=== PATIENT | male | born 1935 ===

== ENCOUNTER 2019-10-31 10:13 | Inpatient (IN) | payer MEDICARE ==
[~2019-10-31] VITALS: Ht 172.7 cm; Wt 88.2 kg
[2019-10-31] MEDS ORDERED: guaiFENesin/CODEINE (ROBITUSSIN AC) 10ML UDC PO PRN (11:15)
[2019-10-31] MEDS ORDERED: ONDANSETRON 4 MG (ZOFRAN) ORAL DISSOLVE TAB PO PRN (11:15)
[2019-10-31] MEDS ORDERED: FLEET ENEMA ADULT 1 EA BTL PR PRN (11:15)
[2019-10-31] MEDS ORDERED: diphenhydrAMINE 25 MG TAB (BENADRYL) PO PRN (11:15)
[2019-10-31] MEDS ORDERED: DOCUSATE SODIUM 100 MG (COLACE) CAP PO PRN (11:15)
[2019-10-31] MEDS ORDERED: ALPRAZolam 0.25 MG (XANAX) TAB PO PRN (11:15)
[2019-10-31] MEDS ORDERED: ENOXAPARIN 40 MG/0.4 ML (LOVENOX) SYR SC SCH (11:15)
[2019-10-31] MEDS ORDERED: LACTULOSE SYRUP 10GM/15ML (ENULOSE) 30ML UDC PO PRN (11:15)
[2019-10-31] MEDS ORDERED: BISACODYL 10 MG SUPP (DULCOLAX) PR PRN (11:15)
[2019-10-31] MEDS ORDERED: CALCIUM CARBONATE 500 MG (TUMS) TAB.CHEW PO PRN (11:15)
[2019-10-31] MEDS ORDERED: LOPERAMIDE 2 MG (IMODIUM) TABLET PO PRN (11:15)
[2019-10-31] MEDS ORDERED: ASCO100T6 PO (11:51)
[2019-10-31] MEDS ORDERED: MELA5TAB14 PO (11:51)
[2019-10-31] MEDS ORDERED: METF-478 PO (11:51)
[2019-10-31] MEDS ORDERED: CHLO4TAB36 PO (11:51)
[2019-10-31] MEDS ORDERED: AMIO200T4 PO (11:51)
[2019-10-31] MEDS ORDERED: ASPI-983 PO (11:51)
[2019-10-31] MEDS ORDERED: APIX5TAB PO (11:51)
[2019-10-31] MEDS ORDERED: LOVA20TA2 PO (11:51)
[2019-10-31] MEDS ORDERED: METO50TA7 PO (11:51)
[2019-10-31] MEDS ORDERED: INSU100V16 SQ (11:51)
[2019-10-31] MEDS ORDERED: MULT1TAB69 PO (11:51)
[2019-10-31] MEDS ORDERED: TMSL.4C PO (11:51)
[2019-10-31] MEDS ORDERED: INSU100V5 SQ (11:51)
--- NOTE | 2019-10-31 12:06 | NUR ---
ENTERED MED REC USING THE MUKESH DISCHARGE ORDERS I WILL INTERVIEW THE PT AFTER THE MEDS HAVE BEEN CONTINUED Addendum: 11/05/19 at 1352 by YANET SIEGEL CPhT SPOKE WITH THE PT AND HIS TO COMPLETE THE MED REC. MEDICATIONS THAT WERE NEW AFTER HIS [facility] VISIT THAT WERE REMOVED FROM THE MED REC: ELIQUIS 5M TAB BID CLONIDINE 0.1M TAB BID PRF BP (SBP>170) MEDICATIONS THAT HAVE BEEN CHANGED (THEY ALL HAVE BEEN CONVERTED BACK TO WHAT THE PT WAS TAKING BEFORE HIS [facility] HOSPITALIZATION): AMIODARONE: MUKESH CASTRO SAYS AMIODARONE 200M TAB DAILY, BEFORE THE HOSPITAL STAY: AMIODARONE 200MG: TAB DAILY METOPROLOL: MUKESH CASTRO SAYS METOPROLOL SUCC 50M TAB DAILY BEFORE THE HOSPITAL STAY: METOPROLOL TART 50M TAB DAILY ([facility] BUT THE PATIENT'S SAID AT A DRS APPT THEY WERE TOLD NOT TO TAKE A HALF TAB AND TO TAKE A WHOLE TABLET INSTEAD) LEVEMIR: MUKESH CASTRO SAYS LEVEMIR 18 UNITS HS BEFORE THE HOSPITAL STAY: LEVEMIR 15-20 UNITS HS NO MEDICATIONS WERE DISCONTINUED AT [facility] THE FOLLOWING ARE FILL DATES: 05-27-2019 TAMSULOSIN 0.4MG #90/90DS 07-30-2019 LOVASTATIN 20MG #90/90DS 08-01-2019 NOVOLOG #5 VIALS/90DS 08-16-2019 LEVEMIR #3 VIALS/90DS 10-08-2019 METOPROLOL TART 50MG #90/90DS 10-08-2019 METFORMIN ER 500MG #360/90DS OTC MEDS: MELATONIN MTV VIT C CHLORPHENIRAMINE
[2019-10-31 15:41] VITALS: BP 148/64
[2019-10-31 15:43] VITALS: BP 148/64
--- NOTE | 2019-10-31 15:48 | Physical Therapy Evaluation ---
PT Evaluation-General Medical Diagnosis Admission Date Oct 31, 2019 at 15:05 Medical Diagnosis: CVA Onset Date: Oct 31, 2019 Therapy Diagnosis Therapy Diagnosis: weakness; abn gait Precautions Precautions/Isolations: Standard Precautions Referral Physician: Kristine Reason for Referral: Evaluation/Treatment Medical History Pertinent Medical History: DM, HTN Additional Medical History diploplia right eye; planter nerve lesion, right RCR; right ankle fx Current History Pt transferred to this facility from acute hospital with dx of CVA. Right sided hemiparesis. Reviewed History: Yes Social History Home: Single Level Current Living Status: Spouse Entry Into Home: Stairs With Railing Prior Prior Level of Function SCALE: Activities may be completed with or without assistive devices. 0-Kflkyozqbk-hitdrdt completes the activity by him/herself with no assistance from a helper. 5-Set-up or Clean-up Assistance-helper sets up or cleans up; patient completes activity. [place] assists only prior to or following the activity. 4-Supervision or Touching Assistance-helper provides verbal cues and/or touching/steadying and/or contact guard assistance as patient completes activity. Assistance may be provided throughout the activity or intermittently. 3-Partial/Moderate Assistance-helper does LESS THAN HALF the effort. [place] lifts, holds or supports trunk or limbs, but provides less than half the effort. 2-Substantial/Maximal Assistance-helper does MORE THAN HALF the effort. [place] lifts or holds trunk or limbs and provides more than half the effort. 1-Hfbwrsgmy-bpwpct does ALL the effort. Patient does none of the effort to complete the activity. Or, the assistance of 2 or more helpers is required for the patient to complete the activity. If activity was not attempted, code reason: 7-Patient Refused. 9-Not Applicable-not attempted and the patient did not perform the activity before the current illness, exacerbation or injury. 10-Not Attempted due to Environmental Limitations-(lack of equipment, weather restraints, etc.). 88-Not Attempted due to Medical Conditions or Safety Concerns. Bed Mobility: 6 Transfers (B,C,W/C): 6 Gait: 6 Stairs: 6 Indoor Mobility (Ambulation): Independent Stairs: Independent Pt indep and active at PLOF; drives, community ambulation. PT Evaluation-Current Subjective Pt reports he had the onset of right sided weakness on Monday. Reports it has waxed and waned but since Monday, he has had little to no movement right side. Pain Numeric Pain Scale: 0-No Pain Location: No Pain Reported Pt/Family Goals His goal is to return home with his spouse when able to manage. Objective Patient Orientation: Person, Place, Time, Situation ROM/Strength ROM Lower Extremities left LE AROM WNL: right side PROM WNL Strength Lower Extremities left LE WNL Right DF-0/5; PF 1/5; quad 1/5, hamstring 1/5; hip flexion 1/5. Integumentary/Posture Integumentary refer to nursing notes for full assessment. Bowel Incontinence: No Bladder Incontinence: No Posture symmetrical Neuromuscular (Tone, Coordination, Reflexes) unable to elicit reflexes right LE; hemiparesis right side. Sensory Vision: Wears Glasses Hearing: Functional Hand Dominance: Right Sensation Right Lower Extremit: Intact Sensation Left Lower Extremity: Intact Transfers Roll Left to Right (QC): 2 Sit to Lying (QC): 2 Lying to Sitting/Side of Bed(Q: 2 Sit to Stand (QC): 1 (assist of 2 to come to a full stand. ) Chair/Lty-jm-Maonl Xfer(QC): 1 (assist of 2 to perform SPT. ) Toilet Transfer: 88 Car Transfer (QC): 2 (max assist to transfer in/out of car) Heavy cues for sequencing and safety. No active use of right side for transfers. Gait Does the Patient Walk?: No and Walking Goal IS indicated Mode of Locomotion: Walk Anticipated Mode of Locomotion: Walk Walk 10 feet (QC): 88 Walk 50 ft with 2 Turns(QC): 88 Walk 150 ft (QC): 88 Walking 10ft/uneven surface-QC: 88 Comments/Gait Description Pt unable to ambulate at this time. Wheelchair Training Does the Pt Use a Wheelchair?: Yes Will assess this at next visit. Stairs 1 Step (curb) (QC): 88 4 Steps (QC): 88 12 Steps (QC): 88 Balance Sitting Static: Fair Sitting Dynamic: Fair Standing Static: Poor Standing Dynamic: Poor Picking up an Object (QC): 88 Treatment Functional transfer training and bed mobility; addressed ARU set up and POC; worked on positioning in bed and use of left side to assist right side. Assessment/Needs Post CVA with limited use of right side at this time. Pt was indep at [facility] and active. He presents with gross right side weakness and limited active use which impairs functional transfers, bed mobility and his ability to stand or walk. He will benefit from skilled PT services to address these deficits and promote mod indep functional mobiltiy to allow him to return home as before Rehab Potential: Good PT Short Term Goals Short Term Goals Time Frame: Nov 14, 2019 Roll Left & Right: 3 Sit to lyin Lying to sitting on side of be: 3 Sit to stand: 3 Chair/hmw-lz-cuqhr transfer: 3 Walk 10 feet: 2 Wheel 50ft w/2 turns: 4 Wheel 150 feet: 4 PT Long-Term Goals Long-Term Goals PT Long-Term Goals Time Frame: Nov 28, 2019 Roll Left & Right (QC): 6 Sit to Lying (QC): 6 Lying-Sitting on Side/Bed(QC): 6 Sit to Stand (QC): 6 Chair/Lnj-jv-Fwmtu Xfer(QC): 6 Toilet Transfer (QC): 6 Car Transfer (QC): 5 Does the Patient Walk: No and Walking Goal IS indicated Walk 10 feet (QC): 6 Walk 50ft with 2 Turns (QC): 6 Walk 150 ft (QC): 6 Walking 10ft on Uneven Surface: 5 1 Step (curb) (QC): 5 4 Steps (QC): 5 12 Steps (QC): 4 Picking up an Object (QC): 4 Wheel 50 feet with 2 turns (QC: 6 Type: Manual Wheel 150 feet: 6 Type: Manual PT Plan Problem List Problem List: Activity Tolerance, Functional Strength, Safety, Balance, Gait, Transfer, Bed Mobility Treatment/Plan Treatment Plan: Continue Plan of Care Treatment Plan: Bed Mobility, Education, Functional Activity Joey, Functional Strength, Group Therapy, Gait, Safety, Therapeutic Exercise, Transfers Treatment Duration: Nov 28, 2019 Frequency: At least 5 of 7 days/Wk (IRF) Estimated Hrs Per Day: 1.5 hours per day Patient and/or Family Agrees t: Yes Safety Risks/Education Patient Education: Transfer Techniques, Safety Issues Teaching Recipient: Patient Teaching Methods: Demonstration, Discussion Response to Teaching: Reinforcement Needed Discharge Recommendations Therapy Discharge Recommendati: Post Acute PT Time/GCodes Time In: 1505 Time Out: 1545 Total Billed Treatment Time: 40 Total Billed Treatment visit EVM 15 FA 25 KAREN PACE PT Oct 31, 2019 15:48
[2019-10-31] MEDS ORDERED: CLON0.1T PO (15:59)
[2019-10-31] MEDS ORDERED: inSUlin ASPART (NovoLOG) 1 UNIT/0.01 ML (CHARGE PER UNIT) SC SCH (17:15)
[2019-10-31] MEDS ORDERED: CHLORPHENIRAMINE 4 MG TAB (NON-FORMULARY) PO PRN (18:00)
[2019-10-31] MEDS ORDERED: cloNIDine 0.1 MG (CATAPRES) TAB PO PRN (18:00)
[2019-10-31] MEDS: inSUlin ASPART (NovoLOG) 1 UNIT/0.01 ML (CHARGE PER UNIT) SC SCH ×2 (18:19→21:29)
[2019-10-31] MEDS: inSUlin ASPART (NovoLOG) 1 UNIT/0.01 ML (CHARGE PER UNIT) SQ SCH (18:35)
[2019-10-31] MEDS: SIMvastatin 10 MG (ZOCOR) TAB PO SCH (18:39)
[2019-10-31] MEDS: metFORMIN XR 500 MG (GLUCOPHAGE XR) TAB PO SCH (18:39)
--- NOTE | 2019-10-31 21:24 | PM&R Post Admission Assessment ---
PM&R HP Date of Visit: Oct 31, 2019 Time of Visit: 18:15 History of Present Illness CC: CVA with residual right sided flaccidity HPI: HPI: This is an 84yoWM clinic Pt of Dr. Beth Bryan, whom I spoke to earlier today, who presents after sustaining a left MCA stroke and in need of aggressive inpatient rehabilitation to regain function considering is right sided flaccidity. To note he was admitted on 10/27/19 for TIA and during the DC process on 10/28/19 he suffered the acute CVA but was not a TPA candidate due to OAC administration. He is , contemplated going to [facility] for convenience because they live in [place] but inpatient rehab outcomes after stroke is superior, documented in many studies and he agreed to come. I did update Dr. Bryan. He was previously independent of all functions and lived with his living independently. He is a prior smoker many years ago and is retired from [email or web address] for 35 years with impeccable driving record of 4.2 million miles without an accident. He has been to his current for 18 years. 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 Patient has not had a BM since Monday so will aggressively treat that. Dysphagia at night but eating and drinking well and has no issues with urination. DC note per [facility] Hospitalist: Primary Discharge Diagnosis: Acute CVA (cerebrovascular accident) Other Active medical issues also addressed during this admission: Active Hospital Problems Diagnosis Stroke Acute CVA (cerebrovascular accident) Right sided weakness History of TIA (transient ischemic attack) and stroke Stroke-like symptom History of penile implant Hyperlipidemia Paroxysmal atrial fibrillation Diabetic polyneuropathy associated with type 2 diabetes mellitus CAD (coronary artery disease) Impotence of organic origin: Corrected with IPP Essential hypertension Diabetes mellitus type 2 with neurological manifestations Resolved Hospital Problems No resolved problems to display. HOSPITAL COURSE: Please see H and P for full details on admission, symptoms and initial care. Chief Complaint-right sided weakness HPI-Marcial Henson a 84 y.o.malewith past medical history of CAD s/p CABG, right carotid endarterectomy, diabetes, erectile dysfunctions s/p penile implant, HTN, HLD,paroxysmal A. fib was admitted for right-sided weakness.Patient stroke work-up M done. CT head and CTA head and neck no acute abnormality,no acute stroke or hemorrhage.Echocardiogram with bubble study no evidence of wmnps-iy-vwma shunt with normal LV function.Cannot Obtain MRI brain because of the penile implant.Patient was supposed to be on Eliquis for A. fib however he was not taking for the past year.his Eliquis wasresumed. Patient symptoms are from worsening right-sided weakness and waxing and waning over the past few days.CT head did not show any acute stroke. Ultrasound myopericarditis did not show any stenosis but no unstable plaque. Patient was evaluated by neurology recommends continued Eliquis 5 mg twice daily and Lipitor 40 mg. Patient was seen at bedside this morning he is awake alert oriented continues to have right-sided upper and lower extremity weakness with strength 0/5. PT/OT - rec - rehab.Referral sent to [facility] [place] inpatient rehab.Patient was accepted for possible discharge tomorrow ROS:Has constipation continues to have weakness on the right side of the body.denies abdominal pain, nausea vomiting, headache, blurred vision, chest pain, palpitations, urinary disturbance 10/31/19:Patient was seen at bedside this morning.Being in the chair.His right-sided weakness is still complete.No appreciated movements noted.Strength is 0/5 on the right upper and lower extremity.Mild numbness on the right side of the face.Patient will continue with PT and OT. He is accepted at [facility] for further management of stroke. Met with the patient along with SW/CM discussed in detail about the rehabilitat ion and the PT and OT services that he will receive with the facility. Patient and agrees with the plan plan is to discharge him to rehab today to follow-up with neurology,cardiology, endocrinology and primary care doctor in 1 week. Previous DC note from 10/27/19-10/28/19 the afternoon of his acute CVA: Hospital Course:Marcial Henson a 84 y.o.,malewho presented with right sided weakness. Patient and family also reported facial droop that was not present on admission. Patient was placed on observation and monitored. Patient was seen and examined at the bedside this morning. Unfortunately, because of penile implant, we could not perform and MRI. During physical examination this morning, patient's weakness has almost completely resolved. Of note, patient has PAF for which he was previously on anticoagulation but stopped by PCP according to the patient and his . No complications reported before it was stopped. Patient's H/H remain stable currently. CM/SW consulted. Patient has been instructed to continue anticoagulation indefinitely to prevent another episode of stroke. ECHO did not show evidence of PFO or thrombus. Patient discharged home with instruction to follow up with his appointments as scheduled Other Medical History: CAD (coronary artery disease)2000 stents x 3, many years ago. Myocardial infarct in 1999, by history. Carotid artery [id number] Right carotid endarterectomy in 2001. Diabetes mellitus type 2 with neurological [id number] Diabetes mellitus type 2 since 1996, insulin dependent. 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 Other Past Procedures: HX ANKLE FRACTURE TX right HX AORTIC [id number] added 2 more stents, total of 6 stents, by history. HX ARTERIAL BYPASS [id number]/08/2017 Triple Bypass HX CAROTID [id number] Right carotid endarterectomy in 2001. HX COLECTOMY03/28/12 sigmoid colectomy, resection proximal rectum secondary to polyp sigmoid colon with dysplasia HX CORONARY STENT PLACEMENT x3 HX ROTATOR CUFF [id number] Right shoulder injury in a fall in [place], with right shoulder arthroscopic surgery in [place] in 2009. HX STRABISMUS SURGERYRight04/08/16 recess medial rectus 5.5mm HX SURGICAL OTHER01/17/01 Penile implantation of Ambicor two pc peile prothesis and excision of peyronies plaque HX SURGICAL OTHER03/06/01 Explantation of infected penile prothesisand irrigation of wound with placement of drains HX SURGICAL OTHER01/19/01 Deflation of penile prosthesis Assessment and Recommendations Assessment: Patient with recurrent left MCA territory stroke, cardioembolic (AFIB), right arm and leg plegia, completely resolved this AM, started on Eliquis, then symptoms recurred and are much worse than yesterday's event. El iquis precludes IV TPA, however he may be a thrombectomy candidate, and therefore should have stat CTA of the head-neck. Of note, spinal cord not implicated, based on history of slurring of speech that accompanied stroke onset yesterday. Recommendations: STAT CTA head and neck, and if large vessel obstruction identified then please consult neurointervention team STAT Patient should remain in-house for at least another 24-48 hours, and continue Eliquis since current stroke began while on Eliquis, therefore benefit of continuing Eliquis outweighs risk, whereas discontinuing Eliquis puts patient at high risk for recurrent stroke from atrial fibrillation Repeat CT head without contrast tomorrow and if no significant change from prior CTs then consider CT cervical spine without contrast and please reconsult teleneurology or in-house neurology Patient should be followed by in-house neurology or daily by tele-neurology service if in-house neurology not available Consider cervical spine CT without contrast if patient large vessel obstruction not present on CTA and repeat CT head tomorrow Disposition: Disposition recommendations pending results of additional workup or management Past Weeeoeq-Ohmfcw-Zonfel Hx Past Med/Social Hx: Reviewed Nursing Past Med/Soc Hx, Reviewed and Corrections made Patient Social History Marrital Status: Employed/Student: retired ([employer]) Alcohol Use: Denies Use Recreational Drug Use: No Physical Abuse Screen: No Sexual Abuse: No Recent Foreign Travel: No Contact w/other who traveled: No Recent Hopitalizations: Yes (Patient transferred from [facility]) Recent Infectious Disease Expo: No Immunizations Up To Date Pediatric: No Date of Pneumonia Vaccine: Aug 21, 2016 Date of Influenza Vaccine: Apr 21, 2019 Seasonal Allergies Seasonal Allergies: No Past Medical History Surgeries: CABG, Gallbladder, Open Heart Surgery, Penile Implant, Vascular Surgery partial colon resection Currently Using CPAP: No Currently Using BIPAP: No Cardiac: Atrial Fibrillation, Coronary Artery Disease, High Cholesterol, Hypertension, Peripheral Vascular Neurological: Neuropathy, Stroke (10/28/19 not tPa candidate) Sexually Transmitted Disease: No HIV/AIDS: No Gastrointestinal: Gastroesophageal Reflux, Polyps Musculoskeletal: Arthritis, Chronic Back Pain Endocrine: Diabetes, Insulin dep Are Your Blood Sugars Over 250: No HEENT: Cataract, Macular Degeneration, Double Vision Loss of Vision: Denies Hearing Impairment: Hard of Hearing, Bilateral Hearing Aide Cancer: Colon Did You Recieve Any Treatments: Yes What Type of Treatment Did You: Surgical Intervention History of Blood Disorders: No Adverse Reaction to Blood Ortega: No Family History Alcoholism G8 BROTHER Cataracts 19 FATHER Myocardial infarction 19 MOTHER Psychosocial problem G8 SISTER Prior Level of Function Bed Mobility: 6 Transfers: 6 Gait: 6 Stairs: 6 Indoor Mobility (Ambulation): Independent Stairs: Independent Current Level of Fuctioning Roll Left to Right: 2 Sit to Lyin Lying to Sitting/Side of Bed: 2 Sit to Stand: 1 (assist of 2 to come to a full stand. ) Chair/Rpm-bw-Floap Xfer: 1 (assist of 2 to perform SPT. ) Car Transfer: 2 (max assist to transfer in/out of car) Does the Patient Walk: No and Walking Goal IS indicated Mode of Locomotion: Walk Anticipated Mode of Locomotion: Walk Walk 10 feet: 88 Walk 50 ft with 2 Turns: 88 Walk 150 ft: 88 Walking 10ft on uneven surface: 88 Does the Pt Use a Wheelchair: Yes 1 Step (curb): 88 4 Steps: 88 12 Steps: 88 Picking up an Object: 88 PM&R Allergy/Meds/Data Review Allergies Coded Allergies: No Allergy Information Available (Unverified , 10/31/19) Home Medications Scheduled Amiodarone HCl (Amiodarone HCl), 200 MG PO DAILY, (Reported) Apixaban (Eliquis), 5 MG PO BID, (Reported) Ascorbic Acid (Vitamin C), 100 MG PO DAILY, (Reported) Aspirin (Aspirin EC), 81 MG PO HS, (Reported) Insulin Aspart (Novolog), 12 UNIT SQ WM, (Reported) Insulin Determir (Levemir), 18 UNITS SQ HS, (Reported) Lovastatin (Lovastatin), 20 MG PO 1800 W/MEALS, (Reported) Metformin HCl (Metformin HCl ER), 1,000 MG PO BID, (Reported) Metoprolol Succinate (Metoprolol Succinate), 50 MG PO HS, (Reported) Multivitamin (Multivitamins), 1 EACH PO DAILY, (Reported) Tamsulosin HCl (Flomax), 0.4 MG PO DAILY, (Reported) Scheduled PRN Chlorpheniramine Maleate (Chlorpheniramine Maleate), 4 MG PO TID PRN for ALLERGY SYMPTOMS, (Reported) Clonidine HCl (Clonidine HCl), 0.1 MG PO BID PRN for BLOOD PRESSURE, (Reported) Melatonin (Melatonin), 10 MG PO HS PRN for SLEEP, (Reported) Current Medications Current Medications Reviewed Laboratory Data Laboratory Tests 3/12/20 16:04: Glucometer 334H 10/31/19 20:13: Glucometer 193H Review of Systems Constitutional: see HPI, dizziness, weakness Gastrointestinal: constipation Musculoskeletal: back pain Psychiatric/Neurological: Numbness, Paresthesia, Weakness Physical Exam Physical Exam Vital Signs Vital Signs - First Documented 10/31/19 15:41 Temp 36.2 Pulse 54 Resp 20 B/P (MAP) 148/64 (92) Pulse Ox 94 O2 Delivery Room Air Capillary Refill : Height, Weight, BMI Height: '" Weight: lbs. oz. kg; 28.73 BMI Method: General Appearance: No Apparent Distress, WD/WN, Chronically ill Eyes: Bilateral Eye Normal Inspection, Bilateral Eye PERRL HEENT: PERRL/EOMI, Normal ENT Inspection, Pharynx Normal Neck: Full Range of Motion, Normal Inspection, Non Tender, Supple, Carotid Bruit Respiratory: Chest Non Tender, Lungs Clear, Normal Breath Sounds, No Accessory Muscle Use, No Respiratory Distress Cardiovascular: No Edema, No Gallop, No JVD, No Murmur, Normal Peripheral Pulses, Irregularly Irregular Gastrointestinal: Normal Bowel Sounds, No Organomegaly, No Pulsatile Mass, Non Tender, Soft Back: Normal Inspection, No CVA Tenderness, No Vertebral Tenderness Extremity: Normal Capillary Refill, Normal Inspection, Normal Range of Motion, Non Tender, No Calf Tenderness, No Pedal Edema Neurologic/Psychiatric: Alert, Oriented x3, Normal Mood/Affect, parent partner II-XII Norm as Tested, Abnormal Gait, Motor Weakness (right sided weakness) Skin: Normal Color, Warm/Dry Lymphatic: No Adenopathy PM&R Medical Assessment & Plan REHAB/MEDICAL ASSESSMENT AND PLAN: REHAB IMPAIRMENT GROUP: CVA with right sided flaccidity ETIOLOGIC DIAGNOSIS: CVA with right sided flaccidity The comorbidities that impact the patients function and/or functional outcome by: advanced age, AF, OAC, HTN, DM, PVD REHAB PLAN: The patient is being admitted to our comprehensive inpatient rehabilitation facility and can tolerate the intensity of service consisting of at least: 180 minutes of therapy a day, 5 out of 7 days a week Rehab treatment will consist of: PT OT ST will focus on regaining independence with new right sided flaccidity and enable him to return home with his The patient/family has a good understanding of our discharge process and will benefit from an interdisciplinary inpatient rehabilitation program. The patient has potential to make improvement and is in need of at least two of the following multidisciplinary therapies including but not limited to physical, occupational, speech, and prosthetics and orthotics. Additionally the patient will need services from respiratory, nutritional services, wound care, psychology, etc. (Customize this to each patient). Given the patients complex condition and risk of further medical complications, rehabilitation services cannot be safely or effectively provided at a lower level of care such as a jail facility. BARRIERS TO DISCHARGE: Lives at home with ESTIMATED LOS: 14 days DISPOSITION: Home RELEVANT CHANGES SINCE PREADMISSION SCREENING: I have compared the patients medical and functional status at the time of the preadmission screening and there are: no changes PROGNOSIS: Good REHABILITATION GOALS: 1. PT OT ST will focus on regaining independence with new right sided flaccidity and enable him to return home with his All the above goals were reviewed with the patient and he/she is in agreement. By signing this document, I acknowledge that I have personally performed a full physical examination on this patient within 24 hours of admission to this inpatient rehabilitation facility and have determined the patient to be able to tolerate the above course of treatment at an intensive level for a reasonable period of time. I will be completing a detailed individualized Plan of Care for this patient by day #4 of the patients stay based upon the Preadmission Screen, the Post-Admission Evaluation, and the therapy evaluations. Admission Dx/Comorbidities: (1) CVA (cerebral vascular accident) ICD Codes: I63.9 - Cerebral infarction, unspecified (2) Flaccid hemiplegia affecting dominant side ICD Codes: G81.00 - Flaccid hemiplegia affecting unspecified side (3) Diabetes ICD Codes: E11.9 - Type 2 diabetes mellitus without complications (4) Hypertension ICD Codes: I10 - Essential (primary) hypertension (5) Hyperlipemia ICD Codes: E78.5 - Hyperlipidemia, unspecified (6) On continuous oral anticoagulation ICD Codes: Z79.01 - MCFP (current) use of anticoagulants (7) Atrial fibrillation ICD Codes: I48.91 - Unspecified atrial fibrillation (8) History of penile implant ICD Codes: Z96.0 - Presence of urogenital implants (9) History of colon cancer ICD Codes: Z85.038 - Personal history of other malignant neoplasm of large intestine (10) Former smoker ICD Codes: Z87.891 - Personal history of nicotine dependence (11) Renal insufficiency ICD Codes: N28.9 - Disorder of kidney and ureter, unspecified (12) Constipation ICD Codes: K59.00 - Constipation, unspecified Assessment/Plan Assessment and Plan Assess & Plan/Chief Complaint Assessment: CVA 10/28/19 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 HTN HLP CRI AF ED Acute constipation Plan: IRF protocol BM regimen Fall risk Cardiology consultation SCOTT BARBOSA DO Oct 31, 2019 21:24
[2019-10-31] MEDS: meTOproloL SUCCINATE 50 MG (TOPROL XL) TAB PO SCH (21:27)
[2019-10-31] MEDS: ASPIRIN E.C. 81 MG (ECOTRIN) TAB PO SCH (21:27)
[2019-10-31] MEDS: MELATONIN 3 MG TABLET PO PRN (21:27)
[2019-10-31] MEDS: polyethylene glycoL POWDER 17 GM (MIRALAX) PACK PO SCH (21:27)
[2019-10-31] MEDS: DOCUSATE SODIUM 100 MG (COLACE) CAP PO SCH (21:27)
[2019-10-31] MEDS: SENNA W/DOCUSATE (SENOKOT S) TABLET PO SCH (21:27)
[2019-10-31] MEDS: APIXABAN 5 MG (ELIQUIS) TABLET PO SCH (21:31)
[2019-11-01] MEDS: inSUlin ASPART (NovoLOG) 1 UNIT/0.01 ML (CHARGE PER UNIT) SC SCH ×4 (05:59→21:16)
[2019-11-01 06:00] VITALS: BP 155/66
[2019-11-01 06:13] LABS: BASOPHILS % (AUTO) 1 % (0-10); EOSINOPHILS # (AUTO) 0.3 10^3/uL (0.0-0.3); EOSINOPHILS % (AUTO) 3 % (0-10); HEMATOCRIT 43 % (40-54); HEMOGLOBIN 14.4 G/DL (13.3-17.7); LYMPHOCYTES # (AUTO) 2.6 X 10^3 (1.0-4.0); LYMPHOCYTES % (AUTO) 30 % (12-44); MEAN CORPUSCULAR HEMOGLOBIN 32 PG (25-34); MEAN CORPUSCULAR HGB CONC 34 G/DL (32-36); MEAN CORPUSCULAR VOLUME 95 FL (80-99); MEAN PLATELET VOLUME 11.4 FL (7.4-10.4); MONOCYTES % (AUTO) 12 % (0-12); NEUTROPHILS # (AUTO) 4.6 X 10^3 (1.8-7.8); NEUTROPHILS % (AUTO) 54 % (42-75); PLATELET COUNT 262 10^3/uL (130-400); RED CELL DISTRIBUTION WIDTH 14.7 % (10.0-14.5); WHITE BLOOD COUNT 8.5 10^3/uL (4.3-11.0)
[2019-11-01 06:44] LABS: ALANINE AMINOTRANSFERASE 18 U/L (0-55); ALBUMIN 3.5 GM/DL (3.2-4.5); ALKALINE PHOSPHATASE 86 U/L (40-136); BILIRUBIN,TOTAL 0.5 MG/DL (0.1-1.0); BUN/CREATININE RATIO 20; CALCIUM 9.1 MG/DL (8.5-10.1); CARBON DIOXIDE 24 MMOL/L (21-32); CHLORIDE 103 MMOL/L (98-107); CREATININE SERUM 1.05 MG/DL (0.60-1.30); GFR ESTIMATED > 60; GLUCOSE 95 MG/DL (70-105); POTASSIUM 4.1 MMOL/L (3.6-5.0); SODIUM 138 MMOL/L (135-145); TOTAL PROTEIN 5.8 GM/DL (6.4-8.2)
[2019-11-01] MEDS: metFORMIN XR 500 MG (GLUCOPHAGE XR) TAB PO SCH ×2 (07:17→16:48)
[2019-11-01] MEDS: polyethylene glycoL POWDER 17 GM (MIRALAX) PACK PO SCH ×2 (08:15→21:45)
[2019-11-01] MEDS: SENNA W/DOCUSATE (SENOKOT S) TABLET PO SCH ×2 (08:16→21:46)
[2019-11-01] MEDS: TAMSULOSIN 0.4 MG (FLOMAX) CAP PO SCH (08:16)
[2019-11-01] MEDS: APIXABAN 5 MG (ELIQUIS) TABLET PO SCH ×2 (08:16→21:24)
[2019-11-01] MEDS: MULTIVIT W/MINERALS TAB (THERAGRAN M) PO SCH (08:16)
[2019-11-01] MEDS: DOCUSATE SODIUM 100 MG (COLACE) CAP PO SCH ×2 (08:17→21:45)
[2019-11-01] MEDS: AMIODARONE 200 MG (CORDARONE) TAB PO SCH (08:17)
[2019-11-01 08:18] VITALS: BP 135/66
[2019-11-01] MEDS ORDERED: ASCORBIC ACID 100 MG PO SCH (09:00)
--- NOTE | 2019-11-01 09:03 | PM&R Progress Note ---
Subjective HPI/CC On Admission Date Seen by Provider: Nov 01, 2019 Time Seen by Provider: 09:00 Subjective/Events-last exam Pt had a pretty good night, didn't sleep much Labile glucose noted MiraLax and fleets and suppository and soap suds will be needed since it has been almost a week since a bowel movement Overall feeling pretty good about everything. stays here with him / Checked meds and labs Reviewed therapy notes Conferred with manager pathology of Systems General: Fatigue Neurological: Weakness, Numbness, Incoordination Objective Exam Vital Signs Vital Signs Date Time Temp Pulse Resp B/P (MAP) Pulse Ox O2 Delivery O2 Flow Rate FiO2 11/01/19 16:00 36.6 54 20 143/76 (98) 98 Room Air Capillary Refill : Less Than 3 Seconds General Appearance: No Apparent Distress, WD/WN, Chronically ill HEENT: PERRL/EOMI, Normal ENT Inspection, Pharynx Normal Neck: Full Range of Motion, Normal Inspection, Non Tender, Supple, Carotid Bruit Respiratory: Chest Non Tender, Lungs Clear, Normal Breath Sounds, No Accessory Muscle Use, No Respiratory Distress Cardiovascular: No Edema, No Gallop, No JVD, No Murmur, Normal Peripheral Pulses, Irregularly Irregular Gastrointestinal: Normal Bowel Sounds, No Organomegaly, No Pulsatile Mass, Non Tender, Soft Back: Normal Inspection, No CVA Tenderness, No Vertebral Tenderness Extremity: Normal Capillary Refill, Normal Inspection, Normal Range of Motion, Non Tender, No Calf Tenderness, No Pedal Edema Neurologic/Psychiatric: Alert, Oriented x3, Normal Mood/Affect, senior marketing analyst II-XII Norm as Tested, Abnormal Gait, Motor Weakness (right sided weakness) Skin: Normal Color, Warm/Dry Lymphatic: No Adenopathy Results/Procedures Lab Laboratory Tests 11/01/19 05:50 Patient resulted labs reviewed. FIM Transfers Therapy Code Descriptions/Definitions Functional [place] Measure: 0=Not Assessed/NA 4=Minimal Assistance 1=Total Assistance 5=Supervision or Setup 2=Maximal Assistance 6=Modified [place] 3=Moderate Assistance 7=Complete IndependenceSCALE: Activities may be completed with or without assistive devices. 1-Zwtvafclhq-cirqzbl completes the activity by him/herself with no assistance from a helper. 5-Set-up or Clean-up Assistance-helper sets up or cleans up; patient completes activity. [place] assists only prior to or following the activity. 4-Supervision or Touching Assistance-helper provides verbal cues and/or touching/steadying and/or contact guard assistance as patient completes activity. Assistance may be provided throughout the activity or intermittently. 3-Partial/Moderate Assistance-helper does LESS THAN HALF the effort. [place] lifts, holds or supports trunk or limbs, but provides less than half the effort. 2-Substantial/Maximal Assistance-helper does MORE THAN HALF the effort. [place] lifts or holds trunk or limbs and provides more than half the effort. 7-Xijagunnm-ykuexm does ALL the effort. Patient does none of the effort to complete the activity. Or, the assistance of 2 or more helpers is required for the patient to complete the activity. If activity was not attempted, code reason: 7-Patient Refused. 9-Not Applicable-not attempted and the patient did not perform the activity before the current illness, exacerbation or injury. 10-Not Attempted due to Environmental Limitations-(lack of equipment, weather restraints, etc.). 88-Not Attempted due to Medical Conditions or Safety Concerns. Roll Left to Right (QC): 2 Sit to Lying (QC): 2 Sit to Stand (QC): 1 (assist of 2 to come to a full stand. ) Chair/Slp-df-Qaeqq Xfer(QC): 1 (assist of 2 to perform SPT. ) Car Transfer (QC): 2 (max assist to transfer in/out of car) Gait Training Does the Patient Walk?: No and Walking Goal IS indicated Walk 10 feet (QC): 88 Walk 50 ft with 2 Turns(QC): 88 Walk 150 ft (QC): 88 Walking 10ft/uneven surface-QC: 88 Wheelchair Training Does the Pt Use a Wheelchair?: Yes Stair Training 1 Step (curb) (QC): 88 4 Steps (QC): 88 12 Steps (QC): 88 Balance Picking up an Object (QC): 88 Assessment/Plan Assessment and Plan Assess & Plan/Chief Complaint Assessment: CVA 10/28/19 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 HTN HLP CRI AF ED Acute constipation initiated aggressive meds Plan: IRF protocol BM regimen Fall risk Cardiology consultation (1) CVA (cerebral vascular accident) (2) Flaccid hemiplegia affecting dominant side (3) Diabetes (4) Hypertension (5) Hyperlipemia (6) On continuous oral anticoagulation (7) Atrial fibrillation (8) History of penile implant (9) History of colon cancer (10) Former smoker (11) Renal insufficiency (12) Constipation SCOTT BARBOSA DO Nov 01, 2019 09:03
--- NOTE | 2019-11-01 09:29 | Occupational Therapy Eval ---
OT Evaluation-General/PLF Medical Diagnosis Admission Date Oct 31, 2019 at 15:05 Medical Diagnosis: CVA Onset Date: Oct 31, 2019 Therapy Diagnosis Therapy Diagnosis: Impaired self care skills Precautions Precautions/Isolations: Fall Prevention, Standard Precautions Safety Interventions: Reorient-PRN Referral Physician: Kristine Medical History Pertinent Medical History: Atrial Fib, CAD, DM, HTN Additional Medical History Right RCR Current History Pt admitted to ARU following acute hospitalization for CVA with right side deficits Reviewed History: Yes Social History Home: Single Level Current Living Status: Spouse Entry Into Home: Stairs With Railing Steps Inside Home: 1 ADL-Prior Level of Function SCALE: Activities may be completed with or without assistive devices. 1-Ardjyabfwc-dnwzcvz completes the activity by him/herself with no assistance from a helper. 5-Set-up or Clean-up Assistance-helper sets up or cleans up; patient completes activity. [place] assists only prior to or following the activity. 4-Supervision or Touching Assistance-helper provides verbal cues and/or touching/steadying and/or contact guard assistance as patient completes activity. Assistance may be provided throughout the activity or intermittently. 3-Partial/Moderate Assistance-helper does LESS THAN HALF the effort. [place] lifts, holds or supports trunk or limbs, but provides less than half the effort. 2-Substantial/Maximal Assistance-helper does MORE THAN HALF the effort. [place] lifts or holds trunk or limbs and provides more than half the effort. 6-Khmbuwbtw-rgowww does ALL the effort. Patient does none of the effort to complete the activity. Or, the assistance of 2 or more helpers is required for the patient to complete the activity. If activity was not attempted, code reason: 7-Patient Refused. 9-Not Applicable-not attempted and the patient did not perform the activity before the current illness, exacerbation or injury. 10-Not Attempted due to Environmental Limitations-(lack of equipment, weather restraints, etc.). 88-Not Attempted due to Medical Conditions or Safety Concerns. ADL PLOF Comments Pt reports being independent prior to admission. Did not use any AD Self Care: Independent Functional Cognition: Independent DME/Equipment: Bath Bench, Shower, Tub OT Current Status Subjective Pt in bed, agrees to therapy. Pt has no c/o pain during session. Mental Status/Objective Patient Orientation: Person, Place, Situation Current Glasses/Contacts: Yes Hearing Aids: No (Pt states he has hearing aids, but rarely wears them) Dentures/Partials: Yes Hand Dominance: Right Upper Extremity ROM Left UE WFL Righty UE PROM WFL Upper Extremity Coordination Left UE WFL Right UE impaired- Upper Extremity Sensation Intact to light touch Upper Extremity Strength Left UE Grossly WFL Pt demonstrates trace shoulder elevation, scapular retraction, and shoulder abduction. Trace elbow extension and wrist and finger flex/ext. ADL-Treatment Eating (QC): 4 (by report) Oral Hygiene (QC): 2 (Max assist for denture care) Shower/Bathe Self (QC): 1 (Assist x2 required for safety during LE bathing.) Upper Body Dressing (QC): 2 (Pt able to thread left UE into sleeve. Assist for right UE. Pt able to partially pull shirt over head, but requires assist to pull down in back.) Lower Body Dressing (QC): 1 (Pt requires assist to thread bilateral LE into underwear and pants. Assist x2 required to stand and complete pant hike. Pt has impaired standing balance and leans heavily to right in standing. ) On/Off Footwear (QC): 1 (Assist to doff/don socks and shoes.) Toileting Hygiene (QC): 7 (declined toileting at this time.) Pt supine to sit with max assist. Sat EOB with assist for balance. Stand pivot transfer to w/c with max assist. Pt requires cues for hand placement, sequ encing, and safety during transfer. Sponge bath completed while seated in w/c. Pt sitting in w/c with needs met after session, PT and spouse present. Education OT Patient Education: Rehab process Teaching Recipient: Patient Teaching Methods: Discussion Response to Teaching: Verbalize Understanding OT Short Term Goals Short Term Goals Time Frame: Nov 15, 2019 Oral hygiene: 3 Toileting hygiene: 2 Shower/bathe self: 3 Upper body dressin Lower body dressin Putting on/taking off footwear: 3 OT Penitentiary Goals Penitentiary Goals Time Frame: Nov 29, 2019 Eating (QC): 6 Oral Hygiene (QC): 6 Toileting Hygiene (QC): 5 Shower/Bathe Self (QC): 4 Upper Body Dressing (QC): 5 Lower Body Dressing (QC): 5 On/Off Footwear (QC): 5 Additional Goals: 1-Demonstrate ADL Tasks, 2-Verbalize Understanding, 3- ImproveStrength/Joey 1=Demonstrate adherence to instructed precautions during ADL tasks. 2=Patient will verbalize/demonstrate understanding of assistive devices/modifications for ADL. 3=Patient will improve strength/tolerance for activity to enable patient to perform ADL's. OT Education/Plan Problem List/Assessment Assessment: Decreased Activ Tolerance, Decreased UE Strength, Dependent Transfers, Impaired Coordination, Impaired Funct Balance, Impaired I ADL's, Impaired Self-Care Skills, Restricted Funct UE ROM Pt admitted to ARU following CVA with right side deficits. Pt demonstrates impaired AROM and strength of right UE/LE, impacting ability to perform ADL tasks and transfers. Pt to benefit from skilled OT intervention for ADL training, transfers, strengthening, coordination, and home safety education to increase level of independence and allow safe discharge. Discharge Recommendations Plan/Recommendations: Continue POC Treatment Plan/Plan of Care Treatment,Training & Education: Yes Patient would benefit from OT for education, treatment and training to promote independence in ADL's, mobility, safety and/or upper extremity function for ADL's. Plan of Care: ADL Retraining, Functional Mobility, Group Exercise/Act as Ind, UE Funct Exercise/Act, UE Neuromus Re-Ed/Coord Treatment Duration: Nov 29, 2019 Frequency: At least 5 of 7 days/Wk (IRF) Estimated Hrs Per Day: 1.5 hours per day Rehab Potential: Good Time/GCodes Start Time: 08:00 Stop Time: 09:00 Total Time Billed (hr/min): 60 Billed Treatment Time 1 visit, EVM(15minutes), ADLx3(45minutes) JALIL MERCEDES OT Nov 01, 2019 09:29
--- NOTE | 2019-11-01 09:59 | Physical Therapy Daily Note ---
PT Daily Note-Current Subjective Patient reports no pain, agrees to PT. Appearance Patient was returned too room with call light in reach and secure in w/c. present. Patient told not to get up from w/c without help from staff. Transfers SCALE: Activities may be completed with or without assistive devices. 6-Golfnrjxde-ekbyymf completes the activity by him/herself with no assistance from a helper. 5-Set-up or Clean-up Assistance-helper sets up or cleans up; patient completes activity. [place] assists only prior to or following the activity. 4-Supervision or Touching Assistance-helper provides verbal cues and/or touching/steadying and/or contact guard assistance as patient completes activity. Assistance may be provided throughout the activity or intermittently. 3-Partial/Moderate Assistance-helper does LESS THAN HALF the effort. [place] lifts, holds or supports trunk or limbs, but provides less than half the effort. 2-Substantial/Maximal Assistance-helper does MORE THAN HALF the effort. [place] lifts or holds trunk or limbs and provides more than half the effort. 9-Ounzodwoc-zaoxzt does ALL the effort. Patient does none of the effort to complete the activity. Or, the assistance of 2 or more helpers is required for the patient to complete the activity. If activity was not attempted, code reason: 7-Patient Refused. 9-Not Applicable-not attempted and the patient did not perform the activity before the current illness, exacerbation or injury. 10-Not Attempted due to Environmental Limitations-(lack of equipment, weather restraints, etc.). 88-Not Attempted due to Medical Conditions or Safety Concerns. Roll Left & Right (QC): 3 (less then 50% help.) Sit to Lying (QC): 2 (greater then 50% help with lifting RLE and lowering trunk) Lying to Sitting/Side of Bed(Q: 2 (more then 50% help with RUE,RLE and lifting trunk.) Sit to Stand (QC): 2 (more then 50% help block R knee) Chair/Kca-sh-Laeme Xfer(QC): 2 (more then 50% help with lifting. have to block R knee.) Gait Training Does the Patient Walk?: Yes Distance: 8x4 Gait Assistive Device: Parallel Bars Ambulated in parallel bars, with max A from 1 therapist block knee and support trunk on R side. Needs other therapist to bring w/c up behind patient. Needs assist to advance his right foot. Used a knee cage to control hyperextension on the right side. Wheelchair Training Does the Pt Use a Wheelchair?: Yes Wheel 50 ft with 2 turns (QC): 4 (SBA) Wheel 150 ft (QC): 4 (SBA) Type of Wheelchair: Manual 150 ft Exercises Supine Ex: Ankle pumps, Quad Set Supine Reps: 10 Treatments PROM and AROM for RLE with visual activation of quads and calf muscles. RUE weight bearing in sitting with using URE to push trunk up from right side bending with min A from PT 10x each Assessment Current Status: Fair Progress Patient require supervision to ensure safety but completes all acitivities with min verbal cues/tactile cues. PT Short Term Goals Short Term Goals Time Frame: Nov 14, 2019 Roll Left & Right: 3 Sit to lyin Lying to sitting on side of be: 3 Sit to stand: 3 Chair/irn-wy-byjph transfer: 3 Walk 10 feet: 2 Wheel 50ft w/2 turns: 4 Wheel 150 feet: 4 PT Snf Goals Perinatal Coordinator Goals PT Snf Goals Time Frame: Nov 28, 2019 Roll Left & Right (QC): 6 Sit to Lying (QC): 6 Lying-Sitting on Side/Bed(QC): 6 Sit to Stand (QC): 6 Chair/Tnz-ik-Jeahj Xfer(QC): 6 Toilet Transfer (QC): 6 Car Transfer (QC): 5 Does the Patient Walk: No and Walking Goal IS indicated Walk 10 feet (QC): 6 Walk 50ft with 2 Turns (QC): 6 Walk 150 ft (QC): 6 Walking 10ft on Uneven Surface: 5 1 Step (curb) (QC): 5 4 Steps (QC): 5 12 Steps (QC): 4 Picking up an Object (QC): 4 Wheel 50 feet with 2 turns (QC: 6 Type: Manual Wheel 150 feet: 6 Type: Manual PT Plan Problem List Problem List: Activity Tolerance, Functional Strength, Safety, Balance, Gait, Transfer, Bed Mobility, ROM Treatment/Plan Treatment Plan: Continue Plan of Care Treatment Plan: Bed Mobility, Education, Functional Activity Joey, Functional Strength, Group Therapy, Gait, Safety, Therapeutic Exercise, Transfers Treatment Duration: Nov 28, 2019 Frequency: At least 5 of 7 days/Wk (IRF) Estimated Hrs Per Day: 1.5 hours per day Patient and/or Family Agrees t: Yes Safety Risks/Education Patient Education: Gait Training, Transfer Techniques, Correct Positioning, W/C Management, Safety Issues Teaching Recipient: Patient, Primary Caregiver Teaching Methods: Demonstration, Discussion, Audiovisual Response to Teaching: Verbalize Understanding, Return Demonstration, Reinforcement Needed Time/GCodes Time In: 0900 Time Out: 1000 Total Billed Treatment visit 1 GT 20' Ex 15' FA 25' ELZA WEN PT Nov 01, 2019 09:59
--- NOTE | 2019-11-01 11:05 | NUR ---
Pastoral care visit w/pt and his , they shared in life review and of their strong boliv[place] and membership in [employer]. Offered support and had prayer with them.
--- NOTE | 2019-11-01 12:49 | Occupational Ther Daily Note ---
OT Current Status-Daily Note Subjective Pt sitting in w/c, agrees to therapy. No reports of pain. ADL-Treatment Therapy Code Descriptions/Definitions Functional [place] Measure: 0=Not Assessed/NA 4=Minimal Assistance 1=Total Assistance 5=Supervision or Setup 2=Maximal Assistance 6=Modified [place] 3=Moderate Assistance 7=Complete IndependenceSCALE: Activities may be completed with or without assistive devices. 2-Liksyjhobs-vztsejz completes the activity by him/herself with no assistance from a helper. 5-Set-up or Clean-up Assistance-helper sets up or cleans up; patient completes activity. [place] assists only prior to or following the activity. 4-Supervision or Touching Assistance-helper provides verbal cues and/or touching/steadying and/or contact guard assistance as patient completes activity. Assistance may be provided throughout the activity or intermittently. 3-Partial/Moderate Assistance-helper does LESS THAN HALF the effort. [place] lifts, holds or supports trunk or limbs, but provides less than half the effort. 2-Substantial/Maximal Assistance-helper does MORE THAN HALF the effort. [place] lifts or holds trunk or limbs and provides more than half the effort. 0-Ezrsttwzi-nwmmuk does ALL the effort. Patient does none of the effort to complete the activity. Or, the assistance of 2 or more helpers is required for the patient to complete the activity. If activity was not attempted, code reason: 7-Patient Refused. 9-Not Applicable-not attempted and the patient did not perform the activity before the current illness, exacerbation or injury. 10-Not Attempted due to Environmental Limitations-(lack of equipment, weather restraints, etc.). 88-Not Attempted due to Medical Conditions or Safety Concerns. Other Treatment Right UE ROM completed while seated. Pt able to perform minimal shoulder abduction and scapular retraction. Pt demonstrates trace active elbow, wrist, and finger movement. PROM completed at all joints without c/o pain. Pt sitting in w/c with needs met and spouse present after session. OT Short Term Goals Short Term Goals Time Frame: Nov 15, 2019 Oral hygiene: 3 Toileting hygiene: 2 Shower/bathe self: 3 Upper body dressin Lower body dressin Putting on/taking off footwear: 3 OT Licensing And Registration Director Goals Alf Goals Time Frame: Nov 29, 2019 Eating (QC): 6 Oral Hygiene (QC): 6 Toileting Hygiene (QC): 5 Shower/Bathe Self (QC): 4 Upper Body Dressing (QC): 5 Lower Body Dressing (QC): 5 On/Off Footwear (QC): 5 Additional Goals: 1-Demonstrate ADL Tasks, 2-Verbalize Understanding, 3- ImproveStrength/Joey 1=Demonstrate adherence to instructed precautions during ADL tasks. 2=Patient will verbalize/demonstrate understanding of assistive devices/modifications for ADL. 3=Patient will improve strength/tolerance for activity to enable patient to perform ADL's. OT Education/Plan Discharge Recommendations Plan/Recommendations: Continue POC Treatment Plan/Plan of Care Patient would benefit from OT for education, treatment and training to promote independence in ADL's, mobility, safety and/or upper extremity function for ADL's. Plan of Care: ADL Retraining, Functional Mobility, Group Exercise/Act as Ind, UE Funct Exercise/Act, UE Neuromus Re-Ed/Coord Treatment Duration: Nov 29, 2019 Frequency: At least 5 of 7 days/Wk (IRF) Estimated Hrs Per Day: 1.5 hours per day Rehab Potential: Good Time/GCodes Start Time: 11:45 Stop Time: 12:00 Total Time Billed (hr/min): 15 Billed Treatment Time 1 visit, NM(15minutes) JALIL MERCEDES OT Nov 01, 2019 12:49
--- NOTE | 2019-11-01 12:58 | ST Cognitive Linguistic Eval ---
Speech Evaluation-General Medical Diagnosis CVA Onset Date: Oct 31, 2019 Therapy Diagnosis Therapy Diagnosis: Cognitive Impairment Precautions Precautions: Cardiac Referral Referring Physician: Flori Carmona Reason for Referral: Evaluation/Treatment Medical History Pertinent Medical History: Atrial Fib, CAD, DM, HTN Reviewed History: Yes Social History Current Living Status: Spouse Speech PLF-Current Status Prior Level of Function Patient lived at home with his and was able to complete daily activities independently. Subjective Patient actively participated in conversation and assessment. Cognitive Patient Orientation Patient's cognitive abilities were moderately impaired as a result of receiving a 20/30 on the [facility] Status ([facility]) assessment. Objective Cognitive Domain Attention: WNL Memory: Moderate Problem Solving: Moderate Executive Functions: Mild Visuospatial Skills: Mild Composite Severity Rating: Moderate Clock Drawing Severity Rating: WNL Score: 20/30 Range: Moderate Level of Cognitive Impairment Objective Formal/Standardized Tests [facility] Status ([facility]) Results Patient scored 20/30, interpreted as a moderate cognitive impairment. Oral Motor/Speech Production Patient's speech appeared to be within normal limits of function. Impression Patient was a polite man, who actively engaged in activities as requested and was assessed to have a moderate cognitive impairment. Speech Patient Assess Expression of Ideas/Wants: Expression (4) Understanding Verbal Content: Sometimes Understands(2) Brief Interview-Mental Status: Yes Repetition of Three Words: Three (3) Temporal Orientation: Year: Correct (3) Temporal Orientation: Month: Accurate within 5 days(2) Temporal Orientation: Day: Incorrect or No Answer(0) Recall : Wear to say "Sock": Yes,after cueing (1) Recall : Color: Yes, after cueing (1) Recall : Bed: Yes,after cueing (1) Memory/Recall Ability: Current season, That he or she is in a hsp/hsp unit Speech Short Term Goals Short Term Goals Short Term Goals 1. Patient will complete memory tasks related to daily needs at 90% or greater with minimal cueing. 2. Patient will complete safety awareness tasks related to daily needs at 90% or greater with minimal cueing. 3. Patient will complete problem solving tasks related to daily needs at 90% or greater with minimal cueing. 4. Patient will complete word finding tasks related to daily needs at 90% or greater with minimal cueing. Speech Assisted Goals Assisted Goals Patient will improve cognitive communication necessary for safety and daily remigio ng tasks with minimal assist. Speech-Plan Patient/Family Goals Patient/Family Goals: Patient will return home with his and return to completing daily living activities independently. Treatment Plan Speech Therapy Treatment Plan: Continue Plan of Care Frequency: 5 times per week Estimated Hrs Per Day: .5 hour per day Rehab Potential: Good Pt/Family Agrees to Plan: Yes Safety Risks/Education Teaching Recipient: Patient, Significant Other Teaching Methods: Demonstration, Discussion Response to Teaching: Verbalize Understanding, Return Demonstration Education Topics Provided: Patient received education regarding memory tasks. Time Speech Therapy Time In: 11:00 Speech Therapy Time Out: 11:40 Total Billed Time: 40 Billed Treatment Time 1, SPSNDCOMP Patient reported that prior to his CVA, he was having difficulty swallowing. ST will follow up with a dysphagia evaluation as needed. RAY RODRÍGUEZ Nov 01, 2019 12:58
--- NOTE | 2019-11-01 13:11 | Occupational Ther Daily Note ---
OT Current Status-Daily Note Subjective Pt alert, sitting in chair. Pt agrees to therapy. No c/o pain at this time. Mental Status/Objective Patient Orientation: Person, Place, Time, Situation ADL-Treatment Pt required assistance to set up meal and assist to scoop food onto spoon. Pt would push food around on plate, unable to use R hand to assist in scooping. Plate guard given to assist pt with scooping food. After session, pt sitting in recliner with call light/phone in reach. All needs met in room. Therapy Code Descriptions/Definitions Functional [place] Measure: 0=Not Assessed/NA 4=Minimal Assistance 1=Total Assistance 5=Supervision or Setup 2=Maximal Assistance 6=Modified [place] 3=Moderate Assistance 7=Complete IndependenceSCALE: Activities may be completed with or without assistive devices. 1-Rkvlqngzjw-fdicqpv completes the activity by him/herself with no assistance from a helper. 5-Set-up or Clean-up Assistance-helper sets up or cleans up; patient completes activity. [place] assists only prior to or following the activity. 4-Supervision or Touching Assistance-helper provides verbal cues and/or touching/steadying and/or contact guard assistance as patient completes activity . Assistance may be provided throughout the activity or intermittently. 3-Partial/Moderate Assistance-helper does LESS THAN HALF the effort. [place] lifts, holds or supports trunk or limbs, but provides less than half the effort. 2-Substantial/Maximal Assistance-helper does MORE THAN HALF the effort. [place] lifts or holds trunk or limbs and provides more than half the effort. 3-Lxoehcpqq-jtxiuw does ALL the effort. Patient does none of the effort to complete the activity. Or, the assistance of 2 or more helpers is required for the patient to complete the activity. If activity was not attempted, code reason: 7-Patient Refused. 9-Not Applicable-not attempted and the patient did not perform the activity before the current illness, exacerbation or injury. 10-Not Attempted due to Environmental Limitations-(lack of equipment, weather restraints, etc.). 88-Not Attempted due to Medical Conditions or Safety Concerns. Eating (QC): 5 OT Short Term Goals Short Term Goals Time Frame: Nov 15, 2019 Oral hygiene: 3 Toileting hygiene: 2 Shower/bathe self: 3 Upper body dressin Lower body dressin Putting on/taking off footwear: 3 OT Prison Goals Scrubber Machine Tender Goals Time Frame: Nov 29, 2019 Eating (QC): 6 Oral Hygiene (QC): 6 Toileting Hygiene (QC): 5 Shower/Bathe Self (QC): 4 Upper Body Dressing (QC): 5 Lower Body Dressing (QC): 5 On/Off Footwear (QC): 5 Additional Goals: 1-Demonstrate ADL Tasks, 2-Verbalize Understanding, 3- ImproveStrength/Joey 1=Demonstrate adherence to instructed precautions during ADL tasks. 2=Patient will verbalize/demonstrate understanding of assistive devices/modifications for ADL. 3=Patient will improve strength/tolerance for activity to enable patient to perform ADL's. OT Education/Plan Problem List/Assessment Assessment: Impaired Self-Care Skills, Restricted Funct UE ROM Discharge Recommendations Plan/Recommendations: Continue POC Treatment Plan/Plan of Care Patient would benefit from OT for education, treatment and training to promote independence in ADL's, mobility, safety and/or upper extremity function for ADL's. Plan of Care: ADL Retraining, Functional Mobility, Group Exercise/Act as Ind, UE Funct Exercise/Act, UE Neuromus Re-Ed/Coord Treatment Duration: Nov 29, 2019 Frequency: At least 5 of 7 days/Wk (IRF) Estimated Hrs Per Day: 1.5 hours per day Rehab Potential: Good Time/GCodes Start Time: 12:30 Stop Time: 12:40 Total Time Billed (hr/min): 10 Billed Treatment Time 1 visit-FA 1 (10 min) KAREN MARQUES Nov 01, 2019 13:11
--- NOTE | 2019-11-01 13:41 | Consultation-Cardiology ---
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 Transferred for physical therapy. I was called for cardiac evaluation and management of his underlying cardiac condition. He denied any chest pain, no shortness of breath, no palpitation. No syncope or near syncopal episodes. Home Medications & Allergies Allergies: Coded Allergies: No Allergy Information Available (Unverified , 10/31/19) Home Medication List Reviewed: Yes PPW-Cotopi-Ufzrpv Hx Patient Social History Marital Status: Employed/Student: retired ([employer]) Alcohol Use: Denies Use Recreational Drug Use: No Recent Foreign Travel: No Recent Infectious Disease Expo: No Recent Hopitalizations: Yes (Patient transferred from [facility]) Physical Abuse Screen: No Sexual Abuse: No Immunizations Up To Date Date of Pneumonia Vaccine: Aug 21, 2016 Date of Influenza Vaccine: Apr 21, 2019 Past Medical History Discussed below Family Medical History Family History: Alcoholism G8 BROTHER Cataracts 19 FATHER Myocardial infarction 19 MOTHER Psychosocial problem G8 SISTER Review of Systems-General Review of Systems Constitutional: see HPI, dizziness, weakness EENTM: see HPI Respiratory: see HPI; No cough, No dyspnea on exertion, No hemoptysis, No orthopnea, No phlegm, No short of breath, No stridor, No wheezing, No other Cardiovascular: see HPI; No chest pain, No edema, No Hx of Intervention, No palpitations, No syncope, No vascular heart diseas, No other Gastrointestinal: constipation Genitourinary: no symptoms reported, see HPI Musculoskeletal: back pain Skin: no symptoms reported, see HPI Psychiatric/Neurological: Numbness, Paresthesia, Weakness Reviewed Test Results Reviewed Test Results Lab Laboratory Tests Test 10/31/19 16:04 10/31/19 20:13 11/01/19 05:12 11/01/19 05:50 Range/Units Glucometer 334 H 193 H 92 70-110 MG/DL White Blood Count 8.5 4.3-11.0 10^3/uL Red Blood Count 4.51 4.35-5.85 10^6/uL Hemoglobin 14.4 13.3-17.7 G/DL Hematocrit 43 40-54 % Mean Corpuscular Volume 95 80-99 FL Mean Corpuscular Hemoglobin 32 25-34 PG Mean Corpuscular Hemoglobin Concent 34 32-36 G/DL Red Cell Distribution Width 14.7 H 10.0-14.5 % Platelet Count 262 130-400 10^3/uL Mean Platelet Volume 11.4 H 7.4-10.4 FL Neutrophils (%) (Auto) 54 42-75 % Lymphocytes (%) (Auto) 30 12-44 % Monocytes (%) (Auto) 12 0-12 % Eosinophils (%) (Auto) 3 0-10 % Basophils (%) (Auto) 1 0-10 % Neutrophils # (Auto) 4.6 1.8-7.8 X 10^3 Lymphocytes # (Auto) 2.6 1.0-4.0 X 10^3 Monocytes # (Auto) 1.0 0.0-1.0 X 10^3 Eosinophils # (Auto) 0.3 0.0-0.3 10^3/uL Basophils # (Auto) 0.0 0.0-0.1 10^3/uL Sodium Level 138 135-145 MMOL/L Potassium Level 4.1 3.6-5.0 MMOL/L Chloride Level 103 98-107 MMOL/L Carbon Dioxide Level 24 21-32 MMOL/L Anion Gap 11 5-14 MMOL/L Blood Urea Nitrogen 21 H 7-18 MG/DL Creatinine 1.05 0.60-1.30 MG/DL Estimat Glomerular Filtration Rate > 60 BUN/Creatinine Ratio 20 Glucose Level 95 70-105 MG/DL Calcium Level 9.1 8.5-10.1 MG/DL Corrected Calcium 9.5 8.5-10.1 MG/DL Total Bilirubin 0.5 0.1-1.0 MG/DL Aspartate Amino Transf (AST/SGOT) 18 5-34 U/L Alanine Aminotransferase (ALT/SGPT) 18 0-55 U/L Alkaline Phosphatase 86 40-136 U/L Total Protein 5.8 L 6.4-8.2 GM/DL Albumin 3.5 3.2-4.5 GM/DL Test 11/01/19 11:52 Range/Units Glucometer 259 H 70-110 MG/DL Physical Exam Physical Exam Vital Signs Vital Signs - First Documented 10/31/19 15:41 Temp 36.2 Pulse 54 Resp 20 B/P (MAP) 148/64 (92) Pulse Ox 94 O2 Delivery Room Air Capillary Refill : Less Than 3 Seconds Height, Weight, BMI Height: '" Weight: lbs. oz. kg; 28.73 BMI Method: General Appearance: No Apparent Distress, WD/WN, Chronically ill Eyes: Bilateral Eye Normal Inspection, Bilateral Eye PERRL HEENT: PERRL/EOMI, Normal ENT Inspection, Pharynx Normal Neck: Full Range of Motion, Normal Inspection, Non Tender, Supple, Carotid Bruit Respiratory: Chest Non Tender, Lungs Clear, Normal Breath Sounds, No Accessory Muscle Use, No Respiratory Distress Cardiovascular: No Edema, No Gallop, No JVD, No Murmur, Normal Peripheral Pulses, Irregularly Irregular Gastrointestinal: Normal Bowel Sounds, No Organomegaly, No Pulsatile Mass, Non Tender, Soft Back: Normal Inspection, No CVA Tenderness, No Vertebral Tenderness Extremity: Normal Capillary Refill, Normal Inspection, Normal Range of Motion, Non Tender, No Calf Tenderness, No Pedal Edema Neurologic/Psychiatric: Alert, Oriented x3, Normal Mood/Affect, equipment technician II-XII Norm as Tested, Abnormal Gait, Motor Weakness (right sided weakness) Skin: Normal Color, Warm/Dry Lymphatic: No Adenopathy A/P-Cardiology Admission Diagnosis CVA Coronary artery disease Paroxysmal atrial fibrillation Hypertension Hyperlipidemia Assessment/Plan Status post CVA with residual right hemiplegia, 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 Receiving physical therapy. Coronary artery disease, history of multiple intervention the past, had a CABG 3 done in 2017, has been doing well. Continue to monitor Paroxysmal atrial fibrillation, reporting history of atrial fibrillation in the remote past. Was on oral anticoagulation for some time in the past and it was discontinued in the remote past. Admitted with TIA on October 26 and started on oral anticoagulation and then had another CVA on October 28, 2019 did not qualify for TPA. Currently receiving physical therapy. Hypertension, restart home medication monitor blood pressure next Hyperlipidemia, monitor lipids Diabetes mellitus, followed and managed by primary care physician Clinical Quality Measures DVT/VTE Risk/Contraindication: Risk Factor Score Per Nursin RFS Level Per Nursing on Admit: 4+=Very High JOSE PINO MD Nov 01, 2019 13:40
--- NOTE | 2019-11-01 14:07 | NUR ---
CM/SS ADMISSION Patient was admitted 10/31/19 from [facility] for CVA with residual right-sided flaccidity. Additional comorbidities, in part, are IDDM, HTN. Patient was fully independent prior to this acute onset. Patient resided at home with his spouse of 18 years, Sarah Vera, prior to hospitalization. They have been quite active socially, in particular with their pentecostalism. Sarah will be primary caregiver for patient and available on a daily basis. She is a petite person, patient is a more average male height/weight. This should be considered during patient/caregiver education for post hospital home management. Patient goal is to return home as before at his highest level of functioning. They are willing to continue post discharge therapies if appropriate. PCP: Dr. Beth Bryan MD, [address] [place] [id number]. [place] [phone]/FX [phone] Patient is also established with [facility]. [place] [phone] Ext [phone] and FX [phone] DME: As noted, patient has been independent. He has an older FWW and cane. He has built in shower seats and grab bars in bathroom. He will likely need FWW with right arm rest, follow progress and overall DME recommendations by therapy team. PHARMACY: -[facility] in [place], [place] through [address] ADVANCED DIRECTIVE: Yes, they completed document at [facility], they will bring a copy. Patient reportedly designated his spouse Sarah as his agent. CONTACTS: Sarah Vera, Spouse [address] [place] [address] Iza Zhang, Daughter [address] [place] [address] Patient has two daughters. Sarah has a daughter that resides within one mile of them. Discussed ELOS and the process of the weekly team conference. Patient and spouse verbalized understanding of the purpose and process of the weekly meeting and the Summary presented to them thereafter.
--- NOTE | 2019-11-01 15:33 | NUR ---
RD ASSESSMENT PMHx: DM; CAD; HLD; HTN; CA(colon - resection 2011); GERD PT INTERACTION: Pt was awake and pleasant during nutrition assessment. Pt states current appetite is good. Note avg PO intake of 75% x2meal, per chart review. Pt states following low-CHO, no dairy, no wheat diet at home and has some issues swallowing when his mouth is dry. Pt states no recent issues with n/v at this time. Pt states some recent issues with constipation/diarrhea, and that his last BM was "last Monday (10/25)." Note pt currently on bowel regimen of colace BID; senna BID; and miralax BID, per chart review. Pt states no recent wt changes. Note unable to determine recent wt hx, per chart review. ABNORMAL NUTRITION-RELATED LAB VALUES LOW: Pro 5.8 HIGH: BUN 21 Est. kcal needs: 6175-4407 kcal | 25-30 kcal/kg Est. Pro needs: 69-86 g Pro | 0.8-1.0 g Pro/kg PES STATEMENT: Given current PO intake, no nutrition diagnosis at this time (NO-1.1) INTERVENTION: Continue with current diet order of CHO 60g/m 0snack diet. Will continue to follow and reassess as pt needs, intake, and status change. MONITOR/EVALUATE: PO Intake; Plan of Care; Hydration Status; Weight Status; Lab Values Audrey Garay, MS, RD, LD
[2019-11-01 16:00] VITALS: BP 143/76
[2019-11-01] MEDS: SIMvastatin 10 MG (ZOCOR) TAB PO SCH (16:48)
[2019-11-01] MEDS: ASPIRIN E.C. 81 MG (ECOTRIN) TAB PO SCH (21:24)
[2019-11-01] MEDS: meTOproloL SUCCINATE 50 MG (TOPROL XL) TAB PO SCH (21:25)
[2019-11-02 06:00] VITALS: BP 146/55
[2019-11-02] MEDS: inSUlin ASPART (NovoLOG) 1 UNIT/0.01 ML (CHARGE PER UNIT) SC SCH ×4 (06:49→21:00)
[2019-11-02] MEDS: metFORMIN XR 500 MG (GLUCOPHAGE XR) TAB PO SCH ×2 (06:49→17:14)
--- NOTE | 2019-11-02 09:07 | Occupational Ther Daily Note ---
OT Current Status-Daily Note Subjective Pt alert, lying in bed. Pt agrees to therapy. No c/o pain. Mental Status/Objective Patient Orientation: Person, Place, Time, Situation ADL-Treatment Co-treat with PT, skills of 2 clinicians required for neuromuscular retraining with functional movement/tasks due to increase weakness, decreased mobility and impulsivity. PT working on functional transfers, w/c mobility, bed mobility and ambulation. OT working on functional transfers, R UE placement during tasks, lower body dressing and footwear. Pt demonstrating increased movement with R shldr and continued trace movements throughout rest of R UE. Mod A for supine to EOB, x2. Decreased sitting balance while on EOB, min A to mod A. See PT notes for ambulation and w/c mobility. Pt requires assist to position and move R UE during mobility. present in room after session. Pt request to sit in w/c. All needs met in room. Therapy Code Descriptions/Definitions Functional [place] Measure: 0=Not Assessed/NA 4=Minimal Assistance 1=Total Assistance 5=Supervision or Setup 2=Maximal Assistance 6=Modified [place] 3=Moderate Assistance 7=Complete IndependenceSCALE: Activities may be completed with or without assistive devices. 3-Bdbqddahph-pqaihbe completes the activity by him/herself with no assistance from a helper. 5-Set-up or Clean-up Assistance-helper sets up or cleans up; patient completes activity. Webster assists only prior to or following the activity. 4-Supervision or Touching Assistance-helper provides verbal cues and/or touching/steadying and/or contact guard assistance as patient completes activity. Assistance may be provided throughout the activity or intermittently. 3-Partial/Moderate Assistance-helper does LESS THAN HALF the effort. Webster lifts, holds or supports trunk or limbs, but provides less than half the effort. 2-Substantial/Maximal Assistance-helper does MORE THAN HALF the effort. Webster lifts or holds trunk or limbs and provides more than half the effort. 2-Koyxcroje-lwqind does ALL the effort. Patient does none of the effort to complete the activity. Or, the assistance of 2 or more helpers is required for the patient to complete the activity. If activity was not attempted, code reason: 7-Patient Refused. 9-Not Applicable-not attempted and the patient did not perform the activity before the current illness, exacerbation or injury. 10-Not Attempted due to Environmental Limitations-(lack of equipment, weather restraints, etc.). 88-Not Attempted due to Medical Conditions or Safety Concerns. Eating (QC): 5 (Placed plateguard on breakfast plate and pt able to scoop food for self.) Oral Hygiene (QC): 7 Upper Body Dressing (QC): 2 (Pt assisted R UE to thread into sleeve. Threaded L UE into sleeve. Assist to thread head through shirt.) Lower Body Dressing (QC): 1 On/Off Footwear: 2 Toileting Hygiene (QC): 5 (Set up and clean up with urinal.) Toilet Transfer (QC): 7 Other Treatment See PT note for ambulation with parallel bars. OT assisted with R UE for placement, grasp and movement. OT Short Term Goals Short Term Goals Time Frame: Nov 15, 2019 Oral hygiene: 3 Toileting hygiene: 2 Shower/bathe self: 3 Upper body dressin Lower body dressin Putting on/taking off footwear: 3 OT Jail Goals Jail Goals Time Frame: Nov 29, 2019 Eating (QC): 6 Oral Hygiene (QC): 6 Toileting Hygiene (QC): 5 Shower/Bathe Self (QC): 4 Upper Body Dressing (QC): 5 Lower Body Dressing (QC): 5 On/Off Footwear (QC): 5 Additional Goals: 1-Demonstrate ADL Tasks, 2-Verbalize Understanding, 3-ImproveStrength/Joey 1=Demonstrate adherence to instructed precautions during ADL tasks. 2=Patient will verbalize/demonstrate understanding of assistive devices/modifications for ADL. 3=Patient will improve strength/tolerance for activity to enable patient to perform ADL's. OT Education/Plan Problem List/Assessment Assessment: Decreased Activ Tolerance, Decreased Safety Aware, Decreased UE Strength, Dependent Transfers, Impaired Cognition, Impaired Coordination, Impaired Funct Balance, Impaired Self-Care Skills, Restricted Funct UE ROM Discharge Recommendations Plan/Recommendations: Continue POC Treatment Plan/Plan of Care Patient would benefit from OT for education, treatment and training to promote independence in ADL's, mobility, safety and/or upper extremity function for ADL's. Plan of Care: ADL Retraining, Functional Mobility, Group Exercise/Act as Ind, UE Funct Exercise/Act, UE Neuromus Re-Ed/Coord Treatment Duration: Nov 29, 2019 Frequency: At least 5 of 7 days/Wk (IRF) Estimated Hrs Per Day: 1.5 hours per day Rehab Potential: Good Time/GCodes Start Time: 07:30 Stop Time: 09:00 Total Time Billed (hr/min): 90 Billed Treatment Time 1 visit-ADL 1 (20 min) NM 4 (70 min) Co-treat with PT, skills of 2 clinicians required for neuromuscular retraining with functional movement/tasks due to increase weakness, decreased mobility and impulsivity. [id number] KAREN MARQUES Nov 02, 2019 09:07
[2019-11-02] MEDS: TAMSULOSIN 0.4 MG (FLOMAX) CAP PO SCH (09:19)
[2019-11-02] MEDS: APIXABAN 5 MG (ELIQUIS) TABLET PO SCH ×2 (09:19→21:05)
[2019-11-02] MEDS: MULTIVIT W/MINERALS TAB (THERAGRAN M) PO SCH (09:19)
[2019-11-02] MEDS: AMIODARONE 200 MG (CORDARONE) TAB PO SCH (09:20)
[2019-11-02] MEDS: polyethylene glycoL POWDER 17 GM (MIRALAX) PACK PO SCH ×2 (09:21→19:55)
[2019-11-02] MEDS: SENNA W/DOCUSATE (SENOKOT S) TABLET PO SCH ×2 (09:21→19:55)
[2019-11-02] MEDS: DOCUSATE SODIUM 100 MG (COLACE) CAP PO SCH ×2 (09:22→19:55)
--- NOTE | 2019-11-02 09:59 | NUR ---
STATES THAT SHE WILL BRING IN ASCORBIC ACID TOMORROW. STATES THAT PATIENT DOES NOT TAKE CHLORPHENIRAMINE ANYMORE.
--- NOTE | 2019-11-02 10:20 | Cardiology Progress Note ---
Subjective Date Seen by Provider: Nov 02, 2019 Time Seen by Provider: 10:19 Subjective/Events-last exam Patient is sitting in a wheelchair, no new complaint Review of Systems General: No Chills, No Night Sweats, No Fatigue, No Malaise, No Appetite, No Other HEENT: No Head Aches, No Visual Changes, No Eye Pain, No Ear Pain, No Dysphasia, No Sinus Congestion, No Post Nasal Drip, No Sore Throat, No Other Pulmonary: No Dyspnea, No Cough, No Pleuritic Chest Pain, No Other Cardiovascular: No: Chest Pain, Palpitations, Orthopnea, Paroxysmal Noc. Dyspnea, Edema, Lt Headedness, Other Objective-Cardiology Exam Last Set of Vital Signs Vital Signs 11/02/19 11/02/19 06:00 09:41 Temp 36.0 Pulse 58 Resp 18 B/P (MAP) 146/55 (85) Pulse Ox 94 O2 Delivery Room Air Capillary Refill : Less Than 3 Seconds I&O Intake and Output 11/02/19 00:00 Intake Total 1160 ml Output Total 850 ml Balance 310 ml Intake Oral 1160 ml Output Urine Total 850 ml # Voids 2 # Bowel Movements 2 General: Alert, Oriented X3, Cooperative HEENT: Atraumatic, PERRLA Neck: Supple, No JVD, No Thyromegaly Lungs: Clear to Auscultation, Normal Air Movement Heart: Regular Rate, Normal S1, Normal S2, No Murmurs Abdomen: Normal Bowel Sounds, Soft, No Tenderness, No Hepatosplenomegaly, No Masses Extremities: No Clubbing, No Cyanosis, No Edema, Normal Pulses, No Tenderness/Swelling Skin: No Rashes, No Breakdown, No Significant Lesion Neuro: Normal Gait, Normal Speech, Strength at 5/5 X4 Ext, Normal Tone, Sensation Intact Psych/Mental Status: Mental Status NL, Mood NL A/P-Cardiology Admission Diagnosis CVA Coronary artery disease Paroxysmal atrial fibrillation Hypertension Hyperlipidemia Assessment/Plan Status post CVA with residual right hemiplegia, 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 Receiving physical therapy. Coronary artery disease, history of multiple intervention the past, had a CABG 3 done in 2017, has been doing well. Continue to monitor Paroxysmal atrial fibrillation, reporting history of atrial fibrillation in the remote past. Was on oral anticoagulation for some time in the past and it was discontinued in the remote past. Admitted with TIA on October 26 and started on oral anticoagulation and then had another CVA on October 28, 2019 did not qualify for TPA. Currently receiving physical therapy. [id number] score of 6, yearly risk of stroke without oral anticoagulation is 9.8 percent, maintained on Eliquis Hypertension, continue to monitor blood pressure Hyperlipidemia, monitor lipids Diabetes mellitus, followed and managed by primary care physician Clinical Quality Measures DVT/VTE Risk/Contraindication: Risk Factor Score Per Nursin RFS Level Per Nursing on Admit: 4+=Very High JOSE PINO MD Nov 02, 2019 10:20 am
--- NOTE | 2019-11-02 11:09 | Individualized Plan of Care ---
Individualized Plan of Care Rehab Nursing IPOC Order Admission Date Oct 31, 2019 at 15:05 Current Orders Orders Admission Order(Inpt,Obs,Sdc) (10/31/19 11:07) Vital Signs: Per Unit Policy ( 08,16,00 (10/31/19 11:07) Edil Garcia 09,21 (10/31/19 11:07) Sequential Compression Device Q4H (10/31/19 11:07) Tarp Repairer-Inpt Rehab Con (10/31/19 11:07) Rehab Nursing Orders-Ipoc (10/31/19 11:07) Physical Therapy Rehab Orders (10/31/19 11:07) Occupational Therapy Rehab Ord (10/31/19 11:07) Speech Therapy Rehab Orders (10/31/19 11:07) Cbc With Automated Diff (11/01/19 06:00) Comprehensive Metabolic Panel (11/01/19 06:00) Intake & Output 06,14,22 (10/31/19 11:07) Precautions (Aru) (10/31/19 11:07) Weekly Weight WEEK (10/31/19 11:07) Rehab-Intensity Of Therapy (10/31/19 11:07) Initiate Admission Nursing Pro .admission (10/31/19 11:07) Alprazolam Tablet (Xanax Tablet) (10/31/19 11:15) Calcium Carbonate Chew Tablet (Antacid C (10/31/19 11:15) Diphenhydramine Tablet (Benadryl Tablet) (10/31/19 11:15) Docusate Sodium Capsule (Colace Capsule) (10/31/19 21:00) Docusate Sodium Capsule (Colace Capsule) (10/31/19 11:15) Bisacodyl Suppository (Dulcolax Supposit (10/31/19 11:15) Lactulose Oral Solution (Enulose Oral So (10/31/19 11:15) Na Phos/Na Biphos Enema (Fleet Enema Baltazar (10/31/19 11:15) Guaifenesin/Codeine Syrup (Robitussin Ac (10/31/19 11:15) Loperamide Tablet (Imodium Tablet) (10/31/19 11:15) Enoxaparin Injection (Lovenox Injection) (10/31/19 11:15) Melatonin Tablet (Melatonin Tablet) (10/31/19 11:15) Polyethylene Glycol Powder Pkt (Miralax (10/31/19 21:00) Ondansetron Oral Dissolve Tab (Zofran (10/31/19 11:15) Senna S Tablet (Senokot S Tablet) (10/31/19 21:00) Initiate Admission Nursing Pro .admission (10/31/19 11:07) Admission Arrival Bed Request (10/31/19 15:00) Patient Visit (10/31/19 ) Pt Laurie Moderate Complexity (10/31/19 ) Functional Activities, Ea 15 (10/31/19 ) Insulin Aspart (Novolog) (Novolog (Charg (10/31/19 17:15) Cho 60g/M 0snack (16-2000 Tej) (10/31/19 Dinner) Amiodarone Tablet (Cordarone Tablet) (11/01/19 09:00) Apixaban Tablet (Eliquis Tablet) (10/31/19 21:00) Aspirin Enteric Coated Tablet (Ecotrin T (10/31/19 21:00) Clonidine Tablet (Catapres Tablet) (10/31/19 18:00) Insulin Aspart (Novolog) (Novolog (Charg (10/31/19 18:00) Metformin Xr Tablet (Glucophage Xr Table (10/31/19 18:02) Metoprolol Succinate (Xl) Tab (Toprol Xl (10/31/19 21:00) Therapeutic Multivitamin Tab (Vitamins, (11/01/19 09:00) Tamsulosin Capsule (Flomax Capsule) (11/01/19 09:00) (Nf) Ascorbic Acid (Vitamin C) (11/01/19 09:00) Simvastatin Tablet (Zocor Tablet) (10/31/19 18:00) Melatonin Tablet (Melatonin Tablet) (10/31/19 21:00) Insulin Aspart (Novolog) (Novolog (Charg (10/31/19 18:00) Insulin Determir (Per Unit) (Levemir (Pe (10/31/19 21:00) Consult Cardiology (10/31/19 21:32) Patient Visit (11/01/19 ) Functional Activities, Ea 15 (11/01/19 ) Gait Training, Ea 15 Min (11/01/19 ) Exercise Therap, Ea 15 Min (11/01/19 ) Patient Visit (11/01/19 ) Speech Sound Lang Comp (11/01/19 ) Patient Visit (11/02/19 ) Functional Activities, Ea 15 (11/02/19 ) Gait Training, Ea 15 Min (11/02/19 ) Wheelchair Mgmt/Propulsn 15min (11/02/19 ) Exercise Therap, Ea 15 Min (11/02/19 ) Insulin Determir (Per Unit) (Levemir (Pe (11/02/19 21:00) Consult General Surgery (11/02/19 11:54) Pantoprazole Tablet (Protonix Tablet) (11/03/19 09:00) Barium Swallow-Esophagram (11/04/19 08:00) Rehab Nursing Orders: Ongoing Assess. of Cognitive Status, Ongoing Assess. of Function Status, Bladder Management, Bladder Scan, Bladder Training, Bowel Management, Bowel Training, Disease Management & Educaiton, DVT Prophylaxis, Fall Prevention, Fluid/Electrolyte/Nutrition Mgmt, Infection Prevention, Me dication Management & Education, Management of Risks & Complications, Management of Skin Intergrity, Nutrition Management, Pain Management, Patient/Family Support, Safety Management, Swallow Precautions Intensity of Therapy to be met Patient to be seen: Min.3h per day/5 of 7d PT IPOC Problem List: Activity Tolerance, Functional Strength, Safety, Balance, Gait, Transfer, Bed Mobility, ROM Treatment Plan: Continue Plan of Care Bed Mobility, Education, Functional Activity Joey, Functional Strength, Group Therapy, Gait, Safety, Therapeutic Exercise, Transfers Treatment Duration: Nov 28, 2019 Frequency: At least 5 of 7 days/Wk (IRF) Estimated Hrs Per Day: 1.5 hours per day OT IPOC Problems: Decreased Activ Tolerance, Decreased Safety Aware, Decreased UE Strength, Dependent Transfers, Impaired Cognition, Impaired Coordination, I mpaired Funct Balance, Impaired Self-Care Skills, Restricted Funct UE ROM OT Treatment, Training and Edu: Yes Plan of Care: ADL Retraining, Functional Mobility, Group Exercise/Act as Ind, UE Funct Exercise/Act, UE Neuromus Re-Ed/Coord Treatment Duration: Nov 29, 2019 Frequency: At least 5 of 7 days/Wk (IRF) Estimated Hrs Per Day: 1.[address] IPOC Speech Therapy Treatment Plan: Continue Plan of Care Treatment Duration: Nov 02, 2019 Frequency: Modified Program (IRF) Estimated Hrs Per Day: .5 hour per day Tarp Repairer/Case Mgmt Tarp Repairer/Case Managemen: Discharge Planning Dietitian/Supervisor [employer]ing [employer] St[employer] Dietitian/Supervisor [employer] to monitor nutritional status and make changes and/or recommendations as needed and work with speech pathology on dietary upgrades as the occur. Physician IPOC Medical Issues being managed closely and that require the 24 hour availability of a physician: Recent catastrophic CVA and labile BP and new OAC will need close monitoring for decompensation Medical Issues: Bowel/Bladder Function, DVT Prophylaxis, Falls Precautions, Fluid/Electrolyte/Nutrition Balance, Infection Protection, Pain Management Brief Synthesis of Preadmission Screen, Post-Admission Evaluation, and Therapy Evaluations: PT OT ST will all focus on regaining some function of right sided weakness and close monitoring in meantime and work on ambulatory skills Medical Prognosis: Good Anticipated Length of Stay: 14 days SCOTT BARBOSA DO Nov 02, 2019 11:09
--- NOTE | 2019-11-02 11:09 | PM&R Progress Note ---
Subjective HPI/CC On Admission Date Seen by Provider: Nov 02, 2019 Time Seen by Provider: 11:15 Subjective/Events-last exam Pt had a pretty good night, didn't sleep much and just on/off Labile glucose noted and holding the scheduled 12 units before meals and only using SSI due to hypoglycemia at [facility] moving very well now Overall feeling pretty good about everything but did become demanding when I asked about whether Dr Walton saw him and he stated he didn't do much and he was the patient and if he wasn't there the doctors would not have anything to do. Dysphagia was present before CVA and I did speak to ST and she recommended EGD so I called Dr Wang and recommended EGD with dilation and updated patient on the plan stays here with him during the day and goes home at night Checked meds and labs Reviewed therapy notes Conferred with soaping department supervisor of Systems HEENT: Dysphasia Neurological: Weakness, Numbness, Incoordination Objective Exam Vital Signs Vital Signs Date Time Temp Pulse Resp B/P (MAP) Pulse Ox O2 Delivery O2 Flow Rate FiO2 11/02/19 09:41 Room Air 11/02/19 06:00 36.0 58 18 146/55 (85) 94 Capillary Refill : Less Than 3 Seconds General Appearance: No Apparent Distress, WD/WN, Chronically ill HEENT: PERRL/EOMI, Normal ENT Inspection, Pharynx Normal Neck: Full Range of Motion, Normal Inspection, Non Tender, Supple, Carotid Bruit Respiratory: Chest Non Tender, Lungs Clear, Normal Breath Sounds, No Accessory Muscle Use, No Respiratory Distress Cardiovascular: No Edema, No Gallop, No JVD, No Murmur, Normal Peripheral Pulses, Irregularly Irregular Gastrointestinal: Normal Bowel Sounds, No Organomegaly, No Pulsatile Mass, Non Tender, Soft Back: Normal Inspection, No CVA Tenderness, No Vertebral Tenderness Extremity: Normal Capillary Refill, Normal Inspection, Normal Range of Motion, Non Tender, No Calf Tenderness, No Pedal Edema Neurologic/Psychiatric: Alert, Oriented x3, Normal Mood/Affect, flag car driver II-XII Norm as Tested, Abnormal Gait, Motor Weakness (right sided weakness) Skin: Normal Color, Warm/Dry Lymphatic: No Adenopathy Results/Procedures Lab Patient resulted labs reviewed. FIM Transfers Therapy Code Descriptions/Definitions Functional Cass Measure: 0=Not Assessed/NA 4=Minimal Assistance 1=Total Assistance 5=Supervision or Setup 2=Maximal Assistance 6=Modified Cass 3=Moderate Assistance 7=Complete IndependenceSCALE: Activities may be completed with or without assistive devices. 9-Ybmgdbbylb-bjqfolu completes the activity by him/herself with no assistance from a helper. 5-Set-up or Clean-up Assistance-helper sets up or cleans up; patient completes activity. [place] assists only prior to or following the activity. 4-Supervision or Touching Assistance-helper provides verbal cues and/or touching/steadying and/or contact guard assistance as patient completes activity. Assistance may be provided throughout the activity or intermittently. 3-Partial/Moderate Assistance-helper does LESS THAN HALF the effort. [place] lifts, holds or supports trunk or limbs, but provides less than half the effort. 2-Substantial/Maximal Assistance-helper does MORE THAN HALF the effort. [place] lifts or holds trunk or limbs and provides more than half the effort. 7-Mnqvtmpty-xkdhmg does ALL the effort. Patient does none of the effort to complete the activity. Or, the assistance of 2 or more helpers is required for the patient to complete the activity. If activity was not attempted, code reason: 7-Patient Refused. 9-Not Applicable-not attempted and the patient did not perform the activity before the current illness, exacerbation or injury. 10-Not Attempted due to Environmental Limitations-(lack of equipment, weather restraints, etc.). 88-Not Attempted due to Medical Conditions or Safety Concerns. Roll Left to Right (QC): 3 (less then 50% help.) Sit to Lying (QC): 2 (greater then 50% help with lifting RLE and lowering trunk) Sit to Stand (QC): 2 (more then 50% help block R knee) Chair/Ata-ia-Dsaib Xfer(QC): 2 (more then 50% help with lifting. have to block R knee.) Car Transfer (QC): 2 (max assist to transfer in/out of car) Gait Training Does the Patient Walk?: Yes Distance: 8x4 Walk 50 ft with 2 Turns(QC): 88 Walk 150 ft (QC): 88 Walking 10ft/uneven surface-QC: 88 Gait Assistive Device: Parallel Bars Wheelchair Training Does the Pt Use a Wheelchair?: Yes Wheel 50 ft with 2 turns (QC): 4 (SBA) Wheel 150 ft (QC): 4 (SBA) Type of Wheelchair: Manual Stair Training 1 Step (curb) (QC): 88 4 Steps (QC): 88 12 Steps (QC): 88 Balance Picking up an Object (QC): 88 ADL-Treatment Eating (QC): 5 (Placed plateguard on breakfast plate and pt able to scoop food for self.) Oral Hygiene (QC): 7 Shower/Bathe Self (QC): 1 (Assist x2 required for safety during LE bathing.) Upper Body Dressing (QC): 2 (Pt assisted R UE to thread into sleeve. Threaded L UE into sleeve. 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
--- NOTE | 2019-11-02 11:46 | Physical Therapy Daily Note ---
PT Daily Note-Current Subjective Pt agreeable to PT session. States he feels he is a little better today. present at end of session and states she sees a difference also. Pain Numeric Pain Scale: 0-No Pain Appearance Upon arrival, pt in bed awake and alert. At end of session pt sitting up in w/c with present in room, call light, phone and bedside table within reach. Mental Status Patient Orientation: Person, Place, Time, Eyes Open, Situation Transfers SCALE: Activities may be completed with or without assistive devices. 5-Afziffvvia-vrswpev completes the activity by him/herself with no assistance from a helper. 5-Set-up or Clean-up Assistance-helper sets up or cleans up; patient completes activity. [place] assists only prior to or following the activity. 4-Supervision or Touching Assistance-helper provides verbal cues and/or t ouching/steadying and/or contact guard assistance as patient completes activity. Assistance may be provided throughout the activity or intermittently. 3-Partial/Moderate Assistance-helper does LESS THAN HALF the effort. [place] lifts, holds or supports trunk or limbs, but provides less than half the effort. 2-Substantial/Maximal Assistance-helper does MORE THAN HALF the effort. [place] lifts or holds trunk or limbs and provides more than half the effort. 9-Mdvbtgbrz-kkgrfl does ALL the effort. Patient does none of the effort to complete the activity. Or, the assistance of 2 or more helpers is required for the patient to complete the activity. If activity was not attempted, code reason: 7-Patient Refused. 9-Not Applicable-not attempted and the patient did not perform the activity before the current illness, exacerbation or injury. 10-Not Attempted due to Environmental Limitations-(lack of equipment, weather restraints, etc.). 88-Not Attempted due to Medical Conditions or Safety Concerns. Roll Left & Right (QC): 3 Lying to Sitting/Side of Bed(Q: 3 Sit to Stand (QC): 3 Chair/Sxe-rw-Wzojj Xfer(QC): 3 Gait Training Does the Patient Walk?: Yes Distance: 10 x4 Walk 10 feet (QC): 3 Gait Persons Needed: 2 Gait Assistive Device: Parallel Bars Pt requiring physical assist to advance RLE and maintain RUE on bars, R knee hyperextends during stance then nenita into flexion requiring some assist to block R knee Wheelchair Training Does the Pt Use a Wheelchair?: Yes Wheel 50 ft with 2 turns (QC): 5 Wheel 150 ft (QC): 2 Type of Wheelchair: Manual Pt able to maneuver w/c with SBA using LUE and LLE from room to gym without running into any objects along the way with minimal fatigue, RLE on foot rest. Pt attempted but too fatigued by end of session to maneuver w/c back to room from gym. Exercises Seated Therapy Exercises: Ankle pumps, Sit to stand, Long arc quads, Hip flexion Seated Reps: 10 (AROM LLE, AAROM dep to max with RLE) Standing: Mini squats (10), Sit to Stand, Weight shifts Treatments Co-treat with OT, skills of 2 clinicians required for neuromuscular retraining with functional movement/tasks due to increase weakness, decreased mobility and impulsivity. PT working on functional transfers, w/c mobility, LE strength, bed mobility and ambulation. OT working on functional transfers, R UE placement during tasks, lower body dressing and footwear. Pt demonstrating increased movement with R shldr and continued trace movements throughout rest of R UE. Mod A for supine to EOB, x2. Decreased sitting balance while on EOB, min A to mod A. Pt requires assist to position and move RUE and advance RLE during mobility/gait in // bars. present in room after session. Pt request to sit in w/c. All needs met in room. Assessment Current Status: Good Progress PT Short Term Goals Short Term Goals Time Frame: Nov 14, 2019 Roll Left & Right: 3 Sit to lyin Lying to sitting on side of be: 3 Sit to stand: 3 Chair/nhi-yz-eyzbi transfer: 3 Walk 10 feet: 2 Wheel 50ft w/2 turns: 4 Wheel 150 feet: 4 PT Jetting Machine Operator Goals Jetting Machine Operator Goals PT Jetting Machine Operator Goals Time Frame: Nov 28, 2019 Roll Left & Right (QC): 6 Sit to Lying (QC): 6 Lying-Sitting on Side/Bed(QC): 6 Sit to Stand (QC): 6 Chair/Pik-gq-Otgdn Xfer(QC): 6 Toilet Transfer (QC): 6 Car Transfer (QC): 5 Does the Patient Walk: No and Walking Goal IS indicated Walk 10 feet (QC): 6 Walk 50ft with 2 Turns (QC): 6 Walk 150 ft (QC): 6 Walking 10ft on Uneven Surface: 5 1 Step (curb) (QC): 5 4 Steps (QC): 5 12 Steps (QC): 4 Picking up an Object (QC): 4 Wheel 50 feet with 2 turns (QC: 6 Type: Manual Wheel 150 feet: 6 Type: Manual PT Plan Treatment/Plan Treatment Plan: Continue Plan of Care Treatment Plan: Bed Mobility, Education, Functional Activity Joey, Functional Strength, Group Therapy, Gait, Safety, Therapeutic Exercise, Transfers Treatment Duration: Nov 28, 2019 Frequency: At least 5 of 7 days/Wk (IRF) Estimated Hrs Per Day: 1.5 hours per day Patient and/or Family Agrees t: Yes Safety Risks/Education Patient Education: Gait Training, Transfer Techniques, Correct Positioning, W/C Management, Disease Process, Safety Issues Teaching Recipient: Patient Teaching Methods: Demonstration, Discussion Response to Teaching: Verbalize Understanding, Return Demonstration Time/GCodes Time In: 730 Time Out: 900 Total Billed Treatment Time: 90 Total Billed Treatment 1 visit, WC x1 unit, GT x2 units, GA x2 units, EX x1 unit KAROLINA GÓMEZ PTA Nov 02, 2019 11:46
--- NOTE | 2019-11-02 13:02 | NUR ---
DR. GUERIN IN TO SEE PATIENT.
--- NOTE | 2019-11-02 13:48 | Consultation - Surgery ---
[facility] 11/02/19 1348: History of Present Illness History of Present Illness Patient Consulted On(radha/time) 11/02/19 13:42 Date Seen by Provider: Nov 02, 2019 Time Seen by Provider: 13:42 Reason for Visit: CVA History of Present Illness Marcial is an 84 y/o male that presented to [facility] for Rehab post CVA. General surgery was consulted by Dr. Flori Arreaga. The patient has had issues swallowing for more than 6 months. He states the food seems to get stuck about half way down. Nothing other than eating makes this worse and drinking fluids makes better. Denies pain but does have associated coughing when it starts to feel stuck. He states that he is mild to moderately bothered by it. He feels he takes longer to eat these days, denies changes in breath odor and denies history of reflux. The patient currently has upper and lower dentures, and he feels that he is chewing his food to appropriate and manageable sizes to swallow. Allergies and Home Medications Allergies Coded Allergies: No Known Drug Allergies (Unverified , 11/02/19) Home Medications Amiodarone HCl 200 Mg Tablet, 100 MG PO DAILY, (Reported) Ascorbic Acid 100 Mg Tablet, 100 MG PO DAILY, (Reported) Aspirin 81 Mg Tablet.dr, 81 MG PO HS, (Reported) Chlorpheniramine Maleate 4 Mg Tablet, 4 MG PO TID PRN for ALLERGY SYMPTOMS, (Reported) Insulin Aspart 100 Unit/1 Ml Susp, 12 UNIT SQ WM, (Reported) 12 UNITS AT MEALS PLUS CORRECTION- MAX DAILY DOSE IS 60 UNTIS Insulin Determir 1,000 Units/10 Ml Soln, 15-20 UNITS SQ HS, (Reported) Lovastatin 20 Mg Tablet, 20 MG PO 1800 W/ MEALS, (Reported) Melatonin 5 Mg Tablet, 10 MG PO HS PRN for SLEEP, (Reported) Metformin HCl 500 Mg Tab.er.24, 1,000 MG PO BID, (Reported) Metoprolol Tartrate 50 Mg Tablet, 50 MG PO HS, (Reported) Multivitamin 1 Each Tablet, 1 EACH PO DAILY, (Reported) Tamsulosin HCl 0.4 Mg Cap, 0.4 MG PO DAILY, (Reported) LAST FILLED 05-27-2019 #90 Past Dapxnjm-Qnlzxo-Wlpdyx Hx Patient Social History Alcohol Use: Denies Use Recreational Drug Use: No Smoking Status: Former Smoker (quit smoking in 1971) Recent Foreign Travel: No Contact w/Someone Who Travel: No Recent Infectious Disease Expo: No Recent Hopitalizations: Yes (Patient transferred from [facility]) Physical Abuse Screen: No Sexual Abuse: No Immunizations Up To Date PED Vaccines UTD: No Date of Pneumonia Vaccine: Aug 21, 2016 Date of Influenza Vaccine: Apr 21, 2019 Seasonal Allergies Seasonal Allergies: No Surgeries Surgeries: CABG, Gallbladder, Open Heart Surgery, Penile Implant, Vascular Surgery Cardiovascular History of Cardiac Disorders: Yes Cardiac Disorders: Atrial Fibrillation, Coronary Artery Disease, High Cholesterol, Hypertension, Peripheral Vascular Neurological History of Neurological Disord: Yes Neurological Disorders: Neuropathy, Stroke (10/28/19 not tPa candidate) Reproductive System Sexually Transmitted Disease: No HIV/AIDS: No Genitourinary History of Genitourinary Disor: No Gastrointestinal History of Gastrointestinal Di: Yes Gastrointestinal Disorders: Gastroesophageal Reflux, Polyps Musculoskeletal History of Musculoskeletal Dis: No Musculoskeletal Disorders: Arthritis, Chronic Back Pain Endocrine History of Endocrine Disorders: Yes Endocrine Disorders: Diabetes, Insulin dep HEENT HEENT Disorders: Cataract, Macular Degeneration, Double Vision Loss of Vision: Denies Hearing Impairment: Hard of Hearing, Bilateral Hearing Aide Cancer History of Cancer: Yes Cancer: Colon Psychosocial History of Psychiatric Problem: No Integumentary History of Skin or Integumenta: No Blood Transfusions History of Blood Disorders: No Adverse Reaction to a Blood Tr: No Family Medical History Family Medial History: Alcoholism G8 BROTHER Cataracts 19 FATHER Myocardial infarction 19 MOTHER Psychosocial problem G8 SISTER Review of Systems-General Constitutional: No chills, No diaphoresis EENTM: dental problems (upper and lower dentures); No mouth pain Respiratory: cough (occational mild cough assocaited with eating ); No phlegm, No short of breath Cardiovascular: No chest pain, No palpitations Gastrointestinal: No abdominal pain; constipation, dysphagia; No nausea, No vomiting Genitourinary: No dysuria, No frequency Musculoskeletal: other (Right side UE and LE weakness) Skin: change in color; No lesions Psychiatric/Neurological: Denies Anxiety, Denies Depressed Physical Exam-General Problems Physical Exam Vital Signs Vital Signs - First Documented 10/31/19 15:41 Temp 36.2 Pulse 54 Resp 20 B/P (MAP) 148/64 (92) Pulse Ox 94 O2 Delivery Room Air Capillary Refill : Less Than 3 Seconds General Appearance: WD/WN, no apparent distress Neck: non-tender, supple, normal inspection Respiratory: chest non-tender, normal breath sounds, no respiratory distress, no accessory muscle use Cardiovascular: normal peripheral pulses, no edema; No JVD Peripheral Pulses: 2+ Dorsalis Pedis (R), 2+ Left Dors-Pedis (L), 2+ Radial Pulses (R), 2+ Radial Pulses (L) Gastrointestinal: normal bowel sounds, non tender, soft, no organomegaly; No distended, No guarding, No rebound Extremities: no pedal edema, no calf tenderness, other (flaccid right UE and LE) Neurologic/Psychiatric: alert, normal mood/affect, oriented x 3 Skin: normal color, warm/dry Lymphatic: no adenopathy (no posterior or anterior chain lymphadeopathy ) Data Review Labs Laboratory Tests 11/01/19 16:19: Glucometer 237H 11/01/19 20:50: Glucometer 137H 11/02/19 01:07: Glucometer 61L 11/02/19 01:58: Glucometer 103 11/02/19 06:01: Glucometer 238H 11/02/19 11:01: Glucometer 254H Assessment/Plan Assessment/Plan Assessment/Plan dysphagia with globus sensation - Barium swallow - Omeprazole 20mg Clinical Quality Measures DVT/VTE Risk/Contraindication: Risk Factor Score Per Nursin RFS Level Per Nursing on Admit: 4+=Very High RENAN GUERIN DO 11/05/19 1630: History of Present Illness History of Present Illness History of Present Illness 84 year old male having difficulty swallowing about 6 months. Food seems to get stuck in about mid esophagus. Recent stroke. Still having sensation of food getting stuck. Liquids make better. Is on anticoagulation due to his recent stroke. Unable to move right side of body. Denies any other complaints. Denies n/v fever sweats chills shortness of breath or chest pain. Allergies and Home Medications Allergies Coded Allergies: No Known Drug Allergies (Unverified , 11/02/19) Home Medications Amiodarone HCl 200 Mg Tablet, 100 MG PO DAILY, (Reported) Ascorbic Acid 100 Mg Tablet, 100 MG PO DAILY, (Reported) Aspirin 81 Mg Tablet.dr, 81 MG PO HS, (Reported) Chlorpheniramine Maleate 4 Mg Tablet, 4 MG PO TID PRN for ALLERGY SYMPTOMS, (Reported) Insulin Aspart 100 Unit/1 Ml Susp, 12 UNIT SQ WM, (Reported) 12 UNITS AT MEALS PLUS CORRECTION- MAX DAILY DOSE IS 60 UNTIS Insulin Determir 1,000 Units/10 Ml Soln, 15-20 UNITS SQ HS, (Reported) Lovastatin 20 Mg Tablet, 20 MG PO 1800 W/ MEALS, (Reported) Melatonin 5 Mg Tablet, 10 MG PO HS PRN for SLEEP, (Reported) Metformin HCl 500 Mg Tab.er.24, 1,000 MG PO BID, (Reported) Metoprolol Tartrate 50 Mg Tablet, 50 MG PO HS, (Reported) Multivitamin 1 Each Tablet, 1 EACH PO DAILY, (Reported) Tamsulosin HCl 0.4 Mg Cap, 0.4 MG PO DAILY, (Reported) LAST FILLED 05-27-2019 #90 Patient Home Medication List Home Medication List Reviewed: Yes Past Mqvafjo-Ltkdxj-Qslrlx Hx Reviewed Nursing Assessment Reviewed/Agree w Nursing PMH: Yes Family Medical History Significant Family History: No Pertinent Family Hx Family Medial History: Alcoholism G8 BROTHER Cataracts 19 FATHER Myocardial infarction 19 MOTHER Psychosocial problem G8 SISTER Review of Systems-General Constitutional: No chills, No diaphoresis EENTM: dental problems (upper and lower dentures); No mouth pain Respiratory: cough (occational mild cough assocaited with eating ); No phlegm, No short of breath Cardiovascular: No chest pain, No palpitations Gastrointestinal: No abdominal pain; dysphagia; No nausea, No vomiting Genitourinary: No dysuria, No frequency Musculoskeletal: other (Right side UE and LE weakness) Skin: No lesions Psychiatric/Neurological: Denies Anxiety, Denies Depressed Physical Exam-General Problems Physical Exam General Appearance: WD/WN, no apparent distress HEENT: PERRL/EOMI, normal ENT inspection Neck: non-tender, supple, normal inspection Respiratory: chest non-tender, no respiratory distress, no accessory muscle use Cardiovascular: normal peripheral pulses Gastrointestinal: non tender, soft, no organomegaly Rectal: deferred Back: no CVA tenderness Extremities: no pedal edema, no calf tenderness, other (flaccid right UE and LE) Neurologic/Psychiatric: alert, normal mood/affect, oriented x 3 Skin: normal color, warm/dry Lymphatic: no adenopathy (no posterior or anterior chain lymphadeopathy ) Assessment/Plan Assessment/Plan Assessment/Plan dysphagia current use anticoagulatoin start protonix barium swallow to evaluate upper gi tract Supervisory-Addendum Brief Verification & Attestation Participated in pt care: history, MDM, physical Personally performed: exam, history, MDM, supervision of care Care discussed with: Medical Student Procedures: n/a Results interpretation: Verified all documentation Verification and Attestation of Medical Student E/M Service A medical student performed and documented this service in my presence. I reviewed and verified all information documented by the medical student and made modifications to such information, when appropriate. I personally performed the physical exam and medical decision making. Renan Guerin, Nov 02, 2019,16:30 [facility] Nov 02, 2019 13:48 RENAN GUERIN DO Nov 05, 2019 16:30
--- OUTSIDE RECORDS SUMMARY | 2019-11-02 15:47 | XMS REPORT | Continuity of Care Document ---
Author Organization Unknown Address Unknown Phone Unavailable Allergies Active Description Code Type Severity Reaction Onset Reported/Identified Relationship to Patient Clinical Status Yes No Allergy Information Available [id number] Drug Allergy Unknown N/A 020 Medications There is no data. Problems There is no data. Procedures There is no data. Results Test Result Range Capillary blood glucose measurement by g lucometer (mass/volume) - 10/31/19 16:04 Capillary blood glucose measurement by glucometer (mas s/volume) 334 mg/dL 70-110 Capillary blood glucose measurement by g lucometer (mass/volume) - 10/31/19 20:13 Capillary blood glucose measurement by glucometer (mas s/volume) 193 mg/dL 70-110 Capillary blood glucose measurement by g lucometer (mass/volume) - 11/01/19 05:12 Capillary blood glucose measurement by glucometer (mas s/volume) 92 mg/dL 70-110 Complete blood count (CBC) with automate d white blood cell (WBC) differential - 11/01/19 05:50 Blood leukocytes automated count (number/volume) 8.5 10*3/uL 4.3-11.0 Blood erythrocytes automated count (number/volume) 4.51 10*6/uL 4.35-5.85 Venous blood hemoglobin measurement (mass/volume) 14.4 g/dL 13.3-17.7 Blood hematocrit (volume fraction) 43 % 40-54 Automated erythrocyte mean corpuscular volume 95 [ foz_us] 80-99 Automated erythrocyte mean corpuscular h emoglobin (mass per erythrocyte) 32 pg 25-34 Automated erythrocyte mean corpuscular h emoglobin concentration measurement (mass/volume) 34 g/dL 32-36 Automated erythrocyte distribution width ratio 14. 7 % 10.0- 14.5 Automated blood platelet count (count/volume) 262 10*3/uL 130-400 Automated blood platelet mean volume measurement 11.4 [foz_us] 7.4-10.4 Automated blood neutrophils/100 leukocytes 54 % 42-75 Automated blood lymphocytes/100 leukocytes 30 % 12-44 Blood monocytes/100 leukocytes 12 % 0-12 Automated blood eosinophils/100 leukocytes 3 % 0-10 Automated blood basophils/100 leukocytes 1 % 0-10 Blood neutrophils automated count (number/volume) 4.6 10*3 1.8-7.8 Blood lymphocytes automated count (number/volume) 2.6 10*3 1.0-4.0 Blood monocytes automated count (number/volume) 1. 0 10*3 0.0-1.0 Automated eosinophil count 0.3 10*3/uL 0 .0-0.3 Automated blood basophil count (count/volume) 0.0 10*3/uL 0.0-0.1 Comprehensive metabolic panel - 11/01/19 05:50 Serum or plasma sodium measurement (moles/volume) 138 mmol/L 135-145 Serum or plasma potassium measurement (moles/volume) 4.1 mmol/L 3.6-5.0 Serum or plasma chloride measurement (moles/volume) 103 mmol/L 98-107 Carbon dioxide 24 mmol/L 21-32 Serum or plasma anion gap determination (moles/volume) 11 mmol/L 5-14 Serum or plasma urea nitrogen measurement (mass/volume ) 21 mg/dL 7-18 Serum or plasma creatinine measurement (mass/volume) 1.05 mg/dL 0.60-1.30 Serum or plasma urea nitrogen/creatinine mass ratio 20 NRG Serum or plasma creatinine measurement w ith calculation of estimated glomerular filtration rate > NRG Serum or plasma glucose measurement (mass/volume) 95 mg/dL 70-105 Serum or plasma calcium measurement (mass/volume) 9.1 mg/dL 8.5-10.1 Serum or plasma total bilirubin measurement (mass/volu me) 0.5 mg/dL 0.1-1.0 Serum or plasma alkaline phosphatase yojana surement (enzymatic activity/volume) 86 U/L 40-136 Serum or plasma aspartate aminotransfera se measurement (enzymatic activity/volume) 18 U/L 5-34 Serum or plasma alanine aminotransferase measurement (enzymatic activity/volume) 18 U/L 0-55 Serum or plasma protein measurement (mass/volume) 5.8 g/dL 6.4-8.2 Serum or plasma albumin measurement (mass/volume) 3.5 g/dL 3.2-4.5 CALCIUM CORRECTED 9.5 mg/dL 8.5-10.1 Capillary blood glucose measurement by g lucometer (mass/volume) - 11/01/19 11:52 Capillary blood glucose measurement by glucometer (mas s/volume) 259 mg/dL 70-110 Capillary blood glucose measurement by g lucometer (mass/volume) - 11/01/19 16:19 Capillary blood glucose measurement by glucometer (mas s/volume) 237 mg/dL 70-110 Capillary blood glucose measurement by g lucometer (mass/volume) - 11/01/19 20:50 Capillary blood glucose measurement by glucometer (mas s/volume) 137 mg/dL 70-110 Capillary blood glucose measurement by g lucometer (mass/volume) - 11/02/19 01:07 Capillary blood glucose measurement by glucometer (mas s/volume) 61 mg/dL 70-110 Capillary blood glucose measurement by g lucometer (mass/volume) - 11/02/19 01:58 Capillary blood glucose measurement by glucometer (mas s/volume) 103 mg/dL 70-110 Capillary blood glucose measurement by g lucometer (mass/volume) - 11/02/19 06:01 Capillary blood glucose measurement by glucometer (mas s/volume) 238 mg/dL 70-110 Capillary blood glucose measurement by g lucometer (mass/volume) - 11/02/19 11:01 Capillary blood glucose measurement by glucometer (mas s/volume) 254 mg/dL 70-110 Encounters ACCT No. Visit Date/Time Discharge Status Pt. Type Provider Facility Loc./Unit Complaint [id number] 10/31/2019 15:05:[address] Inpatient SCOTT BARBOSA DO [facility]
[2019-11-02 16:00] VITALS: BP 165/77
[2019-11-02] MEDS: SIMvastatin 10 MG (ZOCOR) TAB PO SCH (17:14)
[2019-11-02] MEDS: ASPIRIN E.C. 81 MG (ECOTRIN) TAB PO SCH (21:05)
[2019-11-02] MEDS: meTOproloL SUCCINATE 50 MG (TOPROL XL) TAB PO SCH (21:05)
[2019-11-03] MEDS: inSUlin ASPART (NovoLOG) 1 UNIT/0.01 ML (CHARGE PER UNIT) SC SCH ×4 (04:35→20:56)
[2019-11-03 06:02] VITALS: BP 170/80
[2019-11-03] MEDS: metFORMIN XR 500 MG (GLUCOPHAGE XR) TAB PO SCH ×2 (06:31→17:15)
--- NOTE | 2019-11-03 08:45 | Progress Note - Surgery ---
[facility]RIO IZAGUIR[facility] 11/03/19 0844: Subjective Date Seen by a Provider: Nov 03, 2019 Time Seen by a Provider: 08:40 Subjective/Events-last exam Patient is alert and oriented and in no acute distress. No family at bedside Resting comfortably and denies pain at this time. Patient was started on Protonix, has not noticed any changes. Tolerating current diet Having bowel movements Spoke to the pts nurse. Will have barium swallow Monday. Denies the following: Chest pain, palpitations, SOB, Cough, Abdominal pain, N/V, F/C. Review of Systems General: No Chills, No Night Sweats HEENT: No Head Aches, No Eye Pain Pulmonary: No Dyspnea, No Cough Cardiovascular: No: Chest Pain, Palpitations Gastrointestinal: No: Nausea, Vomiting, Abdominal Pain Objective Exam Vital Signs Date Time Temp Pulse Resp B/P (MAP) Pulse Ox O2 Delivery O2 Flow Rate FiO2 11/03/19 06:02 35.7 61 18 170/80 (110) 97 Room Air 11/02/19 20:30 Room Air 11/02/19 16:00 36.4 54 16 165/77 (106) 97 Room Air 11/02/19 09:41 Room Air I & O 11/03/19 07:00 Intake Total 1070 ml Output Total 850 ml Balance 220 ml Capillary Refill : Less Than 3 Seconds General Appearance: No Apparent Distress, WD/WN, Chronically ill Neck: Non Tender, Supple Respiratory: Chest Non Tender, Lungs Clear, Normal Breath Sounds, No Accessory Muscle Use, No Respiratory Distress Cardiovascular: Regular Rate, Rhythm, No Edema, Normal Peripheral Pulses, Irregularly Irregular Peripheral Pulses: 2+ Dorsalis Pedis (R), 2+ Left Dors-Pedis (L), 2+ Radial Pulses (R), 2+ Radial Pulses (L) Gastrointestinal: normal bowel sounds, non tender, soft, no organomegaly; No distended, No guarding, No rebound Extremity: Normal Capillary Refill, No Calf Tenderness, No Pedal Edema Neurologic/Psychiatric: Alert, Oriented x3, Normal Mood/Affect, Abnormal Gait, Motor Weakness (right sided weakness) Skin: Normal Color, Warm/Dry Lymphatic: No Adenopathy Results Lab Laboratory Tests 11/02/19 11:01: Glucometer 254H 11/02/19 15:59: Glucometer 260H 11/02/19 20:47: Glucometer 179H 11/03/19 04:26: Glucometer 112H 11/03/19 05:47: Glucometer 114H Assessment/Plan Assessment/Plan Assessment/Plan dysphagia with globus sensation - Barium swallow will be performed on monday11/04/2019 - Started on Protonix 20 mg will follow Clinical Quality Measures DVT/VTE Risk/Contraindication: Risk Factor Score Per Nursin RFS Level Per Nursing on Admit: 4+=Very High RANDA WANG DO 11/05/19 1636: Subjective Subjective/Events-last exam No changes with protonix. Tolerating diet. Denies n/v fever sweats chills shortness of breath or chest pain. barium swallow to be done on Monday. Objective Exam General Appearance: No Apparent Distress, WD/WN HEENT: PERRL/EOMI Neck: Non Tender, Supple Respiratory: Chest Non Tender, No Accessory Muscle Use, No Respiratory Distress Cardiovascular: Irregularly Irregular Gastrointestinal: non tender, soft, no organomegaly Extremity: Normal Capillary Refill, No Calf Tenderness, Other (flaccid right upper and lower extremity) Neurologic/Psychiatric: Alert, Oriented x3, Normal Mood/Affect, Motor Weakness (right sided weakness) Skin: Normal Color, Warm/Dry Lymphatic: No Adenopathy Assessment/Plan Assessment/Plan Assessment/Plan dysphgia recent cva current anticoagulation continue protonix barium swallow tomorrow will follow Supervisory-Addendum Brief Verification & Attestation Participated in pt care: history, MDM, physical Personally performed: exam, history, MDM, supervision of care Care discussed with: Medical Student Procedures: n/a Results interpretation: Verified all documentation Verification and Attestation of Medical Student E/M Service A medical student performed and documented this service in my presence. I reviewed and verified all information documented by the medical student and made modifications to such information, when appropriate. I personally performed the physical exam and medical decision making. Randa Wang, Nov 03, 2019,16:36 [facility] Nov 03, 2019 08:44 RANDA WANG DO Nov 05, 2019 16:36
[2019-11-03] MEDS: AMIODARONE 200 MG (CORDARONE) TAB PO SCH (09:28)
[2019-11-03] MEDS: PANTOPRAZOLE 20 MG TABLET (PROTONIX) PO SCH (09:28)
[2019-11-03] MEDS: APIXABAN 5 MG (ELIQUIS) TABLET PO SCH ×2 (09:28→20:55)
[2019-11-03] MEDS: TAMSULOSIN 0.4 MG (FLOMAX) CAP PO SCH (09:28)
[2019-11-03] MEDS: MULTIVIT W/MINERALS TAB (THERAGRAN M) PO SCH (09:28)
[2019-11-03] MEDS: polyethylene glycoL POWDER 17 GM (MIRALAX) PACK PO SCH ×2 (09:29→19:47)
[2019-11-03] MEDS: SENNA W/DOCUSATE (SENOKOT S) TABLET PO SCH ×2 (09:29→19:47)
[2019-11-03] MEDS: DOCUSATE SODIUM 100 MG (COLACE) CAP PO SCH ×2 (09:29→19:46)
[2019-11-03 09:37] VITALS: BP 125/69
[2019-11-03] MEDS ORDERED: ACETAMINOPHEN 325 MG TABLET ONE (10:20)
[2019-11-03] MEDS: ACETAMINOPHEN 325 MG TABLET PO PRN (10:27)
--- NOTE | 2019-11-03 10:54 | Cardiology Progress Note ---
Subjective Date Seen by Provider: Nov 03, 2019 Time Seen by Provider: 10:53 Subjective/Events-last exam Patient is sitting in a chair, feeling well. No new complaint Review of Systems General: No Chills, No Night Sweats, No Fatigue, No Malaise, No Appetite, No Other HEENT: No Head Aches, No Visual Changes, No Eye Pain, No Ear Pain, No Dysphasia, No Sinus Congestion, No Post Nasal Drip, No Sore Throat, No Other Pulmonary: No Dyspnea, No Cough, No Pleuritic Chest Pain, No Other Cardiovascular: No: Chest Pain, Palpitations, Orthopnea, Paroxysmal Noc. Dyspnea, Edema, Lt Headedness, Other Objective-Cardiology Exam Last Set of Vital Signs Vital Signs 11/03/19 11/03/19 11/03/19 06:02 09:37 09:57 Temp 35.7 Pulse 54 Resp 18 B/P (MAP) 125/69 (87) Pulse Ox 97 O2 Delivery Room Air Capillary Refill : Less Than 3 Seconds I&O Intake and Output 11/03/19 00:00 Intake Total 1120 ml Output Total 600 ml Balance 520 ml Intake Oral 1120 ml Output Urine Total 600 ml # Voids 6 # Bowel Movements 2 General: Alert, Oriented X3, Cooperative HEENT: Atraumatic, PERRLA Neck: Supple, No JVD, No Thyromegaly Lungs: Clear to Auscultation, Normal Air Movement Heart: Regular Rate, Normal S1, Normal S2, No Murmurs Abdomen: Normal Bowel Sounds, Soft, No Tenderness, No Hepatosplenomegaly, No Masses Extremities: No Clubbing, No Cyanosis, No Edema, Normal Pulses, No Tenderness/Swelling Skin: No Rashes, No Breakdown, No Significant Lesion Neuro: Normal Gait, Normal Speech, Strength at 5/5 X4 Ext, Normal Tone, S ensation Intact Psych/Mental Status: Mental Status NL, Mood NL Results Lab Laboratory Tests Test 11/02/19 11:01 11/02/19 15:59 11/02/19 20:47 11/03/19 04:26 Range/Units Glucometer 254 H 260 H 179 H 112 H 70-110 MG/DL Test 11/03/19 05:47 Range/Units Glucometer 114 H 70-110 MG/DL A/P-Cardiology Admission Diagnosis CVA Coronary artery disease Paroxysmal atrial fibrillation Hypertension Hyperlipidemia Assessment/Plan Status post CVA with residual right hemiplegia, 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 Receiving physical therapy. Coronary artery disease, history of multiple intervention the past, had a CABG 3 done in 2017, has been doing well. Continue to monitor Paroxysmal atrial fibrillation, reporting history of atrial fibrillation in the remote past. Was on oral anticoagulation for some time in the past and it was discontinued in the remote past. Admitted with TIA on October 26 and started on oral anticoagulation and then had another CVA on October 28, 2019 did not qualify for TPA. Currently receiving physical therapy. [id number] score of 6, yearly risk of stroke without oral anticoagulation is 9.8 percent, maintained on Eliquis Hypertension, add lisinopril 5 mg daily and monitor tolerance and response Hyperlipidemia, monitor lipids Diabetes mellitus, followed and managed by primary care physician Clinical Quality Measures DVT/VTE Risk/Contraindication: Risk Factor Score Per Nursin RFS Level Per Nursing on Admit: 4+=Very High JOES PINO MD Nov 03, 2019 10:54
[2019-11-03] MEDS ORDERED: lisINopril 5 MG (PRINIVIL) TABLET ONE (10:55)
[2019-11-03] MEDS: lisINopril 5 MG (PRINIVIL) TABLET PO SCH (11:02)
--- NOTE | 2019-11-03 11:17 | NUR ---
PER RADIOLOGY, PATIENT NEEDS TO BE NPO AT MIDNIGHT FOR BARIUM SWALLOW.
--- NOTE | 2019-11-03 12:19 | PM&R Progress Note ---
Subjective HPI/CC On Admission Date Seen by Provider: Nov 03, 2019 Time Seen by Provider: 12:15 Subjective/Events-last exam Pt had a pretty good night. Labile glucose noted and will minimize tonight since he is NPO for Barium swallow tomorrow per Dr Wang Bowels moving very well now No pain is reported PPI started by Dr Kathleen Weber added by Cardiology Checked meds and labs Reviewed therapy notes Conferred with equip maint eng of Systems General: Fatigue HEENT: Dysphasia Neurological: Weakness, Numbness, Incoordination Objective Exam Vital Signs Vital Signs Date Time Temp Pulse Resp B/P (MAP) Pulse Ox O2 Delivery O2 Flow Rate FiO2 11/03/19 17:55 36.6 59 18 107/66 (80) 97 Room Air Capillary Refill : Less Than 3 Seconds General Appearance: No Apparent Distress, WD/WN, Chronically ill Neck: Non Tender, Supple Respiratory: Chest Non Tender, Lungs Clear, Normal Breath Sounds, No Accessory Muscle Use, No Respiratory Distress Cardiovascular: Regular Rate, Rhythm, No Edema, Normal Peripheral Pulses, Irregularly Irregular Gastrointestinal: Normal Bowel Sounds, No Organomegaly, No Pulsatile Mass, Non Tender, Soft Back: Normal Inspection, No CVA Tenderness, No Vertebral Tenderness Extremity: Normal Capillary Refill, No Calf Tenderness, No Pedal Edema Neurologic/Psychiatric: Alert, Oriented x3, Normal Mood/Affect, Abnormal Gait, Motor Weakness (right sided weakness) Skin: Normal Color, Warm/Dry Lymphatic: No Adenopathy Results/Procedures Lab Patient resulted labs reviewed. FIM Transfers Therapy Code Descriptions/Definitions Functional [place] Measure: 0=Not Assessed/NA 4=Minimal Assistance 1=Total Assistance 5=Supervision or Setup 2=Maximal Assistance 6=Modified [place] 3=Moderate Assistance 7=Complete IndependenceSCALE: Activities may be completed with or without assistive devices. 2-Rwotwammyg-muebwgk completes the activity by him/herself with no assistance from a helper. 5-Set-up or Clean-up Assistance-helper sets up or cleans up; patient completes activity. [place] assists only prior to or following the activity. 4-Supervision or Touching Assistance-helper provides verbal cues and/or touching/steadying and/or contact guard assistance as patient completes activity. Assistance may be provided throughout the activity or intermittently. 3-Partial/Moderate Assistance-helper does LESS THAN HALF the effort. [place] lifts, holds or supports trunk or limbs, but provides less than half the effort. 2-Substantial/Maximal Assistance-helper does MORE THAN HALF the effort. [place] lifts or holds trunk or limbs and provides more than half the effort. 5-Gtzshffnm-muzhov does ALL the effort. Patient does none of the effort to complete the activity. Or, the assistance of 2 or more helpers is required for the patient to complete the activity. If activity was not attempted, code reason: 7-Patient Refused. 9-Not Applicable-not attempted and the patient did not perform the activity before the current illness, exacerbation or injury. 10-Not Attempted due to Environmental Limitations-(lack of equipment, weather restraints, etc.). 88-Not Attempted due to Medical Conditions or Safety Concerns. Roll Left to Right (QC): 3 Sit to Lying (QC): 2 (greater then 50% help with lifting RLE and lowering trunk) Sit to Stand (QC): 3 Chair/Oxg-yy-Ogtxl Xfer(QC): 3 Car Transfer (QC): 2 (max assist to transfer in/out of car) Gait Training Does the Patient Walk?: Yes Distance: 10 x4 Walk 10 feet (QC): 3 Walk 50 ft with 2 Turns(QC): 88 Walk 150 ft (QC): 88 Walking 10ft/uneven surface-QC: 88 Gait Persons Needed: 2 Gait Assistive Device: Parallel Bars Wheelchair Training Does the Pt Use a Wheelchair?: Yes Wheel 50 ft with 2 turns (QC): 5 Wheel 150 ft (QC): 2 Type of Wheelchair: Manual Stair Training 1 Step (curb) (QC): 88 4 Steps (QC): 88 12 Steps (QC): 88 Balance Picking up an Object (QC): 88 ADL-Treatment Eating (QC): 5 (Placed plateguard on breakfast plate and pt able to scoop food for self.) Oral Hygiene (QC): 7 Shower/Bathe Self (QC): 1 (Assist x2 required for safety during LE bathing.) Upper Body Dressing (QC): 2 (Pt assisted R UE to thread into sleeve. Threaded L UE into sleeve. 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 HTN HLP CRI AF ED Acute constipation initiated aggressive meds now resolved Dysphagia needs Barium swallow tomorrow and maintained on PPI Plan: IRF protocol BM regimen Fall risk Cardiology consultation appreciated Dr Wang consulted (1) CVA (cerebral vascular accident) (2) Flaccid hemiplegia affecting dominant side (3) Diabetes (4) Hypertension (5) Hyperlipemia (6) On continuous oral anticoagulation (7) Atrial fibrillation (8) History of penile implant (9) History of colon cancer (10) Former smoker (11) Renal insufficiency (12) Constipation SCOTT BARBOSA DO Nov 03, 2019 12:19
--- NOTE | 2019-11-03 13:39 | NUR ---
PER DR. BARBOSA, SINCE PATIENT WILL BE NPO AT MIDNIGHT TONIGHT, GIVE 3 UNITS OF LEVEMIR TONIGHT AND THEN GO BACK TO 8 UNITS OF LEVEMIR TOMORROW NIGHT.
[2019-11-03] MEDS: SIMvastatin 10 MG (ZOCOR) TAB PO SCH (17:15)
[2019-11-03 17:55] VITALS: BP 107/66
[2019-11-03] MEDS: meTOproloL SUCCINATE 50 MG (TOPROL XL) TAB PO SCH (20:55)
[2019-11-03] MEDS: ASPIRIN E.C. 81 MG (ECOTRIN) TAB PO SCH (20:55)
[2019-11-04 05:53] VITALS: BP 134/59
[2019-11-04 07:26] LABS: BASOPHILS # (AUTO) 0.1 10^3/uL (0.0-0.1); BASOPHILS % (AUTO) 1 % (0-10); EOSINOPHILS # (AUTO) 0.2 10^3/uL (0.0-0.3); EOSINOPHILS % (AUTO) 2 % (0-10); HEMATOCRIT 44 % (40-54); HEMOGLOBIN 14.4 G/DL (13.3-17.7); LYMPHOCYTES # (AUTO) 2.4 X 10^3 (1.0-4.0); LYMPHOCYTES % (AUTO) 25 % (12-44); MEAN CORPUSCULAR HEMOGLOBIN 31 PG (25-34); MEAN CORPUSCULAR HGB CONC 33 G/DL (32-36); MEAN CORPUSCULAR VOLUME 96 FL (80-99); MEAN PLATELET VOLUME 11.6 FL (7.4-10.4); MONOCYTES % (AUTO) 10 % (0-12); NEUTROPHILS # (AUTO) 6.1 X 10^3 (1.8-7.8); NEUTROPHILS % (AUTO) 62 % (42-75); PLATELET COUNT 266 10^3/uL (130-400); RED CELL DISTRIBUTION WIDTH 14.7 % (10.0-14.5); WHITE BLOOD COUNT 9.8 10^3/uL (4.3-11.0)
[2019-11-04] MEDS: inSUlin ASPART (NovoLOG) 1 UNIT/0.01 ML (CHARGE PER UNIT) SC SCH ×4 (07:34→21:22)
[2019-11-04] MEDS: metFORMIN XR 500 MG (GLUCOPHAGE XR) TAB PO SCH ×2 (07:35→18:06)
[2019-11-04 07:53] LABS: ALBUMIN 3.7 GM/DL (3.2-4.5); BILIRUBIN,TOTAL 0.4 MG/DL (0.1-1.0); CALCIUM 9.2 MG/DL (8.5-10.1); CREATININE SERUM 1.34 MG/DL (0.60-1.30); POTASSIUM 4.7 MMOL/L (3.6-5.0); TOTAL PROTEIN 6.1 GM/DL (6.4-8.2)
[2019-11-04] MEDS: polyethylene glycoL POWDER 17 GM (MIRALAX) PACK PO SCH ×2 (07:57→20:07)
[2019-11-04] MEDS: SENNA W/DOCUSATE (SENOKOT S) TABLET PO SCH ×2 (07:57→20:13)
[2019-11-04] MEDS: DOCUSATE SODIUM 100 MG (COLACE) CAP PO SCH ×2 (07:57→20:12)
--- NOTE | 2019-11-04 08:03 | Speech Therapy Daily Note ---
Speech Daily Progress Note Subjective Date Seen by Provider: Nov 04, 2019 Time Seen by Provider: 00:15 Patient was resting in his bed, alert and participated well with therapy. Objective Patient completed memory tasks related to recall of events over the weekend. Assessment Assessment Current Status: Good Progress Treatment Plan Continue Plan of Care Speech Short Term Goals Short Term Goals Short Term Goals 1. Patient will complete memory tasks related to daily needs at 90% or greater with minimal cueing. 2. Patient will complete safety awareness tasks related to daily needs at 90% or greater with minimal cueing. 3. Patient will complete problem solving tasks related to daily needs at 90% or greater with minimal cueing. 4. Patient will complete word finding tasks related to daily needs at 90% or greater with minimal cueing. Speech Button Bradder Goals Button Bradder Goals Patient will improve cognitive communication necessary for safety and daily living tasks with minimal assist. Speech-Plan Patient/Family Goals Patient/Family Goals: Patient plans on returning to his home where he lives with his . Treatment Plan Speech Therapy Treatment Plan: Continue Plan of Care Patient orders have been received for MBS, scheduled for later this week. Treatment Duration: Nov 08, 2019 Frequency: 5 times per week Estimated Hrs Per Day: .5 hour per day Rehab Potential: Good Barriers to Learning: Patient has recently had two CVA's. Pt/Family Agrees to Plan: Yes Safety Risks/Education Teaching Recipient: Patient Teaching Methods: Discussion Response to Teaching: Verbalize Understanding Education Topics Provided: MBS procedure and diet levels Time Speech Therapy Time In: 06:55 Speech Therapy Time Out: 07:10 Total Billed Time: 15 Billed Treatment Time 1[address] Nov 04, 2019 08:03
--- NOTE | 2019-11-04 08:29 | Progress Note - Surgery ---
ALESSANDRA [facility] 11/04/19 0829: Subjective Date Seen by a Provider: Nov 04, 2019 Time Seen by a Provider: 07:30 Subjective/Events-last exam Patient states that he has mild CHINCHILLA occasionally and R hip pain that is well under control with Tylenol. Patient does state difficulty with swallowing water, has experienced it over the last month. Patients complaint with NPO, Barium swallow was cancelled. Review of Systems General: No Chills, No Night Sweats, No Appetite HEENT: No Head Aches, No Visual Changes; Dysphasia; No Sore Throat Pulmonary: No Dyspnea, No Cough Cardiovascular: No: Chest Pain, Palpitations Gastrointestinal: No: Nausea, Vomiting, Abdominal Pain, Diarrhea, Constipation Genitourinary: No Dysuria, No Frequency, No Incontinence Musculoskeletal: other (R Hip pain ); No: back pain Focused Exam Respiratory: Lungs Clear, Normal Breath Sounds, No Accessory Muscle Use, No Respiratory Distress Cardiovascular: Regular Rate, Rhythm, No Edema, No Gallop, No Murmur, Normal Peripheral Pulses Peripheral Pulses: 2+ Carotid (R), 2+ Carotid (L), 2+ Dorsalis Pedis (R), 2+ Left Dors-Pedis (L), 2+ Radial Pulses (R), 2+ Radial Pulses (L) Skin: normal color, warm/dry Objective Exam Vital Signs Date Time Temp Pulse Resp B/P (MAP) Pulse Ox O2 Delivery O2 Flow Rate FiO2 11/04/19 05:53 35.8 54 16 134/59 (84) 92 Room Air 11/03/19 20:30 Room Air 11/03/19 17:55 36.6 59 18 107/66 (80) 97 Room Air 11/03/19 09:57 Room Air 11/03/19 09:37 54 125/69 (87) I & O 11/04/19 07:00 Intake Total 900 ml Output Total 950 ml Balance -50 ml Capillary Refill : Less Than 3 Seconds General Appearance: No Apparent Distress, WD/WN Neck: Normal Inspection, Non Tender, Supple Respiratory: Lungs Clear, Normal Breath Sounds, No Accessory Muscle Use, No Respiratory Distress Cardiovascular: Regular Rate, Rhythm, No Edema, No Gallop, No Murmur, Normal Peripheral Pulses, Irregularly Irregular Peripheral Pulses: 2+ Carotid (R), 2+ Carotid (L), 2+ Dorsalis Pedis (R), 2+ Left Dors-Pedis (L), 2+ Radial Pulses (R), 2+ Radial Pulses (L) Gastrointestinal: normal bowel sounds, non tender, soft, no organomegaly; No distended, No guarding, No rebound Extremity: Normal Capillary Refill, Non Tender, No Calf Tenderness, No Pedal Edema Neurologic/Psychiatric: Alert, Oriented x3, Normal Mood/Affect, tier in II-XII Norm as Tested, Abnormal Gait, Motor Weakness (right sided weakness) Skin: Normal Color, Warm/Dry Results Lab Laboratory Tests 11/03/19 10:59: Glucometer 218H 11/03/19 16:02: Glucometer 350H 11/03/19 20:49: Glucometer 257H 11/04/19 00:07: Glucometer 59*L 11/04/19 01:10: Glucometer 112H 11/04/19 07:10: Glucometer 206H, White Blood Count 9.8, Red Blood Count 4.60, Hemoglobin 14.4, Hematocrit 44, Mean Corpuscular Volume 96, Mean Corpuscular Hemoglobin 31, Mean Corpuscular Hemoglobin Concent 33, Red Cell Distribution Width 14.7H, Platelet Count 266, Mean Platelet Volume 11.6H, Neutrophils (%) (Auto) 62, Lymphocytes (%) (Auto) 25, Monocytes (%) (Auto) 10, Eosinophils (%) (Auto) 2, Basophils (%) (Auto) 1, Neutrophils # (Auto) 6.1, Lymphocytes # (Auto) 2.4, Monocytes # (Auto) 1.0, Eosinophils # (Auto) 0.2, Basophils # (Auto) 0.1, Sodium Level 137, Potassium Level 4.7, Chloride Level 103, Carbon Dioxide Level 24, Anion Gap 10, Blood Urea Nitrogen 31H, Creatinine 1.34H, Estimat Glomerular Filtration Rate 51, BUN/Creatinine Ratio 23, Glucose Level 227H, Calcium Level 9.2, Corrected Calcium 9.4, Total Bilirubin 0.4, Aspartate Amino Transf (AST/SGOT) 17, Alanine Aminotransferase (ALT/SGPT) 14, Alkaline Phosphatase 94, Total Protein 6.1L, Albumin 3.7 Assessment/Plan Assessment/Plan Assessment/Plan dysphagia with globus sensation - Barium swallow cancelled, possible modified swallow test and EGD - Started on Protonix 20 mg will follow Clinical Quality Measures DVT/VTE Risk/Contraindication: Risk Factor Score Per Nursin RFS Level Per Nursing on Admit: 4+=Very High RANDA WANG DO 11/05/19 1641: Subjective Subjective/Events-last exam Patient had modifed swallow this morning. Abnormal swallow did demonstrate deep laryngeal penetration during swallowing of thin liquids. No aspiration was observed. Not liking thickened liquids. Patient with headache on occasion. No other complaints at this time. Denies n/v fever sweats chills shortness of breath or chest pain. Objective Exam General Appearance: No Apparent Distress, WD/WN HEENT: PERRL/EOMI Neck: Normal Inspection, Non Tender Respiratory: Chest Non Tender, No Accessory Muscle Use, No Respiratory Distress Cardiovascular: Regular Rate, Rhythm Gastrointestinal: non tender, soft, no organomegaly Extremity: Normal Capillary Refill, Non Tender, No Calf Tenderness Neurologic/Psychiatric: Alert, Oriented x3, Normal Mood/Affect, Motor Weakness (right sided weakness) Skin: Normal Color, Warm/Dry Lymphatic: No Adenopathy Assessment/Plan Assessment/Plan Assessment/Plan dysphagia recent cva current use anticoagulation does not tolerate thinned liquids so cant do barium swallow. continue protonix continue to work with speech therapy Supervisory-Addendum Brief Verification & Attestation Participated in pt care: history, MDM, physical Personally performed: exam, history, MDM, supervision of care Care discussed with: Medical Student Procedures: n/a Results interpretation: Verified all documentation Verification and Attestation of Medical Student E/M Service A medical student performed and documented this service in my presence. I reviewed and verified all information documented by the medical student and made modifications to such information, when appropriate. I personally performed the physical exam and medical decision making. Randa Wang, Nov 04, 2019,16:41 [facility] Nov 04, 2019 08:29 RANDA WANG DO Nov 05, 2019 16:41
[2019-11-04] MEDS: MULTIVIT W/MINERALS TAB (THERAGRAN M) PO SCH (08:43)
[2019-11-04] MEDS: AMIODARONE 200 MG (CORDARONE) TAB PO SCH (08:43)
[2019-11-04] MEDS: lisINopril 5 MG (PRINIVIL) TABLET PO SCH (08:43)
[2019-11-04] MEDS: TAMSULOSIN 0.4 MG (FLOMAX) CAP PO SCH (08:43)
[2019-11-04] MEDS: APIXABAN 5 MG (ELIQUIS) TABLET PO SCH ×2 (08:43→20:13)
--- NOTE | 2019-11-04 08:43 | Cardiology Progress Note ---
Subjective Date Seen by Provider: Nov 04, 2019 Time Seen by Provider: 08:42 Subjective/Events-last exam Patient sitting up at bedside, denies any chest pain or dyspnea. Review of Systems General: No Chills, No Night Sweats, No Fatigue, No Malaise, No Appetite, No Other HEENT: No Head Aches, No Visual Changes, No Eye Pain, No Ear Pain, No Dysphasia, No Sinus Congestion, No Post Nasal Drip, No Sore Throat, No Other Pulmonary: No Dyspnea, No Cough, No Pleuritic Chest Pain, No Other Cardiovascular: No: Chest Pain, Palpitations, Orthopnea, Paroxysmal Noc. Dyspnea, Edema, Lt Headedness, Other Objective-Cardiology Exam Last Set of Vital Signs Vital Signs 11/04/19 11/04/19 05:53 09:00 Temp 35.8 Pulse 54 Resp 16 B/P (MAP) 134/59 (84) Pulse Ox 92 O2 Delivery Room Air Capillary Refill : Less Than 3 Seconds I&O Intake and Output 11/04/19 00:00 Intake Total 900 ml Output Total 1350 ml Balance -450 ml Intake Oral 900 ml Output Urine Total 1350 ml General: Alert, Oriented X3, Cooperative HEENT: Atraumatic, PERRLA Neck: Supple, No JVD, No Thyromegaly Lungs: Clear to Auscultation, Normal Air Movement Heart: Regular Rate, Normal S1, Normal S2, No Murmurs Abdomen: Normal Bowel Sounds, Soft, No Tenderness, No Hepatosplenomegaly, No Masses Extremities: No Clubbing, No Cyanosis, No Edema, Normal Pulses, No Tenderness/Swelling Skin: No Rashes, No Breakdown, No Significant Lesion Neuro: Normal Gait, Normal Speech, Strength at 5/5 X4 Ext, Normal Tone, Sens ation Intact Psych/Mental Status: Mental Status NL, Mood NL Results Lab Laboratory Tests 11/04/19 07:10 A/P-Cardiology Admission Diagnosis CVA Coronary artery disease Paroxysmal atrial fibrillation Hypertension Hyperlipidemia Assessment/Plan Status post CVA with residual right hemiplegia, 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 Receiving physical therapy. Coronary artery disease, history of multiple intervention the past, had a CABG 3 done in 2017, has been doing well. Continue to monitor Paroxysmal atrial fibrillation, reporting history of atrial fibrillation in the remote past. Was on oral anticoagulation for some time in the past and it was discontinued in the remote past. Admitted with TIA on October 26 and started on oral anticoagulation and then had another CVA on October 28, 2019 did not qualify for TPA. Currently receiving physical therapy. [id number] score of 6, yearly risk of stroke without oral anticoagulation is 9.8 percent, maintained on Eliquis Hypertension, controlled, continue to monitor. Hyperlipidemia, monitor lipids Diabetes mellitus, followed and managed by primary care physician Patient was seen and evaluated with Alisia, examination performed, management plan was discussed, agree with the current scribed note, I made few changes to the note using Italic font Patient was seen and evaluated, receiving physical therapy. No change. Continue on current medication monitor Clinical Quality Measures DVT/VTE Risk/Contraindication: Risk Factor Score Per Nursin RFS Level Per Nursing on Admit: 4+=Very High ALISIA GARCIA Nov 04, 2019 8:43 am JOSE PINO MD Nov 04, 2019 10:54 am
[2019-11-04] MEDS ORDERED: PATIENT MAY USE OWN MEDS, ALL MC SCH (08:45)
[2019-11-04] MEDS: PANTOPRAZOLE 20 MG TABLET (PROTONIX) PO SCH (08:45)
--- NOTE | 2019-11-04 10:14 | PM&R Progress Note ---
Subjective HPI/CC On Admission Date Seen by Provider: Nov 04, 2019 Time Seen by Provider: 10:00 Subjective/Events-last exam Pt had a pretty good night. Sleeping better Modified swallow study today instead of tomorrow since Barium swallow is not the best test for his suspected dysphagia Bowels moving very well now No pain is reported PPI started by Dr Kathleen Weston 1.34 ACEi added by Cardiology Checked meds and labs Reviewed therapy notes Conferred with RN Objective Exam Vital Signs Vital Signs Date Time Temp Pulse Resp B/P (MAP) Pulse Ox O2 Delivery O2 Flow Rate FiO2 11/04/19 16:00 36.1 60 16 92/54 (67) 94 Room Air Capillary Refill : Less Than 3 Seconds General Appearance: No Apparent Distress, WD/WN Neck: Normal Inspection, Non Tender, Supple Respiratory: Lungs Clear, Normal Breath Sounds, No Accessory Muscle Use, No Respiratory Distress Cardiovascular: Regular Rate, Rhythm, No Edema, No Gallop, No Murmur, Normal Peripheral Pulses, Irregularly Irregular Gastrointestinal: Normal Bowel Sounds, No Organomegaly, No Pulsatile Mass, Non Tender, Soft Back: Normal Inspection, No CVA Tenderness, No Vertebral Tenderness Extremity: Normal Capillary Refill, Non Tender, No Calf Tenderness, No Pedal Edema Neurologic/Psychiatric: Alert, Oriented x3, Normal Mood/Affect, returns supervisor II-XII Norm as Tested, Abnormal Gait, Motor Weakness Skin: Normal Color, Warm/Dry Results/Procedures Lab Laboratory Tests 11/04/19 07:10 Patient resulted labs reviewed. FIM Transfers Therapy Code Descriptions/Definitions Functional Mead Measure: 0=Not Assessed/NA 4=Minimal Assistance 1=Total Assistance 5=Supervision or Setup 2=Maximal Assistance 6=Modified Mead 3=Moderate Assistance 7=Complete IndependenceSCALE: Activities may be completed with or without assistive devices. 8-Raecpvinjw-qymahra completes the activity by him/herself with no assistance from a helper. 5-Set-up or Clean-up Assistance-helper sets up or cleans up; patient completes activity. Jenkins assists only prior to or following the activity. 4-Supervision or Touching Assistance-helper provides verbal cues and/or touching/steadying and/or contact guard assistance as patient completes activity. Assistance may be provided throughout the activity or intermittently. 3-Partial/Moderate Assistance-helper does LESS THAN HALF the effort. Jenkins lifts, holds or supports trunk or limbs, but provides less than half the effort. 2-Substantial/Maximal Assistance-helper does MORE THAN HALF the effort. Jenkins lifts or holds trunk or limbs and provides more than half the effort. 2-Ggznudstm-ueayzi does ALL the effort. Patient does none of the effort to complete the activity. Or, the assistance of 2 or more helpers is required for the patient to complete the activity. If activity was not attempted, code reason: 7-Patient Refused. 9-Not Applicable-not attempted and the patient did not perform the activity before the current illness, exacerbation or injury. 10-Not Attempted due to Environmental Limitations-(lack of equipment, weather restraints, etc.). 88-Not Attempted due to Medical Conditions or Safety Concerns. Roll Left to Right (QC): 3 Sit to Lying (QC): 2 (greater then 50% help with lifting RLE and lowering trunk) Sit to Stand (QC): 3 Chair/Dxm-ln-Pnhhn Xfer(QC): 3 Car Transfer (QC): 2 (max assist to transfer in/out of car) Gait Training Does the Patient Walk?: Yes Distance: 10 x4 Walk 10 feet (QC): 3 Walk 50 ft with 2 Turns(QC): 88 Walk 150 ft (QC): 88 Walking 10ft/uneven surface-QC: 88 Gait Persons Needed: 2 Gait Assistive Device: Parallel Bars Wheelchair Training Does the Pt Use a Wheelchair?: Yes Wheel 50 ft with 2 turns (QC): 5 Wheel 150 ft (QC): 2 Type of Wheelchair: Manual Stair Training 1 Step (curb) (QC): 88 4 Steps (QC): 88 12 Steps (QC): 88 Balance Picking up an Object (QC): 88 ADL-Treatment Eating (QC): 5 (Placed plateguard on breakfast plate and pt able to scoop food for self.) Oral Hygiene (QC): 7 Shower/Bathe Self (QC): 1 (Assist x2 required for safety during LE bathing.) Upper Body Dressing (QC): 2 (Pt assisted R UE to thread into sleeve. Threaded L UE into sleeve. 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 HTN HLP CRI AF ED Acute constipation initiated aggressive meds now resolved Dysphagia needs Barium swallow tomorrow and maintained on PPI Plan: IRF protocol BM regimen Fall risk Cardiology consultation appreciated Dr Wang consulted (1) CVA (cerebral vascular accident) (2) Flaccid hemiplegia affecting dominant side (3) Diabetes (4) Hypertension (5) Hyperlipemia (6) On continuous oral anticoagulation (7) Atrial fibrillation (8) History of penile implant (9) History of colon cancer (10) Former smoker (11) Renal insufficiency (12) Constipation SCOTT BARBOSA DO Nov 04, 2019 10:14
--- NOTE | 2019-11-04 11:09 | ST Mod Barium Swallow ---
Speech Evaluation-General Medical Diagnosis CVA Onset Date: Oct 31, 2019 Therapy Diagnosis Therapy Diagnosis: Oropharyngeal Dysphagia Referral Referring Physician: Dr. Wang Medical History Pertinent Medical History: Atrial Fib, CAD, DM, HTN Reviewed History: Yes Social History Current Living Status: Spouse Speech Mod Barium Swallow Prior Level of Function Patient states he has had difficulty with swallowing for some time. He states he sometimes feels like after his swallowing he can't get the food to go down and i t just feels like it builds up. Oral Motor Skills Dentition Natural Dentures: Full Lingual Protrusion: Normal Lingual ROM: Normal Lingual Strength: Normal Velum: Normal Volitional Dry Swallow: Yes Voluntary Cough: Yes Can Clear Throat Volitionally: Yes Textures-Lateral View Lateral View Food Presentation: Thin Liquid via Spoon, Thin Liquid via Straw, [place] Liquid via Spoon, Pureed Solids, Ground Solids, Mechanial Soft Solids, Regular Solids Oral Phase Labial Closure: No Impairment (WFL) Bolus Formation Pooling L/R: No Impairment (WFL) Bolus Formation Placement: No Impairment (WFL) Mastication Rotary Chew: No Impairment (WFL) A/P Lingual Propulsion: No Impairment (WFL) Oral Phase Residue: No Impairment (WFL) Pharyngeal Phase Swallow Response: No Impairment (WFL) Base of Tongue: No Impairment (WFL) Epiglottic Movement: No Impairment (WFL) Laryngeal Elevation: No Impairment (WFL) Vallecular Residue: Mild Pharyngeal Wall Residue: No Impairment (WFL) Piriform Sinus Residue: No Impairment (WFL) Laryngeal Penetration: Moderate Deep laryngeal penetration with thin via straw Aspiration Observations: None Other Pharyngeal Observations: Patient demo deep laryngeal penetration with thin via straw. No penetration or aspiration were noted with the other consistencies. Esophageal Phase Peristalsis: WFL Patient feels food building post swallows, patient is rec for eso. dilation Summary/Impressions Oral Phase Impression: No Impairment (WFL) Patient is a pleasant 84 year old male admitted to the ARU s/p CVA. Patient completed an MBS due to c/o feeling as though food builds up after subsequent swallows. The patient was noted to demo deep penetration with thin liquids via straw. The patient cleared with nectar consistency liquids and all food consistencies. Due to patient's feeling of food building up it is recommended he have be examined for an esophageal dilation. Patient's nurse was notified of thickening of all liquids to a nectar consistency. Speech Short Term Goals Short Term Goals Short Term Goals 1. Patient will complete memory tasks related to daily needs at 90% or greater with minimal cueing. 2. Patient will complete safety awareness tasks related to daily needs at 90% or greater with minimal cueing. 3. Patient will complete problem solving tasks related to daily needs at 90% or greater with minimal cueing. 4. Patient will complete word finding tasks related to daily needs at 90% or greater with minimal cueing. 5. Patient will tolerate least restrictive diet level without s/s of aspiration with 90% or greater. 6. Patient/caregiver will utilize compensatory strategies as trained with 90% or greater given minimal cues. Speech Direct Care Supervisor Goals Jail Goals Patient will improve cognitive communication necessary for safety and daily living tasks with minimal assist. Patient will maintain adequate nutrition/hydration via safe effective swallow function. Speech-Plan Patient/Family Goals Patient/Family Goals: Patient plans on returning home where he lives with his upon rehab discharge. Treatment Plan Speech Therapy Treatment Plan: Continue Plan of Care Treatment Duration: Nov 08, 2019 Frequency: 5 times per week Estimated Hrs Per Day: .5 hour per day Rehab Potential: Good Barriers to Learning: Patient's recent CVA Pt/Family Agrees to Plan: Yes Safety Risks/Education Teaching Recipient: Patient Teaching Methods: Demonstration, Discussion Response to Teaching: Verbalize Understanding, Unable to Comprehend Education Topics Provided: Safety of oral intake, thickened liquids Time Speech Therapy Time In: 11:00 Speech Therapy Time Out: 11:30 Total Billed Time: 31 Billed Treatment Time 1, MOD RAY Arias Nov 04, 2019 11:09
--- NOTE | 2019-11-04 11:18 | Diagnostic Imaging Report ---
INDICATION: Dysphagia. Procedure was performed in conjunction with speech pathology. Video fluoroscopy was performed during swallowing of barium of multiple consistencies. Patient ingested thin barium as well as thickened barium, applesauce, banana, ground meat and cracker consistency. Total of 1 minute 46 seconds of fluoroscopic time was utilized. Oral phase unremarkable. There was deep laryngeal penetration during swallowing of thin barium with a straw. No penetration or aspiration was observed with other consistencies. There is normal epiglottic tilt and laryngeal elevation. IMPRESSION: Abnormal swallow did demonstrate deep laryngeal penetration during swallowing of thin liquids. No aspiration was observed. Dictated by: Dictated on workstation # [id number]
--- NOTE | 2019-11-04 11:44 | Progress Note ---
YUL[place]UCILLE [facility] 11/04/19 1144: Progress Note Rehab Course Marcial has an extensive hx of CAD and several interventions. He is doing rehab for R sided weakness after having a L MCA stroke. Since the stroke he is experiencing dysphagia which is being assessed with a modified swallow study. He has had two days of therapy and he reports he did better than expected. He will benefit from therapy to increase strength on his R side so that he can return home with full capacity for ADLs. Patient is in good spirits, participating well and making progress. He has a positive outlook for rehab. is at bedside and supportive. FLORI BARBOSA DO 11/04/19 1938: Supervisory-Addendum Brief Verification & Attestation Participated in pt care: history, MDM, physical Personally performed: exam, history, MDM, supervision of care Care discussed with: Medical Student Procedures: n/a Results interpretation: Verified all documentation Verification and Attestation of Medical Student E/M Service A medical student performed and documented this service in my presence. I reviewed and verified all information documented by the medical student and made modifications to such information, when appropriate. I personally performed the physical exam and medical decision making. Flori Barbosa Nov 04, 2019,19:38 LUCILLE DUENAS [facility] Nov 04, 2019 11:44 FLORI BARBOSA DO Nov 04, 2019 19:38
--- NOTE | 2019-11-04 11:54 | Occupational Ther Daily Note ---
OT Current Status-Daily Note Subjective Pt alert, lying in bed. present in room. changed pt's clothing in bed and assist him with urinal. Pt and were educated on OT roles and expectations for pt to progress with independence. No c/o pain. Mental Status/Objective Patient Orientation: Person ADL-Treatment Co-treat with PT, skills of 2 clinicians required for neuromuscular retraining with functional movement/tasks due to increase weakness, decreased mobility and impulsivity. PT working on functional transfers, w/c mobility, bed mobility and ambulation. OT working on functional transfers, R UE placement during tasks, and footwear. Pt demonstrating increased movement with R shldr and continued trace movements throughout rest of R UE with increase in reps during AAROM. Mod A for supine to EOB, x2. Decreased sitting balance while on EOB, min A. See PT notes for ambulation and w/c mobility. Pt requires assist to position and move R UE during mobility. present in room after session. Pt request to sit in w/c. All needs met in room. Therapy Code Descriptions/Definitions Functional [place] Measure: 0=Not Assessed/NA 4=Minimal Assistance 1=Total Assistance 5=Supervision or Setup 2=Maximal Assistance 6=Modified [place] 3=Moderate Assistance 7=Complete IndependenceSCALE: Activities may be completed with or without assistive devices. 7-Piwwicwwnz-xjahqey completes the activity by him/herself with no assistance from a helper. 5-Set-up or Clean-up Assistance-helper sets up or cleans up; patient completes activity. [place] assists only prior to or following the activity. 4-Supervision or Touching Assistance-helper provides verbal cues and/or touching/steadying and/or contact guard assistance as patient completes activity. Assistance may be provided throughout the activity or intermittently. 3-Partial/Moderate Assistance-helper does LESS THAN HALF the effort. [place] lifts, holds or supports trunk or limbs, but provides less than half the effort. 2-Substantial/Maximal Assistance-helper does MORE THAN HALF the effort. [place] lifts or holds trunk or limbs and provides more than half the effort. 5-Vbfityjmz-vofbtz does ALL the effort. Patient does none of the effort to com plete the activity. Or, the assistance of 2 or more helpers is required for the patient to complete the activity. If activity was not attempted, code reason: 7-Patient Refused. 9-Not Applicable-not attempted and the patient did not perform the activity before the current illness, exacerbation or injury. 10-Not Attempted due to Environmental Limitations-(lack of equipment, weather restraints, etc.). 88-Not Attempted due to Medical Conditions or Safety Concerns. Other Treatment Assist to block R elbow for stabilization for wt bearing while ambulating in parallel bars. OT Short Term Goals Short Term Goals Time Frame: Nov 15, 2019 Oral hygiene: 3 Toileting hygiene: 2 Shower/bathe self: 3 Upper body dressin Lower body dressin Putting on/taking off footwear: 3 OT Precision Honer Goals Prison Goals Time Frame: Nov 29, 2019 Eating (QC): 6 Oral Hygiene (QC): 6 Toileting Hygiene (QC): 5 Shower/Bathe Self (QC): 4 Upper Body Dressing (QC): 5 Lower Body Dressing (QC): 5 On/Off Footwear (QC): 5 Additional Goals: 1-Demonstrate ADL Tasks, 2-Verbalize Understanding, 3- ImproveStrength/Joey 1=Demonstrate adherence to instructed precautions during ADL tasks. 2=Patient will verbalize/demonstrate understanding of assistive devices/m odifications for ADL. 3=Patient will improve strength/tolerance for activity to enable patient to perform ADL's. OT Education/Plan Problem List/Assessment Assessment: Decreased Activ Tolerance, Decreased Safety Aware, Decreased UE Strength, Dependent Transfers, Impaired Bed Mobility, Impaired Cognition, Impaired Coordination, Impaired Funct Balance, Impaired Self-Care Skills, Restricted Funct UE ROM, Visual-Perceptual Deficit Discharge Recommendations Plan/Recommendations: Continue POC Treatment Plan/Plan of Care Patient would benefit from OT for education, treatment and training to promote independence in ADL's, mobility, safety and/or upper extremity function for ADL's. Plan of Care: ADL Retraining, Functional Mobility, Group Exercise/Act as Ind, UE Funct Exercise/Act, UE Neuromus Re-Ed/Coord Treatment Duration: Nov 29, 2019 Frequency: At least 5 of 7 days/Wk (IRF) Estimated Hrs Per Day: 1.5 hours per day Rehab Potential: Good Time/GCodes Start Time: 09:00 Stop Time: 10:00 Total Time Billed (hr/min): 60 Billed Treatment Time 1 visit-SANCHO Castillo (60 minKAREN PETERSEN Nov 04, 2019 11:54
--- NOTE | 2019-11-04 12:20 | Physical Therapy Daily Note ---
PT Daily Note-Current Subjective Pt agreeable to co tx PT OT treatment session with encouragement Pain Numeric Pain Scale: 0-No Pain Appearance Pt alert, lying in bed upon arrival. present in room. changed pt's clothing in bed and assist him with urinal. Pt and were educated on OT and PT roles and expectations for pt to progress with independence. Pt sitting up in recliner at end of session with present, call light, phone and bedside table within reach Mental Status Patient Orientation: Person, Place, Time, Eyes Open, Situation Transfers SCALE: Activities may be completed with or without assistive devices. 7-Wczjljjzaj-uyfsrmo completes the activity by him/herself with no assistance from a helper. 5-Set-up or Clean-up Assistance-helper sets up or cleans up; patient completes activity. [place] assists only prior to or following the activity. 4-Supervision or Touching Assistance-helper provides verbal cues and/or touching/steadying and/or contact guard assistance as patient completes activity. Assistance may be provided throughout the activity or intermittently. 3-Partial/Moderate Assistance-helper does LESS THAN HALF the effort. [place] lifts, holds or supports trunk or limbs, but provides less than half the effort. 2-Substantial/Maximal Assistance-helper does MORE THAN HALF the effort. [place] lifts or holds trunk or limbs and provides more than half the effort. 3-Tbhliwubv-zygktw does ALL the effort. Patient does none of the effort to complete the activity. Or, the assistance of 2 or more helpers is required for the patient to complete the activity. If activity was not attempted, code reason: 7-Patient Refused. 9-Not Applicable-not attempted and the patient did not perform the activity before the current illness, exacerbation or injury. 10-Not Attempted due to Environmental Limitations-(lack of equipment, weather restraints, etc.). 88-Not Attempted due to Medical Conditions or Safety Concerns. Roll Left & Right (QC): 3 Lying to Sitting/Side of Bed(Q: 3 Sit to Stand (QC): 3 Chair/Tmz-bj-Agrvr Xfer(QC): 1 (assist of 2 required) improving with balance during all transitions but continues to require physical assist for balance, steadying, advancement of RLE and RUE and safety as well as skilled verb inst for techniques and safety, safety awareness, improving with R side neglect Gait Training Does the Patient Walk?: Yes Distance: 10 x4 Walk 10 feet (QC): 1 (A of 2-3 required, mod/max A to dependent with advancement of RLE and RUE) Gait Persons Needed: 2 (to 3 persons for safety, balance, advancement of RLE and RUE, and someone to following with W/C) Gait Assistive Device: Parallel Bars requires assist blocking R knee during WB and advancing RLE ~75% of time. Wheelchair Training Does the Pt Use a Wheelchair?: Yes Wheel 50 ft with 2 turns (QC): 3 Wheel 150 ft (QC): 3 Type of Wheelchair: Manual Use of L UE and L LE only, min to mod A at times due to frustration and fatigue Exercises Seated Therapy Exercises: Sit to stand, Long arc quads, Chair press-ups, Hip flexion, Kicking activity, Reaching activity, Hip abd/add Treatments Co-treat with OT, skills of 2 clinicians required for neuromuscular retraining with functional movement/tasks due to increase weakness, decreased mobility and impulsivity. PT working on functional transfers, w/c mobility, bed mobility and ambulation. OT working on functional transfers, R UE placement during tasks, and footwear. Pt demonstrating increased movement with R shldr and continued trace movements throughout rest of R UE with increase in reps during AAROM. Mod A for supine to EOB, x2. Decreased sitting balance while on EOB, min A. PT working on ambulation and w/c mobility. Pt requires assist to position and move R UE during mobility. present in room after session. Pt request to sit in w/c. All needs met in room. education, safety, bed mobility, sitting EOB balance activities, transfers, gait, standing balance, strength, trunk/core strengthening and balance activities, functional mobility, activity tolerance Assessment Current Status: Good Progress PT Short Term Goals Short Term Goals Time Frame: Nov 14, 2019 Roll Left & Right: 3 Sit to lyin Lying to sitting on side of be: 3 Sit to stand: 3 Chair/wpf-re-cdlte transfer: 3 Walk 10 feet: 2 Wheel 50ft w/2 turns: 4 Wheel 150 feet: 4 PT Mcfp Goals Mcfp Goals PT Mcfp Goals Time Frame: Nov 28, 2019 Roll Left & Right (QC): 6 Sit to Lying (QC): 6 Lying-Sitting on Side/Bed(QC): 6 Sit to Stand (QC): 6 Chair/Gtj-dq-Ryoob Xfer(QC): 6 Toilet Transfer (QC): 6 Car Transfer (QC): 5 Does the Patient Walk: No and Walking Goal IS indicated Walk 10 feet (QC): 6 Walk 50ft with 2 Turns (QC): 6 Walk 150 ft (QC): 6 Walking 10ft on Uneven Surface: 5 1 Step (curb) (QC): 5 4 Steps (QC): 5 12 Steps (QC): 4 Picking up an Object (QC): 4 Wheel 50 feet with 2 turns (QC: 6 Type: Manual Wheel 150 feet: 6 Type: Manual PT Plan Treatment/Plan Treatment Plan: Continue Plan of Care Treatment Plan: Bed Mobility, Education, Functional Activity Joey, Functional Strength, Group Therapy, Gait, Safety, Therapeutic Exercise, Transfers Treatment Duration: Nov 28, 2019 Frequency: At least 5 of 7 days/Wk (IRF) Estimated Hrs Per Day: 1.5 hours per day Patient and/or Family Agrees t: Yes Safety Risks/Education Patient Education: Gait Training, Transfer Techniques, Correct Positioning, W/C Management, Instructions to Caregiver, Safety Issues Teaching Recipient: Patient, Family Teaching Methods: Demonstration, Discussion Response to Teaching: Verbalize Understanding, Return Demonstration, Reinforcement Needed Time/GCodes Time In: 900 Time Out: 1000 Total Billed Treatment Time: 60 Total Billed Treatment 1 visit, FA x15 min, WC x15 min, GT x30 min KAROLINA GÓMEZ PTA Nov 04, 2019 12:20
--- NOTE | 2019-11-04 13:32 | Occupational Ther Daily Note ---
OT Current Status-Daily Note Subjective Pt alert, sitting in recliner. Pt agrees to therapy. No c/o pain. Mental Status/Objective Patient Orientation: Person, Place, Time, Situation ADL-Treatment Therapy Code Descriptions/Definitions Functional [place] Measure: 0=Not Assessed/NA 4=Minimal Assistance 1=Total Assistance 5=Supervision or Setup 2=Maximal Assistance 6=Modified [place] 3=Moderate Assistance 7=Complete IndependenceSCALE: Activities may be completed with or without assistive devices. 1-Zyjhiyiyqz-ioxhoxf completes the activity by him/herself with no assistance f rom a helper. 5-Set-up or Clean-up Assistance-helper sets up or cleans up; patient completes activity. [place] assists only prior to or following the activity. 4-Supervision or Touching Assistance-helper provides verbal cues and/or touching/steadying and/or contact guard assistance as patient completes activity. Assistance may be provided throughout the activity or intermittently. 3-Partial/Moderate Assistance-helper does LESS THAN HALF the effort. [place] lifts, holds or supports trunk or limbs, but provides less than half the effort. 2-Substantial/Maximal Assistance-helper does MORE THAN HALF the effort. [place] lifts or holds trunk or limbs and provides more than half the effort. 1-Heqrghjno-erbsxf does ALL the effort. Patient does none of the effort to complete the activity. Or, the assistance of 2 or more helpers is required for the patient to complete the activity. If activity was not attempted, code reason: 7-Patient Refused. 9-Not Applicable-not attempted and the patient did not perform the activity before the current illness, exacerbation or injury. 10-Not Attempted due to Environmental Limitations-(lack of equipment, weather restraints, etc.). 88-Not Attempted due to Medical Conditions or Safety Concerns. Other Treatment When R UE/LE is positioned correctly, pt is able to scoot self back in chair. Pt completed 10 reps elbow flexion with assistance to keep R UE in correct position then was able to slowly lower into elbow extension. Pt has good finger flexion and trace finger extension. Discussed with pt about strengthening flexors and extensors in forearm. After session, pt sitting in recliner with call light/phone in reach. All needs met in room. OT Short Term Goals Short Term Goals Time Frame: Nov 15, 2019 Oral hygiene: 3 Toileting hygiene: 2 Shower/bathe self: 3 Upper body dressin Lower body dressin Putting on/taking off footwear: 3 OT Assisted Goals Assisted Goals Time Frame: Nov 29, 2019 Eating (QC): 6 Oral Hygiene (QC): 6 Toileting Hygiene (QC): 5 Shower/Bathe Self (QC): 4 Upper Body Dressing (QC): 5 Lower Body Dressing (QC): 5 On/Off Footwear (QC): 5 Additional Goals: 1-Demonstrate ADL Tasks, 2-Verbalize Understanding, 3- ImproveStrength/Joey 1=Demonstrate adherence to instructed precautions during ADL tasks. 2=Patient will verbalize/demonstrate understanding of assistive devices/modifications for ADL. 3=Patient will improve strength/tolerance for activity to enable patient to perform ADL's. OT Education/Plan Problem List/Assessment Assessment: Decreased Activ Tolerance, Decreased Safety Aware, Decreased UE Strength, Impaired Cognition, Impaired Coordination, Impaired Self-Care Skills, Restricted Funct UE ROM, Visual-Perceptual Deficit Discharge Recommendations Plan/Recommendations: Continue POC Treatment Plan/Plan of Care Patient would benefit from OT for education, treatment and training to promote independence in ADL's, mobility, safety and/or upper extremity function for ADL's. Plan of Care: ADL Retraining, Functional Mobility, Group Exercise/Act as Ind, UE Funct Exercise/Act, UE Neuromus Re-Ed/Coord Treatment Duration: Nov 29, 2019 Frequency: At least 5 of 7 days/Wk (IRF) Estimated Hrs Per Day: 1.5 hours per day Rehab Potential: Good Time/GCodes Start Time: 13:00 Stop Time: 13:25 Total Time Billed (hr/min): 25 Billed Treatment Time 1 visit-NM 2 (25 min) KAREN MARQUES Nov 04, 2019 13:32
[2019-11-04 16:00] VITALS: BP 92/54
--- NOTE | 2019-11-04 16:45 | NUR ---
Pt found to have laceration on back of head by JERO Munguia. This RN asked pt what happened and pt stated that she had fallen on the bathroom floor "but was fine". Pt was in CPM machine, climbed out and walked to the bathroom without calling for assistance. Pt has history of dementia and forgetfulness. Dr. Carmona notified, pt notified and Dr. Wang notified per Dr. Carmona's request. Addendum: 11/04/19 at 1725 by ROSEY MONK RN WRONG PT
[2019-11-04] MEDS: SIMvastatin 10 MG (ZOCOR) TAB PO SCH (18:06)
[2019-11-04] MEDS: meTOproloL SUCCINATE 50 MG (TOPROL XL) TAB PO SCH (20:13)
[2019-11-04] MEDS: ASPIRIN E.C. 81 MG (ECOTRIN) TAB PO SCH (20:13)
[2019-11-04] MEDS: ACETAMINOPHEN 325 MG TABLET PO PRN (21:21)
[2019-11-05] MEDS: inSUlin ASPART (NovoLOG) 1 UNIT/0.01 ML (CHARGE PER UNIT) SC SCH ×4 (05:38→21:22)
[2019-11-05] MEDS: ACETAMINOPHEN 325 MG TABLET PO PRN (05:45)
[2019-11-05] MEDS: metFORMIN XR 500 MG (GLUCOPHAGE XR) TAB PO SCH ×2 (05:45→17:54)
[2019-11-05 06:00] VITALS: BP 148/54
--- NOTE | 2019-11-05 09:42 | PM&R Progress Note ---
Subjective HPI/CC On Admission Date Seen by Provider: Nov 05, 2019 Time Seen by Provider: 09:45 Subjective/Events-last exam Pt had a pretty good night. 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 of Systems General: Fatigue HEENT: Dysphasia Neurological: Weakness, Numbness, Incoordination Objective Exam Vital Signs Vital Signs Date Time Temp Pulse Resp B/P (MAP) Pulse Ox O2 Delivery O2 Flow Rate FiO2 11/05/19 16:23 36.6 60 16 120/60 (80) 95 Room Air Capillary Refill : Less Than 3 Seconds General Appearance: No Apparent Distress, WD/WN Neck: Normal Inspection, Non Tender, Supple Respiratory: Lungs Clear, Normal Breath Sounds, No Accessory Muscle Use, No Respiratory Distress Cardiovascular: Regular Rate, Rhythm, No Edema, No Gallop, No Murmur, Normal Peripheral Pulses, Irregularly Irregular Gastrointestinal: Normal Bowel Sounds, No Organomegaly, No Pulsatile Mass, Non Tender, Soft Back: Normal Inspection, No CVA Tenderness, No Vertebral Tenderness Extremity: Normal Capillary Refill, Non Tender, No Calf Tenderness, No Pedal Edema Neurologic/Psychiatric: Alert, Oriented x3, Normal Mood/Affect, 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 FIM Transfers Therapy Code Descriptions/Definitions Functional [place] Measure: 0=Not Assessed/NA 4=Minimal Assistance 1=Total Assistance 5=Supervision or Setup 2=Maximal Assistance 6=Modified [place] 3=Moderate Assistance 7=Complete IndependenceSCALE: Activities may be completed with or without assistive devices. 2-Ycldodotxb-twxywri completes the activity by him/herself with no assistance from a helper. 5-Set-up or Clean-up Assistance-helper sets up or cleans up; patient completes activity. [place] assists only prior to or following the activity. 4-Supervision or Touching Assistance-helper provides verbal cues and/or t ouching/steadying and/or contact guard assistance as patient completes activity. Assistance may be provided throughout the activity or intermittently. 3-Partial/Moderate Assistance-helper does LESS THAN HALF the effort. [place] lifts, holds or supports trunk or limbs, but provides less than half the effort. 2-Substantial/Maximal Assistance-helper does MORE THAN HALF the effort. [place] lifts or holds trunk or limbs and provides more than half the effort. 4-Zyrtunklu-tcbsow does ALL the effort. Patient does none of the effort to complete the activity. Or, the assistance of 2 or more helpers is required for the patient to complete the activity. If activity was not attempted, code reason: 7-Patient Refused. 9-Not Applicable-not attempted and the patient did not perform the activity before the current illness, exacerbation or injury. 10-Not Attempted due to Environmental Limitations-(lack of equipment, weather restraints, etc.). 88-Not Attempted due to Medical Conditions or Safety Concerns. Roll Left to Right (QC): 3 Sit to Lying (QC): 2 (greater then 50% help with lifting RLE and lowering trunk) Sit to Stand (QC): 3 Chair/Fka-gh-Nodub Xfer(QC): 1 (assist of 2 required) Car Transfer (QC): 2 (max assist to transfer in/out of car) Gait Training Does the Patient Walk?: Yes Distance: 10 x4 Walk 10 feet (QC): 1 (A of 2-3 required, mod/max A to dependent with advancement of RLE and RUE) Walk 50 ft with 2 Turns(QC): 88 Walk 150 ft (QC): 88 Walking 10ft/uneven surface-QC: 88 Gait Persons Needed: 2 (to 3 persons for safety, balance, advancement of RLE and RUE, and someone to following with W/C) Gait Assistive Device: Parallel Bars Wheelchair Training Does the Pt Use a Wheelchair?: Yes Wheel 50 ft with 2 turns (QC): 3 Wheel 150 ft (QC): 3 Type of Wheelchair: Manual Stair Training 1 Step (curb) (QC): 88 4 Steps (QC): 88 12 Steps (QC): 88 Balance Picking up an Object (QC): 88 ADL-Treatment Eating (QC): 5 (Placed plateguard on breakfast plate and pt able to scoop food for self.) Oral Hygiene (QC): 7 Shower/Bathe Self (QC): 1 (Assist x2 required for safety during LE bathing.) Upper Body Dressing (QC): 2 (Pt assisted R UE to thread into sleeve. Threaded L UE into sleeve. 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 HTN HLP CRI AF ED Acute constipation initiated aggressive meds now resolved Dysphagia needs EGD and dilation but cannot go off OAC due to too high of risk for recurrent CVA Plan: IRF protocol BM regimen Fall risk Cardiology consultation appreciated Dr Wang consulted (1) CVA (cerebral vascular accident) (2) Flaccid hemiplegia affecting dominant side (3) Diabetes (4) Hypertension (5) Hyperlipemia (6) On continuous oral anticoagulation (7) Atrial fibrillation (8) History of penile implant (9) History of colon cancer (10) Former smoker (11) Renal insufficiency (12) Constipation SCOTT BARBOSA DO Nov 05, 2019 09:42
[2019-11-05] MEDS: MULTIVIT W/MINERALS TAB (THERAGRAN M) PO SCH (09:55)
[2019-11-05] MEDS: DOCUSATE SODIUM 100 MG (COLACE) CAP PO SCH ×3 (09:55→21:34)
[2019-11-05] MEDS: AMIODARONE 200 MG (CORDARONE) TAB PO SCH (09:55)
[2019-11-05] MEDS: APIXABAN 5 MG (ELIQUIS) TABLET PO SCH ×2 (09:55→21:22)
[2019-11-05] MEDS: lisINopril 5 MG (PRINIVIL) TABLET PO SCH (09:55)
[2019-11-05] MEDS: SENNA W/DOCUSATE (SENOKOT S) TABLET PO SCH ×3 (09:55→21:35)
[2019-11-05] MEDS: PANTOPRAZOLE 20 MG TABLET (PROTONIX) PO SCH (09:55)
[2019-11-05] MEDS: polyethylene glycoL POWDER 17 GM (MIRALAX) PACK PO SCH ×2 (09:56→21:34)
--- NOTE | 2019-11-05 10:08 | Cardiology Progress Note ---
Subjective Date Seen by Provider: Nov 05, 2019 Time Seen by Provider: 10:08 Subjective/Events-last exam Patient was seen this morning, doing well. No new complaint Review of Systems General: No Chills, No Night Sweats, No Fatigue, No Malaise, No Appetite, No Other HEENT: No Head Aches, No Visual Changes, No Eye Pain, No Ear Pain, No Dysphasia, No Sinus Congestion, No Post Nasal Drip, No Sore Throat, No Other Pulmonary: No Dyspnea, No Cough, No Pleuritic Chest Pain, No Other Cardiovascular: No: Chest Pain, Palpitations, Orthopnea, Paroxysmal Noc. Dyspnea, Edema, Lt Headedness, Other Objective-Cardiology Exam Last Set of Vital Signs Vital Signs 11/05/19 06:00 Temp 36.4 Pulse 53 Resp 16 B/P (MAP) 148/54 (85) Pulse Ox 97 O2 Delivery Room Air Capillary Refill : Less Than 3 Seconds I&O Intake and Output 11/05/19 00:00 Intake Total 375 ml Output Total 1150 ml Balance -775 ml Intake Oral 375 ml Output Urine Total 1150 ml General: Alert, Oriented X3, Cooperative HEENT: Atraumatic, PERRLA Neck: Supple, No JVD, No Thyromegaly Lungs: Clear to Auscultation, Normal Air Movement Heart: Regular Rate, Normal S1, Normal S2, No Murmurs Abdomen: Normal Bowel Sounds, Soft, No Tenderness, No Hepatosplenomegaly, No Masses Extremities: No Clubbing, No Cyanosis, No Edema, Normal Pulses, No Tendernes s/Swelling Skin: No Rashes, No Breakdown, No Significant Lesion Neuro: Normal Gait, Normal Speech, Strength at 5/5 X4 Ext, Normal Tone, Sensation Intact Psych/Mental Status: Mental Status NL, Mood NL Results Lab Laboratory Tests Test 11/04/19 11:07 11/04/19 16:14 11/04/19 21:04 11/05/19 05:36 Range/Units Glucometer 474 *H 301 H 149 H 180 H 70-110 MG/DL A/P-Cardiology Admission Diagnosis CVA Coronary artery disease Paroxysmal atrial fibrillation Hypertension Hyperlipidemia Assessment/Plan Status post CVA with residual right hemiplegia, 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 Receiving physical therapy. Coronary artery disease, history of multiple intervention the past, had a CABG 3 done in 2017, has been doing well. Continue to monitor Paroxysmal atrial fibrillation, reporting history of atrial fibrillation in the remote past. Was on oral anticoagulation for some time in the past and it was discontinued in the remote past. Admitted with TIA on October 26 and started on oral anticoagulation and then had another CVA on October 28, 2019 did not qualify for TPA. Currently receiving physical therapy. [id number] score of 6, yearly risk of stroke without oral anticoagulation is 9.8 percent, maintained on Eliquis Hypertension, controlled, continue to monitor. Hyperlipidemia, monitor lipids Diabetes mellitus, followed and managed by primary care physician Clinical Quality Measures DVT/VTE Risk/Contraindication: Risk Factor Score Per Nursin RFS Level Per Nursing on Admit: 4+=Very High JOSE PINO MD Nov 05, 2019 10:08
[2019-11-05] MEDS: TAMSULOSIN 0.4 MG (FLOMAX) CAP PO SCH (10:51)
--- NOTE | 2019-11-05 11:26 | Physical Therapy Daily Note ---
PT Daily Note-Current Subjective Pt agreeable to morning therapy session with PT/OT co treat and afternoon session with PT. States he is getting pretty tired and requesting to lay down after afternoon session. Pain Numeric Pain Scale: 0-No Pain Appearance 1st session: upon arrival, pt in shower with OT, at end of session, pt sitting up in recliner with present. 2nd session: pt sitting up in recliner with present, at end of session, pt requesting and assisted to bed, call light, phone, bedside table within reach, present Mental Status Patient Orientation: Person, Place, Time, Eyes Open, Situation Transfers SCALE: Activities may be completed with or without assistive devices. 0-Izqabqasbi-kxyuxwf completes the activity by him/herself with no assistance from a helper. 5-Set-up or Clean-up Assistance-helper sets up or cleans up; patient completes activity. [place] assists only prior to or following the activity. 4-Supervision or Touching Assistance-helper provides verbal cues and/or touching/steadying and/or contact guard assistance as patient completes activity. Assistance may be provided throughout the activity or intermittently. 3-Partial/Moderate Assistance-helper does LESS THAN HALF the effort. [place] lifts, holds or supports trunk or limbs, but provides less than half the effort. 2-Substantial/Maximal Assistance-helper does MORE THAN HALF the effort. [place] lifts or holds trunk or limbs and provides more than half the effort. 9-Fjlqecrcj-apcpab does ALL the effort. Patient does none of the effort to complete the activity. Or, the assistance of 2 or more helpers is required for the patient to complete the activity. If activity was not attempted, code reason: 7-Patient Refused. 9-Not Applicable-not attempted and the patient did not perform the activity before the current illness, exacerbation or injury. 10-Not Attempted due to Environmental Limitations-(lack of equipment, weather restraints, etc.). 88-Not Attempted due to Medical Conditions or Safety Concerns. Roll Left & Right (QC): 3 Sit to Lying (QC): 3 Sit to Stand (QC): 1 (min to mod A of 2 persons) Chair/Uoq-bx-Phbzt Xfer(QC): 1 (min to mod A of 2 persons) Pt demonstrating improving ability to maneuver RLE during transitions Gait Training Does the Patient Walk?: Yes Distance: 10 x5 Walk 10 feet (QC): 1 (mod A of 2 required) Gait Persons Needed: 2 Gait Assistive Device: Parallel Bars R knee buckling with WB, able to self correct 75% of time, R knee locking into hyper extension during stance. physical assist required to advance RUE and RLE during gait in // bars and ~5 ft with platform walker. physical assist for pt to maintain balance Wheelchair Training Does the Pt Use a Wheelchair?: Yes Wheel 50 ft with 2 turns (QC): 4 Wheel 150 ft (QC): 3 (pt fatigues) Type of Wheelchair: Manual pt fatigues quickly, RLE on pedal, RUE in lap, use of LUE and LLE to maneuver w/c, very slow pace, path deviation Exercises Supine Ex: Bridging (x20 assist to stabilize RLE), Ankle pumps (20 light resist into PF RLE), Glut sets (20), Heel Slides (AAROM x10 RLE), Resisted flex/ext (x10 R hip and knee), Straight leg raise (RLE x10 AAROM), Hip abd/add (RLE x10 AAROM ) Seated Therapy Exercises: Sit to stand, Shoulder Flex, Long arc quads, Hip flexion, Hamstring Curls, Reaching activity Seated Reps: 10 (AAROM with RLE, noting improving AROM but continues to fatigue quickly) Standing: Marching (20), Mini squats (20), Sit to Stand (10), Unilateral stance, Weight shifts Treatments Co-treat with OT, skills of 2 clinicians required for neuromuscular retraining with functional movement/tasks due to increase weakness, decreased mobility and impulsivity. PT working on functional transfers, w/c mobility, bed mobility and ambulation. OT working on functional transfers, R UE placement during tasks, and ADLs. Nrsg in room assisting x2 with toileting. Pt agrees to shower. Pt transferred to shower chair with cutout then was transferred with chair into shower. Pt bathed/dried all areas except buttocks, lower legs and feet. Assist to thread R UE through shirt sleeve and place over head. Assist x2 to stand and hike pants over hips, assist x1 to thread lower body clothing over feet. Pt demonstrating increased movement with R shldr and LE and continues to increase movements throughout R UE and RLE with increase in reps during AAROM. Mod A for supine to EOB, x2. Decreased sitting balance while on EOB, min A. Pt requires assist to position and move R UE and R LE during mobility. present in room after session. Sitting in recliner with call light/phone in reach. All needs met in room. Vitals in sitting due to c/o dizziness:119/64, SPO2 96%, 59 BPM. Pt sat and rested with vitals 102/60, SPO2 93%, 60 BPM. Pt standing with vitals 147/88, SPO2 98%, 67 BPM. Dizziness resolved, nursing notified. Assessment Current Status: Good Progress PT Short Term Goals Short Term Goals Time Frame: Nov 14, 2019 Roll Left & Right: 3 Sit to lyin Lying to sitting on side of be: 3 Sit to stand: 3 Chair/oay-ue-zebnp transfer: 3 Walk 10 feet: 2 Wheel 50ft w/2 turns: 4 Wheel 150 feet: 4 PT Peel Oven Tender Goals Peel Oven Tender Goals PT [facility] Goals Time Frame: Nov 28, 2019 Roll Left & Right (QC): 6 Sit to Lying (QC): 6 Lying-Sitting on Side/Bed(QC): 6 Sit to Stand (QC): 6 Chair/Qii-eq-Ygrjy Xfer(QC): 6 Toilet Transfer (QC): 6 Car Transfer (QC): 5 Does the Patient Walk: No and Walking Goal IS indicated Walk 10 feet (QC): 6 Walk 50ft with 2 Turns (QC): 6 Walk 150 ft (QC): 6 Walking 10ft on Uneven Surface: 5 1 Step (curb) (QC): 5 4 Steps (QC): 5 12 Steps (QC): 4 Picking up an Object (QC): 4 Wheel 50 feet with 2 turns (QC: 6 Type: Manual Wheel 150 feet: 6 Type: Manual PT Plan Treatment/Plan Treatment Plan: Continue Plan of Care Treatment Plan: Bed Mobility, Education, Functional Activity Joey, Functional Strength, Group Therapy, Gait, Safety, Therapeutic Exercise, Transfers Treatment Duration: Nov 28, 2019 Frequency: At least 5 of 7 days/Wk (IRF) Estimated Hrs Per Day: 1.5 hours per day Patient and/or Family Agrees t: Yes Safety Risks/Education Patient Education: Gait Training, Transfer Techniques, Correct Positioning, W/C Management, Disease Process, Safety Issues Teaching Recipient: Patient Teaching Methods: Demonstration, Discussion Response to Teaching: Verbalize Understanding, Return Demonstration, Reinforcement Needed Time/GCodes Time In: 900 (2nd session: 1300) Time Out: 1000 (2nd session: 1315) Total Billed Treatment Time: 60 (2nd session: 15 min) Total Billed Treatment 1st session: 1 visit, GT x15 min, NM x15 min, FA x30 min. 2nd session: 1 visit, EX x15 min KAROLINA GÓMEZ PTA Nov 05, 2019 11:26
--- NOTE | 2019-11-05 11:46 | Speech Therapy Daily Note ---
Speech Daily Progress Note Subjective Date Seen by Provider: Nov 05, 2019 Time Seen by Provider: 00:30 Patient was resting in his chair with his present. Objective Competency strategies utilized as trained at 80% with min to mod cuing. Assessment Assessment Current Status: Good Progress Treatment Plan Continue Plan of Care Speech Short Term Goals Short Term Goals Short Term Goals 1. Patient will complete memory tasks related to daily needs at 90% or greater with minimal cueing. 2. Patient will complete safety awareness tasks related to daily needs at 90% or greater with minimal cueing. 3. Patient will complete problem solving tasks related to daily needs at 90% or greater with minimal cueing. 4. Patient will complete word finding tasks related to daily needs at 90% or greater with minimal cueing. 5. Patient will tolerate least restrictive diet level without s/s of aspiration with 90% or greater. 6. Patient/caregiver will utilize compensatory strategies as trained with 90% or greater given minimal cues. Speech Source Water Protection Specialist Goals Care Home Goals Patient will improve cognitive communication necessary for safety and daily living tasks with minimal assist. Patient will maintain adequate nutrition/hydration via safe effective swallow function. Speech-Plan Patient/Family Goals Patient/Family Goals: Patient plans on returning home with his upon rehab discharge. Treatment Plan Speech Therapy Treatment Plan: Continue Plan of Care Patient does not like the thickened liquids. Patient is supposed to have an EGD scheduled Treatment Duration: Nov 08, 2019 Frequency: 5 times per week Estimated Hrs Per Day: .5 hour per day Rehab Potential: Good Barriers to Learning: Patient's recent CVA Pt/Family Agrees to Plan: Yes Safety Risks/Education Teaching Recipient: Patient, Significant Other Teaching Methods: Demonstration, Discussion Response to Teaching: Verbalize Understanding, Return Demonstration Education Topics Provided: Safety of oral intake, dsyphagia ed Time Speech Therapy Time In: 10:30 Speech Therapy Time Out: 11:00 Total Billed Time: 30 Billed Treatment Time 1, DYST RAY Arias Nov 05, 2019 11:46
--- NOTE | 2019-11-05 11:51 | Occupational Ther Daily Note ---
OT Current Status-Daily Note Subjective Pt alert sitting on toilet. Nrsg in room. Agrees to therapy. No c/o pain. Mental Status/Objective Patient Orientation: Person, Place, Time, Situation ADL-Treatment Co-treat with PT, skills of 2 clinicians required for neuromuscular retraining with functional movement/tasks due to increase weakness, decreased mobility and impulsivity. PT working on functional transfers, w/c mobility, bed mobility and ambulation. OT working on functional transfers, R UE placement during tasks, and ADLs. Nrsg in room assisting x2 with toileting. Pt agrees to shower. Pt transferred to shower chair with cutout then was transferred with chair into shower. Pt bathed/dried all areas except buttocks, lower legs and feet. Assist to thread R UE through shirt sleeve and place over head. Assist x2 to stand and hike pants over hips, assist x1 to thread lower body clothing over feet. Pt demonstrating increased movement with R shldr and continues to increase movements throughout R UE with increase in reps during AAROM. Mod A for supine to EOB, x2. Decreased sitting balance while on EOB, min A. See PT notes for ambulation and w/c mobility. Pt requires assist to position and move R UE during mobility. present in room after session. Sitting in recliner with call light/phon in reach. All needs met in room. Therapy Code Descriptions/Definitions Functional [place] Measure: 0=Not Assessed/NA 4=Minimal Assistance 1=Total Assistance 5=Supervision or Setup 2=Maximal Assistance 6=Modified [place] 3=Moderate Assistance 7=Complete IndependenceSCALE: Activities may be completed with or without assistive devices. 4-Rcemchrllh-fapflhq completes the activity by him/herself with no assistance from a helper. 5-Set-up or Clean-up Assistance-helper sets up or cleans up; patient completes activity. [place] assists only prior to or following the activity. 4-Supervision or Touching Assistance-helper provides verbal cues and/or touchin g/steadying and/or contact guard assistance as patient completes activity. Assistance may be provided throughout the activity or intermittently. 3-Partial/Moderate Assistance-helper does LESS THAN HALF the effort. [place] lifts, holds or supports trunk or limbs, but provides less than half the effort. 2-Substantial/Maximal Assistance-helper does MORE THAN HALF the effort. [place] lifts or holds trunk or limbs and provides more than half the effort. 6-Vmoiykyco-ldkqio does ALL the effort. Patient does none of the effort to complete the activity. Or, the assistance of 2 or more helpers is required for the patient to complete the activity. If activity was not attempted, code reason: 7-Patient Refused. 9-Not Applicable-not attempted and the patient did not perform the activity before the current illness, exacerbation or injury. 10-Not Attempted due to Environmental Limitations-(lack of equipment, weather restraints, etc.). 88-Not Attempted due to Medical Conditions or Safety Concerns. Upper Body Dressing (QC): 3 Lower Body Dressing (QC): 1 On/Off Footwear: 2 Toileting Hygiene (QC): 1 Toilet Transfer (QC): 1 Pt stated that he was dizzy during treatment, reported to nrsg. See PT notes for vital signs. OT Short Term Goals Short Term Goals Time Frame: Nov 15, 2019 Oral hygiene: 3 Toileting hygiene: 2 Shower/bathe self: 3 Upper body dressin Lower body dressin Putting on/taking off footwear: 3 OT Cushion Assembler Goals Cushion Assembler Goals Time Frame: Nov 29, 2019 Eating (QC): 6 Oral Hygiene (QC): 6 Toileting Hygiene (QC): 5 Shower/Bathe Self (QC): 4 Upper Body Dressing (QC): 5 Lower Body Dressing (QC): 5 On/Off Footwear (QC): 5 Additional Goals: 1-Demonstrate ADL Tasks, 2-Verbalize Understanding, 3- ImproveStrength/Joey 1=Demonstrate adherence to instructed precautions during ADL tasks. 2=Patient will verbalize/demonstrate understanding of assistive devices/modifications for ADL. 3=Patient will improve strength/tolerance for activity to enable patient to perform ADL's. OT Education/Plan Problem List/Assessment Assessment: Decreased Activ Tolerance, Decreased Safety Aware, Decreased UE Strength, Dependent Transfers, Impaired Bed Mobility, Impaired Cognition, Impaired Coordination, Impaired Funct Balance, Impaired I ADL's, Impaired Self- Care Skills, Restricted Funct UE ROM, Visual-Perceptual Deficit Discharge Recommendations Plan/Recommendations: Continue POC Treatment Plan/Plan of Care Patient would benefit from OT for education, treatment and training to promote independence in ADL's, mobility, safety and/or upper extremity function for ADL's. Plan of Care: ADL Retraining, Functional Mobility, Group Exercise/Act as Ind, UE Funct Exercise/Act, UE Neuromus Re-Ed/Coord Treatment Duration: Nov 29, 2019 Frequency: At least 5 of 7 days/Wk (IRF) Estimated Hrs Per Day: 1.5 hours per day Rehab Potential: Good Time/GCodes Start Time: 08:45 Stop Time: 10:00 Total Time Billed (hr/min): 75 Billed Treatment Time 1 visit-ADL 2 (35 min) NM 3 (40 min) co-treat with PT [id number], individual [phone] KAREN MARQUES Nov 05, 2019 11:51
[2019-11-05] MEDS ORDERED: METO50TA15 PO (13:37)
--- NOTE | 2019-11-05 16:17 | NUR ---
Nilda White, PCT reported that pt had told her that he had had some chest pressure earlier today. Pt did not report this to other staff. This RN asked pt about it, & pt states that, "oh, it was just a little pressure here, (points to Lt chest), states that it was gone just as fast as it came." Pt denies radiation, dyspnea, or diaphoresis w the pressure. Asked pt if this happened when he was working w therapies, or at rest ? Pt states, "oh, I don't know, I didn't pay any attention to it." Notified Dr. Walton of this, no new orders. Continue to monitor.
[2019-11-05 16:23] VITALS: BP 120/60
--- NOTE | 2019-11-05 16:46 | Progress Note - Surgery ---
Subjective Date Seen by a Provider: Nov 05, 2019 Time Seen by a Provider: 16:41 Subjective/Events-last exam Patient not liking the thickened liquids. Doing okay other than that. No new complaints. at bedside. Denies n/v fever sweat s chills shortness of breath or chest pain. Objective Exam Vital Signs Date Time Temp Pulse Resp B/P (MAP) Pulse Ox O2 Delivery O2 Flow Rate FiO2 11/05/19 08:36 Room Air 11/05/19 06:00 36.4 53 16 148/54 (85) 97 Room Air 11/04/19 21:00 Room Air I & O 11/05/19 07:00 Intake Total 525 ml Output Total 1150 ml Balance -625 ml Capillary Refill : Less Than 3 Seconds General Appearance: No Apparent Distress, WD/WN HEENT: PERRL/EOMI Neck: Normal Inspection, Non Tender Respiratory: Chest Non Tender, No Accessory Muscle Use, No Respiratory Distress Cardiovascular: Regular Rate, Rhythm Peripheral Pulses: 2+ Carotid (R), 2+ Carotid (L), 2+ Dorsalis Pedis (R), 2+ Left Dors-Pedis (L), 2+ Radial Pulses (R), 2+ Radial Pulses (L) Gastrointestinal: non tender, soft, no organomegaly Extremity: Normal Capillary Refill, Non Tender, No Calf Tenderness Neurologic/Psychiatric: Alert, Oriented x3, Normal Mood/Affect, Motor Weakness (right sided weakness) Skin: Normal Color, Warm/Dry Lymphatic: No Adenopathy Results Lab Laboratory Tests 11/04/19 21:04: Glucometer 149H 11/05/19 05:36: Glucometer 180H 11/05/19 11:06: Glucometer 311H 11/05/19 15:39: Glucometer 365H Assessment/Plan Assessment/Plan Assessment/Plan dysphagia recent cva current use anticoagulation does not tolerate thinned liquids so cant do barium swallow discussed with Dr. Carmona who would like EGD, Discussed with Dr. Walton who would not like for anticoagulation to be held, discussed with patient and who do not want to do EGD at this time since higher risk with anticoagulation and could not dilate due to risk of bleeding. continue protonix continue to work with speech therapy if get to where can tolerate the thin liquids could do barium swallow to further evaluate or wait till can come off anticoagulation and do egd will sign off call if needed. Clinical Quality Measures DVT/VTE Risk/Contraindication: Risk Factor Score Per Nursin RFS Level Per Nursing on Admit: 4+=Very High RANDA GUERIN DO Nov 05, 2019 16:46
[2019-11-05] MEDS: SIMvastatin 10 MG (ZOCOR) TAB PO SCH (17:53)
[2019-11-05] MEDS: meTOproloL SUCCINATE 50 MG (TOPROL XL) TAB PO SCH (21:22)
[2019-11-05] MEDS: ASPIRIN E.C. 81 MG (ECOTRIN) TAB PO SCH (21:22)
[2019-11-06] MEDS: inSUlin ASPART (NovoLOG) 1 UNIT/0.01 ML (CHARGE PER UNIT) SC SCH ×4 (05:34→21:25)
[2019-11-06] MEDS: metFORMIN XR 500 MG (GLUCOPHAGE XR) TAB PO SCH ×2 (05:36→17:33)
[2019-11-06 06:56] VITALS: BP 150/61
[2019-11-06] MEDS: DOCUSATE SODIUM 100 MG (COLACE) CAP PO SCH ×2 (08:09→21:33)
[2019-11-06] MEDS: polyethylene glycoL POWDER 17 GM (MIRALAX) PACK PO SCH ×2 (08:09→21:33)
[2019-11-06] MEDS: SENNA W/DOCUSATE (SENOKOT S) TABLET PO SCH ×2 (08:09→21:34)
--- NOTE | 2019-11-06 08:37 | Cardiology Progress Note ---
Subjective Date Seen by Provider: Nov 06, 2019 Time Seen by Provider: 08:37 Subjective/Events-last exam Patient sitting up in bed, denies any chest pain or dyspnea Review of Systems General: No Chills, No Night Sweats, No Fatigue, No Malaise, No Appetite, No Other HEENT: No Head Aches, No Visual Changes, No Eye Pain, No Ear Pain, No Dysphasia, No Sinus Congestion, No Post Nasal Drip, No Sore Throat, No Other Pulmonary: No Dyspnea, No Cough, No Pleuritic Chest Pain, No Other Cardiovascular: No: Chest Pain, Palpitations, Orthopnea, Paroxysmal Noc. Dyspnea, Edema, Lt Headedness, Other Objective-Cardiology Exam Last Set of Vital Signs Vital Signs 11/06/19 11/06/19 06:56 08:20 Temp 36.8 Pulse 60 Resp 20 B/P (MAP) 150/61 (90) Pulse Ox 96 O2 Delivery Room Air Capillary Refill : Less Than 3 Seconds I&O Intake and Output 11/06/19 00:00 Intake Total 1050 ml Output Total 1250 ml Balance -200 ml Intake Oral 1050 ml Output Urine Total 1250 ml # Bowel Movements 2 General: Alert, Oriented X3, Cooperative HEENT: Atraumatic, PERRLA Neck: Supple, No JVD, No Thyromegaly Lungs: Clear to Auscultation, Normal Air Movement Heart: Regular Rate, Normal S1, Normal S2, No Murmurs Abdomen: Normal Bowel Sounds, Soft, No Tenderness, No Hepatosplenomegaly, No Masses Extremities: No Clubbing, No Cyanosis, No Edema, Normal Pulses, No Tenderness/Swelling Skin: No Rashes, No Breakdown, No Significant Lesion Neuro: Normal Gait, Normal Speech, Strength at 5/5 X4 Ext, Normal Tone, Sensation Intact Psych/Mental Status: Mental Status NL, Mood NL Results Lab A/P-Cardiology Admission Diagnosis CVA Coronary artery disease Paroxysmal atrial fibrillation Hypertension Hyperlipidemia Assessment/Plan Status post CVA with residual right hemiplegia, 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 Receiving physical therapy. Chest pain nonspecific etiology, reporting occasional chest discomfort, continue on aspirin and Eliquis , evaluate EKG and monitor Coronary artery disease, history of multiple intervention the past, had a CABG 3 done in 2017, has been doing well. Continue to monitor Paroxysmal atrial fibrillation, reporting history of atrial fibrillation in the remote past. Was on oral anticoagulation for some time in the past and it was discontinued in the remote past. Admitted with TIA on October 26 and started on oral anticoagulation and then had another CVA on October 28, 2019 did not qualify for TPA. Currently receiving physical therapy. [id number] score of 6, yearly risk of stroke without oral anticoagulation is 9.8 percent, maintained on Eliquis Hypertension, controlled, continue to monitor. Hyperlipidemia, monitor lipids Diabetes mellitus, followed and managed by primary care physician Patient was seen and evaluated with Alisia, examination performed, management plan was discussed, agree with the current scribed note, I made few changes to the note using Italic font Patient was having some chest pain yesterday and today, I will evaluate EKG, evaluate troponin level Currently chest pain-free On examination lungs were clear to auscultation, heart is regular Clinical Quality Measures DVT/VTE Risk/Contraindication: Risk Factor Score Per Nursin RFS Level Per Nursing on Admit: 4+=Very High ALISIA GARCIA Nov 06, 2019 08:37 JOSE PINO MD Nov 06, 2019 11:14
[2019-11-06] MEDS: AMIODARONE 200 MG (CORDARONE) TAB PO SCH (08:51)
[2019-11-06] MEDS: MULTIVIT W/MINERALS TAB (THERAGRAN M) PO SCH (08:51)
[2019-11-06] MEDS: TAMSULOSIN 0.4 MG (FLOMAX) CAP PO SCH (08:51)
[2019-11-06] MEDS: lisINopril 5 MG (PRINIVIL) TABLET PO SCH (08:51)
[2019-11-06] MEDS: PANTOPRAZOLE 20 MG TABLET (PROTONIX) PO SCH (08:51)
[2019-11-06] MEDS: APIXABAN 5 MG (ELIQUIS) TABLET PO SCH ×2 (08:51→21:17)
--- NOTE | 2019-11-06 11:14 | PM&R Progress Note ---
Subjective HPI/CC On Admission Date Seen by Provider: Nov 06, 2019 Time Seen by Provider: 11:00 Subjective/Events-last exam Pt had a pretty good night. Updated patient on the inability to perform EGD since OAC cannot be stopped Bowels moving very well now No pain is reported PPI started by Dr Kathleen Weston 1.34 ACEi added by Cardiology Checked meds and labs Reviewed therapy notes Conferred with construction sales representative of Systems Neurological: Weakness, Numbness, Incoordination Objective Exam Vital Signs Vital Signs Date Time Temp Pulse Resp B/P (MAP) Pulse Ox O2 Delivery O2 Flow Rate FiO2 11/06/19 08:20 Room Air 11/06/19 06:56 36.8 60 20 150/61 (90) 96 Capillary Refill : Less Than 3 Seconds General Appearance: No Apparent Distress, WD/WN HEENT: PERRL/EOMI Neck: Normal Inspection, Non Tender, Supple Respiratory: Lungs Clear, Normal Breath Sounds, No Accessory Muscle Use, No Respiratory Distress Cardiovascular: Regular Rate, Rhythm, No Edema, No Gallop, No Murmur, Normal Pe ripheral Pulses, Irregularly Irregular Gastrointestinal: Normal Bowel Sounds, No Organomegaly, No Pulsatile Mass, Non Tender, Soft Back: Normal Inspection, No CVA Tenderness, No Vertebral Tenderness Extremity: Normal Capillary Refill, Non Tender, No Calf Tenderness, No Pedal Edema Neurologic/Psychiatric: Alert, Oriented x3, Normal Mood/Affect, price analyst II-XII Norm as Tested, Abnormal Gait, Motor Weakness Skin: Normal Color, Warm/Dry Lymphatic: No Adenopathy Results/Procedures Lab Patient resulted labs reviewed. FIM Transfers Therapy Code Descriptions/Definitions Functional [place] Measure: 0=Not Assessed/NA 4=Minimal Assistance 1=Total Assistance 5=Supervision or Setup 2=Maximal Assistance 6=Modified [place] 3=Moderate Assistance 7=Complete IndependenceSCALE: Activities may be completed with or without assistive devices. 8-Kxibnulqrq-pfnendk completes the activity by him/herself with no assistance from a helper. 5-Set-up or Clean-up Assistance-helper sets up or cleans up; patient completes activity. [employer] assists only prior to or following the activity. 4-Supervision or Touching Assistance-helper provides verbal cues and/or touching/steadying and/or contact guard assistance as patient completes activity. Assistance may be provided throughout the activity or intermittently. 3-Partial/Moderate Assistance-helper does LESS THAN HALF the effort. [employer] lifts, holds or supports trunk or limbs, but provides less than half the effort. 2-Substantial/Maximal Assistance-helper does MORE THAN HALF the effort. [employer] lifts or holds trunk or limbs and provides more than half the effort. 6-Bnppxgpqj-mzujqj does ALL the effort. Patient does none of the effort to complete the activity. Or, the assistance of 2 or more helpers is required for the patient to complete the activity. If activity was not attempted, code reason: 7-Patient Refused. 9-Not Applicable-not attempted and the patient did not perform the activity before the current illness, exacerbation or injury. 10-Not Attempted due to Environmental Limitations-(lack of equipment, weather restraints, etc.). 88-Not Attempted due to Medical Conditions or Safety Concerns. Roll Left to Right (QC): 3 Sit to Lying (QC): 3 Sit to Stand (QC): 1 (min to mod A of 2 persons) Chair/Sbx-wr-[place] Xfer(QC): 1 (min to mod A of 2 persons) Car Transfer (QC): 2 (max assist to transfer in/out of car) Gait Training Does the Patient Walk?: Yes Distance: 10 x5 Walk 10 feet (QC): 1 (mod A of 2 required) Walk 50 ft with 2 Turns(QC): 88 Walk 150 ft (QC): 88 Walking 10ft/uneven surface-QC: 88 Gait Persons Needed: 2 Gait Assistive Device: Parallel Bars Wheelchair Training Does the Pt Use a Wheelchair?: Yes Wheel 50 ft with 2 turns (QC): 4 Wheel 150 ft (QC): 3 (pt fatigues) Type of Wheelchair: Manual Stair Training 1 Step (curb) (QC): 88 4 Steps (QC): 88 12 Steps (QC): 88 Balance Picking up an Object (QC): 88 ADL-Treatment Eating (QC): 5 (Placed plateguard on breakfast plate and pt able to scoop food for self.) Oral Hygiene (QC): 7 Shower/Bathe Self (QC): 1 (Assist x2 required for safety during LE bathing.) Upper Body Dressing (QC): 3 Lower Body Dressing (QC): 1 On/Off Footwear (QC): 2 Toileting Hygiene (QC): 1 Toilet Transfer (QC): 1 Assessment/Plan Assessment and Plan Assess & Plan/Chief Complaint Assessment: 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/28/19 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 HTN HLP [facility] ED Acute constipation initiated aggressive meds now resolved Dysphagia needs EGD and dilation but cannot go off OAC due to too high of risk for recurrent CVA Plan: IRF protocol BM regimen Fall risk Cardiology consultation appreciated Dr Wang consulted (1) CVA (cerebral vascular accident) (2) Flaccid hemiplegia affecting dominant side (3) Diabetes (4) Hypertension (5) Hyperlipemia (6) On continuous oral anticoagulation (7) Atrial fibrillation (8) History of penile implant (9) History of colon cancer (10) Former smoker (11) Renal insufficiency (12) Constipation SCOTT BARBOSA DO Nov 06, 2019 11:13
--- NOTE | 2019-11-06 11:19 | Speech Therapy Daily Note ---
Speech Daily Progress Note Subjective Date Seen by Provider: Nov 06, 2019 Time Seen by Provider: 00:30 Patient was sitting in his chair after therapy with present. Objective Patient utilized safety strategies for oral intake with 80% given min to mod cues. Assessment Assessment Current Status: Good Progress Treatment Plan Continue Plan of Care Speech Short Term Goals Short Term Goals Short Term Goals 1. Patient will complete memory tasks related to daily needs at 90% or greater with minimal cueing. 2. Patient will complete safety awareness tasks related to daily needs at 90% or greater with minimal cueing. 3. Patient will complete problem solving tasks related to daily needs at 90% or greater with minimal cueing. 4. Patient will complete word finding tasks related to daily needs at 90% or greater with minimal cueing. 5. Patient will tolerate least restrictive diet level without s/s of aspiration with 90% or greater. 6. Patient/caregiver will utilize compensatory strategies as trained with 90% or greater given minimal cues. Speech Detention Goals Detention Goals Patient will improve cognitive communication necessary for safety and daily living tasks with minimal assist. Patient will maintain adequate nutrition/hydration via safe effective swallow function. Speech-Plan Patient/Family Goals Patient/Family Goals: Patient plans on returning home with his post rehab. Treatment Plan Speech Therapy Treatment Plan: Continue Plan of Care Patient tried a strawberry Ensure which he liked. He does not like the thickened liquids. Nursing advised on what nectar thickened consistency looks like. Patient to receive Ensures with his meals. Treatment Duration: Nov 08, 2019 Frequency: 5 times per week Estimated Hrs Per Day: .5 hour per day Rehab Potential: Good Barriers to Learning: Patient's recent CVA Safety Risks/Education Teaching Recipient: Patient, Significant Other Teaching Methods: Demonstration, Discussion Response to Teaching: Verbalize Understanding, Return Demonstration Education Topics Provided: Safety of oral intake, actual thickness of nectar Time Speech Therapy Time In: 10:30 Speech Therapy Time Out: 11:00 Total Billed Time: 30 Billed Treatment Time 1[address] Nov 06, 2019 11:19
--- NOTE | 2019-11-06 11:19 | Occupational Ther Daily Note ---
OT Current Status-Daily Note Subjective Pt alert, lying in bed. Pt demonstrated increase AROM with R UE/LE in supine. Pt agrees to therapy. Pt's dressed and cleansed pt in supine. Mental Status/Objective Patient Orientation: Person, Place, Time, Situation ADL-Treatment Therapy Code Descriptions/Definitions Functional [place] Measure: 0=Not Assessed/NA 4=Minimal Assistance 1=Total Assistance 5=Supervision or Setup 2=Maximal Assistance 6=Modified [place] 3=Moderate Assistance 7=Complete IndependenceSCALE: Activities may be completed with or without assistive devices. 1-Ahghzyagdp-dnbbtwl completes the activity by him/herself with no assistance from a helper. 5-Set-up or Clean-up Assistance-helper sets up or cleans up; patient completes activity. [place] assists only prior to or following the activity. 4-Supervision or Touching Assistance-helper provides verbal cues and/or touching/steadying and/or contact guard assistance as patient completes activity. Assistance may be provided throughout the activity or intermittently. 3-Partial/Moderate Assistance-helper does LESS THAN HALF the effort. [place] lifts, holds or supports trunk or limbs, but provides less than half the effort. 2-Substantial/Maximal Assistance-helper does MORE THAN HALF the effort. [place] lifts or holds trunk or limbs and provides more than half the effort. 5-Cxrpdcumq-ameuxs does ALL the effort. Patient does none of the effort to complete the activity. Or, the assistance of 2 or more helpers is required for the patient to complete the activity. If activity was not attempted, code reason: 7-Patient Refused. 9-Not Applicable-not attempted and the patient did not perform the activity before the current illness, exacerbation or injury. 10-Not Attempted due to Environmental Limitations-(lack of equipment, weather restraints, etc.). 88-Not Attempted due to Medical Conditions or Safety Concerns. Other Treatment Co-treat with PT, skills of 2 clinicians required for neuromuscular retraining with functional movement/tasks due to increase weakness, decreased mobility and impulsivity. PT working on functional transfers, w/c mobility, bed mobility and ambulation. OT working on functional transfers, R UE placement during tasks, and footwear. Pt demonstrating increased movement with R shldr and continues to demonstrate increased movements throughout rest of R UE. Min A for supine to EOB. Decreased sitting balance while on EOB, min A. Pt propelled w/c to therapy gym then back to room after session. Pt working on dynamic sitting balance on therapy mat. CGA for safety given when leaning forward and grasping items with L hand with R UE positioned for wt bearing. Pt able to lean side to side to touch each elbow on corresponding side, 20x's. Then leaning forward and back to work on core strengthening, 10x's. Pt is increasing with ambulation and grasping parallel bars with R hand though continues to need assist to stabilize elbow and progress hand forward during ambulation. See PT notes for ambulation and w/c mobility. Pt requires assist to position and move R UE during mobility. present in room after session. Pt sitting in recliner with call light/phone in reach. All needs met in room. OT Short Term Goals Short Term Goals Time Frame: Nov 15, 2019 Oral hygiene: 3 Toileting hygiene: 2 Shower/bathe self: 3 Upper body dressin Lower body dressin Putting on/taking off footwear: 3 OT Renal Social Worker Goals Nursing Home Goals Time Frame: Nov 29, 2019 Eating (QC): 6 Oral Hygiene (QC): 6 Toileting Hygiene (QC): 5 Shower/Bathe Self (QC): 4 Upper Body Dressing (QC): 5 Lower Body Dressing (QC): 5 On/Off Footwear (QC): 5 Additional Goals: 1-Demonstrate ADL Tasks, 2-Verbalize Understanding, 3-ImproveStrength/Joey 1=Demonstrate adherence to instructed precautions during ADL tasks. 2=Patient will verbalize/demonstrate understanding of assistive devices/modifications for ADL. 3=Patient will improve strength/tolerance for activity to enable patient to per form ADL's. OT Education/Plan Problem List/Assessment Assessment: Decreased Activ Tolerance, Decreased UE Strength, Impaired Coordination, Impaired Funct Balance, Impaired Self-Care Skills, Restricted Funct UE ROM, Visual-Perceptual Deficit Discharge Recommendations Plan/Recommendations: Continue POC Treatment Plan/Plan of Care Patient would benefit from OT for education, treatment and training to promote i ndependence in ADL's, mobility, safety and/or upper extremity function for ADL's. Plan of Care: ADL Retraining, Functional Mobility, Group Exercise/Act as Ind, UE Funct Exercise/Act, UE Neuromus Re-Ed/Coord Treatment Duration: Nov 29, 2019 Frequency: At least 5 of 7 days/Wk (IRF) Estimated Hrs Per Day: 1.5 hours per day Rehab Potential: Good Time/GCodes Start Time: 09:00 Stop Time: 10:00 Total Time Billed (hr/min): 60 Billed Treatment Time 1 visit-NM 4 (60 min) Co-treat 60 min KAREN MARQUES Nov 06, 2019 11:19
--- NOTE | 2019-11-06 12:48 | Physical Therapy Daily Note ---
PT Daily Note-Current Subjective Pt agreeable to PT/OT co treat session. Pain Numeric Pain Scale: 0-No Pain Appearance Pt sitting up in chair with OT present upon arrival. At end of session, pt sitting up in recliner with call light, phone and bedside table within reach. Pt's present during entire treatment session. Mental Status Patient Orientation: Person, Place, Time, Eyes Open, Situation Transfers SCALE: Activities may be completed with or without assistive devices. 9-Dmdthviyvu-crzcmle completes the activity by him/herself with no assistance from a helper. 5-Set-up or Clean-up Assistance-helper sets up or cleans up; patient completes activity. [place] assists only prior to or following the activity. 4-Supervision or Touching Assistance-helper provides verbal cues and/or touching/steadying and/or contact guard assistance as patient completes activity. Assistance may be provided throughout the activity or intermittently. 3-Partial/Moderate Assistance-helper does LESS THAN HALF the effort. [place] lifts, holds or supports trunk or limbs, but provides less than half the effort. 2-Substantial/Maximal Assistance-helper does MORE THAN HALF the effort. [place] lifts or holds trunk or limbs and provides more than half the effort. 0-Ayhdaxnme-knyrxv does ALL the effort. Patient does none of the effort to complete the activity. Or, the assistance of 2 or more helpers is required for the patient to complete the activity. If activity was not attempted, code reason: 7-Patient Refused. 9-Not Applicable-not attempted and the patient did not perform the activity before the current illness, exacerbation or injury. 10-Not Attempted due to Environmental Limitations-(lack of equipment, weather restraints, etc.). 88-Not Attempted due to Medical Conditions or Safety Concerns. Sit to Stand (QC): 1 (min to mod A of 2 person for safety, balance and maneuvering R extremeties at times) Chair/Cmk-pc-Ynwuc Xfer(QC): 1 (min to mod A of 2 person for safety, balance and maneuvering R extremeties at times) 2 person A with transfers required for safety, balance, maneuvering R extremities, wt shifting. requires mod A stand to sit with blocking R knee and controlling descent. CGA to min A with sit to pocket machine operator // bars. Min to mod A sit to stand from w/c without AD. Min to mod A stand pivot transfers without AD. Gait Training Does the Patient Walk?: Yes Distance: 10 x5 Walk 10 feet (QC): 1 (2 person A) Gait Persons Needed: 2 Gait Assistive Device: Parallel Bars Noted pt able to advance RLE compensating with use of accessory mm's and increased wt shifting to LLE but without physical A from WAXING MACHINE OPERATOR except with gt belt and steadying for balance (see OT note for RUE use during gait training) Wheelchair Training Does the Pt Use a Wheelchair?: Yes Wheel 50 ft with 2 turns (QC): 3 Wheel 150 ft (QC): 3 Type of Wheelchair: Manual fatigues quickly with some frustration but improving daily. occasional assist maneuvering w/c around objects. Increased difficulty and increased A required when RLE is not on leg rest Neuromuscular sitting EOB balance activities, sitting edge of mat balance activities. Reaching, wt shifting Treatments Co-treat with OT, skills of 2 clinicians required for neuromuscular retraining with functional movement/tasks due to increase weakness, decreased mobility and impulsivity. PT working on functional transfers, w/c mobility, bed mobility and ambulation. OT working on functional transfers, R UE placement during tasks, and footwear. Pt demonstrating increased movement with RLE and R shldr and continues to demonstrate increased movements throughout rest of R UE. Min A for supine to EOB. Decreased sitting balance while on EOB, min A. Pt propelled w/c to therapy gym then back to room after session. Pt working on dynamic sitting balance on therapy mat. CGA for safety given when leaning forward and grasping items with L hand with R UE positioned for wt bearing, encouraging WB through RLE and core strengthening and trunk control. Pt able to lean side to side to touch each elbow on corresponding side, 20x's. Then leaning forward and back to work on core strengthening, 10x's. Pt is increasing with ambulation and grasping parallel bars with R hand though continues to need assist to stabilize elbow and progress hand forward during ambulation. Pt requires assist to position and move R UE during mobility and is improving with actively advancing RLE although also incorporating accessory mm's and increasing wt shifting to L side during ambulation. Continues to require physical A to move RLE in sitting. Assessment Current Status: Good Progress Noting improvement daily with balance, advancing RLE during gait, maneuvering w/c, strength/control in RLE PT Short Term Goals Short Term Goals Time Frame: Nov 14, 2019 Roll Left & Right: 3 Sit to lyin Lying to sitting on side of be: 3 Sit to stand: 3 Chair/ahk-uo-dvkcp transfer: 3 Walk 10 feet: 2 Wheel 50ft w/2 turns: 4 Wheel 150 feet: 4 PT Coring Machine Operator Goals Coring Machine Operator Goals PT Retirement Goals Time Frame: Nov 28, 2019 Roll Left & Right (QC): 6 Sit to Lying (QC): 6 Lying-Sitting on Side/Bed(QC): 6 Sit to Stand (QC): 6 Chair/Jwn-vx-Bxkvl Xfer(QC): 6 Toilet Transfer (QC): 6 Car Transfer (QC): 5 Does the Patient Walk: No and Walking Goal IS indicated Walk 10 feet (QC): 6 Walk 50ft with 2 Turns (QC): 6 Walk 150 ft (QC): 6 Walking 10ft on Uneven Surface: 5 1 Step (curb) (QC): 5 4 Steps (QC): 5 12 Steps (QC): 4 Picking up an Object (QC): 4 Wheel 50 feet with 2 turns (QC: 6 Type: Manual Wheel 150 feet: 6 Type: Manual PT Plan Treatment/Plan Treatment Plan: Continue Plan of Care Treatment Plan: Bed Mobility, Education, Functional Activity Joey, Functional Strength, Group Therapy, Gait, Safety, Therapeutic Exercise, Transfers Treatment Duration: Nov 28, 2019 Frequency: At least 5 of 7 days/Wk (IRF) Estimated Hrs Per Day: 1.5 hours per day Patient and/or Family Agrees t: Yes Safety Risks/Education Patient Education: Gait Training, Transfer Techniques, Correct Positioning, W/C Management, Safety Issues Teaching Recipient: Patient, Family Teaching Methods: Demonstration, Discussion Response to Teaching: Verbalize Understanding, Return Demonstration Time/GCodes Time In: 900 Time Out: 1000 Total Billed Treatment Time: 60 Total Billed Treatment 1 visit, NM x25 min, GT x18 min, WC x17 min KAROLINA GÓMEZ WAXING MACHINE OPERATOR Nov 06, 2019 12:48
--- NOTE | 2019-11-06 14:35 | Therapy Group Daily Note ---
Therapy Daily Group Note Patient Education Topic Other List Below (social distancing) Exercises LE Seated Exercise, UE Exercise Session Ratio (pt:therapist): 4:1 Goal of Session: UE/LE Strengthing, Other (list) (social distancing) Goal Met for this Session: Yes Pt Benefit of Group: Contributions to Others, Increased Functional Strength, Improved Cognition, Recognition of Peers, Socialization Other/Notes Pt transported via w/c to [facility] for OT/PT group. Group consisted of introductions (name, place living, historical memory), socialization, UE/LE seated exercises and educational topic over social distancing. Pt introduced self appropriately and actively listened to peers. Pt able to lead one exercise and complete other exercises with self ROM, 1 set 10 reps. Pt acknowledged understanding of educational topic by verbalizing own strategies and opinion. After therapy, pt lying in bed with call light/phone in reach. All needs met. Start Time: 13:00 Stop Time: 14:10 Total Billed Treatment Time: 70 Total Billed Treatment 1-GRP KAREN MARQUES Nov 06, 2019 14:35
[2019-11-06] MEDS: SIMvastatin 10 MG (ZOCOR) TAB PO SCH (17:33)
[2019-11-06 18:00] VITALS: BP 124/76
[2019-11-06] MEDS: meTOproloL SUCCINATE 50 MG (TOPROL XL) TAB PO SCH (21:17)
[2019-11-06] MEDS: ASPIRIN E.C. 81 MG (ECOTRIN) TAB PO SCH (21:17)
[2019-11-06] MEDS: ACETAMINOPHEN 325 MG TABLET PO PRN (23:55)
[2019-11-07] MEDS: inSUlin ASPART (NovoLOG) 1 UNIT/0.01 ML (CHARGE PER UNIT) SC SCH ×4 (05:44→21:33)
[2019-11-07 06:00] VITALS: BP 138/74
[2019-11-07] MEDS: metFORMIN XR 500 MG (GLUCOPHAGE XR) TAB PO SCH ×2 (06:33→17:22)
[2019-11-07 06:35] LABS: ALANINE AMINOTRANSFERASE 13 U/L (0-55); ALBUMIN 3.6 GM/DL (3.2-4.5); ALKALINE PHOSPHATASE 84 U/L (40-136); BILIRUBIN,TOTAL 0.5 MG/DL (0.1-1.0); BUN/CREATININE RATIO 27; CALCIUM 9.3 MG/DL (8.5-10.1); CARBON DIOXIDE 24 MMOL/L (21-32); CHLORIDE 102 MMOL/L (98-107); CREATININE SERUM 1.19 MG/DL (0.60-1.30); GFR ESTIMATED 58; GLUCOSE 174 MG/DL (70-105); POTASSIUM 4.5 MMOL/L (3.6-5.0); SODIUM 137 MMOL/L (135-145); TOTAL PROTEIN 6.1 GM/DL (6.4-8.2)
[2019-11-07 08:39] VITALS: BP 158/61
[2019-11-07] MEDS: SENNA W/DOCUSATE (SENOKOT S) TABLET PO SCH ×2 (08:41→21:39)
[2019-11-07] MEDS: MULTIVIT W/MINERALS TAB (THERAGRAN M) PO SCH (08:41)
[2019-11-07] MEDS: lisINopril 5 MG (PRINIVIL) TABLET PO SCH (08:41)
[2019-11-07] MEDS: AMIODARONE 200 MG (CORDARONE) TAB PO SCH (08:41)
[2019-11-07] MEDS: polyethylene glycoL POWDER 17 GM (MIRALAX) PACK PO SCH ×2 (08:41→21:39)
[2019-11-07] MEDS: DOCUSATE SODIUM 100 MG (COLACE) CAP PO SCH ×2 (08:41→21:38)
[2019-11-07] MEDS: PANTOPRAZOLE 20 MG TABLET (PROTONIX) PO SCH (08:41)
[2019-11-07] MEDS: APIXABAN 5 MG (ELIQUIS) TABLET PO SCH ×2 (08:41→21:32)
[2019-11-07] MEDS: TAMSULOSIN 0.4 MG (FLOMAX) CAP PO SCH (08:41)
--- NOTE | 2019-11-07 08:43 | Cardiology Progress Note ---
Subjective Date Seen by Provider: Nov 07, 2019 Time Seen by Provider: 08:42 Subjective/Events-last exam Patient is sitting up in bed, reports chest pressure after eating. Denies any active chest pain or pressure at this time. Review of Systems General: No Chills, No Night Sweats, No Fatigue, No Malaise, No Appetite, No Other HEENT: No Head Aches, No Visual Changes, No Eye Pain, No Ear Pain, No Dysphasia, No Sinus Congestion, No Post Nasal Drip, No Sore Throat, No Other Pulmonary: No Dyspnea, No Cough, No Pleuritic Chest Pain, No Other Cardiovascular: Chest Pain; No: Palpitations, Orthopnea, Paroxysmal Noc. Dyspnea, Edema, Lt Headedness, Other Objective-Cardiology Exam Last Set of Vital Signs Vital Signs 11/07/19 11/07/19 06:00 08:39 Temp 36.0 Pulse 55 Resp 16 B/P (MAP) 158/61 (93) Pulse Ox 94 O2 Delivery Room Air Capillary Refill : Less Than 3 Seconds I&O Intake and Output0 11/07/19 00:00 Intake Total 1275 ml Output Total 1425 ml Balance -150 ml Intake Oral 1275 ml Output Urine Total 1425 ml # Bowel Movements 2 General: Alert, Oriented X3, Cooperative HEENT: Atraumatic, PERRLA Neck: Supple, No JVD, No Thyromegaly Lungs: Clear to Auscultation, Normal Air Movement Heart: Regular Rate, Normal S1, Normal S2, No Murmurs Abdomen: Normal Bowel Sounds, Soft, No Tenderness, No Hepatosplenomegaly, No Masses Extremities: No Clubbing, No Cyanosis, No Edema, Normal Pulses, No Tenderness/S welling Skin: No Rashes, No Breakdown, No Significant Lesion Neuro: Normal Gait, Normal Speech, Strength at 5/5 X4 Ext, Normal Tone, Sensation Intact Psych/Mental Status: Mental Status NL, Mood NL Results Lab Laboratory Tests 11/07/19 05:41 A/P-Cardiology Admission Diagnosis CVA Coronary artery disease Paroxysmal atrial fibrillation Hypertension Hyperlipidemia Assessment/Plan Status post CVA with residual right hemiplegia, 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 Receiving physical therapy. Chest pain nonspecific etiology, reporting occasional chest discomfort, continue on aspirin and Eliquis, starting on isosorbide and evaluate tolerance Bradycardia, stop metoprolol, monitor heart rate and blood pressure response Coronary artery disease, history of multiple intervention the past, had a CABG 3 done in 2017, has been doing well. Continue to monitor Paroxysmal atrial fibrillation, reporting history of atrial fibrillation in the remote past. Was on oral anticoagulation for some time in the past and it was discontinued in the remote past. Admitted with TIA on October 26 and started on oral anticoagulation and then had another CVA on October 28, 2019 did not qualify for TPA. Currently receiving physical therapy. [id number] score of 6, yearly risk of stroke without oral anticoagulation is 9.8 percent, maintained on Eliquis Hypertension, controlled, continue to monitor. Hyperlipidemia, monitor lipids Diabetes mellitus, followed and managed by primary care physician Patient was seen and evaluated with Alisia, examination performed, management plan was discussed, agree with the current scribed note, I made few changes to the note using Italic font Patient is sitting in bed, comfortable, reported some chest pain earlier today, has similar episode yesterday and the day before. On examination lungs were clear, he is bradycardic I will stop metoprolol, continue amiodarone Start isosorbide and evaluate tolerance and response Clinical Quality Measures DVT/VTE Risk/Contraindication: Risk Factor Score Per Nursin RFS Level Per Nursing on Admit: 4+=Very High ALISIA GARCIA Nov 07, 2019 08:43 JOSE PINO MD Nov 07, 2019 10:35
--- NOTE | 2019-11-07 10:01 | Occupational Ther Daily Note ---
OT Current Status-Daily Note Subjective Pt alert, sitting on BSC. Pt agrees to therapy. No c/o pain at this time. Mental Status/Objective Patient Orientation: Person, Place, Time, Situation ADL-Treatment Co-treat with PT, skills of 2 clinicians required for neuromuscular retraining with functional movement/tasks due to increase weakness, decreased mobility and impulsivity. PT working on functional transfers, w/c mobility, bed mobility and ambulation. OT working on functional transfers, R UE placement during tasks, and ADLs. Pt agrees to shower. Pt sitting on BSC when OT/PT entered room. Assist x2 with cleansing and clothing manipulation. Pt then ambulated from be d/BSC to bathroom door, assist x2. Pt sat in shower chair with cutout then was transferred with chair into shower. Pt bathed/dried all areas. Assist to thread R UE through shirt sleeve and place over head. Assist x2 to stand and hike pants over hips, assist x1 to thread lower body clothing over R foot. Assist to don/doff socks. 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 See PT notes for ambulation and w/c mobility. Pt requires assist to position and move R UE during mobility. present in room after session. Sitting in recliner with call light/phon in reach. All needs met in room. Therapy Code Descriptions/Definitions Functional [place] Measure: 0=Not Assessed/NA 4=Minimal Assistance 1=Total Assistance 5=Supervision or Setup 2=Maximal Assistance 6=Modified [place] 3=Moderate Assistance 7=Complete IndependenceSCALE: Activities may be completed with or without assistive devices. 3-Pfripnvfbv-dgxidjd completes the activity by him/herself with no assistance from a helper. 5-Set-up or Clean-up Assistance-helper sets up or cleans up; patient completes activity. [place] assists only prior to or following the activity. 4-Supervision or Touching Assistance-helper provides verbal cues and/or touching/steadying and/or contact guard assistance as patient completes activity. Assistance may be provided throughout the activity or intermittently. 3-Partial/Moderate Assistance-helper does LESS THAN HALF the effort. [place] lifts, holds or supports trunk or limbs, but provides less than half the effort. 2-Substantial/Maximal Assistance-helper does MORE THAN HALF the effort. [place] lifts or holds trunk or limbs and provides more than half the effort. 5-Nnikclsck-nlkvvt does ALL the effort. Patient does none of the effort to com plete the activity. Or, the assistance of 2 or more helpers is required for the patient to complete the activity. If activity was not attempted, code reason: 7-Patient Refused. 9-Not Applicable-not attempted and the patient did not perform the activity before the current illness, exacerbation or injury. 10-Not Attempted due to Environmental Limitations-(lack of equipment, weather restraints, etc.). 88-Not Attempted due to Medical Conditions or Safety Concerns. Bathing Location: L Arm, R Arm, L Upper Leg, R Upper Leg, L Lower Leg (including foot), R Lower Leg (including foot), Chest, Abdomen, Buttocks, Per ineal Area Shower/Bathe Self (QC): 4 Upper Body Dressing (QC): 3 Lower Body Dressing (QC): 1 On/Off Footwear: 2 Toileting Hygiene (QC): 1 Toilet Transfer (QC): 1 Other Treatment Pt ambulated using FWW with platform 20 feet then recovery break. 25 feet then recovery break finally 20 feet to recliner. See PT note for mobility. After session, pt sitting in recliner with call light/phone in reach. All needs met in room. OT Short Term Goals Short Term Goals Time Frame: Nov 15, 2019 Oral hygiene: 3 Toileting hygiene: 2 Shower/bathe self: 3 Upper body dressin Lower body dressin Putting on/taking off footwear: 3 OT Group Home Goals Group Home Goals Time Frame: Nov 29, 2019 Eating (QC): 6 Oral Hygiene (QC): 6 Toileting Hygiene (QC): 5 Shower/Bathe Self (QC): 4 Upper Body Dressing (QC): 5 Lower Body Dressing (QC): 5 On/Off Footwear (QC): 5 Additional Goals: 1-Demonstrate ADL Tasks, 2-Verbalize Understanding, 3- ImproveStrength/Joey 1=Demonstrate adherence to instructed precautions during ADL tasks. 2=Patient will verbalize/demonstrate understanding of assistive devices/modifications for ADL. 3=Patient will improve strength/tolerance for activity to enable patient to perform ADL's. OT Education/Plan Problem List/Assessment Assessment: Decreased Activ Tolerance, Decreased UE Strength, Impaired Cogniti on, Impaired Coordination, Impaired Funct Balance, Impaired Self-Care Skills, Restricted Funct UE ROM, Visual-Perceptual Deficit Discharge Recommendations Plan/Recommendations: Continue POC Treatment Plan/Plan of Care Patient would benefit from OT for education, treatment and training to promote independence in ADL's, mobility, safety and/or upper extremity function for ADL's. Plan of Care: ADL Retraining, Functional Mobility, Group Exercise/Act as Ind, UE Funct Exercise/Act, UE Neuromus Re-Ed/Coord Treatment Duration: Nov 29, 2019 Frequency: At least 5 of 7 days/Wk (IRF) Estimated Hrs Per Day: 1.5 hours per day Rehab Potential: Good Time/GCodes Start Time: 09:00 Stop Time: 10:00 Total Time Billed (hr/min): 60 Billed Treatment Time 1 visit-ADL 3 (38 min) NM 1 (22 min) KAREN MARQUES Nov 07, 2019 10:01
[2019-11-07] MEDS ORDERED: ISOSORBIDE MONONITRATE 30 MG (IMDUR) TAB PO SCH (10:30)
--- NOTE | 2019-11-07 12:47 | Physical Therapy Daily Note ---
PT Daily Note-Current Subjective Pt agreeable to PT/OT co treatment session. Pt c/o double vision at beginning of session stating it is only when he is looking L and R. States has had surgery for the weak mm's in the past and may be coming back now due to weakness in eye mm's from stroke Pain Numeric Pain Scale: 0-No Pain Mental Status Patient Orientation: Person, Place, Time, Eyes Open, Situation Transfers SCALE: Activities may be completed with or without assistive devices. 4-Eqicdbqson-dbzqmnd completes the activity by him/herself with no assistance from a helper. 5-Set-up or Clean-up Assistance-helper sets up or cleans up; patient completes activity. [place] assists only prior to or following the activity. 4-Supervision or Touching Assistance-helper provides verbal cues and/or touching/steadying and/or contact guard assistance as patient completes activi ty. Assistance may be provided throughout the activity or intermittently. 3-Partial/Moderate Assistance-helper does LESS THAN HALF the effort. [place] lifts, holds or supports trunk or limbs, but provides less than half the effort. 2-Substantial/Maximal Assistance-helper does MORE THAN HALF the effort. [place] lifts or holds trunk or limbs and provides more than half the effort. 9-Gjycihcok-wbyjnx does ALL the effort. Patient does none of the effort to complete the activity. Or, the assistance of 2 or more helpers is required for the patient to complete the activity. If activity was not attempted, code reason: 7-Patient Refused. 9-Not Applicable-not attempted and the patient did not perform the activity before the current illness, exacerbation or injury. 10-Not Attempted due to Environmental Limitations-(lack of equipment, weather restraints, etc.). 88-Not Attempted due to Medical Conditions or Safety Concerns. Gait Training Does the Patient Walk?: Yes Distance: 50 x2 Walk 10 feet (QC): 1 (assist to advance walker, stabilize RUE, and advance RLE, follow with w/c ) Walk 50 ft with 2 Turns(QC): 1 (assist to advance walker, stabilize RUE, and advance RLE, follow with w/c, increased fatigue) Gait Assistive Device: Walker Platform difficulty advancing RLE due to decreased ability to perform hip and knee flexion and ankle DF Wheelchair Training Does the Pt Use a Wheelchair?: Yes Wheel 50 ft with 2 turns (QC): 4 Type of Wheelchair: Manual Neuromuscular standing dynamic activities to increase balance and strength, Treatments Co-treat with OT, skills of 2 clinicians required for neuromuscular retraining with functional movement/tasks due to increase weakness, decreased mobility and impulsivity. PT working on functional transfers, w/c mobility, bed mobility and ambulation. OT working on functional transfers, R UE placement during tasks, and ADLs. Pt agrees to shower. Pt sitting on BSC when OT/PT entered room. Assist x2 with cleansing and clothing manipulation. Pt then ambulated from bed/BSC to bathroom door, assist x2. Pt sat in shower chair with cutout then was transferred with chair into shower. Pt bathed/dried all areas. Assist to thread R UE through shirt sleeve and place over head. Assist x2 to stand and hike pants over hips, assist x1 to thread lower body clothing over R foot. Assist to don/doff socks. 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 Pt requires assist to position and move R UE during mobility. present in room after session. Sitting in recliner with call light/phon in reach. All needs met in room. Assessment Current Status: Good Progress noting increasing mm contractions and movements in RLE, noting occasional episodes of impulsiveness PT Short Term Goals Short Term Goals Time Frame: Nov 14, 2019 Roll Left & Right: 3 Sit to lyin Lying to sitting on side of be: 3 Sit to stand: 3 Chair/wpv-ud-oaokg transfer: 3 Walk 10 feet: 2 Wheel 50ft w/2 turns: 4 Wheel 150 feet: 4 PT Intermediate Goals Herb Counselor Goals PT Herb Counselor Goals Time Frame: Nov 28, 2019 Roll Left & Right (QC): 6 Sit to Lying (QC): 6 Lying-Sitting on Side/Bed(QC): 6 Sit to Stand (QC): 6 Chair/Ygn-uy-Zdjmh Xfer(QC): 6 Toilet Transfer (QC): 6 Car Transfer (QC): 5 Does the Patient Walk: No and Walking Goal IS indicated Walk 10 feet (QC): 6 Walk 50ft with 2 Turns (QC): 6 Walk 150 ft (QC): 6 Walking 10ft on Uneven Surface: 5 1 Step (curb) (QC): 5 4 Steps (QC): 5 12 Steps (QC): 4 Picking up an Object (QC): 4 Wheel 50 feet with 2 turns (QC: 6 Type: Manual Wheel 150 feet: 6 Type: Manual PT Plan Treatment/Plan Treatment Plan: Continue Plan of Care Treatment Plan: Bed Mobility, Education, Functional Activity Joey, Functional Strength, Group Therapy, Gait, Safety, Therapeutic Exercise, Transfers Treatment Duration: Nov 28, 2019 Frequency: At least 5 of 7 days/Wk (IRF) Estimated Hrs Per Day: 1.5 hours per day Patient and/or Family Agrees t: Yes Safety Risks/Education Patient Education: Gait Training, Transfer Techniques, Reviewed Precautions, Correct Positioning, W/C Management, Safety Issues Time/GCodes Time In: 900 Time Out: 1000 Total Billed Treatment Time: 60 Total Billed Treatment 1 visit, GT x15 min, WC x15 min, FA x15 min, NM x15 min KAROLINA GÓMEZ PTA Nov 07, 2019 12:46
--- NOTE | 2019-11-07 12:56 | PM&R Progress Note ---
Subjective HPI/CC On Admission Date Seen by Provider: Nov 07, 2019 Time Seen by Provider: 09:00 Subjective/Events-last exam Pt had a pretty good night. Increasing PPI to 40mg daily Bowels moving very well now No pain is reported Walking with assistance with cane ACEi added by Cardiology Checked meds and labs Reviewed therapy notes Conferred with coremaker floor of Systems General: Fatigue HEENT: Dysphasia Neurological: Weakness, Numbness, Incoordination Objective Exam Vital Signs Vital Signs Date Time Temp Pulse Resp B/P (MAP) Pulse Ox O2 Delivery O2 Flow Rate FiO2 11/08/19 05:11 35.7 74 20 165/73 (103) 96 Room Air Capillary Refill : Less Than 3 Seconds General Appearance: No Apparent Distress, WD/WN HEENT: PERRL/EOMI Neck: Normal Inspection, Non Tender, Supple Respiratory: Lungs Clear, Normal Breath Sounds, No Accessory Muscle Use, No Respiratory Distress Cardiovascular: Regular Rate, Rhythm, No Edema, No Gallop, No Murmur, Normal Peripheral Pulses, Irregularly Irregular Gastrointestinal: Normal Bowel Sounds, No Organomegaly, No Pulsatile Mass, Non Tender, Soft Back: Normal Inspection, No CVA Tenderness, No Vertebral Tenderness Extremity: Normal Capillary Refill, Non Tender, No Calf Tenderness, No Pedal Edema Neurologic/Psychiatric: Alert, Oriented x3, Normal Mood/Affect, tangible personal property appraiser II-XII Norm as Tested, Abnormal Gait, Motor Weakness Skin: Normal Color, Warm/Dry Lymphatic: No Adenopathy Results/Procedures Lab Patient resulted labs reviewed. FIM Transfers Therapy Code Descriptions/Definitions Functional [place] Measure: 0=Not Assessed/NA 4=Minimal Assistance 1=Total Assistance 5=Supervision or Setup 2=Maximal Assistance 6=Modified [place] 3=Moderate Assistance 7=Complete IndependenceSCALE: Activities may be completed with or without assistive devices. 0-Orukpxdzio-prakpbu completes the activity by him/herself with no assistance from a helper. 5-Set-up or Clean-up Assistance-helper sets up or cleans up; patient completes activity. [place] assists only prior to or following the activity. 4-Supervision or Touching Assistance-helper provides verbal cues and/or touching/steadying and/or contact guard assistance as patient completes activity. Assistance may be provided throughout the activity or intermittently. 3-Partial/Moderate Assistance-helper does LESS THAN HALF the effort. [place] lifts, holds or supports trunk or limbs, but provides less than half the effort. 2-Substantial/Maximal Assistance-helper does MORE THAN HALF the effort. [place] lifts or holds trunk or limbs and provides more than half the effort. 0-Pabdtuqny-nuvpzd does ALL the effort. Patient does none of the effort to complete the activity. Or, the assistance of 2 or more helpers is required for the patient to complete the activity. If activity was not attempted, code reason: 7-Patient Refused. 9-Not Applicable-not attempted and the patient did not perform the activity before the current illness, exacerbation or injury. 10-Not Attempted due to Environmental Limitations-(lack of equipment, weather restraints, etc.). 88-Not Attempted due to Medical Conditions or Safety Concerns. Roll Left to Right (QC): 3 Sit to Lying (QC): 3 Sit to Stand (QC): 1 (min to mod A of 2 person for safety, balance and maneuvering R extremeties at times) Chair/Cef-tu-Oswxs Xfer(QC): 1 (min to mod A of 2 person for safety, balance and maneuvering R extremeties at times) Car Transfer (QC): 2 (max assist to transfer in/out of car) Gait Training Does the Patient Walk?: Yes Distance: 10 x5 Walk 10 feet (QC): 1 (2 person A) Walk 50 ft with 2 Turns(QC): 88 Walk 150 ft (QC): 88 Walking 10ft/uneven surface-QC: 88 Gait Persons Needed: 2 Gait Assistive Device: Parallel Bars Wheelchair Training Does the Pt Use a Wheelchair?: Yes Wheel 50 ft with 2 turns (QC): 3 Wheel 150 ft (QC): 3 Type of Wheelchair: Manual Stair Training 1 Step (curb) (QC): 88 4 Steps (QC): 88 12 Steps (QC): 88 Balance Picking up an Object (QC): 88 ADL-Treatment Eating (QC): 5 (Placed plateguard on breakfast plate and pt able to scoop food for self.) Oral Hygiene (QC): 7 Shower/Bathe Self (QC): 1 (Assist x2 required for safety during LE bathing.) Upper Body Dressing (QC): 3 Lower Body Dressing (QC): 1 On/Off Footwear (QC): 2 Toileting Hygiene (QC): 1 Toilet Transfer (QC): 1 Assessment/Plan Assessment and Plan Assess & Plan/Chief Complaint Assessment: CVA 10/28/19 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 HTN HLP CRI AF ED Acute constipation initiated aggressive meds now resolved Dysphagia needs EGD and dilation but cannot go off OAC due to too high of risk for recurrent CVA Plan: IRF protocol BM regimen Fall risk Cardiology consultation appreciated Dr Wang consulted Increase PPI dose (1) CVA (cerebral vascular accident) (2) Flaccid hemiplegia affecting dominant side (3) Diabetes (4) Hypertension (5) Hyperlipemia (6) On continuous oral anticoagulation (7) Atrial fibrillation (8) History of penile implant (9) History of colon cancer (10) Former smoker (11) Renal insufficiency (12) Constipation SCOTT BARBOSA DO Nov 07, 2019 12:55
--- NOTE | 2019-11-07 13:05 | Occupational Ther Daily Note ---
OT Current Status-Daily Note Subjective Pt alert, sitting in recliner. Pt agrees to therapy. No c/o pain at this time. Mental Status/Objective Patient Orientation: Person, Place, Time, Situation ADL-Treatment Therapy Code Descriptions/Definitions Functional [place] Measure: 0=Not Assessed/NA 4=Minimal Assistance 1=Total Assistance 5=Supervision or Setup 2=Maximal Assistance 6=Modified [place] 3=Moderate Assistance 7=Complete IndependenceSCALE: Activities may be completed with or without assistive devices. 0-Sraypfwvqp-zbygmve completes the activity by him/herself with no assistance from a helper. 5-Set-up or Clean-up Assistance-helper sets up or cleans up; patient completes activity. [place] assists only prior to or following the activity. 4-Supervision or Touching Assistance-helper provides verbal cues and/or touchi ng/steadying and/or contact guard assistance as patient completes activity. Assistance may be provided throughout the activity or intermittently. 3-Partial/Moderate Assistance-helper does LESS THAN HALF the effort. [place] lifts, holds or supports trunk or limbs, but provides less than half the effort. 2-Substantial/Maximal Assistance-helper does MORE THAN HALF the effort. [place] lifts or holds trunk or limbs and provides more than half the effort. 4-Ufcjbfnbj-nmxmsm does ALL the effort. Patient does none of the effort to complete the activity. Or, the assistance of 2 or more helpers is required for the patient to complete the activity. If activity was not attempted, code reason: 7-Patient Refused. 9-Not Applicable-not attempted and the patient did not perform the activity before the current illness, exacerbation or injury. 10-Not Attempted due to Environmental Limitations-(lack of equipment, weather restraints, etc.). 88-Not Attempted due to Medical Conditions or Safety Concerns. Other Treatment Working on AROM of R UE. Pt demonstrated ability to complete shldr flexion with AAROM. Completed wrist flex/ext, finger flex 10x's gravity eliminated. Sup/pron 10x's AROM. AAROM with horizontal int/ext rotation. Pt requires mateus nual encouragement when completing any movement with R affected side, pt states that he will be happy when his arm moves. Meaning that he doesn't think his arm is moving until it moves on his own. After session, pt sitting in recliner with call light/phone in reach. All needs met in room. OT Short Term Goals Short Term Goals Time Frame: Nov 15, 2019 Oral hygiene: 3 Toileting hygiene: 2 Shower/bathe self: 3 Upper body dressin Lower body dressin Putting on/taking off footwear: 3 OT Entry Level Lab Technician Goals Entry Level Lab Technician Goals Time Frame: Nov 29, 2019 Eating (QC): 6 Oral Hygiene (QC): 6 Toileting Hygiene (QC): 5 Shower/Bathe Self (QC): 4 Upper Body Dressing (QC): 5 Lower Body Dressing (QC): 5 On/Off Footwear (QC): 5 Additional Goals: 1-Demonstrate ADL Tasks, 2-Verbalize Understanding, 3- ImproveStrength/Joey 1=Demonstrate adherence to instructed precautions during ADL tasks. 2=Patient will verbalize/demonstrate understanding of assistive devices/modifications for ADL. 3=Patient will improve strength/tolerance for activity to enable patient to perform ADL's. OT Education/Plan Problem List/Assessment Assessment: Decreased Activ Tolerance, Decreased Safety Aware, Decreased UE Strength, Impaired Cognition, Impaired Coordination, Impaired Funct Balance, Impaired Self-Care Skills, Restricted Funct UE ROM Discharge Recommendations Plan/Recommendations: Continue POC Treatment Plan/Plan of Care Patient would benefit from OT for education, treatment and training to promote independence in ADL's, mobility, safety and/or upper extremity function for ADL's. Plan of Care: ADL Retraining, Functional Mobility, Group Exercise/Act as Ind, UE Funct Exercise/Act, UE Neuromus Re-Ed/Coord Treatment Duration: Nov 29, 2019 Frequency: At least 5 of 7 days/Wk (IRF) Estimated Hrs Per Day: 1.5 hours per day Rehab Potential: Good Time/GCodes Start Time: 12:45 Stop Time: 13:00 Total Time Billed (hr/min): 15 Billed Treatment Time 1 visit-NM 1 (15 min) KAREN MARQUES Nov 07, 2019 13:05
--- NOTE | 2019-11-07 13:29 | NUR ---
C/O STOMACH PAIN. HOT AND CLAMMY. BLOOD SUGAR 318. BP 81/44. ASSISTED TO BED. BP 93/54 AND THEN 88/48. EKG DONE AND SHOWING SINUS RHYTHM WITH A RATE OF 64 AND LEFT ANTERIOR FASCICULAR BLOCK. DR. PINO CALLED AND NOTIFIED OF ABOVE. ORDERS TO LET PATIENT REST IN BED AND GIVE 500ML NS BOLUS. IV STARTED IN LEFT FA. SPOUSE AT BEDSIDE.
[2019-11-07] MEDS ORDERED: NS IV 500 ML 500 ML ONE (13:34)
--- NOTE | 2019-11-07 13:50 | Speech Therapy Daily Note ---
Speech Daily Progress Note Subjective Date Seen by Provider: Nov 07, 2019 Time Seen by Provider: 00:30 Patient was resting in his chair, visiting with his when I entered his room. Objective Patient completed memory tasks with recall at 80% with minimal cues. Assessment Assessment Current Status: Good Progress Treatment Plan Continue Plan of Care Speech Short Term Goals Short Term Goals Short Term Goals 1. Patient will complete memory tasks related to daily needs at 90% or greater with minimal cueing. 2. Patient will complete safety awareness tasks related to daily needs at 90% or greater with minimal cueing. 3. Patient will complete problem solving tasks related to daily needs at 90% or greater with minimal cueing. 4. Patient will complete word finding tasks related to daily needs at 90% or greater with minimal cueing. 5. Patient will tolerate least restrictive diet level without s/s of aspiration with 90% or greater. 6. Patient/caregiver will utilize compensatory strategies as trained with 90% or greater given minimal cues. Speech Acid Pump Operator Goals Nursing Home Goals Patient will improve cognitive communication necessary for safety and daily living tasks with minimal assist. Patient will maintain adequate nutrition/hydration via safe effective swallow function. Speech-Plan Patient/Family Goals Patient/Family Goals: Patient plans on returning home where he lives with his upon rehab discharge. Treatment Plan Speech Therapy Treatment Plan: Continue Plan of Care Treatment Duration: Nov 08, 2019 Frequency: 5 times per week Estimated Hrs Per Day: .5 hour per day Rehab Potential: Good Barriers to Learning: Patient's recent CVA Pt/Family Agrees to Plan: Yes Safety Risks/Education Teaching Recipient: Patient, Significant Other Teaching Methods: Demonstration, Discussion Response to Teaching: Verbalize Understanding, Return Demonstration Education Topics Provided: Continued safety and understanding of medical changes Time Speech Therapy Time In: 10:00 Speech Therapy Time Out: 10:30 Total Billed Time: 30 Billed Treatment Time 1, RAY Vasques Nov 07, 2019 13:50
--- NOTE | 2019-11-07 14:02 | Physical Therapy Daily Note ---
PT Daily Note-Current Subjective Pt requesting to go outdoors. Nurse present and reports he is wanting fresh air and thought he might enjoy it. During course of prep to go outdoors, pt reports stomach pain/upset. Nurse wants to check vitals. Transfers SCALE: Activities may be completed with or without assistive devices. 0-Gpydmqwmvp-xkcyakr completes the activity by him/herself with no assistance from a helper. 5-Set-up or Clean-up Assistance-helper sets up or cleans up; patient completes activity. [place] assists only prior to or following the activity. 4-Supervision or Touching Assistance-helper provides verbal cues and/or touching/steadying and/or contact guard assistance as patient completes activity. Assistance may be provided throughout the activity or intermittently. 3-Partial/Moderate Assistance-helper does LESS THAN HALF the effort. [place] lifts, holds or supports trunk or limbs, but provides less than half the effort. 2-Substantial/Maximal Assistance-helper does MORE THAN HALF the effort. [place] lifts or holds trunk or limbs and provides more than half the effort. 9-Wtvefsvdy-pvtxqh does ALL the effort. Patient does none of the effort to complete the activity. Or, the assistance of 2 or more helpers is required for the patient to complete the activity. If activity was not attempted, code reason: 7-Patient Refused. 9-Not Applicable-not attempted and the patient did not perform the activity before the current illness, exacerbation or injury. 10-Not Attempted due to Environmental Limitations-(lack of equipment, weather restraints, etc.). 88-Not Attempted due to Medical Conditions or Safety Concerns. Treatments SPT chair to wheelchair with assist of 2. Pt in wheelchair for nurse to monitor vitals and check medical status. Refer to nursing notes for findings. Ultimately, nurse does not feel an outdoor trip is appropriate. Assist of 2 to transfer pt to bed and max assist sit to supine. Seated balance fair (-). Pt in bed post visit with nurse present to continue assessment. Assessment Not feeling well this afternoon. Requires assist of 2 for transfer. Nursing to follow with medical interventions. PT Short Term Goals Short Term Goals Time Frame: Nov 14, 2019 Roll Left & Right: 3 Sit to lyin Lying to sitting on side of be: 3 Sit to stand: 3 Chair/mgk-xa-gutfm transfer: 3 Walk 10 feet: 2 Wheel 50ft w/2 turns: 4 Wheel 150 feet: 4 PT Group Home Goals Group Home Goals PT Stove Bottom Worker Goals Time Frame: Nov 28, 2019 Roll Left & Right (QC): 6 Sit to Lying (QC): 6 Lying-Sitting on Side/Bed(QC): 6 Sit to Stand (QC): 6 Chair/Zmq-vw-Wmjxb Xfer(QC): 6 Toilet Transfer (QC): 6 Car Transfer (QC): 5 Does the Patient Walk: No and Walking Goal IS indicated Walk 10 feet (QC): 6 Walk 50ft with 2 Turns (QC): 6 Walk 150 ft (QC): 6 Walking 10ft on Uneven Surface: 5 1 Step (curb) (QC): 5 4 Steps (QC): 5 12 Steps (QC): 4 Picking up an Object (QC): 4 Wheel 50 feet with 2 turns (QC: 6 Type: Manual Wheel 150 feet: 6 Type: Manual PT Plan Problem List Problem List: Activity Tolerance, Functional Strength, Safety, Balance, Gait, Transfer, Bed Mobility Treatment/Plan Treatment Plan: Continue Plan of Care Treatment Plan: Bed Mobility, Education, Functional Activity Joey, Functional Strength, Group Therapy, Gait, Safety, Therapeutic Exercise, Transfers Treatment Duration: Nov 28, 2019 Frequency: At least 5 of 7 days/Wk (IRF) Estimated Hrs Per Day: 1.5 hours per day Patient and/or Family Agrees t: Yes Safety Risks/Education Patient Education: Safety Issues Teaching Recipient: Patient Teaching Methods: Demonstration, Discussion Response to Teaching: Reinforcement Needed Time/GCodes Time In: 1313 Time Out: 1330 Total Billed Treatment Time: 17 Total Billed Treatment visit FA 17 KAREN PACE PT Nov 07, 2019 14:02
[2019-11-07] MEDS ORDERED: NS IV 500 ML 500 ML IV ONE (14:15)
--- NOTE | 2019-11-07 15:42 | NUR ---
500 CC FLUID BOLUS COMPLETE. BP 127/59 (LYING) 87/58 (SITTING), HR UNCHANGED AT 70. DR. PINO TO THE FLOOR AND NOTIFIED.
--- NOTE | 2019-11-07 15:45 | NUR ---
JHOANA/JIM PATIENT CARE CONFERENCE SUMMARY Met with patient and then spoke with daughter Farida Ma by phone to review Summary. While team plan was for patient to continue to stay on ARU and participate toward therapy goals and safety, patient had been adamant she would only stay 5 days, and family accepted responsibility to take her home and provide supervision and assistance. Daughter Farida resides in [place], [place], she intends to take patient to her home day time and return patient to her own home for nights. Patient does reside with son Eugene Grace, because patient may require toileting/bathing supervision/assistance family discussed this altered plan to address care needs. This created difficulty regarding in-home agency services like [facility], depending on where patient would physically be located, and would require a specific schedule. Additionally, patient's home is in [facility] and with Farida in [place], this creates an additional layer of challenge to find agency licensed to provide in both states if necessary. Will partner with patient and family for a more final discharge plan palatable to all. Addendum: 11/08/19 at 1226 by DUARTE FERNANDEZ Disregard, wrong patient.
--- NOTE | 2019-11-07 16:13 | NUR ---
CM/SS PATIENT CARE CONFERENCE SUMMARY Discussed Summary with patient and later with spouse Sarah Vera. Both are in agreement for a continued stay on ARU for progressive therapy and treatment. Barriers to discharge will be that spouse is primary caregiver and would not be able to lift patient, he will need to be able to sustain his own weight for transferring, toileting, bathing. Anticipate new DME FWW with right arm rest and possibly wheelchair, bathroom assistive devices. Medicare will not cover both FWW and wheelchair, the chair would be out of pocket purchase or rental. Patient is very upbeat and teases with staff, spouse Sarah is a positive support to him in all endeavors. Continue intermittent reviews and discharge planning.
--- NOTE | 2019-11-07 16:29 | NUR ---
DESTIN, SPEECH THERAPIST, RECOMMENDS STRAWBERRY ENSURE WITH MEALS SINCE PATIENT DOES NOT LIKE THICKENED LIQUIDS. DR. BARBOSA NOTIFIED AND OK WITH STRAWBERRY GLUCERNA WITH MEALS. Addendum: 11/07/19 at 1933 by YAJAIRA VICTOR RN DESTIN STATES THAT GLUCERNA CONSISTENCY IS FINE. DOES NOT NEED TO BE THICKENED.
[2019-11-07] MEDS: SIMvastatin 10 MG (ZOCOR) TAB PO SCH (17:22)
[2019-11-07 18:59] VITALS: BP 116/56
[2019-11-07] MEDS: ACETAMINOPHEN 325 MG TABLET PO PRN (21:32)
[2019-11-07] MEDS: ASPIRIN E.C. 81 MG (ECOTRIN) TAB PO SCH (21:32)
[2019-11-08] MEDS: ACETAMINOPHEN 325 MG TABLET PO PRN ×2 (02:48→21:39)
[2019-11-08 05:11] VITALS: BP 165/73
[2019-11-08] MEDS: inSUlin ASPART (NovoLOG) 1 UNIT/0.01 ML (CHARGE PER UNIT) SC SCH ×4 (06:01→21:45)
[2019-11-08] MEDS: metFORMIN XR 500 MG (GLUCOPHAGE XR) TAB PO SCH ×2 (06:37→17:33)
[2019-11-08] MEDS: polyethylene glycoL POWDER 17 GM (MIRALAX) PACK PO SCH ×2 (10:13→21:46)
[2019-11-08] MEDS: SENNA W/DOCUSATE (SENOKOT S) TABLET PO SCH ×2 (10:14→21:46)
[2019-11-08] MEDS: PANTOPRAZOLE 40 MG (PROTONIX) TAB PO SCH (11:11)
[2019-11-08] MEDS: MULTIVIT W/MINERALS TAB (THERAGRAN M) PO SCH (11:11)
[2019-11-08] MEDS: lisINopril 5 MG (PRINIVIL) TABLET PO SCH (11:11)
[2019-11-08] MEDS: TAMSULOSIN 0.4 MG (FLOMAX) CAP PO SCH (11:11)
[2019-11-08] MEDS: DOCUSATE SODIUM 100 MG (COLACE) CAP PO SCH ×2 (11:11→21:45)
[2019-11-08] MEDS: APIXABAN 5 MG (ELIQUIS) TABLET PO SCH ×2 (11:11→21:40)
[2019-11-08] MEDS: AMIODARONE 200 MG (CORDARONE) TAB PO SCH (11:11)
--- NOTE | 2019-11-08 11:13 | NUR ---
JHOANA/JIM DISCHARGE Partnered with patient and her daughter Farida (as family sales representative church furniture) for discharge today. [facility]: Medicare Compare information provided to patient and Farida. Finalized services with their preferred agency, [facility] for RN, PT, OT. Agency understands Farida is to be primary contact regarding visit scheduling. Farida indicates she accepts responsibility for patient to be at her own home for scheduled visits. DME: There were no new needs identified regarding assistive devices. Farida did get a hospital bed for her home so that when patient is there she can utilize it. IMM2 presented to patient, reviewed, signed, charted. Patient dressed and ready to leave, adamant about discharge as noted. Unit RN aware of all arrangements. Addendum: 11/08/19 at 1226 by DUARTE MEYER Disregard, wrong patient.
--- NOTE | 2019-11-08 11:30 | PM&R Progress Note ---
Subjective HPI/CC On Admission Date Seen by Provider: Nov 08, 2019 Time Seen by Provider: 10:30 Subjective/Events-last exam Pt had a pretty good night. Increasing PPI to 40mg daily has seemed to helped Bowels moving very well now No pain is reported Walking with assistance with cane and his and patient himself feel really good about that ACEi added by Cardiology and appreciate his help Checked meds and labs Reviewed therapy notes Conferred with maintenance technician of Systems General: Fatigue Neurological: Weakness, Numbness, Incoordination Objective Exam Vital Signs Vital Signs Date Time Temp Pulse Resp B/P (MAP) Pulse Ox O2 Delivery O2 Flow Rate FiO2 11/08/19 16:00 36.2 68 16 139/66 (90) 98 Room Air Capillary Refill : Less Than 3 Seconds General Appearance: No Apparent Distress, WD/WN HEENT: PERRL/EOMI Neck: Normal Inspection, Non Tender, Supple Respiratory: Lungs Clear, Normal Breath Sounds, No Accessory Muscle Use, No Respiratory Distress Cardiovascular: Regular Rate, Rhythm, No Edema, No Gallop, No Murmur, Normal Peripheral Pulses, Irregularly Irregular Gastrointestinal: Normal Bowel Sounds, No Organomegaly, No Pulsatile Mass, Non Tender, Soft Back: Normal Inspection, No CVA Tenderness, No Vertebral Tenderness Extremity: Normal Capillary Refill, Non Tender, No Calf Tenderness, No Pedal Edema Neurologic/Psychiatric: Alert, Oriented x3, Normal Mood/Affect, air conditioning supervisor II-XII Norm as Tested, Abnormal Gait, Motor Weakness Skin: Normal Color, Warm/Dry Lymphatic: No Adenopathy Results/Procedures Lab Patient resulted labs reviewed. FIM Transfers Therapy Code Descriptions/Definitions Functional [place] Measure: 0=Not Assessed/NA 4=Minimal Assistance 1=Total Assistance 5=Supervision or Setup 2=Maximal Assistance 6=Modified [place] 3=Moderate Assistance 7=Complete IndependenceSCALE: Activities may be completed with or without assistive devices. 8-Fbnciqayar-zwbasiz completes the activity by him/herself with no assistance f rom a helper. 5-Set-up or Clean-up Assistance-helper sets up or cleans up; patient completes activity. [place] assists only prior to or following the activity. 4-Supervision or Touching Assistance-helper provides verbal cues and/or touching/steadying and/or contact guard assistance as patient completes activity. Assistance may be provided throughout the activity or intermittently. 3-Partial/Moderate Assistance-helper does LESS THAN HALF the effort. [place] lifts, holds or supports trunk or limbs, but provides less than half the effort. 2-Substantial/Maximal Assistance-helper does MORE THAN HALF the effort. [place] lifts or holds trunk or limbs and provides more than half the effort. 2-Kyxqntjml-msucur does ALL the effort. Patient does none of the effort to complete the activity. Or, the assistance of 2 or more helpers is required for the patient to complete the activity. If activity was not attempted, code reason: 7-Patient Refused. 9-Not Applicable-not attempted and the patient did not perform the activity before the current illness, exacerbation or injury. 10-Not Attempted due to Environmental Limitations-(lack of equipment, weather restraints, etc.). 88-Not Attempted due to Medical Conditions or Safety Concerns. Roll Left to Right (QC): 3 Sit to Lying (QC): 3 Sit to Stand (QC): 1 (min to mod A of 2 person for safety, balance and maneuvering R extremeties at times) Chair/Mkk-xm-Axenp Xfer(QC): 1 (min to mod A of 2 person for safety, balance and maneuvering R extremeties at times) Car Transfer (QC): 2 (max assist to transfer in/out of car) Gait Training Does the Patient Walk?: Yes Distance: 10 x5 Walk 10 feet (QC): 1 (2 person A) Walk 50 ft with 2 Turns(QC): 88 Walk 150 ft (QC): 88 Walking 10ft/uneven surface-QC: 88 Gait Persons Needed: 2 Gait Assistive Device: Parallel Bars Wheelchair Training Does the Pt Use a Wheelchair?: Yes Wheel 50 ft with 2 turns (QC): 3 Wheel 150 ft (QC): 3 Type of Wheelchair: Manual Stair Training 1 Step (curb) (QC): 88 4 Steps (QC): 88 12 Steps (QC): 88 Balance Picking up an Object (QC): 88 ADL-Treatment Eating (QC): 5 (Placed plateguard on breakfast plate and pt able to scoop food for self.) Oral Hygiene (QC): 7 Bathing Location: L Arm, R Arm, L Upper Leg, R Upper Leg, L Lower Leg (including foot), R Lower Leg (including foot), Chest, Abdomen, Buttocks, Perineal Area Shower/Bathe Self (QC): 4 Upper Body Dressing (QC): 3 Lower Body Dressing (QC): 1 On/Off Footwear (QC): 2 Toileting Hygiene (QC): 1 Toilet Transfer (QC): 1 Assessment/Plan Assessment and Plan Assess & Plan/Chief Complaint Assessment: CVA 10/28/19 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 HTN HLP CRI AF ED Acute constipation initiated aggressive meds now resolved Dysphagia needs EGD and dilation but cannot go off OAC due to too high of risk for recurrent CVA Plan: IRF protocol BM regimen Fall risk Cardiology consultation appreciated Dr Wang consulted Increase PPI dose (1) CVA (cerebral vascular accident) (2) Flaccid hemiplegia affecting dominant side (3) Diabetes (4) Hypertension (5) Hyperlipemia (6) On continuous oral anticoagulation (7) Atrial fibrillation (8) History of penile implant (9) History of colon cancer (10) Former smoker (11) Renal insufficiency (12) Constipation SCOTT BARBOSA DO Nov 08, 2019 11:30
--- NOTE | 2019-11-08 12:03 | Cardiology Progress Note ---
Subjective Date Seen by Provider: Nov 08, 2019 Time Seen by Provider: 12:01 Subjective/Events-last exam Patient is feeling better today. No chest pain, no abdominal pain Review of Systems General: No Chills, No Night Sweats, No Fatigue, No Malaise, No Appetite, No Other HEENT: No Head Aches, No Visual Changes, No Eye Pain, No Ear Pain, No Dysphasia, No Sinus Congestion, No Post Nasal Drip, No Sore Throat, No Other Pulmonary: No Dyspnea, No Cough, No Pleuritic Chest Pain, No Other Cardiovascular: No: Chest Pain, Palpitations, Orthopnea, Paroxysmal Noc. Dyspnea, Edema, Lt Headedness, Other Objective-Cardiology Exam Last Set of Vital Signs Vital Signs 11/08/19 05:11 Temp 35.7 Pulse 74 Resp 20 B/P (MAP) 165/73 (103) Pulse Ox 96 O2 Delivery Room Air Capillary Refill : Less Than 3 Seconds I&O Intake and Output 11/08/19 00:00 Intake Total 1130 ml Output Total 400 ml Balance 730 ml Intake Oral 630 ml IV Total 500 ml Output Urine Total 400 ml # Voids 6 # Bowel Movements 1 General: Alert, Oriented X3, Cooperative HEENT: Atraumatic, PERRLA Neck: Supple, No JVD, No Thyromegaly Lungs: Clear to Auscultation, Normal Air Movement Heart: Regular Rate, Normal S1, Normal S2, No Murmurs Abdomen: Normal Bowel Sounds, Soft, No Tenderness, No Hepatosplenomegaly, No Masses Extremities: No Clubbing, No Cyanosis, No Edema, Normal Pulses, No Tenderness/Swelling Skin: No Rashes, No Breakdown, No Significant Lesion Neuro: Normal Gait, Normal Speech, Strength at 5/5 X4 Ext, Normal Tone, Sensation Intact Psych/Mental Status: Mental Status NL, Mood NL Results Lab Laboratory Tests Test 11/07/19 13:19 11/07/19 16:12 11/07/19 21:23 11/08/19 05:58 Range/Units Glucometer 318 H 303 H 227 H 156 H 70-110 MG/DL Test 11/08/19 10:56 Range/Units Glucometer 313 H 70-110 MG/DL A/P-Cardiology Admission Diagnosis CVA Coronary artery disease Paroxysmal atrial fibrillation Hypertension Hyperlipidemia Assessment/Plan Status post CVA with residual right hemiplegia, 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 Receiving physical therapy. Chest pain nonspecific etiology, reporting occasional chest discomfort, continue on aspirin and Eliquis, I tried isosorbide yesterday which resulted in hypotensive response and patient felt uncomfortable and had abdominal pain, I stopped isosorbide and he is feeling better today. Status post bradycardia, improved after stopping metoprolol. Continue to monitor blood pressure Coronary artery disease, history of multiple intervention the past, had a CABG 3 done in 2017, has been doing well. Continue to monitor Paroxysmal atrial fibrillation, reporting history of atrial fibrillation in the remote past. Was on oral anticoagulation for some time in the past and it was discontinued in the remote past. Admitted with TIA on October 26 and started on oral anticoagulation and then had another CVA on October 28, 2019 did not qualify for TPA. Currently receiving physical therapy. [id number] score of 6, yearly risk of stroke without oral anticoagulation is 9.8 percent, maintained on Eliquis Hypertension, controlled, continue to monitor. Hyperlipidemia, monitor lipids Diabetes mellitus, followed and managed by primary care physician Clinical Quality Measures DVT/VTE Risk/Contraindication: Risk Factor Score Per Nursin RFS Level Per Nursing on Admit: 4+=Very High JOSE PINO MD Nov 08, 2019 12:03
--- NOTE | 2019-11-08 13:00 | Occupational Ther Daily Note ---
OT Current Status-Daily Note Subjective Pt alert, lying in bed. Pt agrees to therapy. No c/o pain. Mental Status/Objective Patient Orientation: Person, Place, Time, Situation Attachments: IV ADL-Treatment Therapy Code Descriptions/Definitions Functional [place] Measure: 0=Not Assessed/NA 4=Minimal Assistance 1=Total Assistance 5=Supervision or Setup 2=Maximal Assistance 6=Modified [place] 3=Moderate Assistance 7=Complete IndependenceSCALE: Activities may be completed with or without assistive devices. 5-Jgzqsqsuyb-fhdtxpo completes the activity by him/herself with no assistance from a helper. 5-Set-up or Clean-up Assistance-helper sets up or cleans up; patient completes activity. [place] assists only prior to or following the activity. 4-Supervision or Touching Assistance-helper provides verbal cues and/or touching/steadying and/or contact guard assistance as patient completes activity. Assistance may be provided throughout the activity or intermittently. 3-Partial/Moderate Assistance-helper does LESS THAN HALF the effort. [place] lifts, holds or supports trunk or limbs, but provides less than half the effort. 2-Substantial/Maximal Assistance-helper does MORE THAN HALF the effort. [place] lifts or holds trunk or limbs and provides more than half the effort. 2-Rmueskaqx-sgucze does ALL the effort. Patient does none of the effort to complete the activity. Or, the assistance of 2 or more helpers is required for the patient to complete the activity. If activity was not attempted, code reason: 7-Patient Refused. 9-Not Applicable-not attempted and the patient did not perform the activity before the current illness, exacerbation or injury. 10-Not Attempted due to Environmental Limitations-(lack of equipment, weather restraints, etc.). 88-Not Attempted due to Medical Conditions or Safety Concerns. Other Treatment Co-treat with PT, skills of 2 clinicians required for neuromuscular retraining with functional movement/tasks due to increase weakness, decreased mobility and impulsivity. PT working on functional transfers, w/c mobility, bed mobility and ambulation. OT working on functional transfers, R UE placement during tasks. Supine to EOB, min A with HOB raised. Decreased sitting balance on bed though on flat mat in therapy gym pt has good sitting balance. Pt propelled w/c to therapy gym by self. Assist x2 for transfer from w/c to therapy mat. Assist x2 from EOB to supine then pt able to roll to R side by self. Assist x2 for supine to sitting on mat table. Pt then scooted on edge of mat table without difficulty. Pt then completed ambulation with parallel bars, assist with progressing R UE while ambulating and stabilizing R elbow. See PT notes for ambulation. After session, pt sitting in w/c with call light/phone in reach. All needs met in room. OT Short Term Goals Short Term Goals Time Frame: Nov 15, 2019 Oral hygiene: 3 Toileting hygiene: 2 Shower/bathe self: 3 Upper body dressin Lower body dressin Putting on/taking off footwear: 3 OT Analyzer Sales Goals Analyzer Sales Goals Time Frame: Nov 29, 2019 Eating (QC): 6 Oral Hygiene (QC): 6 Toileting Hygiene (QC): 5 Shower/Bathe Self (QC): 4 Upper Body Dressing (QC): 5 Lower Body Dressing (QC): 5 On/Off Footwear (QC): 5 Additional Goals: 1-Demonstrate ADL Tasks, 2-Verbalize Understanding, 3-ImproveStrength/Joey 1=Demonstrate adherence to instructed precautions during ADL tasks. 2=Patient will verbalize/demonstrate understanding of assistive devices/modifications for ADL. 3=Patient will improve strength/tolerance for activity to enable patient to perform ADL's. OT Education/Plan Problem List/Assessment Assessment: Decreased Activ Tolerance, Decreased Safety Aware, Decreased UE Strength, Impaired Coordination, Impaired Funct Balance, Impaired Self-Care Skills, Restricted Funct UE ROM, Visual-Perceptual Deficit Discharge Recommendations Plan/Recommendations: Continue POC Treatment Plan/Plan of Care Patient would benefit from OT for education, treatment and training to promote independence in ADL's, mobility, safety and/or upper extremity function for ADL's. Plan of Care: ADL Retraining, Functional Mobility, Group Exercise/Act as Ind, UE Funct Exercise/Act, UE Neuromus Re-Ed/Coord Treatment Duration: Nov 29, 2019 Frequency: At least 5 of 7 days/Wk (IRF) Estimated Hrs Per Day: 1.5 hours per day Rehab Potential: Good Time/GCodes Start Time: 09:00 Stop Time: 10:00 Total Time Billed (hr/min): 60 Billed Treatment Time 1 visit-NM 4 (60 min) co treat 60 min KAREN MARQUES Nov 08, 2019 13:00
--- NOTE | 2019-11-08 13:04 | Occupational Ther Daily Note ---
OT Current Status-Daily Note Subjective Pt alert, sitting in w/c. Pt agrees to therapy. No c/o pain at this time. Mental Status/Objective Patient Orientation: Person, Place, Time, Mumbles Attachments: IV ADL-Treatment Therapy Code Descriptions/Definitions Functional [place] Measure: 0=Not Assessed/NA 4=Minimal Assistance 1=Total Assistance 5=Supervision or Setup 2=Maximal Assistance 6=Modified [place] 3=Moderate Assistance 7=Complete IndependenceSCALE: Activities may be completed with or without assistive devices. 0-Ifhvuctbrx-brdcvtn completes the activity by him/herself with no assistance from a helper. 5-Set-up or Clean-up Assistance-helper sets up or cleans up; patient completes activity. [place] assists only prior to or following the activity. 4-Supervision or Touching Assistance-helper provides verbal cues and/or touching/steadying and/or contact guard assistance as patient completes activity. Assistance may be provided throughout the activity or intermittently. 3-Partial/Moderate Assistance-helper does LESS THAN HALF the effort. [place] lifts, holds or supports trunk or limbs, but provides less than half the effort. 2-Substantial/Maximal Assistance-helper does MORE THAN HALF the effort. [place] lifts or holds trunk or limbs and provides more than half the effort. 7-Peesjlhvw-bqschq does ALL the effort. Patient does none of the effort to complete the activity. Or, the assistance of 2 or more helpers is required for the patient to complete the activity. If activity was not attempted, code reason: 7-Patient Refused. 9-Not Applicable-not attempted and the patient did not perform the activity before the current illness, exacerbation or injury. 10-Not Attempted due to Environmental Limitations-(lack of equipment, weather restraints, etc.). 88-Not Attempted due to Medical Conditions or Safety Concerns. Other Treatment Pt propelled w/c to and from therapy gym by self. Pt completed arm bike to increase AROM and strength of R UE/ L UE. Pt completed 3 min in forward rotation with B UE, no resistance. 1 min forward rotation with R UE, assist only for safety, pt able to initiate and maintain rotation. 3 min backward rotation with B UE's. 90 secs with R UE in backward rotation, assist only for safety, pt able to initiate and maintain rotation. 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 Pt required recovery breaks after each change of direction and UE. Pt propelled self back to room with . All needs met in room. OT Short Term Goals Short Term Goals Time Frame: Nov 15, 2019 Oral hygiene: 3 Toileting hygiene: 2 Shower/bathe self: 3 Upper body dressin Lower body dressin Putting on/taking off footwear: 3 OT Cellar Worker Goals Detention Goals Time Frame: Nov 29, 2019 Eating (QC): 6 Oral Hygiene (QC): 6 Toileting Hygiene (QC): 5 Shower/Bathe Self (QC): 4 Upper Body Dressing (QC): 5 Lower Body Dressing (QC): 5 On/Off Footwear (QC): 5 Additional Goals: 1-Demonstrate ADL Tasks, 2-Verbalize Understanding, 3- ImproveStrength/Joey 1=Demonstrate adherence to instructed precautions during ADL tasks. 2=Patient will verbalize/demonstrate understanding of assistive devices/modifications for ADL. 3=Patient will improve strength/tolerance for activity to enable patient to perform ADL's. OT Education/Plan Problem List/Assessment Assessment: Decreased Activ Tolerance, Decreased UE Strength, Impaired Coordination, Impaired Funct Balance, Impaired Self-Care Skills, Restricted Funct UE ROM, Visual-Perceptual Deficit Discharge Recommendations Plan/Recommendations: Continue POC Treatment Plan/Plan of Care Patient would benefit from OT for education, treatment and training to promote independence in ADL's, mobility, safety and/or upper extremity function for ADL' s. Plan of Care: ADL Retraining, Functional Mobility, Group Exercise/Act as Ind, UE Funct Exercise/Act, UE Neuromus Re-Ed/Coord Treatment Duration: Nov 29, 2019 Frequency: At least 5 of 7 days/Wk (IRF) Estimated Hrs Per Day: 1.5 hours per day Rehab Potential: Good Time/GCodes Start Time: 11:30 Stop Time: 12:00 Total Time Billed (hr/min): 30 Billed Treatment Time 1 visit-NM 2 (30 min) KAREN MARQUES Nov 08, 2019 13:04
--- NOTE | 2019-11-08 13:31 | NUR ---
"RD ASSESSMENT PMHx: DM; CAD; HLD; HTN; CA(colon - resection 2011); GERD PT INTERACTION: Pt was awake and pleasant during nutrition follow-up. Pt states he has been eating well since last assessment. Note avg PO intake 50-75% of meals, per chart review. Pt states no issues with n/v/c/d since last assessment. Note last BM was 11/07 and pt currently on bowel regimen of colace BID; senna BID; and miralax BID, per chart review. ABNORMAL NUTRITION-RELATED LAB VALUES LOW: Pro 6.1 HIGH: BUN 32; glu 174 Est. kcal needs: 2311-8869 kcal | 25-30 kcal/kg Est. Pro needs: 66-83 g Pro | 0.8-1.0 g Pro/kg PES STATEMENT: Inadequate oral intake (NI-2.1) related to loss of appetite as evidenced by pt interview | avg PO intake 50-75% of meals INTERVENTION: Continue with current diet order of CHO 60g/m 0snack diet. Continue with current supplementation order of Glucerna with meals TID, for increased kcal intake. Provides 220 kcal and 10 g Pro per serving. Will continue to follow and reassess as pt needs, intake, and status change. MONITOR/EVALUATE: PO Intake; Plan of Care; Hydration Status; Weight Status; Lab Values Audrey Garay, MS, RD, LD"
--- NOTE | 2019-11-08 14:52 | Physical Therapy Daily Note ---
PT Daily Note-Current Subjective Pt agreeable to PT/OT co treatment session. Pt c/o double vision at beginning of session stating it is only when he is looking L and R. States has had surgery for the weak mm's in the past and may be coming back now due to weakness in eye mm's from stroke Transfers SCALE: Activities may be completed with or without assistive devices. 2-Qzbpmigzdb-aujoaun completes the activity by him/herself with no assistance from a helper. 5-Set-up or Clean-up Assistance-helper sets up or cleans up; patient completes activity. [place] assists only prior to or following the activity. 4-Supervision or Touching Assistance-helper provides verbal cues and/or touching/steadying and/or contact guard assistance as patient completes activity. Assistance may be provided throughout the activity or intermittently. 3-Partial/Moderate Assistance-helper does LESS THAN HALF the effort. [place] lifts, holds or supports trunk or limbs, but provides less than half the effort. 2-Substantial/Maximal Assistance-helper does MORE THAN HALF the effort. [place] lifts or holds trunk or limbs and provides more than half the effort. 1-Fsmjyphiv-apmucr does ALL the effort. Patient does none of the effort to complete the activity. Or, the assistance of 2 or more helpers is required for the patient to complete the activity. If activity was not attempted, code reason: 7-Patient Refused. 9-Not Applicable-not attempted and the patient did not perform the activity before the current illness, exacerbation or injury. 10-Not Attempted due to Environmental Limitations-(lack of equipment, weather restraints, etc.). 88-Not Attempted due to Medical Conditions or Safety Concerns. Roll Left & Right (QC): 3 Sit to Lying (QC): 3 Lying to Sitting/Side of Bed(Q: 2 Sit to Stand (QC): 1 (min to mod A of 2) Gait Training Distance: 10 x5 Walk 10 feet (QC): 1 (2 person min to mod A) Gait Assistive Device: Parallel Bars noted pt advancing RLE much better but does cont with decreased hip and knee flexion/ext and ankle DF. moleskin placed on toe of pt's shoe, improved advancement of RLE Wheelchair Training Does the Pt Use a Wheelchair?: Yes Wheel 50 ft with 2 turns (QC): 4 Wheel 150 ft (QC): 4 Type of Wheelchair: Manual SBA, improving maneuvering around objects Exercises Supine Ex: Ankle pumps, Quad Set, Rolling, Heel Slides, Scooting, Straight leg raise, Hip abd/add Supine Reps: 10 (2 sets) Treatments Co-treat with OT, skills of 2 clinicians required for neuromuscular retraining with functional movement/tasks due to increase weakness, decreased mobility and impulsivity. BP taken due to pt c/o of double vision when looking L and R (131/ 57). PT working on functional transfers, w/c mobility, bed mobility and ambulation. OT working on functional transfers, R UE placement during tasks. Supine to EOB, min A with HOB raised. Decreased sitting balance on bed though on flat mat in therapy gym pt has good sitting balance. Pt propelled w/c to therapy gym with SBA. Assist x2 for transfer from w/c to therapy mat. Assist x2 from EOB to supine then pt able to roll to R side by self. Assist x2 for supine to sitting on mat table. Pt then scooted on edge of mat table without difficulty. Pt then completed ambulation with parallel bars, assist with progressing R UE while ambulating and stabilizing R elbow. See PT notes for ambulation. After session, pt sitting in w/c with call light/phone in reach. All needs met in room. Assessment Current Status: Good Progress PT Short Term Goals Short Term Goals Time Frame: Nov 14, 2019 Roll Left & Right: 3 Sit to lyin Lying to sitting on side of be: 3 Sit to stand: 3 Chair/xcw-nm-jeqnc transfer: 3 Walk 10 feet: 2 Wheel 50ft w/2 turns: 4 Wheel 150 feet: 4 PT Usp Goals Potato Pancake Frier Goals PT Usp Goals Time Frame: Nov 28, 2019 Roll Left & Right (QC): 6 Sit to Lying (QC): 6 Lying-Sitting on Side/Bed(QC): 6 Sit to Stand (QC): 6 Chair/Bum-ya-Bukhx Xfer(QC): 6 Toilet Transfer (QC): 6 Car Transfer (QC): 5 Does the Patient Walk: No and Walking Goal IS indicated Walk 10 feet (QC): 6 Walk 50ft with 2 Turns (QC): 6 Walk 150 ft (QC): 6 Walking 10ft on Uneven Surface: 5 1 Step (curb) (QC): 5 4 Steps (QC): 5 12 Steps (QC): 4 Picking up an Object (QC): 4 Wheel 50 feet with 2 turns (QC: 6 Type: Manual Wheel 150 feet: 6 Type: Manual PT Plan Treatment/Plan Treatment Plan: Continue Plan of Care Treatment Plan: Bed Mobility, Education, Functional Activity Joey, Functional Strength, Group Therapy, Gait, Safety, Therapeutic Exercise, Transfers Treatment Duration: Nov 28, 2019 Frequency: At least 5 of 7 days/Wk (IRF) Estimated Hrs Per Day: 1.5 hours per day Patient and/or Family Agrees t: Yes Safety Risks/Education Patient Education: Gait Training, Transfer Techniques, Reviewed Precautions, Correct Positioning, W/C Management, Safety Issues Teaching Recipient: Patient, Family Teaching Methods: Demonstration, Discussion Response to Teaching: Verbalize Understanding, Return Demonstration, Reinforcement Needed Time/GCodes Time In: 1000 Time Out: 1100 Total Billed Treatment Time: 60 Total Billed Treatment 1 visit, NM 15, WC 15, GT 15, EX 15 KAROLINA GÓMEZ FORM GRADER OPERATOR Nov 08, 2019 14:52
--- NOTE | 2019-11-08 15:38 | Speech Therapy Daily Note ---
Speech Daily Progress Note Subjective Date Seen by Provider: Nov 08, 2019 Time Seen by Provider: 00:30 Patient was waking up from his afternoon nap when I entered his room. Objective Patient completed a series of problem solving tasks related to his daily needs at 85% with minimal cuing. Assessment Assessment Current Status: Good Progress Treatment Plan Continue Plan of Care Speech Short Term Goals Short Term Goals Short Term Goals 1. Patient will complete memory tasks related to daily needs at 90% or greater with minimal cueing. 2. Patient will complete safety awareness tasks related to daily needs at 90% or greater with minimal cueing. 3. Patient will complete problem solving tasks related to daily needs at 90% or greater with minimal cueing. 4. Patient will complete word finding tasks related to daily needs at 90% or gr eater with minimal cueing. 5. Patient will tolerate least restrictive diet level without s/s of aspiration with 90% or greater. 6. Patient/caregiver will utilize compensatory strategies as trained with 90% or greater given minimal cues. Speech Keyboard Specialist Goals Keyboard Specialist Goals Patient will improve cognitive communication necessary for safety and daily living tasks with minimal assist. Patient will maintain adequate nutrition/hydration via safe effective swallow function. Speech-Plan Patient/Family Goals Patient/Family Goals: Patient plans on returning home with his upon rehab discharge. Treatment Plan Speech Therapy Treatment Plan: Continue Plan of Care Treatment Duration: Nov 08, 2019 Frequency: 5 times per week Estimated Hrs Per Day: .5 hour per day Rehab Potential: Good Barriers to Learning: The patient's recent CVA Pt/Family Agrees to Plan: Yes Safety Risks/Education Teaching Recipient: Patient, Significant Other Teaching Methods: Demonstration, Discussion Response to Teaching: Verbalize Understanding, Return Demonstration Education Topics Provided: Continued safety within his room and commuication of wants/needs. Time Speech Therapy Time In: 14:30 Speech Therapy Time Out: 15:00 Total Billed Time: 30 Billed Treatment Time 1HERMINIA BETHANIA ST Nov 08, 2019 15:38
[2019-11-08 16:00] VITALS: BP 139/66
[2019-11-08] MEDS: SIMvastatin 10 MG (ZOCOR) TAB PO SCH (17:30)
--- NOTE | 2019-11-08 19:21 | NUR ---
bedside report received from [facility], assume care of pt
[2019-11-08] MEDS: ASPIRIN E.C. 81 MG (ECOTRIN) TAB PO SCH (21:40)
--- NOTE | 2019-11-08 21:45 | NUR ---
refused Colace, miralax & Senokot, c/o generalized discomfort level 3/10 on numeric scale, Tylenol 650mg given
--- NOTE | 2019-11-08 21:46 | NUR ---
fsbs 217 NovoLog 6 units given
--- NOTE | 2019-11-08 22:20 | NUR ---
resting quietly in bed, pain level 0/10 on CNPI scale
[2019-11-09 05:53] VITALS: BP 136/67
[2019-11-09] MEDS: inSUlin ASPART (NovoLOG) 1 UNIT/0.01 ML (CHARGE PER UNIT) SC SCH ×4 (06:00→21:17)
[2019-11-09] MEDS: metFORMIN XR 500 MG (GLUCOPHAGE XR) TAB PO SCH ×2 (06:49→17:29)
[2019-11-09] MEDS: polyethylene glycoL POWDER 17 GM (MIRALAX) PACK PO SCH ×2 (10:17→21:19)
[2019-11-09] MEDS: DOCUSATE SODIUM 100 MG (COLACE) CAP PO SCH ×2 (10:18→21:20)
[2019-11-09] MEDS: TAMSULOSIN 0.4 MG (FLOMAX) CAP PO SCH (10:18)
[2019-11-09] MEDS: lisINopril 5 MG (PRINIVIL) TABLET PO SCH (10:18)
[2019-11-09] MEDS: AMIODARONE 200 MG (CORDARONE) TAB PO SCH (10:18)
[2019-11-09] MEDS: PANTOPRAZOLE 40 MG (PROTONIX) TAB PO SCH (10:18)
[2019-11-09] MEDS: APIXABAN 5 MG (ELIQUIS) TABLET PO SCH ×2 (10:18→21:16)
[2019-11-09] MEDS: SENNA W/DOCUSATE (SENOKOT S) TABLET PO SCH ×2 (10:19→21:20)
[2019-11-09] MEDS: MULTIVIT W/MINERALS TAB (THERAGRAN M) PO SCH (10:19)
--- NOTE | 2019-11-09 10:39 | Physical Therapy Daily Note ---
PT Daily Note-Current Subjective Pt is agreeable to treatment. Mental Status Patient Orientation: Person, Place, Time, Situation Transfers SCALE: Activities may be completed with or without assistive devices. 8-Zaxzoqiyyp-rbvfcuf completes the activity by him/herself with no assistance from a helper. 5-Set-up or Clean-up Assistance-helper sets up or cleans up; patient completes activity. [place] assists only prior to or following the activity. 4-Supervision or Touching Assistance-helper provides verbal cues and/or touching/steadying and/or contact guard assistance as patient completes activity. Assistance may be provided throughout the activity or intermittently. 3-Partial/Moderate Assistance-helper does LESS THAN HALF the effort. [place] lifts, holds or supports trunk or limbs, but provides less than half the effort. 2-Substantial/Maximal Assistance-helper does MORE THAN HALF the effort. [place] lifts or holds trunk or limbs and provides more than half the effort. 2-Gpyfvbkir-nrenzw does ALL the effort. Patient does none of the effort to complete the activity. Or, the assistance of 2 or more helpers is required for the patient to complete the activity. If activity was not attempted, code reason: 7-Patient Refused. 9-Not Applicable-not attempted and the patient did not perform the activity before the current illness, exacerbation or injury. 10-Not Attempted due to Environmental Limitations-(lack of equipment, weather restraints, etc.). 88-Not Attempted due to Medical Conditions or Safety Concerns. Exercises Supine Ex: LE Protocol Supine Reps: 20 Treatments Pt participated with (B) LE exercises, requiring assist with the (L) LE and performed (R) independently. Assessment Current Status: Good Progress Pt is performing (L) LE ex with moderate assist. He continues to report numbness in the (L) lower leg to the foot. PT Short Term Goals Short Term Goals Time Frame: Nov 14, 2019 Roll Left & Right: 3 Sit to lyin Lying to sitting on side of be: 3 Sit to stand: 3 Chair/poo-je-bjlwq transfer: 3 Walk 10 feet: 2 Wheel 50ft w/2 turns: 4 Wheel 150 feet: 4 PT Fpc Goals Quality Technician Goals PT Fpc Goals Time Frame: Nov 28, 2019 Roll Left & Right (QC): 6 Sit to Lying (QC): 6 Lying-Sitting on Side/Bed(QC): 6 Sit to Stand (QC): 6 Chair/Qry-dl-Ofjhb Xfer(QC): 6 Toilet Transfer (QC): 6 Car Transfer (QC): 5 Does the Patient Walk: No and Walking Goal IS indicated Walk 10 feet (QC): 6 Walk 50ft with 2 Turns (QC): 6 Walk 150 ft (QC): 6 Walking 10ft on Uneven Surface: 5 1 Step (curb) (QC): 5 4 Steps (QC): 5 12 Steps (QC): 4 Picking up an Object (QC): 4 Wheel 50 feet with 2 turns (QC: 6 Type: Manual Wheel 150 feet: 6 Type: Manual PT Plan Treatment/Plan Treatment Plan: Continue Plan of Care Treatment Plan: Bed Mobility, Education, Functional Activity Joey, Functional Strength, Group Therapy, Gait, Safety, Therapeutic Exercise, Transfers Treatment Duration: Nov 28, 2019 Frequency: At least 5 of 7 days/Wk (IRF) Estimated Hrs Per Day: 1.5 hours per day Patient and/or Family Agrees t: Yes Time/GCodes Time In: 929 Time Out: 944 Total Billed Treatment Time: 15 Total Billed Treatment 1, ex 15 AMBROSIO BRAMBILA PT Nov 09, 2019 10:39
--- NOTE | 2019-11-09 10:47 | Physical Therapy Daily Note ---
PT Daily Note-Current Subjective Pt is seated bedside and is eager to participate. Mental Status Patient Orientation: Person, Place, Time, Situation Transfers SCALE: Activities may be completed with or without assistive devices. 9-Vqguvmtfwz-qnykiab completes the activity by him/herself with no assistance from a helper. 5-Set-up or Clean-up Assistance-helper sets up or cleans up; patient completes activity. [place] assists only prior to or following the activity. 4-Supervision or Touching Assistance-helper provides verbal cues and/or touching/steadying and/or contact guard assistance as patient completes activity. Assistance may be provided throughout the activity or intermittently. 3-Partial/Moderate Assistance-helper does LESS THAN HALF the effort. [place] lifts, holds or supports trunk or limbs, but provides less than half the effort. 2-Substantial/Maximal Assistance-helper does MORE THAN HALF the effort. [place] lifts or holds trunk or limbs and provides more than half the effort. 8-Frfolmerx-uyzrgx does ALL the effort. Patient does none of the effort to complete the activity. Or, the assistance of 2 or more helpers is required for the patient to complete the activity. If activity was not attempted, code reason: 7-Patient Refused. 9-Not Applicable-not attempted and the patient did not perform the activity before the current illness, exacerbation or injury. 10-Not Attempted due to Environmental Limitations-(lack of equipment, weather restraints, etc.). 88-Not Attempted due to Medical Conditions or Safety Concerns. Sit to Stand (QC): 3 Gait Training Does the Patient Walk?: Yes Gait Assistive Device: Parallel Bars Performed gait training in the parallel bars, 8ft 8x. Wheelchair Training Does the Pt Use a Wheelchair?: Yes Wheel 50 ft with 2 turns (QC): 5 Type of Wheelchair: Manual Exercises Seated Therapy Exercises: LE Protocol Seated Reps: [address] Ex=Flex, Abd, Ext, Marching Standing Reps: 15 Maximal assistance required for (R) LE seated ex. Standing 3 way hip with (R). Marching performed on both sides with max assist for (R) knee protection during (L) march. Assessment Current Status: Good Progress Pt is able to advance the (R) LE without assistance, but needs assist with the (R) UE. He maintains good (R) knee extension during (R) stance phase through (R) toe off. Did not attempt turning. PT Short Term Goals Short Term Goals Time Frame: Nov 14, 2019 Roll Left & Right: 3 Sit to lyin Lying to sitting on side of be: 3 Sit to stand: 3 Chair/fid-en-srpki transfer: 3 Walk 10 feet: 2 Wheel 50ft w/2 turns: 4 Wheel 150 feet: 4 PT Group Home Goals Group Home Goals PT Group Home Goals Time Frame: Nov 28, 2019 Roll Left & Right (QC): 6 Sit to Lying (QC): 6 Lying-Sitting on Side/Bed(QC): 6 Sit to Stand (QC): 6 Chair/Wqu-kv-Kabzo Xfer(QC): 6 Toilet Transfer (QC): 6 Car Transfer (QC): 5 Does the Patient Walk: No and Walking Goal IS indicated Walk 10 feet (QC): 6 Walk 50ft with 2 Turns (QC): 6 Walk 150 ft (QC): 6 Walking 10ft on Uneven Surface: 5 1 Step (curb) (QC): 5 4 Steps (QC): 5 12 Steps (QC): 4 Picking up an Object (QC): 4 Wheel 50 feet with 2 turns (QC: 6 Type: Manual Wheel 150 feet: 6 Type: Manual PT Plan Treatment/Plan Treatment Plan: Continue Plan of Care Treatment Plan: Bed Mobility, Education, Functional Activity Joey, Functional Strength, Group Therapy, Gait, Safety, Therapeutic Exercise, Transfers Treatment Duration: Nov 28, 2019 Frequency: At least 5 of 7 days/Wk (IRF) Estimated Hrs Per Day: 1.5 hours per day Patient and/or Family Agrees t: Yes Time/GCodes Time In: 1000 Time Out: 1030 Total Billed Treatment Time: 30 Total Billed Treatment 1, ex10, fa 20 AMBROSIO BRAMBILA PT Nov 09, 2019 10:47
[2019-11-09] MEDS: inSUlin ASPART (NovoLOG) 1 UNIT/0.01 ML (CHARGE PER UNIT) SQ SCH (11:36)
--- NOTE | 2019-11-09 11:51 | PM&R Progress Note ---
Subjective HPI/CC On Admission Date Seen by Provider: Nov 09, 2019 Time Seen by Provider: 11:45 Subjective/Events-last exam Patient walking more and more each day BM yesterday and regular at bedside every day BP ok No pain is reported Eating and drinking well Gets cranky and demanding at times with me and nurses and therapists Checked meds and labs Reviewed therapy notes Conferred with tractor operator of Systems General: Fatigue Neurological: Weakness, Numbness, Incoordination Objective Exam Vital Signs Vital Signs Date Time Temp Pulse Resp B/P (MAP) Pulse Ox O2 Delivery O2 Flow Rate FiO2 11/09/19 17:32 36.0 89 20 115/74 (88) 96 Room Air Capillary Refill : Less Than 3 Seconds General Appearance: No Apparent Distress, WD/WN HEENT: PERRL/EOMI Neck: Normal Inspection, Non Tender, Supple Respiratory: Lungs Clear, Normal Breath Sounds, No Accessory Muscle Use, No Respiratory Distress Cardiovascular: Regular Rate, Rhythm, No Edema, No Gallop, No Murmur, Normal Peripheral Pulses, Irregularly Irregular Gastrointestinal: Normal Bowel Sounds, No Organomegaly, No Pulsatile Mass, Non Tender, Soft Back: Normal Inspection, No CVA Tenderness, No Vertebral Tenderness Extremity: Normal Capillary Refill, Non Tender, No Calf Tenderness, No Pedal Edema Neurologic/Psychiatric: Alert, Oriented x3, Normal Mood/Affect, psychological aide II-XII Norm as Tested, Abnormal Gait, Motor Weakness Skin: Normal Color, Warm/Dry Lymphatic: No Adenopathy Results/Procedures Lab Patient resulted labs reviewed. FIM Transfers Therapy Code Descriptions/Definitions Functional [place] Measure: 0=Not Assessed/NA 4=Minimal Assistance 1=Total Assistance 5=Supervision or Setup 2=Maximal Assistance 6=Modified [place] 3=Moderate Assistance 7=Complete IndependenceSCALE: Activities may be completed with or without assistive devices. 6-Uouvarbwag-betfnhc completes the activity by him/herself with no assistance from a helper. 5-Set-up or Clean-up Assistance-helper sets up or cleans up; patient completes activity. [place] assists only prior to or following the activity. 4-Supervision or Touching Assistance-helper provides verbal cues and/or touching/steadying and/or contact guard assistance as patient completes activity . Assistance may be provided throughout the activity or intermittently. 3-Partial/Moderate Assistance-helper does LESS THAN HALF the effort. [place] lifts, holds or supports trunk or limbs, but provides less than half the effort. 2-Substantial/Maximal Assistance-helper does MORE THAN HALF the effort. [place] lifts or holds trunk or limbs and provides more than half the effort. 1-Dnrlubuum-oknsrk does ALL the effort. Patient does none of the effort to complete the activity. Or, the assistance of 2 or more helpers is required for the patient to complete the activity. If activity was not attempted, code reason: 7-Patient Refused. 9-Not Applicable-not attempted and the patient did not perform the activity before the current illness, exacerbation or injury. 10-Not Attempted due to Environmental Limitations-(lack of equipment, weather restraints, etc.). 88-Not Attempted due to Medical Conditions or Safety Concerns. Roll Left to Right (QC): 3 Sit to Lying (QC): 3 Sit to Stand (QC): 3 Chair/Hyi-ez-Gbicj Xfer(QC): 1 (min to mod A of 2 person for safety, balance and maneuvering R extremeties at times) Car Transfer (QC): 2 (max assist to transfer in/out of car) Gait Training Does the Patient Walk?: Yes Distance: 10 x5 Walk 10 feet (QC): 1 (2 person min to mod A) Walk 50 ft with 2 Turns(QC): 1 (assist to advance walker, stabilize RUE, and advance RLE, follow with w/c, increased fatigue) Walk 150 ft (QC): 88 Walking 10ft/uneven surface-QC: 88 Gait Persons Needed: 2 Gait Assistive Device: Parallel Bars Wheelchair Training Does the Pt Use a Wheelchair?: Yes Wheel 50 ft with 2 turns (QC): 5 Wheel 150 ft (QC): 4 Type of Wheelchair: Manual Stair Training 1 Step (curb) (QC): 88 4 Steps (QC): 88 12 Steps (QC): 88 Balance Picking up an Object (QC): 88 ADL-Treatment Eating (QC): 5 (Placed plateguard on breakfast plate and pt able to scoop food for self.) Oral Hygiene (QC): 7 Bathing Location: L Arm, R Arm, L Upper Leg, R Upper Leg, L Lower Leg (incl uding foot), R Lower Leg (including foot), Chest, Abdomen, Buttocks, Perineal Area Shower/Bathe Self (QC): 4 Upper Body Dressing (QC): 3 Lower Body Dressing (QC): 1 On/Off Footwear (QC): 2 Toileting Hygiene (QC): 1 Toilet Transfer (QC): 1 Assessment/Plan Assessment and Plan Assess & Plan/Chief Complaint Assessment: CVA 10/28/19 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 HTN HLP [facility] Acute constipation initiated aggressive meds now resolved Dysphagia needs EGD and dilation but cannot go off OAC due to too high of risk for recurrent CVA Plan: IRF protocol BM regimen Fall risk Cardiology consultation appreciated Dr Wang consulted Increase PPI dose (1) CVA (cerebral vascular accident) (2) Flaccid hemiplegia affecting dominant side (3) Diabetes (4) Hypertension (5) Hyperlipemia (6) On continuous oral anticoagulation (7) Atrial fibrillation (8) History of penile implant (9) History of colon cancer (10) Former smoker (11) Renal insufficiency (12) Constipation SCOTT BARBOSA DO Nov 09, 2019 11:51
[2019-11-09] MEDS: SIMvastatin 10 MG (ZOCOR) TAB PO SCH (17:29)
--- NOTE | 2019-11-09 17:29 | Progress Note - Cardiology ---
Cardiology SOAP Progress Note Objective: I&O/Vital Signs 11/09/19 11/09/19 05:53 09:00 Temp 36.2 Pulse 66 Resp 20 B/P (MAP) 136/67 (90) Pulse Ox 97 O2 Delivery Room Air Room Air 11/09/19 00:00 Intake Total 640 ml Balance 640 ml Skin: normal color, warm/dry Results/Procedures: Labs Laboratory Tests 11/08/19 21:14: Glucometer 217H 11/09/19 05:22: Glucometer 158H 11/09/19 10:45: Glucometer 323H 11/09/19 15:43: Glucometer 216H A/P: Assessment: Status post CVA with R hemiparesis. 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 OAC with apixaban Hypertension, by history Hyperlipidemia, by history Diabetes mellitus, followed and managed by primary care physician Plan: * I interviewed and examined him and reviewed his records * Continue current CV regimen * Monitor labs * I answered CV-related questions CHEY FORMAN MD FACP FAC CCDS Nov 09, 2019 17:29
[2019-11-09 17:32] VITALS: BP 115/74
--- NOTE | 2019-11-09 19:11 | NUR ---
bedside report received from MARII WOLF, assume care of pt
[2019-11-09] MEDS: ASPIRIN E.C. 81 MG (ECOTRIN) TAB PO SCH (21:16)
--- NOTE | 2019-11-09 21:17 | NUR ---
pt refused Colace, miralax & Senokot fsbs 243 NovoLog 6 units given
[2019-11-10] MEDS: ACETAMINOPHEN 325 MG TABLET PO PRN ×2 (03:46→21:20)
--- NOTE | 2019-11-10 03:46 | NUR ---
c/o headache level 4/10 on numeric scale, Tylenol 650mg given
[2019-11-10 05:54] VITALS: BP 147/77
[2019-11-10] MEDS: inSUlin ASPART (NovoLOG) 1 UNIT/0.01 ML (CHARGE PER UNIT) SC SCH ×4 (06:00→20:58)
[2019-11-10] MEDS: metFORMIN XR 500 MG (GLUCOPHAGE XR) TAB PO SCH ×2 (06:38→17:15)
[2019-11-10] MEDS: polyethylene glycoL POWDER 17 GM (MIRALAX) PACK PO SCH ×2 (08:24→21:20)
[2019-11-10] MEDS: AMIODARONE 200 MG (CORDARONE) TAB PO SCH (09:14)
[2019-11-10] MEDS: TAMSULOSIN 0.4 MG (FLOMAX) CAP PO SCH (09:14)
[2019-11-10] MEDS: DOCUSATE SODIUM 100 MG (COLACE) CAP PO SCH ×2 (09:14→21:19)
[2019-11-10] MEDS: PANTOPRAZOLE 40 MG (PROTONIX) TAB PO SCH (09:14)
[2019-11-10] MEDS: SENNA W/DOCUSATE (SENOKOT S) TABLET PO SCH ×2 (09:14→21:20)
[2019-11-10] MEDS: lisINopril 5 MG (PRINIVIL) TABLET PO SCH (09:14)
[2019-11-10] MEDS: APIXABAN 5 MG (ELIQUIS) TABLET PO SCH ×2 (09:14→21:19)
[2019-11-10] MEDS: MULTIVIT W/MINERALS TAB (THERAGRAN M) PO SCH (09:14)
--- NOTE | 2019-11-10 10:59 | Progress Note - Cardiology ---
Cardiology SOAP Progress Note Subjective: No cp or palp or syncope No shortness of breath at rest Gen weakness R-sided weakness No n/v/d Objective: I&O/Vital Signs 11/10/19 05:54 Temp 36.2 Pulse 73 Resp 16 B/P (MAP) 147/77 (100) Pulse Ox 94 O2 Delivery Room Air 11/10/19 00:00 Intake Total 840 ml Balance 840 ml Constitutional: AAO x 3, well-developed, well-nourished Respiratory: No accessory muscle use; other (good bilat air entry) Cardiovascular: regular rate-rhythm, S1 and S2, systolic murmur (soft QUINTON at card base) Gastrointestional: No tender; soft; No guarding, No rebound; audible bowel sounds Extremities: No clubbing, No cyanosis, No significant edema Neurologic/Psychiatric: other (R-sided weakness) Skin: normal color, warm/dry Results/Procedures: Labs Laboratory Tests 11/09/19 15:43: Glucometer 216H 11/09/19 20:50: Glucometer 243H 11/10/19 05:45: Glucometer 157H A/P: Assessment: Status post CVA with R hemiparesis. 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 OAC with apixaban Hypertension, by history Hyperlipidemia, by history Diabetes mellitus, followed and managed by primary care physician Plan: * Continue current CV regimen * Monitor labs * I answered his and his family's CV-related questions CHEY FORMAN MD FACP FAC CCDS Nov 10, 2019 10:58
--- NOTE | 2019-11-10 12:34 | PM&R Progress Note ---
Subjective HPI/CC On Admission Date Seen by Provider: Nov 10, 2019 Time Seen by Provider: 12:30 Subjective/Events-last exam Patient walking more and more each day BM regular at bedside every day and they are having difficulty when visitors are no longer allowed tomorrow BP ok and BP meds have been minimized No pain is reported Eating and drinking well Gets cranky and demanding at times with me and nurses and therapists Checked meds and labs Reviewed therapy notes Conferred with special events coordinator of Systems Neurological: Weakness, Numbness, Incoordination Objective Exam Vital Signs Vital Signs Date Time Temp Pulse Resp B/P (MAP) Pulse Ox O2 Delivery O2 Flow Rate FiO2 11/10/19 05:54 36.2 73 16 147/77 (100) 94 Room Air Capillary Refill : Less Than 3 Seconds General Appearance: No Apparent Distress, WD/WN HEENT: PERRL/EOMI Neck: Normal Inspection, Non Tender, Supple Respiratory: Lungs Clear, Normal Breath Sounds, No Accessory Muscle Use, No Respiratory Distress Cardiovascular: Regular Rate, Rhythm, No Edema, No Gallop, No Murmur, Normal Peripheral Pulses, Irregularly Irregular Gastrointestinal: Normal Bowel Sounds, No Organomegaly, No Pulsatile Mass, Non Tender, Soft Back: Normal Inspection, No CVA Tenderness, No Vertebral Tenderness Extremity: Normal Capillary Refill, Non Tender, No Calf Tenderness, No Pedal Edema Neurologic/Psychiatric: Alert, Oriented x3, Normal Mood/Affect, lubrication technician II-XII Norm as Tested, Abnormal Gait, Motor Weakness Skin: Normal Color, Warm/Dry Lymphatic: No Adenopathy Results/Procedures Lab Patient resulted labs reviewed. FIM Transfers Therapy Code Descriptions/Definitions Functional [place] Measure: 0=Not Assessed/NA 4=Minimal Assistance 1=Total Assistance 5=Supervision or Setup 2=Maximal Assistance 6=Modified [place] 3=Moderate Assistance 7=Complete IndependenceSCALE: Activities may be completed with or without assistive devices. 2-Elkvnbbcqz-xbabpwu completes the activity by him/herself with no assistance from a helper. 5-Set-up or Clean-up Assistance-helper sets up or cleans up; patient completes activity. [place] assists only prior to or following the activity. 4-Supervision or Touching Assistance-helper provides verbal cues and/or touching/steadying and/or contact guard assistance as patient completes activity. Assistance may be provided throughout the activity or intermittently. 3-Partial/Moderate Assistance-helper does LESS THAN HALF the effort. [place] lifts, holds or supports trunk or limbs, but provides less than half the effort. 2-Substantial/Maximal Assistance-helper does MORE THAN HALF the effort. [place] lifts or holds trunk or limbs and provides more than half the effort. 2-Epeeszapk-wvefwl does ALL the effort. Patient does none of the effort to complete the activity. Or, the assistance of 2 or more helpers is required for the patient to complete the activity. If activity was not attempted, code reason: 7-Patient Refused. 9-Not Applicable-not attempted and the patient did not perform the activity before the current illness, exacerbation or injury. 10-Not Attempted due to Environmental Limitations-(lack of equipment, weather restraints, etc.). 88-Not Attempted due to Medical Conditions or Safety Concerns. Roll Left to Right (QC): 3 Sit to Lying (QC): 3 Sit to Stand (QC): 3 Chair/Gvk-qv-Jzxvl Xfer(QC): 1 (min to mod A of 2 person for safety, balance and maneuvering R extremeties at times) Car Transfer (QC): 2 (max assist to transfer in/out of car) Gait Training Does the Patient Walk?: Yes Distance: 10 x5 Walk 10 feet (QC): 1 (2 person min to mod A) Walk 50 ft with 2 Turns(QC): 1 (assist to advance walker, stabilize RUE, and advance RLE, follow with w/c, increased fatigue) Walk 150 ft (QC): 88 Walking 10ft/uneven surface-QC: 88 Gait Persons Needed: 2 Gait Assistive Device: Parallel Bars Wheelchair Training Does the Pt Use a Wheelchair?: Yes Wheel 50 ft with 2 turns (QC): 5 Wheel 150 ft (QC): 4 Type of Wheelchair: Manual Stair Training 1 Step (curb) (QC): 88 4 Steps (QC): 88 12 Steps (QC): 88 Balance Picking up an Object (QC): 88 ADL-Treatment Eating (QC): 5 (Placed plateguard on breakfast plate and pt able to scoop food for self.) Oral Hygiene (QC): 7 Bathing Location: L Arm, R Arm, L Upper Leg, R Upper Leg, L Lower Leg (including foot), R Lower Leg (including foot), Chest, Abdomen, Buttocks, Per ineal Area Shower/Bathe Self (QC): 4 Upper Body Dressing (QC): 3 Lower Body Dressing (QC): 1 On/Off Footwear (QC): 2 Toileting Hygiene (QC): 1 Toilet Transfer (QC): 1 Assessment/Plan Assessment and Plan Assess & Plan/Chief Complaint Assessment: CVA 10/28/19 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 HTN HLP [facility] Acute constipation initiated aggressive meds now resolved Dysphagia needs EGD and dilation but cannot go off OAC due to too high of risk for recurrent CVA Plan: IRF protocol BM regimen Fall risk Cardiology consultation appreciated Dr Wang consulted Increase PPI dose is working well (1) CVA (cerebral vascular accident) (2) Flaccid hemiplegia affecting dominant side (3) Diabetes (4) Hypertension (5) Hyperlipemia (6) On continuous oral anticoagulation (7) Atrial fibrillation (8) History of penile implant (9) History of colon cancer (10) Former smoker (11) Renal insufficiency (12) Constipation SCOTT BARBOSA DO Nov 10, 2019 12:34
[2019-11-10 17:12] VITALS: BP 150/77
[2019-11-10] MEDS: SIMvastatin 10 MG (ZOCOR) TAB PO SCH (17:15)
[2019-11-10] MEDS: MELATONIN 3 MG TABLET PO PRN (21:19)
[2019-11-10] MEDS: ASPIRIN E.C. 81 MG (ECOTRIN) TAB PO SCH (21:19)
[2019-11-11 05:07] VITALS: BP 142/74
[2019-11-11] MEDS: inSUlin ASPART (NovoLOG) 1 UNIT/0.01 ML (CHARGE PER UNIT) SC SCH ×4 (05:51→20:31)
[2019-11-11] MEDS: metFORMIN XR 500 MG (GLUCOPHAGE XR) TAB PO SCH ×2 (05:51→16:55)
[2019-11-11 06:39] LABS: BASOPHILS # (AUTO) 0.1 10^3/uL (0.0-0.1); BASOPHILS % (AUTO) 1 % (0-10); EOSINOPHILS # (AUTO) 0.2 10^3/uL (0.0-0.3); EOSINOPHILS % (AUTO) 2 % (0-10); HEMATOCRIT 43 % (40-54); HEMOGLOBIN 14.3 G/DL (13.3-17.7); LYMPHOCYTES % (AUTO) 25 % (12-44); MEAN CORPUSCULAR HEMOGLOBIN 32 PG (25-34); MEAN CORPUSCULAR HGB CONC 33 G/DL (32-36); MEAN CORPUSCULAR VOLUME 96 FL (80-99); MEAN PLATELET VOLUME 11.5 FL (7.4-10.4); MONOCYTES # (AUTO) 0.9 X 10^3 (0.0-1.0); MONOCYTES % (AUTO) 11 % (0-12); NEUTROPHILS % (AUTO) 61 % (42-75); PLATELET COUNT 264 10^3/uL (130-400); RED CELL DISTRIBUTION WIDTH 14.1 % (10.0-14.5); WHITE BLOOD COUNT 8.2 10^3/uL (4.3-11.0)
[2019-11-11 06:58] LABS: ALBUMIN 3.6 GM/DL (3.2-4.5); BILIRUBIN,TOTAL 0.5 MG/DL (0.1-1.0); CALCIUM 9.1 MG/DL (8.5-10.1); CREATININE SERUM 1.21 MG/DL (0.60-1.30); POTASSIUM 4.5 MMOL/L (3.6-5.0)
[2019-11-11 08:27] VITALS: BP 124/67
[2019-11-11] MEDS: PANTOPRAZOLE 40 MG (PROTONIX) TAB PO SCH (08:28)
[2019-11-11] MEDS: lisINopril 5 MG (PRINIVIL) TABLET PO SCH (08:28)
[2019-11-11] MEDS: MULTIVIT W/MINERALS TAB (THERAGRAN M) PO SCH (08:28)
[2019-11-11] MEDS: TAMSULOSIN 0.4 MG (FLOMAX) CAP PO SCH (08:28)
[2019-11-11] MEDS: AMIODARONE 200 MG (CORDARONE) TAB PO SCH (08:28)
[2019-11-11] MEDS: APIXABAN 5 MG (ELIQUIS) TABLET PO SCH ×2 (08:28→20:30)
[2019-11-11] MEDS: polyethylene glycoL POWDER 17 GM (MIRALAX) PACK PO SCH ×2 (08:29→20:32)
[2019-11-11] MEDS: SENNA W/DOCUSATE (SENOKOT S) TABLET PO SCH ×2 (08:29→20:32)
[2019-11-11] MEDS: DOCUSATE SODIUM 100 MG (COLACE) CAP PO SCH ×2 (08:30→20:31)
--- NOTE | 2019-11-11 09:16 | PM&R Progress Note ---
Subjective HPI/CC On Admission Date Seen by Provider: Nov 11, 2019 Time Seen by Provider: 09:15 Subjective/Events-last exam Patient feels better today Concerned her can't visit due to COVID-19 situation No pain is reported Walking well with platform walker and doing well with it No falls Checked meds and labs Reviewed therapy notes Conferred with experimental machinist of Systems General: Fatigue Neurological: Weakness, Numbness, Incoordination Objective Exam Vital Signs Vital Signs Date Time Temp Pulse Resp B/P (MAP) Pulse Ox O2 Delivery O2 Flow Rate FiO2 11/11/19 17:44 37.0 85 18 157/74 (101) 93 Room Air Capillary Refill : Less Than 3 Seconds General Appearance: No Apparent Distress, WD/WN HEENT: PERRL/EOMI, Normal ENT Inspection, Pharynx Normal Neck: Normal Inspection, Non Tender, Supple Respiratory: Lungs Clear, Normal Breath Sounds, No Accessory Muscle Use, No Respiratory Distress Cardiovascular: Regular Rate, Rhythm, No Edema, No Gallop, No Murmur, Normal Peripheral Pulses, Irregularly Irregular Gastrointestinal: Normal Bowel Sounds, No Organomegaly, No Pulsatile Mass, Non Tender, Soft Back: Normal Inspection, No CVA Tenderness, No Vertebral Tenderness Extremity: Normal Capillary Refill, Non Tender, No Calf Tenderness, No Pedal Edema Neurologic/Psychiatric: Alert, Oriented x3, Normal Mood/Affect, environmental air specialist II-XII Norm as Tested, Abnormal Gait, Motor Weakness Skin: Normal Color, Warm/Dry Lymphatic: No Adenopathy Results/Procedures Lab Laboratory Tests 11/11/19 06:14 Patient resulted labs reviewed. FIM Transfers Therapy Code Descriptions/Definitions Functional [place] Measure: 0=Not Assessed/NA 4=Minimal Assistance 1=Total Assistance 5=Supervision or Setup 2=Maximal Assistance 6=Modified [place] 3=Moderate Assistance 7=Complete IndependenceSCALE: Activities may be completed with or without assistive devices. 9-Tdwmaeocwc-ivovkxc completes the activity by him/herself with no assistance from a helper. 5-Set-up or Clean-up Assistance-helper sets up or cleans up; patient completes activity. [place] assists only prior to or following the activity. 4-Supervision or Touching Assistance-helper provides verbal cues and/or touching/steadying and/or contact guard assistance as patient completes activity. Assistance may be provided throughout the activity or intermittently. 3-Partial/Moderate Assistance-helper does LESS THAN HALF the effort. [place] lifts, holds or supports trunk or limbs, but provides less than half the effort. 2-Substantial/Maximal Assistance-helper does MORE THAN HALF the effort. [place] lifts or holds trunk or limbs and provides more than half the effort. 0-Xxojeahop-fgzigl does ALL the effort. Patient does none of the effort to complete the activity. Or, the assistance of 2 or more helpers is required for the patient to complete the activity. If activity was not attempted, code reason: 7-Patient Refused. 9-Not Applicable-not attempted and the patient did not perform the activity before the current illness, exacerbation or injury. 10-Not Attempted due to Environmental Limitations-(lack of equipment, weather restraints, etc.). 88-Not Attempted due to Medical Conditions or Safety Concerns. Roll Left to Right (QC): 3 Sit to Lying (QC): 3 Sit to Stand (QC): 3 Chair/Vpu-oz-Xdvmu Xfer(QC): 1 (min to mod A of 2 person for safety, balance and maneuvering R extremeties at times) Car Transfer (QC): 2 (max assist to transfer in/out of car) Gait Training Does the Patient Walk?: Yes Distance: 10 x5 Walk 10 feet (QC): 1 (2 person min to mod A) Walk 50 ft with 2 Turns(QC): 1 (assist to advance walker, stabilize RUE, and advance RLE, follow with w/c, increased fatigue) Walk 150 ft (QC): 88 Walking 10ft/uneven surface-QC: 88 Gait Persons Needed: 2 Gait Assistive Device: Parallel Bars Wheelchair Training Does the Pt Use a Wheelchair?: Yes Wheel 50 ft with 2 turns (QC): 5 Wheel 150 ft (QC): 4 Type of Wheelchair: Manual Stair Training 1 Step (curb) (QC): 88 4 Steps (QC): 88 12 Steps (QC): 88 Balance Picking up an Object (QC): 88 ADL-Treatment Eating (QC): 5 (Placed plateguard on breakfast plate and pt able to scoop food for self.) Oral Hygiene (QC): 7 Bathing Location: L Arm, R Arm, L Upper Leg, R Upper Leg, L Lower Leg (including foot), R Lower Leg (including foot), Chest, Abdomen, Buttocks, Perineal Area Shower/Bathe Self (QC): 4 Upper Body Dressing (QC): 3 Lower Body Dressing (QC): 1 On/Off Footwear (QC): 2 Toileting Hygiene (QC): 1 Toilet Transfer (QC): 1 Assessment/Plan Assessment and Plan Assess & Plan/Chief Complaint Assessment: CVA 10/28/19 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 HTN HLP [facility] Acute constipation initiated aggressive meds now resolved Dysphagia needs EGD and dilation but cannot go off OAC due to too high of risk for recurrent CVA Plan: IRF protocol BM regimen Fall risk Cardiology consultation appreciated Dr Wang consulted Increase PPI dose is working well Walking with platform working well for him (1) CVA (cerebral vascular accident) (2) Flaccid hemiplegia affecting dominant side (3) Diabetes (4) Hypertension (5) Hyperlipemia (6) On continuous oral anticoagulation (7) Atrial fibrillation (8) History of penile implant (9) History of colon cancer (10) Former smoker (11) Renal insufficiency (12) Constipation SCOTT BARBOSA DO Nov 11, 2019 09:16
--- NOTE | 2019-11-11 11:49 | Speech Therapy Daily Note ---
Speech Daily Progress Note Subjective Date Seen by Provider: Nov 11, 2019 Time Seen by Provider: 00:30 Patient states he had a quiet weekend. Patient's was present for the session. Objective Patient completed short term memory tasks with 80% accuracy at 5 minutes and 75% at 15 minutes with minimal cues. Assessment Assessment Current Status: Good Progress Treatment Plan Continue Plan of Care Speech Short Term Goals Short Term Goals Short Term Goals 1. Patient will complete memory tasks related to daily needs at 90% or greater with minimal cueing. 2. Patient will complete safety awareness tasks related to daily needs at 90% or greater with minimal cueing. 3. Patient will complete problem solving tasks related to daily needs at 90% or greater with minimal cueing. 4. Patient will complete word finding tasks related to daily needs at 90% or greater with minimal cueing. 5. Patient will tolerate least restrictive diet level without s/s of aspiration with 90% or greater. 6. Patient/caregiver will utilize compensatory strategies as trained with 90% or greater given minimal cues. Speech Care Home Goals Lactation Coordinator Goals Patient will improve cognitive communication necessary for safety and daily living tasks with minimal assist. Patient will maintain adequate nutrition/hydration via safe effective swallow function. Speech-Plan Patient/Family Goals Patient/Family Goals: Patient plans on returning home upon discharge from skilled rehab. Treatment Plan Speech Therapy Treatment Plan: Continue Plan of Care Treatment Duration: Nov 08, 2019 Frequency: 5 times per week Estimated Hrs Per Day: .5 hour per day Rehab Potential: Good Barriers to Learning: Patient's recent CVA Pt/Family Agrees to Plan: Yes Safety Risks/Education Teaching Recipient: Patient, Significant Other Teaching Methods: Demonstration, Discussion Response to Teaching: Verbalize Understanding, Return Demonstration Education Topics Provided: Continued safety and communication of want/needs Time Speech Therapy Time In: 10:30 Speech Therapy Time Out: 11:00 Total Billed Time: 30 Billed Treatment Time 1, RAY Vasques Nov 11, 2019 11:49
--- NOTE | 2019-11-11 11:54 | Occupational Ther Daily Note ---
OT Current Status-Daily Note Subjective Pt alert, lying in bed. Pt agrees to therapy. No c/o pain at this time. Mental Status/Objective Patient Orientation: Person, Place, Time, Situation Attachments: IV ADL-Treatment Pt declined shower. Able to cleanse upper body, buttocks and stacy area after set up in supine. Therapy Code Descriptions/Definitions Functional [place] Measure: 0=Not Assessed/NA 4=Minimal Assistance 1=Total Assistance 5=Supervision or Setup 2=Maximal Assistance 6=Modified [place] 3=Moderate Assistance 7=Complete IndependenceSCALE: Activities may be completed with or without assistive devices. 9-Nlcretdufi-dwjwcww completes the activity by him/herself with no assistance from a helper. 5-Set-up or Clean-up Assistance-helper sets up or cleans up; patient completes activity. [place] assists only prior to or following the activity. 4-Supervision or Touching Assistance-helper provides verbal cues and/or touching/steadying and/or contact guard assistance as patient completes activity. Assistance may be provided throughout the activity or intermittently. 3-Partial/Moderate Assistance-helper does LESS THAN HALF the effort. [place] lifts, holds or supports trunk or limbs, but provides less than half the effort. 2-Substantial/Maximal Assistance-helper does MORE THAN HALF the effort. [place] lifts or holds trunk or limbs and provides more than half the effort. 3-Bbkvzafgf-hydrti does ALL the effort. Patient does none of the effort to complete the activity. Or, the assistance of 2 or more helpers is required for the patient to complete the activity. If activity was not attempted, code reason: 7-Patient Refused. 9-Not Applicable-not attempted and the patient did not perform the activity before the current illness, exacerbation or injury. 10-Not Attempted due to Environmental Limitations-(lack of equipment, weather restraints, etc.). 88-Not Attempted due to Medical Conditions or Safety Concerns. Upper Body Dressing (QC): 3 Lower Body Dressing (QC): 2 On/Off Footwear: 2 Other Treatment Co-treat with PT, skills of 2 clinicians required for neuromuscular retraining with functional movement/tasks due to increase weakness, decreased mobility. PT working on functional transfers, w/c mobility, bed mobility and ambulation. OT working on functional transfers, R UE placement during tasks and ADLs. Supine to EOB, min A with HOB raised. Max A to thread lower body clothing over feet in supine then pt able to assist to hike pants over hips with R LE braced and pt bridged. Assist to don sock/shoes. Min A for upper body dressing. Decreased sitting balance on bed though on flat mat in therapy gym pt has good sitting balance. Pt propelled w/c to therapy gym by self. See PT notes for ambulation in parallel bars and platform FWW. Pt ambulating using parallel bars, assist with progressing/placing R UE while ambulating and stabilizing R elbow. Pt is demonstrating increased movement throughout R UE. After session, pt sitting in w/c with call light/phone in reach. All needs met in room. OT Short Term Goals Short Term Goals Time Frame: Nov 15, 2019 Oral hygiene: 3 Toileting hygiene: 2 Shower/bathe self: 3 Upper body dressin Lower body dressin Putting on/taking off footwear: 3 OT Display Designer Outside Goals Fpc Goals Time Frame: Nov 29, 2019 Eating (QC): 6 Oral Hygiene (QC): 6 Toileting Hygiene (QC): 5 Shower/Bathe Self (QC): 4 Upper Body Dressing (QC): 5 Lower Body Dressing (QC): 5 On/Off Footwear (QC): 5 Additional Goals: 1-Demonstrate ADL Tasks, 2-Verbalize Understanding, 3- ImproveStrength/Joey 1=Demonstrate adherence to instructed precautions during ADL tasks. 2=Patient will verbalize/demonstrate understanding of assistive devices/modifications for ADL. 3=Patient will improve strength/tolerance for activity to enable patient to perform ADL's. OT Education/Plan Problem List/Assessment Assessment: Decreased Activ Tolerance, Decreased Safety Aware, Decreased UE Strength, Impaired Cognition, Impaired Coordination, Impaired Self-Care Skills, Restricted Funct UE ROM, Visual-Perceptual Deficit Discharge Recommendations Plan/Recommendations: Continue POC Treatment Plan/Plan of Care Patient would benefit from OT for education, treatment and training to promote independence in ADL's, mobility, safety and/or upper extremity function for ADL's. Plan of Care: ADL Retraining, Functional Mobility, Group Exercise/Act as Ind, UE Funct Exercise/Act, UE Neuromus Re-Ed/Coord Treatment Duration: Nov 29, 2019 Frequency: At least 5 of 7 days/Wk (IRF) Estimated Hrs Per Day: 1.5 hours per day Rehab Potential: Good Time/GCodes Start Time: 08:45 Stop Time: 10:00 Total Time Billed (hr/min): 75 Billed Treatment Time 1 visit-ADL 1 (15 min) NM 4 (60 min) co-treat with PT 60 min ([id number]) KAREN MARQUES Nov 11, 2019 11:54
--- NOTE | 2019-11-11 12:46 | Physical Therapy Daily Note ---
PT Daily Note-Current Subjective Patient in WC pre tx, agrees to PT, has no complaints of pain. Will be co- treating with OT due to poor patient mobility, strength, endurance, hemiparesis, the need to coordinate UE and LE during activity. Appearance Patient in WC at bedside post tx with nurse call, phone, tray, all needs met, w swapnil in room. Mental Status Patient Orientation: Person, Place, Situation Transfers SCALE: Activities may be completed with or without assistive devices. 9-Wofhzxkaie-pkpvmat completes the activity by him/herself with no assistance from a helper. 5-Set-up or Clean-up Assistance-helper sets up or cleans up; patient completes activity. [place] assists only prior to or following the activity. 4-Supervision or Touching Assistance-helper provides verbal cues and/or touching/steadying and/or contact guard assistance as patient completes activity. Assistance may be provided throughout the activity or intermittently. 3-Partial/Moderate Assistance-helper does LESS THAN HALF the effort. [place] lifts, holds or supports trunk or limbs, but provides less than half the effort. 2-Substantial/Maximal Assistance-helper does MORE THAN HALF the effort. [place] lifts or holds trunk or limbs and provides more than half the effort. 2-Derwwpdua-dphesi does ALL the effort. Patient does none of the effort to complete the activity. Or, the assistance of 2 or more helpers is required for the patient to complete the activity. If activity was not attempted, code reason: 7-Patient Refused. 9-Not Applicable-not attempted and the patient did not perform the activity before the current illness, exacerbation or injury. 10-Not Attempted due to Environmental Limitations-(lack of equipment, weather restraints, etc.). 88-Not Attempted due to Medical Conditions or Safety Concerns. Sit to Stand (QC): 3 Chair/Qui-qc-Kziry Xfer(QC): 3 Gait Training Distance: 20'x3 Walk 10 feet (QC): 3 Gait Assistive Device: Walker Platform cues for advancing his right leg and for weight shifting, assist guiding walker, WC follow, also ambulated 8' in the parallel bars with min assist. Wheelchair Training Does the Pt Use a Wheelchair?: Yes Type of Wheelchair: Manual 150'x2 SBA Exercises standing activity x3 in parallel bars with UE activity Treatments transfers, WC mobility, standing activity, ambulation Assessment Current Status: Fair Progress improving ambulation PT Short Term Goals Short Term Goals Time Frame: Nov 14, 2019 Roll Left & Right: 3 Sit to lyin Lying to sitting on side of be: 3 Sit to stand: 3 Chair/dtn-qj-qkvgj transfer: 3 Walk 10 feet: 2 Wheel 50ft w/2 turns: 4 Wheel 150 feet: 4 PT Mineral Mixer Goals Long-Term Goals PT Mineral Mixer Goals Time Frame: Nov 28, 2019 Roll Left & Right (QC): 6 Sit to Lying (QC): 6 Lying-Sitting on Side/Bed(QC): 6 Sit to Stand (QC): 6 Chair/Fth-kq-Mntuq Xfer(QC): 6 Toilet Transfer (QC): 6 Car Transfer (QC): 5 Does the Patient Walk: No and Walking Goal IS indicated Walk 10 feet (QC): 6 Walk 50ft with 2 Turns (QC): 6 Walk 150 ft (QC): 6 Walking 10ft on Uneven Surface: 5 1 Step (curb) (QC): 5 4 Steps (QC): 5 12 Steps (QC): 4 Picking up an Object (QC): 4 Wheel 50 feet with 2 turns (QC: 6 Type: Manual Wheel 150 feet: 6 Type: Manual PT Plan Problem List Problem List: Activity Tolerance, Functional Strength, Safety, Balance, Gait, Transfer, Bed Mobility, ROM Treatment/Plan Treatment Plan: Continue Plan of Care Treatment Plan: Bed Mobility, Education, Functional Activity Joey, Functional Strength, Group Therapy, Gait, Safety, Therapeutic Exercise, Transfers Treatment Duration: Nov 28, 2019 Frequency: At least 5 of 7 days/Wk (IRF) Estimated Hrs Per Day: 1.5 hours per day Patient and/or Family Agrees t: Yes Safety Risks/Education Patient Education: Gait Training, Transfer Techniques, Correct Positioning, Safety Issues Teaching Recipient: Patient Teaching Methods: Demonstration, Discussion Response to Teaching: Reinforcement Needed Time/GCodes Time In: 0900 Time Out: 1000 Total Billed Treatment Time: 60 Total Billed Treatment 1 visit GT 20' FA 40' ELZA WEN PT Nov 11, 2019 12:46
--- NOTE | 2019-11-11 13:31 | Physical Therapy Daily Note ---
PT Daily Note-Current Subjective Patient in WC pre tx, agrees to PT, has no complaints of pain. Appearance Patient in bed post tx with nurse call, phone, tray, in room. Mental Status Patient Orientation: Person, Place, Situation Transfers SCALE: Activities may be completed with or without assistive devices. 3-Valubvmsge-azkodin completes the activity by him/herself with no assistance from a helper. 5-Set-up or Clean-up Assistance-helper sets up or cleans up; patient completes activity. [place] assists only prior to or following the activity. 4-Supervision or Touching Assistance-helper provides verbal cues and/or touching/steadying and/or contact guard assistance as patient completes activity. Assistance may be provided throughout the activity or intermittently. 3-Partial/Moderate Assistance-helper does LESS THAN HALF the effort. [place] lifts, holds or supports trunk or limbs, but provides less than half the effort. 2-Substantial/Maximal Assistance-helper does MORE THAN HALF the effort. [place] lifts or holds trunk or limbs and provides more than half the effort. 5-Czutmnzpl-honhie does ALL the effort. Patient does none of the effort to complete the activity. Or, the assistance of 2 or more helpers is required for the patient to complete the activity. If activity was not attempted, code reason: 7-Patient Refused. 9-Not Applicable-not attempted and the patient did not perform the activity before the current illness, exacerbation or injury. 10-Not Attempted due to Environmental Limitations-(lack of equipment, weather restraints, etc.). 88-Not Attempted due to Medical Conditions or Safety Concerns. Roll Left & Right (QC): 4 Sit to Lying (QC): 3 Sit to Stand (QC): 3 Chair/Ati-hl-Gikhz Xfer(QC): 3 Gait Training Distance: 30'x3 Walk 10 feet (QC): 3 Gait Persons Needed: 1 Gait Assistive Device: Parallel Bars patient needs assist guiding walker, cues for right foot advancement and weight shifting. Wheelchair Training Does the Pt Use a Wheelchair?: Yes Wheel 50 ft with 2 turns (QC): 4 Wheel 150 ft (QC): 4 Type of Wheelchair: Manual Treatments WC mobility, ambulation, transfers Assessment Current Status: Fair Progress improving endurance PT Short Term Goals Short Term Goals Time Frame: Nov 14, 2019 Roll Left & Right: 3 Sit to lyin Lying to sitting on side of be: 3 Sit to stand: 3 Chair/tfm-aw-eoefl transfer: 3 Walk 10 feet: 2 Wheel 50ft w/2 turns: 4 Wheel 150 feet: 4 PT Mcc Goals Desk Top Publisher Goals PT Desk Top Publisher Goals Time Frame: Nov 28, 2019 Roll Left & Right (QC): 6 Sit to Lying (QC): 6 Lying-Sitting on Side/Bed(QC): 6 Sit to Stand (QC): 6 Chair/Ttg-ap-Tnnpy Xfer(QC): 6 Toilet Transfer (QC): 6 Car Transfer (QC): 5 Does the Patient Walk: No and Walking Goal IS indicated Walk 10 feet (QC): 6 Walk 50ft with 2 Turns (QC): 6 Walk 150 ft (QC): 6 Walking 10ft on Uneven Surface: 5 1 Step (curb) (QC): 5 4 Steps (QC): 5 12 Steps (QC): 4 Picking up an Object (QC): 4 Wheel 50 feet with 2 turns (QC: 6 Type: Manual Wheel 150 feet: 6 Type: Manual PT Plan Problem List Problem List: Activity Tolerance, Functional Strength, Safety, Balance, Gait, Transfer, Bed Mobility, ROM Treatment/Plan Treatment Plan: Continue Plan of Care Treatment Plan: Bed Mobility, Education, Functional Activity Joey, Functional Strength, Group Therapy, Gait, Safety, Therapeutic Exercise, Transfers Treatment Duration: Nov 28, 2019 Frequency: At least 5 of 7 days/Wk (IRF) Estimated Hrs Per Day: 1.5 hours per day Patient and/or Family Agrees t: Yes Safety Risks/Education Patient Education: Gait Training, Transfer Techniques, Correct Positioning, W/C Management, Safety Issues Teaching Recipient: Patient Teaching Methods: Demonstration, Discussion Response to Teaching: Reinforcement Needed Time/GCodes Time In: 1305 Time Out: 1330 Total Billed Treatment Time: 25 Total Billed Treatment 1 visit GT 15' FA 10' ELZA WEN PT Nov 11, 2019 13:31
--- NOTE | 2019-11-11 14:21 | NUR ---
CM/SS CONCURRENT DOCUMENTATION Met with patient and spouse Sarah Monday to inform of anticipated no visitors mandate Monday due to Covid19. Saarh has been with patient faithfully daily and has obviously been an integral part of his motivation and performance. Both understood the importance of this mandate. Recovery Rn provided information about alternatives to stay in communication, like electronics. Observed patient working with therapies this date and present until noon mandate exit. Patient continues to train with wheelchair, this may be his main transport mode. Team will need to begin spouse training since she is the primary caregiver at home. She is a petite person, she will not be able to stabilize patient for ambulation or transfers. Goal remains for a discharge to the home.
[2019-11-11] MEDS: SIMvastatin 10 MG (ZOCOR) TAB PO SCH (16:55)
[2019-11-11 17:44] VITALS: BP 157/74
[2019-11-11] MEDS: ASPIRIN E.C. 81 MG (ECOTRIN) TAB PO SCH (20:30)
[2019-11-12 06:00] VITALS: BP 137/67
[2019-11-12] MEDS: inSUlin ASPART (NovoLOG) 1 UNIT/0.01 ML (CHARGE PER UNIT) SC SCH ×4 (06:30→21:42)
[2019-11-12] MEDS: metFORMIN XR 500 MG (GLUCOPHAGE XR) TAB PO SCH ×2 (06:36→17:03)
[2019-11-12] MEDS: PANTOPRAZOLE 40 MG (PROTONIX) TAB PO SCH (09:08)
[2019-11-12] MEDS: APIXABAN 5 MG (ELIQUIS) TABLET PO SCH ×2 (09:08→21:37)
[2019-11-12] MEDS: TAMSULOSIN 0.4 MG (FLOMAX) CAP PO SCH (09:08)
[2019-11-12] MEDS: MULTIVIT W/MINERALS TAB (THERAGRAN M) PO SCH (09:08)
[2019-11-12] MEDS: AMIODARONE 200 MG (CORDARONE) TAB PO SCH (09:09)
[2019-11-12] MEDS: lisINopril 5 MG (PRINIVIL) TABLET PO SCH (09:09)
[2019-11-12 09:10] VITALS: BP 130/70
[2019-11-12] MEDS: DOCUSATE SODIUM 100 MG (COLACE) CAP PO SCH ×2 (09:10→21:41)
[2019-11-12] MEDS: SENNA W/DOCUSATE (SENOKOT S) TABLET PO SCH ×2 (09:11→21:42)
[2019-11-12] MEDS: polyethylene glycoL POWDER 17 GM (MIRALAX) PACK PO SCH ×2 (09:11→21:42)
--- NOTE | 2019-11-12 09:22 | Occupational Ther Daily Note ---
OT Current Status-Daily Note Subjective Pt alert, lying in bed. Pt agrees to therapy. No c/o pain at this time. Mental Status/Objective Patient Orientation: Person, Place, Time, Situation Attachments: Ray Catheter, IV ADL-Treatment Pt declined shower. Min A with HOB raised for supine to EOB. Mod A for sit to stand then SPT. Min A with verbal/physical cues to don shirt with one-handed technique. Assist to thread R LE into pants then pt able to thread L LE into pants. Pull to stand with bed rail then pt stabilized self and assist to hike pants over hips. Pt donned L sock/shoe by self after set up. Assist to don R sock/shoe. Pt declined oral care. Therapy Code Descriptions/Definitions Functional [place] Measure: 0=Not Assessed/NA 4=Minimal Assistance 1=Total Assistance 5=Supervision or Setup 2=Maximal Assistance 6=Modified [place] 3=Moderate Assistance 7=Complete IndependenceSCALE: Activities may be completed with or without assistive devices. 2-Rvvnjptkoj-ckswfzl completes the activity by him/herself with no assistance from a helper. 5-Set-up or Clean-up Assistance-helper sets up or cleans up; patient completes activity. [place] assists only prior to or following the activity. 4-Supervision or Touching Assistance-helper provides verbal cues and/or touching/steadying and/or contact guard assistance as patient completes activity. Assistance may be provided throughout the activity or intermittently. 3-Partial/Moderate Assistance-helper does LESS THAN HALF the effort. [place] lifts, holds or supports trunk or limbs, but provides less than half the effort. 2-Substantial/Maximal Assistance-helper does MORE THAN HALF the effort. [place] lifts or holds trunk or limbs and provides more than half the effort. 0-Bkhaidsfi-uuwigg does ALL the effort. Patient does none of the effort to comp lete the activity. Or, the assistance of 2 or more helpers is required for the patient to complete the activity. If activity was not attempted, code reason: 7-Patient Refused. 9-Not Applicable-not attempted and the patient did not perform the activity before the current illness, exacerbation or injury. 10-Not Attempted due to Environmental Limitations-(lack of equipment, weather restraints, etc.). 88-Not Attempted due to Medical Conditions or Safety Concerns. Eating (QC): 5 (Set up required then pt able to use regular utensils to eat.) Oral Hygiene (QC): 7 Upper Body Dressing (QC): 3 Lower Body Dressing (QC): 2 On/Off Footwear: 2 Other Treatment Co-treat with PT, skills of 2 clinicians required for neuromuscular retraining with functional movement/tasks due to increase weakness, decreased mobility. PT working on functional transfers, w/c mobility and ambulation. OT working on functional transfers, R UE placement during tasks and ADLs. Pt increasing with distance in ambulation using platform FWW, see PT notes. Pt is increasing with ability to place R UE in designated areas with min assistance if any. Pt continues to require assist to stabilize R elbow for wt bearing. Pt demonstrates good AROM with wrist and hand, poor strength for fire engine operator and pinch. Physical cues to keep R UE in proper position while completing AROM for shldr extension/flexion. After session, pt sitting in w/c with call light/phone in reach. All needs met in room. OT Short Term Goals Short Term Goals Time Frame: Nov 15, 2019 Oral hygiene: 3 Toileting hygiene: 2 Shower/bathe self: 3 Upper body dressin Lower body dressin Putting on/taking off footwear: 3 OT Half-Way Goals Half-Way Goals Time Frame: Nov 29, 2019 Eating (QC): 6 Oral Hygiene (QC): 6 Toileting Hygiene (QC): 5 Shower/Bathe Self (QC): 4 Upper Body Dressing (QC): 5 Lower Body Dressing (QC): 5 On/Off Footwear (QC): 5 Additional Goals: 1-Demonstrate ADL Tasks, 2-Verbalize Understanding, 3- ImproveStrength/Joey 1=Demonstrate adherence to instructed precautions during ADL tasks. 2=Patient will verbalize/demonstrate understanding of assistive devices/modifications for ADL. 3=Patient will improve strength/tolerance for activity to enable patient to perform ADL's. OT Education/Plan Problem List/Assessment Assessment: Decreased Activ Tolerance, Decreased Safety Aware, Decreased UE Strength, Impaired Coordination, Impaired Funct Balance, Impaired Self-Care Skills, Restricted Funct UE ROM, Visual-Perceptual Deficit Discharge Recommendations Plan/Recommendations: Continue POC Treatment Plan/Plan of Care Patient would benefit from OT for education, treatment and training to promote independence in ADL's, mobility, safety and/or upper extremity function for ADL's. Plan of Care: ADL Retraining, Functional Mobility, Group Exercise/Act as Ind, UE Funct Exercise/Act, UE Neuromus Re-Ed/Coord Treatment Duration: Nov 29, 2019 Frequency: At least 5 of 7 days/Wk (IRF) Estimated Hrs Per Day: 1.5 hours per day Rehab Potential: Good Time/GCodes Start Time: 07:30 Stop Time: 09:00 Total Time Billed (hr/min): 90 Billed Treatment Time 1 visit-ADL 2 (30 min) NM 4 (60 min) co-treat with PT for 60 min [id number] KAREN MARQUES Nov 12, 2019 09:22
--- NOTE | 2019-11-12 10:03 | Physical Therapy Daily Note ---
PT Daily Note-Current Subjective Pt is in the wheelchair, working with OT on arrival. Mental Status Patient Orientation: Person, Place, Time, Situation Transfers SCALE: Activities may be completed with or without assistive devices. 7-Wcqtiinruh-qamxdlt completes the activity by him/herself with no assistance from a helper. 5-Set-up or Clean-up Assistance-helper sets up or cleans up; patient completes activity. [place] assists only prior to or following the activity. 4-Supervision or Touching Assistance-helper provides verbal cues and/or touching/steadying and/or contact guard assistance as patient completes activity. Assistance may be provided throughout the activity or intermittently. 3-Partial/Moderate Assistance-helper does LESS THAN HALF the effort. [place] lifts, holds or supports trunk or limbs, but provides less than half the effort. 2-Substantial/Maximal Assistance-helper does MORE THAN HALF the effort. [place] lifts or holds trunk or limbs and provides more than half the effort. 0-Gilynbhau-fkzvaw does ALL the effort. Patient does none of the effort to complete the activity. Or, the assistance of 2 or more helpers is required for the patient to complete the activity. If activity was not attempted, code reason: 7-Patient Refused. 9-Not Applicable-not attempted and the patient did not perform the activity before the current illness, exacerbation or injury. 10-Not Attempted due to Environmental Limitations-(lack of equipment, weather restraints, etc.). 88-Not Attempted due to Medical Conditions or Safety Concerns. Sit to Stand (QC): 4 Chair/Elu-dv-Xrdub Xfer(QC): 4 Gait Training Does the Patient Walk?: Yes Distance: 54ft, 34ft, 100ft, 45ft Walk 10 feet (QC): 4 Walk 50 ft with 2 Turns(QC): 3 Gait Persons Needed: 1 Gait Assistive Device: Walker Platform Wheelchair Training Does the Pt Use a Wheelchair?: Yes Type of Wheelchair: Manual Exercises Standin way Ex=Flex, Abd, Ext, Marching, Stepping over objects Standing Reps: 15 Treatments Performed co-treat with OT to work on standing weight transfer onto the (R) UE and LE during parallel bar work. Pt performed standing (R) UE forward push/pull for pec and tricep firing while working on stabilization through the (R) LE without allowing (R) knee to fully extend. Pt performed weight bearing activity at the steps to work on (R) hip flexion and to work on (R) LE wt bearing while stepping up on the (L). Assessment Current Status: Good Progress Pt had mild difficulty advancing the (R) LE during gait, especially in the last 10ft of each attempt. If he is cued to watch the (R) LE he is better able to advance the (R) foot consistently. (R) knee extension control is hampered by poor hamstring control. PT Short Term Goals Short Term Goals Time Frame: Nov 14, 2019 Roll Left & Right: 3 Sit to lyin Lying to sitting on side of be: 3 Sit to stand: 3 Chair/mzk-yb-vyhas transfer: 3 Walk 10 feet: 2 Wheel 50ft w/2 turns: 4 Wheel 150 feet: 4 PT Alum Plant Operator Goals Assisted Goals PT Alum Plant Operator Goals Time Frame: Nov 28, 2019 Roll Left & Right (QC): 6 Sit to Lying (QC): 6 Lying-Sitting on Side/Bed(QC): 6 Sit to Stand (QC): 6 Chair/Hge-xn-Bomds Xfer(QC): 6 Toilet Transfer (QC): 6 Car Transfer (QC): 5 Does the Patient Walk: No and Walking Goal IS indicated Walk 10 feet (QC): 6 Walk 50ft with 2 Turns (QC): 6 Walk 150 ft (QC): 6 Walking 10ft on Uneven Surface: 5 1 Step (curb) (QC): 5 4 Steps (QC): 5 12 Steps (QC): 4 Picking up an Object (QC): 4 Wheel 50 feet with 2 turns (QC: 6 Type: Manual Wheel 150 feet: 6 Type: Manual PT Plan Treatment/Plan Treatment Plan: Continue Plan of Care Treatment Plan: Bed Mobility, Education, Functional Activity Joey, Functional Strength, Group Therapy, Gait, Safety, Therapeutic Exercise, Transfers Treatment Duration: Nov 28, 2019 Frequency: At least 5 of 7 days/Wk (IRF) Estimated Hrs Per Day: 1.5 hours per day Patient and/or Family Agrees t: Yes Time/GCodes Time In: 809 Time Out: 904 Total Billed Treatment Time: 55 Total Billed Treatment 1, ex 30, gt 25, co-treat with OT 55 min ([id number]) AMBROSIO BRAMBILA PT Nov 12, 2019 10:03
--- NOTE | 2019-11-12 12:38 | PM&R Progress Note ---
Subjective HPI/CC On Admission Date Seen by Provider: Nov 12, 2019 Time Seen by Provider: 09:30 Subjective/Events-last exam Patient feels better today Eating well Sugars are labile but stable No pain is reported Walking well with platform walker and doing well with it No falls Checked meds and labs Reviewed therapy notes Conferred with director correctional agency of Systems General: Fatigue Neurological: Weakness, Numbness, Incoordination Objective Exam Vital Signs Vital Signs Date Time Temp Pulse Resp B/P (MAP) Pulse Ox O2 Delivery O2 Flow Rate FiO2 11/12/19 17:37 36.8 68 18 128/66 (86) 95 Room Air Capillary Refill : Less Than 3 Seconds General Appearance: No Apparent Distress, WD/WN HEENT: PERRL/EOMI, Normal ENT Inspection, Pharynx Normal Neck: Normal Inspection, Non Tender, Supple Respiratory: Lungs Clear, Normal Breath Sounds, No Accessory Muscle Use, No Respiratory Distress Cardiovascular: Regular Rate, Rhythm, No Edema, No Gallop, No Murmur, Normal Peripheral Pulses, Irregularly Irregular Gastrointestinal: Normal Bowel Sounds, No Organomegaly, No Pulsatile Mass, Non Tender, Soft Back: Normal Inspection, No CVA Tenderness, No Vertebral Tenderness Extremity: Normal Capillary Refill, Non Tender, No Calf Tenderness, No Pedal Edema Neurologic/Psychiatric: Alert, Oriented x3, Normal Mood/Affect, buyer planner II-XII Norm as Tested, Abnormal Gait, Motor Weakness Skin: Normal Color, Warm/Dry Lymphatic: No Adenopathy Results/Procedures Lab Patient resulted labs reviewed. FIM Transfers Therapy Code Descriptions/Definitions Functional [place] Measure: 0=Not Assessed/NA 4=Minimal Assistance 1=Total Assistance 5=Supervision or Setup 2=Maximal Assistance 6=Modified [place] 3=Moderate Assistance 7=Complete IndependenceSCALE: Activities may be completed with or without assistive devices. 6-Wntewpuivd-mkdajql completes the activity by him/herself with no assistance from a helper. 5-Set-up or Clean-up Assistance-helper sets up or cleans up; patient completes activity. [place] assists only prior to or following the activity. 4-Supervision or Touching Assistance-helper provides verbal cues and/or touching/steadying and/or contact guard assistance as patient completes activity. Assistance may be provided throughout the activity or intermittently. 3-Partial/Moderate Assistance-helper does LESS THAN HALF the effort. [place] lifts, holds or supports trunk or limbs, but provides less than half the effort. 2-Substantial/Maximal Assistance-helper does MORE THAN HALF the effort. [place] lifts or holds trunk or limbs and provides more than half the effort. 6-Vsruhrytr-mirxyx does ALL the effort. Patient does none of the effort to complete the activity. Or, the assistance of 2 or more helpers is required for the patient to complete the activity. If activity was not attempted, code reason: 7-Patient Refused. 9-Not Applicable-not attempted and the patient did not perform the activity before the current illness, exacerbation or injury. 10-Not Attempted due to Environmental Limitations-(lack of equipment, weather restraints, etc.). 88-Not Attempted due to Medical Conditions or Safety Concerns. Roll Left to Right (QC): 4 Sit to Lying (QC): 3 Sit to Stand (QC): 4 Chair/Fwf-at-Vyfmj Xfer(QC): 4 Car Transfer (QC): 2 (max assist to transfer in/out of car) Gait Training Does the Patient Walk?: Yes Distance: 54ft, 34ft, 100ft, 45ft Walk 10 feet (QC): 4 Walk 50 ft with 2 Turns(QC): 3 Walk 150 ft (QC): 88 Walking 10ft/uneven surface-QC: 88 Gait Persons Needed: 1 Gait Assistive Device: Walker Platform Wheelchair Training Does the Pt Use a Wheelchair?: Yes Wheel 50 ft with 2 turns (QC): 4 Wheel 150 ft (QC): 4 Type of Wheelchair: Manual Stair Training 1 Step (curb) (QC): 88 4 Steps (QC): 88 12 Steps (QC): 88 Balance Picking up an Object (QC): 88 ADL-Treatment Eating (QC): 5 (Set up required then pt able to use regular utensils to eat.) Oral Hygiene (QC): 7 Bathing Location: L Arm, R Arm, L Upper Leg, R Upper Leg, L Lower Leg (including foot), R Lower Leg (including foot), Chest, Abdomen, Buttocks, Perineal Area Shower/Bathe Self (QC): 4 Upper Body Dressing (QC): 3 Lower Body Dressing (QC): 2 On/Off Footwear (QC): 2 Toileting Hygiene (QC): 1 Toilet Transfer (QC): 1 Assessment/Plan Assessment and Plan Assess & Plan/Chief Complaint Assessment: CVA 10/28/19 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 HTN HLP CRI AF ED Acute constipation initiated aggressive meds now resolved Dysphagia needs EGD and dilation but cannot go off OAC due to too high of risk for recurrent CVA Plan: IRF protocol BM regimen Fall risk Cardiology consultation appreciated Dr Wang consulted Increase PPI dose is working well Walking with platform working well for him Discuss dispo at meeting tomorrow (1) CVA (cerebral vascular accident) (2) Flaccid hemiplegia affecting dominant side (3) Diabetes (4) Hypertension (5) Hyperlipemia (6) On continuous oral anticoagulation (7) Atrial fibrillation (8) History of penile implant (9) History of colon cancer (10) Former smoker (11) Renal insufficiency (12) Constipation SCOTT BARBOSA DO Nov 12, 2019 12:37
--- NOTE | 2019-11-12 14:43 | Physical Therapy Daily Note ---
PT Daily Note-Current Subjective Pt is in bed, agreeable to treatment. Mental Status Patient Orientation: Person, Place, Time, Situation Transfers SCALE: Activities may be completed with or without assistive devices. 6-Wobxgjwhsd-aeseeju completes the activity by him/herself with no assistance from a helper. 5-Set-up or Clean-up Assistance-helper sets up or cleans up; patient completes activity. [place] assists only prior to or following the activity. 4-Supervision or Touching Assistance-helper provides verbal cues and/or touchi ng/steadying and/or contact guard assistance as patient completes activity. Assistance may be provided throughout the activity or intermittently. 3-Partial/Moderate Assistance-helper does LESS THAN HALF the effort. [place] lifts, holds or supports trunk or limbs, but provides less than half the effort. 2-Substantial/Maximal Assistance-helper does MORE THAN HALF the effort. [place] lifts or holds trunk or limbs and provides more than half the effort. 2-Mgvcdbzqi-fwwwxv does ALL the effort. Patient does none of the effort to complete the activity. Or, the assistance of 2 or more helpers is required for the patient to complete the activity. If activity was not attempted, code reason: 7-Patient Refused. 9-Not Applicable-not attempted and the patient did not perform the activity before the current illness, exacerbation or injury. 10-Not Attempted due to Environmental Limitations-(lack of equipment, weather restraints, etc.). 88-Not Attempted due to Medical Conditions or Safety Concerns. Roll Left & Right (QC): 5 Sit to Lying (QC): 4 Lying to Sitting/Side of Bed(Q: 4 Sit to Stand (QC): 5 Chair/Kbk-yk-Fiuny Xfer(QC): 4 Gait Training Does the Patient Walk?: Yes Distance: 84ft, 101ft Walk 10 feet (QC): 5 Walk 50 ft with 2 Turns(QC): 5 Gait Persons Needed: 1 Gait Assistive Device: Walker Platform Pt needs occasional cueing to step through with the (R) foot. He has moleskin on the toe of the (R) shoe to make this easier, but as he fatigues his swing phase is often cut short due to hip flexor weakness. Wheelchair Training Does the Pt Use a Wheelchair?: Yes Exercises Supine Ex: LE Protocol Supine Reps: [address] Ex=Flex, Abd, Ext, Marching Standing Reps: 15 Treatments Worked in parallel bars on (R) knee stability exercises with the knee held in neutral to reinforce (R) quad and hamstring firing. Performed supine ex to work on hip flexion and knee flexion/extension isolation exercises. Assessment Current Status: Good Progress Pt is steadily improving with gait tolerance and activity tolerance with standing activity. He still requires cueing for sequencing with sit to stand and stand to sit. PT Short Term Goals Short Term Goals Time Frame: Nov 14, 2019 Roll Left & Right: 3 Sit to lyin Lying to sitting on side of be: 3 Sit to stand: 3 Chair/slc-tv-wyoju transfer: 3 Walk 10 feet: 2 Wheel 50ft w/2 turns: 4 Wheel 150 feet: 4 PT Senior Living Goals Computer Programming Manager Goals PT Computer Programming Manager Goals Time Frame: Nov 28, 2019 Roll Left & Right (QC): 6 Sit to Lying (QC): 6 Lying-Sitting on Side/Bed(QC): 6 Sit to Stand (QC): 6 Chair/Eck-dm-Hzcuk Xfer(QC): 6 Toilet Transfer (QC): 6 Car Transfer (QC): 5 Does the Patient Walk: No and Walking Goal IS indicated Walk 10 feet (QC): 6 Walk 50ft with 2 Turns (QC): 6 Walk 150 ft (QC): 6 Walking 10ft on Uneven Surface: 5 1 Step (curb) (QC): 5 4 Steps (QC): 5 12 Steps (QC): 4 Picking up an Object (QC): 4 Wheel 50 feet with 2 turns (QC: 6 Type: Manual Wheel 150 feet: 6 Type: Manual PT Plan Treatment/Plan Treatment Plan: Continue Plan of Care Treatment Plan: Bed Mobility, Education, Functional Activity Joey, Functional Strength, Group Therapy, Gait, Safety, Therapeutic Exercise, Transfers Treatment Duration: Nov 28, 2019 Frequency: At least 5 of 7 days/Wk (IRF) Estimated Hrs Per Day: 1.5 hours per day Patient and/or Family Agrees t: Yes Time/GCodes Time In: 1350 Time Out: 1433 Total Billed Treatment Time: 43 Total Billed Treatment 1, ex 25, gt 18 AMBROSIO BRAMBILA PT Nov 12, 2019 14:43
[2019-11-12] MEDS: SIMvastatin 10 MG (ZOCOR) TAB PO SCH (17:01)
[2019-11-12 17:37] VITALS: BP 128/66
--- NOTE | 2019-11-12 19:15 | NUR ---
bedside report received from YAJAIRA WOLF, assume care of pt
[2019-11-12] MEDS: MELATONIN 3 MG TABLET PO PRN (21:37)
[2019-11-12] MEDS: ASPIRIN E.C. 81 MG (ECOTRIN) TAB PO SCH (21:37)
[2019-11-12] MEDS: ACETAMINOPHEN 325 MG TABLET PO PRN (21:39)
--- NOTE | 2019-11-12 21:39 | NUR ---
pt refused Colace, miralax & Senokot, C/O headache, pain level 5/10 on numeric scale, Tylenol 650mg given
--- NOTE | 2019-11-12 22:10 | NUR ---
resting quietly in bed, pain level 0/10 on CNPI scale
[2019-11-13 06:00] VITALS: BP 134/74
[2019-11-13] MEDS: metFORMIN XR 500 MG (GLUCOPHAGE XR) TAB PO SCH ×2 (06:43→17:41)
[2019-11-13] MEDS: inSUlin ASPART (NovoLOG) 1 UNIT/0.01 ML (CHARGE PER UNIT) SC SCH ×4 (06:47→21:09)
--- NOTE | 2019-11-13 07:49 | Speech Therapy Progress Note ---
Therapy Progress Note Patient did not receive skilled ST on 11/12/2019 due to clinician unavailable. RAY RODRÍGUEZ Nov 13, 2019 07:49
[2019-11-13] MEDS: DOCUSATE SODIUM 100 MG (COLACE) CAP PO SCH ×2 (08:20→21:14)
[2019-11-13] MEDS: SENNA W/DOCUSATE (SENOKOT S) TABLET PO SCH ×2 (08:21→21:14)
[2019-11-13] MEDS: polyethylene glycoL POWDER 17 GM (MIRALAX) PACK PO SCH ×2 (08:21→21:14)
--- NOTE | 2019-11-13 09:00 | Occupational Ther Daily Note ---
OT Current Status-Daily Note Subjective Pt alert, lying in bed. Pt agrees to therapy. No c/o pain. Mental Status/Objective Patient Orientation: Person, Place, Time, Situation ADL-Treatment Pt agrees to shower. Min A for supine to EOB. Mod A for stand pivot transfer. Min A using grabbars to transfer into/out of shower. Pt completed own shower sitting on shower bench and leaning side to side to cleanse buttocks, SBA. Assist to thread R LE into pants/underpants and sock. Pt threads L LE into clothing and dons sock and shoes. Pt stands while stabilizing with grabbars then assist to hike over hips. CGA and verbal cues to don shirt with one handed technique. After session, pt sitting in w/c with call light/phone in reach. All needs met in room. Therapy Code Descriptions/Definitions Functional [place] Measure: 0=Not Assessed/NA 4=Minimal Assistance 1=Total Assistance 5=Supervision or Setup 2=Maximal Assistance 6=Modified [place] 3=Moderate Assistance 7=Complete IndependenceSCALE: Activities may be completed with or without assistive devices. 0-Kfotelwxee-dydttgn completes the activity by him/herself with no assistance from a helper. 5-Set-up or Clean-up Assistance-helper sets up or cleans up; patient completes activity. [place] assists only prior to or following the activity. 4-Supervision or Touching Assistance-helper provides verbal cues and/or touching/steadying and/or contact guard assistance as patient completes activity. Assistance may be provided throughout the activity or intermittently. 3-Partial/Moderate Assistance-helper does LESS THAN HALF the effort. [place] lifts, holds or supports trunk or limbs, but provides less than half the effort. 2-Substantial/Maximal Assistance-helper does MORE THAN HALF the effort. [place] lifts or holds trunk or limbs and provides more than half the effort. 6-Fshlzdyre-ejdzqp does ALL the effort. Patient does none of the effort to complete the activity. Or, the assistance of 2 or more helpers is required for the patient to complete the activity. If activity was not attempted, code reason: 7-Patient Refused. 9-Not Applicable-not attempted and the patient did not perform the activity before the current illness, exacerbation or injury. 10-Not Attempted due to Environmental Limitations-(lack of equipment, weather restraints, etc.). 88-Not Attempted due to Medical Conditions or Safety Concerns. Eating (QC): 5 Bathing Location: L Arm, R Arm, L Upper Leg, R Upper Leg, L Lower Leg (including foot), R Lower Leg (including foot), Chest, Abdomen, Buttocks, Perineal Area Shower/Bathe Self (QC): 4 (SBA, pt does not processing mgr shower, sitting throughout.) Upper Body Dressing (QC): 4 Lower Body Dressing (QC): 2 On/Off Footwear: 3 OT Short Term Goals Short Term Goals Time Frame: Nov 15, 2019 Oral hygiene: 3 Toileting hygiene: 2 Shower/bathe self: 3 Upper body dressin Lower body dressin Putting on/taking off footwear: 3 OT Business Process Architect Goals Business Process Architect Goals Time Frame: Nov 29, 2019 Eating (QC): 6 Oral Hygiene (QC): 6 Toileting Hygiene (QC): 5 Shower/Bathe Self (QC): 4 Upper Body Dressing (QC): 5 Lower Body Dressing (QC): 5 On/Off Footwear (QC): 5 Additional Goals: 1-Demonstrate ADL Tasks, 2-Verbalize Understanding, 3-ImproveStrength/Joey 1=Demonstrate adherence to instructed precautions during ADL tasks. 2=Patient will verbalize/demonstrate understanding of assistive devices/modifications for ADL. 3=Patient will improve strength/tolerance for activity to enable patient to perform ADL's. OT Education/Plan Problem List/Assessment Assessment: Decreased Activ Tolerance, Decreased UE Strength, Impaired Coordination, Impaired Funct Balance, Impaired Self-Care Skills, Restricted Funct UE ROM Discharge Recommendations Plan/Recommendations: Continue POC Treatment Plan/Plan of Care Patient would benefit from OT for education, treatment and training to promote independence in ADL's, mobility, safety and/or upper extremity function for ADL's. Plan of Care: ADL Retraining, Functional Mobility, Group Exercise/Act as Ind, UE Funct Exercise/Act, UE Neuromus Re-Ed/Coord Treatment Duration: Nov 29, 2019 Frequency: At least 5 of 7 days/Wk (IRF) Estimated Hrs Per Day: 1.5 hours per day Rehab Potential: Good Time/GCodes Start Time: 08:00 Stop Time: 09:00 Total Time Billed (hr/min): 60 Billed Treatment Time 1 visit-ADL 4 (60 min) KAREN MARQUES Nov 13, 2019 09:00
--- NOTE | 2019-11-13 09:00 | PM&R Progress Note ---
Subjective HPI/CC On Admission Date Seen by Provider: Nov 13, 2019 Time Seen by Provider: 09:00 Subjective/Events-last exam Patient feels better today but a bit cranky and frustrated Eating well Sugars are labile but stable and appears improved No pain is reported Walking well with platform walker and doing well with it No falls Checked meds and labs Reviewed therapy notes Conferred with folder seamer automatic of Systems General: Fatigue Neurological: Weakness, Numbness, Incoordination Objective Exam Vital Signs Vital Signs Date Time Temp Pulse Resp B/P (MAP) Pulse Ox O2 Delivery O2 Flow Rate FiO2 11/13/19 08:10 Room Air 11/13/19 06:00 35.8 69 18 134/74 (94) 93 Capillary Refill : Less Than 3 Seconds General Appearance: No Apparent Distress, WD/WN HEENT: PERRL/EOMI, Normal ENT Inspection, Pharynx Normal Neck: Normal Inspection, Non Tender, Supple Respiratory: Lungs Clear, Normal Breath Sounds, No Accessory Muscle Use, No Respiratory Distress Cardiovascular: Regular Rate, Rhythm, No Edema, No Gallop, No Murmur, Normal Peripheral Pulses, Irregularly Irregular Gastrointestinal: Normal Bowel Sounds, No Organomegaly, No Pulsatile Mass, Non Tender, Soft Back: Normal Inspection, No CVA Tenderness, No Vertebral Tenderness Extremity: Normal Capillary Refill, Non Tender, No Calf Tenderness, No Pedal Edema Neurologic/Psychiatric: Alert, Oriented x3, Normal Mood/Affect, inspector experimental assembly II-XII Norm as Tested, Abnormal Gait, Motor Weakness Skin: Normal Color, Warm/Dry Lymphatic: No Adenopathy Results/Procedures Lab Patient resulted labs reviewed. FIM Transfers Therapy Code Descriptions/Definitions Functional [place] Measure: 0=Not Assessed/NA 4=Minimal Assistance 1=Total Assistance 5=Supervision or Setup 2=Maximal Assistance 6=Modified [place] 3=Moderate Assistance 7=Complete IndependenceSCALE: Activities may be completed with or without assistive devices. 9-Psoeajmuty-oizopyu completes the activity by him/herself with no assistance fr om a helper. 5-Set-up or Clean-up Assistance-helper sets up or cleans up; patient completes activity. [place] assists only prior to or following the activity. 4-Supervision or Touching Assistance-helper provides verbal cues and/or touching/steadying and/or contact guard assistance as patient completes activity. Assistance may be provided throughout the activity or intermittently. 3-Partial/Moderate Assistance-helper does LESS THAN HALF the effort. [place] lifts, holds or supports trunk or limbs, but provides less than half the effort. 2-Substantial/Maximal Assistance-helper does MORE THAN HALF the effort. [place] lifts or holds trunk or limbs and provides more than half the effort. 2-Czfxgyujc-siklje does ALL the effort. Patient does none of the effort to complete the activity. Or, the assistance of 2 or more helpers is required for the patient to complete the activity. If activity was not attempted, code reason: 7-Patient Refused. 9-Not Applicable-not attempted and the patient did not perform the activity before the current illness, exacerbation or injury. 10-Not Attempted due to Environmental Limitations-(lack of equipment, weather restraints, etc.). 88-Not Attempted due to Medical Conditions or Safety Concerns. Roll Left to Right (QC): 5 Sit to Lying (QC): 4 Sit to Stand (QC): 5 Chair/Olp-jt-Fbpbh Xfer(QC): 4 Car Transfer (QC): 2 (max assist to transfer in/out of car) Gait Training Does the Patient Walk?: Yes Distance: 84ft, 101ft Walk 10 feet (QC): 5 Walk 50 ft with 2 Turns(QC): 5 Walk 150 ft (QC): 88 Walking 10ft/uneven surface-QC: 88 Gait Persons Needed: 1 Gait Assistive Device: Walker Platform Wheelchair Training Does the Pt Use a Wheelchair?: Yes Wheel 50 ft with 2 turns (QC): 4 Wheel 150 ft (QC): 4 Type of Wheelchair: Manual Stair Training 1 Step (curb) (QC): 88 4 Steps (QC): 88 12 Steps (QC): 88 Balance Picking up an Object (QC): 88 ADL-Treatment Eating (QC): 5 (Set up required then pt able to use regular utensils to eat.) Oral Hygiene (QC): 7 Bathing Location: L Arm, R Arm, L Upper Leg, R Upper Leg, L Lower Leg (including foot), R Lower Leg (including foot), Chest, Abdomen, Buttocks, Perineal Area Shower/Bathe Self (QC): 4 Upper Body Dressing (QC): 3 Lower Body Dressing (QC): 2 On/Off Footwear (QC): 2 Toileting Hygiene (QC): 1 Toilet Transfer (QC): 1 Assessment/Plan Assessment and Plan Assess & Plan/Chief Complaint Assessment: CVA 10/28/19 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 HTN HLP CRI AF ED Acute constipation initiated aggressive meds now resolved Dysphagia needs EGD and dilation but cannot go off OAC due to too high of risk for recurrent CVA Plan: IRF protocol BM regimen Fall risk Cardiology consultation appreciated Dr Wang consulted Increase PPI dose is working well Walking with platform working well for him Recheck next week (1) CVA (cerebral vascular accident) (2) Flaccid hemiplegia affecting dominant side (3) Diabetes (4) Hypertension (5) Hyperlipemia (6) On continuous oral anticoagulation (7) Atrial fibrillation (8) History of penile implant (9) History of colon cancer (10) Former smoker (11) Renal insufficiency (12) Constipation SCOTT BARBOSA DO Nov 13, 2019 09:00
[2019-11-13] MEDS: PANTOPRAZOLE 40 MG (PROTONIX) TAB PO SCH (09:26)
[2019-11-13] MEDS: MULTIVIT W/MINERALS TAB (THERAGRAN M) PO SCH (09:26)
[2019-11-13] MEDS: TAMSULOSIN 0.4 MG (FLOMAX) CAP PO SCH (09:26)
[2019-11-13] MEDS: APIXABAN 5 MG (ELIQUIS) TABLET PO SCH ×2 (09:26→21:05)
[2019-11-13] MEDS: AMIODARONE 200 MG (CORDARONE) TAB PO SCH (09:26)
[2019-11-13] MEDS: lisINopril 5 MG (PRINIVIL) TABLET PO SCH (09:26)
--- NOTE | 2019-11-13 11:29 | Speech Therapy Daily Note ---
Speech Daily Progress Note Subjective Date Seen by Provider: Nov 13, 2019 Time Seen by Provider: 00:30 Patient states he is ready to go home since his can't visit due to COVID19. Objective Patient demo utilization of safe oral intake of thin liquids at 95% without any overt s/s of aspiration. Assessment Assessment Current Status: Good Progress Treatment Plan Continue Plan of Care Speech Short Term Goals Short Term Goals Short Term Goals 1. Patient will complete memory tasks related to daily needs at 90% or greater with minimal cueing. 2. Patient will complete safety awareness tasks related to daily needs at 90% or greater with minimal cueing. 3. Patient will complete problem solving tasks related to daily needs at 90% or greater with minimal cueing. 4. Patient will complete word finding tasks related to daily needs at 90% or greater with minimal cueing. 5. Patient will tolerate least restrictive diet level without s/s of aspiration with 90% or greater. 6. Patient/caregiver will utilize compensatory strategies as trained with 90% or greater given minimal cues. Speech Capsule Machine Operator Goals [place] Goals Patient will improve cognitive communication necessary for safety and daily living tasks with minimal assist. Patient will maintain adequate nutrition/hydration via safe effective swallow function. Speech-Plan Patient/Family Goals Patient/Family Goals: Patient plans on returning home with his post rehab. Treatment Plan Speech Therapy Treatment Plan: Continue Plan of Care Treatment Duration: Nov 08, 2019 Frequency: 5 times per week Estimated Hrs Per Day: .5 hour per day Rehab Potential: Good Barriers to Learning: Patient's recent CVA Pt/Family Agrees to Plan: Yes Safety Risks/Education Teaching Recipient: Patient Teaching Methods: Demonstration, Discussion Response to Teaching: Verbalize Understanding, Return Demonstration Education Topics Provided: Continued safety with liquids Time Speech Therapy Time In: 11:00 Speech Therapy Time Out: 11:30 Total Billed Time: 30 Billed Treatment Time 1, RAY Keller Nov 13, 2019 11:29
--- NOTE | 2019-11-13 11:32 | Physical Therapy Daily Note ---
PT Daily Note-Current Subjective Pt sitting in [facility] in room upon arrival. Pt agrees to PT. Pain Location: No Pain Reported Mental Status Patient Orientation: Person, Place, Situation Transfers SCALE: Activities may be completed with or without assistive devices. 7-Fchljiyizu-zdbakit completes the activity by him/herself with no assistance from a helper. 5-Set-up or Clean-up Assistance-helper sets up or cleans up; patient completes activity. [place] assists only prior to or following the activity. 4-Supervision or Touching Assistance-helper provides verbal cues and/or touching/steadying and/or contact guard assistance as patient completes activity. Assistance may be provided throughout the activity or intermittently. 3-Partial/Moderate Assistance-helper does LESS THAN HALF the effort. [place] lifts, holds or supports trunk or limbs, but provides less than half the effort. 2-Substantial/Maximal Assistance-helper does MORE THAN HALF the effort. [place] lifts or holds trunk or limbs and provides more than half the effort. 5-Kfgvzcbsv-tjmpbe does ALL the effort. Patient does none of the effort to complete the activity. Or, the assistance of 2 or more helpers is required for the patient to complete the activity. If activity was not attempted, code reason: 7-Patient Refused. 9-Not Applicable-not attempted and the patient did not perform the activity before the current illness, exacerbation or injury. 10-Not Attempted due to Environmental Limitations-(lack of equipment, weather restraints, etc.). 88-Not Attempted due to Medical Conditions or Safety Concerns. Sit to Stand (QC): 4 Weight Bearing Right Lower Extremity: Right Full Weight Bearing Left Lower Extremity: Left Full Weight Bearing Gait Training Does the Patient Walk?: Yes Distance: 40', 56', 35' Walk 10 feet (QC): 4 Walk 50 ft with 2 Turns(QC): 4 Gait Persons Needed: 1 Gait Assistive Device: FWW CARGO SUPERVISOR gives VC to molded goods spot picker foot when advancing instead of dragging/scooting foot. Wheelchair Training Does the Pt Use a Wheelchair?: Yes Wheel 50 ft with 2 turns (QC): 4 Type of Wheelchair: Manual Exercises Seated Therapy Exercises: Ankle pumps, Long arc quads, Hip flexion, Kicking activity Seated Reps: 15 Standing: Hamstring curls, Marching, Mini squats, Weight shifts Standing Reps: 15 NuStep Minutes: 10 NuStep Workload: 1 (Started at WL 1 (6m then) up to 3 for last 4m) Treatments Pt completed Seated EX in [facility] before transferring to standing. Pt ambulated in hallway (see Gait for distance). Pt completed Standing Ex at //bar including sit to stands. Pt also uses NuStep for 10m (see for details of WL). Pt returns to room and rests in [facility] with all needs met, call light in hand. Assessment Current Status: Good Progress Pt is improving with transfers and distance of ambulation. PT Short Term Goals Short Term Goals Time Frame: Nov 14, 2019 Roll Left & Right: 3 Sit to lyin Lying to sitting on side of be: 3 Sit to stand: 3 Chair/jrv-ur-pwgev transfer: 3 Walk 10 feet: 2 Wheel 50ft w/2 turns: 4 Wheel 150 feet: 4 PT Retirement Goals Retirement Goals PT Fish Hatchery Man Goals Time Frame: Nov 28, 2019 Roll Left & Right (QC): 6 Sit to Lying (QC): 6 Lying-Sitting on Side/Bed(QC): 6 Sit to Stand (QC): 6 Chair/Fob-gw-Awpom Xfer(QC): 6 Toilet Transfer (QC): 6 Car Transfer (QC): 5 Does the Patient Walk: No and Walking Goal IS indicated Walk 10 feet (QC): 6 Walk 50ft with 2 Turns (QC): 6 Walk 150 ft (QC): 6 Walking 10ft on Uneven Surface: 5 1 Step (curb) (QC): 5 4 Steps (QC): 5 12 Steps (QC): 4 Picking up an Object (QC): 4 Wheel 50 feet with 2 turns (QC: 6 Type: Manual Wheel 150 feet: 6 Type: Manual PT Plan Problem List Problem List: Activity Tolerance, Functional Strength, Gait, Transfer Treatment/Plan Treatment Plan: Continue Plan of Care Treatment Plan: Bed Mobility, Education, Functional Activity Joey, Functional Strength, Group Therapy, Gait, Safety, Therapeutic Exercise, Transfers Treatment Duration: Nov 28, 2019 Frequency: At least 5 of 7 days/Wk (IRF) Estimated Hrs Per Day: 1.5 hours per day Patient and/or Family Agrees t: Yes Safety Risks/Education Patient Education: Gait Training, Transfer Techniques, Correct Positioning, W/C Management, Safety Issues Teaching Recipient: Patient Teaching Methods: Discussion Response to Teaching: Verbalize Understanding Time/GCodes Time In: 1000 Time Out: 1100 Total Billed Treatment Time: 60 Total Billed Treatment 1, GT x2 (30m), EX x2 (30m) JAIRO FINN CARGO SUPERVISOR Nov 13, 2019 11:32
--- NOTE | 2019-11-13 13:27 | Cardiology Progress Note ---
Cardiology SOAP Progress Note Subjective: No cardiac complaints. Objective: I&O/Vital Signs 11/13/19 11/13/19 06:00 08:10 Temp 35.8 Pulse 69 Resp 18 B/P (MAP) 134/74 (94) Pulse Ox 93 O2 Delivery Room Air Room Air 11/13/19 00:00 Intake Total 537 ml Output Total 425 ml Balance 112 ml Constitutional: AAO x 3, well-developed, well-nourished Respiratory: No accessory muscle use; other (good bilat air entry) Cardiovascular: regular rate-rhythm, S1 and S2, systolic murmur (soft QUINTON at card base) Gastrointestional: No tender; soft; No guarding, No rebound; audible bowel sounds Extremities: No clubbing, No cyanosis, No significant edema Neurologic/Psychiatric: other (R-sided weakness) Skin: normal color, warm/dry Results/Procedures: Labs Laboratory Tests 11/12/19 16:42: Glucometer 237H 11/12/19 21:34: Glucometer 118H 11/13/19 06:41: Glucometer 182H 11/13/19 11:33: Glucometer 312H A/P: Assessment/Dx: Status post CVA with R hemiparesis. 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 OAC with apixaban Hypertension, however borderline blood pressure therefore certain medications were held. Hyperlipidemia, by history Diabetes mellitus, followed and managed by primary care physician Plan: Plan: * Continue current CV regimen * Monitor labs * Continue monitoring blood pressure. Thank you for your consultation. Please call me if you have any questions. Meaghan Thapa MD, FACP, FACC, FSCAI, FHRS, CCDS Interventional Cardiology Cardiac Electrophysiology Vascular Medicine and Endovascular Interventions Ryan THAPA MD Nov 13, 2019 13:26
--- NOTE | 2019-11-13 13:43 | Occupational Ther Daily Note ---
OT Current Status-Daily Note Subjective Pt sleeping in bed, woke to name. Pt agrees to therapy. No c/o pain. Mental Status/Objective Patient Orientation: Person, Place, Time, Situation ADL-Treatment Verbal cues to doff shirt. Assist to stabilize shirt on R UE, pt threaded B UE's into shirt and over head. Assist to don R LE into pant leg and pt donned over L LE, pt stood with platform walker while assist to hike pants over hips. Assist to don R sock/shoe and pt dons L sock/shoe. Pt transferred with min A using platform walker. Therapy Code Descriptions/Definitions Functional [place] Measure: 0=Not Assessed/NA 4=Minimal Assistance 1=Total Assistance 5=Supervision or Setup 2=Maximal Assistance 6=Modified [place] 3=Moderate Assistance 7=Complete IndependenceSCALE: Activities may be completed with or without assistive devices. 3-Ecnewflnqv-iqnkykh completes the activity by him/herself with no assistance from a helper. 5-Set-up or Clean-up Assistance-helper sets up or cleans up; patient completes activity. [place] assists only prior to or following the activity. 4-Supervision or Touching Assistance-helper provides verbal cues and/or touching/steadying and/or contact guard assistance as patient completes activity. Assistance may be provided throughout the activity or intermittently. 3-Partial/Moderate Assistance-helper does LESS THAN HALF the effort. [place] lifts, holds or supports trunk or limbs, but provides less than half the effort. 2-Substantial/Maximal Assistance-helper does MORE THAN HALF the effort. [place] lifts or holds trunk or limbs and provides more than half the effort. 2-Awhynsttc-sszdim does ALL the effort. Patient does none of the effort to complete the activity. Or, the assistance of 2 or more helpers is required for the patient to complete the activity. If activity was not attempted, code reason: 7-Patient Refused. 9-Not Applicable-not attempted and the patient did not perform the activity before the current illness, exacerbation or injury. 10-Not Attempted due to Environmental Limitations-(lack of equipment, weather restraints, etc.). 88-Not Attempted due to Medical Conditions or Safety Concerns. Other Treatment Pt completed arm bike to increase R UE AROM, strength and activity tolerance. Pt was able to sustain grasp with R hand for 2 min 50 seconds rotating forward then 2 min 30 seconds rotating backward. Working on finger extension and dexterity with pulling light wt paper in to palm. Medium resistance therapy foam given to pt to work on resource development manager strength, with instructions to resource development manager then extend all fingers to count as one rep. After session, PT took over care of pt. All needs met in room. OT Short Term Goals Short Term Goals Time Frame: Nov 15, 2019 Oral hygiene: 3 Toileting hygiene: 2 Shower/bathe self: 3 Upper body dressin Lower body dressin Putting on/taking off footwear: 3 OT Procurement Director Goals Procurement Director Goals Time Frame: Nov 29, 2019 Eating (QC): 6 Oral Hygiene (QC): 6 Toileting Hygiene (QC): 5 Shower/Bathe Self (QC): 4 Upper Body Dressing (QC): 5 Lower Body Dressing (QC): 5 On/Off Footwear (QC): 5 Additional Goals: 1-Demonstrate ADL Tasks, 2-Verbalize Understanding, 3- ImproveStrength/Joey 1=Demonstrate adherence to instructed precautions during ADL tasks. 2=Patient will verbalize/demonstrate understanding of assistive devices/modifications for ADL. 3=Patient will improve strength/tolerance for activity to enable patient to perform ADL's. OT Education/Plan Problem List/Assessment Assessment: Decreased Activ Tolerance, Decreased UE Strength, Impaired Coordination, Impaired Funct Balance, Impaired Self-Care Skills, Restricted Funct UE ROM Discharge Recommendations Plan/Recommendations: Continue POC Treatment Plan/Plan of Care Patient would benefit from OT for education, treatment and training to promote independence in ADL's, mobility, safety and/or upper extremity function for ADL's. Plan of Care: ADL Retraining, Functional Mobility, Group Exercise/Act as Ind, UE Funct Exercise/Act, UE Neuromus Re-Ed/Coord Treatment Duration: Nov 29, 2019 Frequency: At least 5 of 7 days/Wk (IRF) Estimated Hrs Per Day: 1.5 hours per day Rehab Potential: Good Time/GCodes Start Time: 13:00 Stop Time: 13:30 Total Time Billed (hr/min): 30 Billed Treatment Time 1 visit-NM 2 (30 min) KAREN MARQUES Nov 13, 2019 13:43
--- NOTE | 2019-11-13 14:31 | Physical Therapy Daily Note ---
PT Daily Note-Current Subjective Pt sitting in [facility] finishing Rx with OT upon arrival. Pt agrees to PT and reports wanting to lay Supine to rest after Rx. Pain Location: No Pain Reported Mental Status Patient Orientation: Person, Place, Situation Transfers SCALE: Activities may be completed with or without assistive devices. 7-Cyohrukazd-oapzjbx completes the activity by him/herself with no assistance from a helper. 5-Set-up or Clean-up Assistance-helper sets up or cleans up; patient completes activity. [place] assists only prior to or following the activity. 4-Supervision or Touching Assistance-helper provides verbal cues and/or touching/steadying and/or contact guard assistance as patient completes activity. Assistance may be provided throughout the activity or intermittently. 3-Partial/Moderate Assistance-helper does LESS THAN HALF the effort. [place] lifts, holds or supports trunk or limbs, but provides less than half the effort. 2-Substantial/Maximal Assistance-helper does MORE THAN HALF the effort. [place] lifts or holds trunk or limbs and provides more than half the effort. 5-Tuhbdqsnv-qupipk does ALL the effort. Patient does none of the effort to complete the activity. Or, the assistance of 2 or more helpers is required for the patient to complete the activity. If activity was not attempted, code reason: 7-Patient Refused. 9-Not Applicable-not attempted and the patient did not perform the activity before the current illness, exacerbation or injury. 10-Not Attempted due to Environmental Limitations-(lack of equipment, weather restraints, etc.). 88-Not Attempted due to Medical Conditions or Safety Concerns. Sit to Lying (QC): 5 Lying to Sitting/Side of Bed(Q: 5 Sit to Stand (QC): 4 Weight Bearing Right Lower Extremity: Right Full Weight Bearing Left Lower Extremity: Left Full Weight Bearing Exercises Supine Ex: Bridging, Ankle pumps, Quad Set, Glut sets, Heel Slides, Straight leg raise, Hip abd/add Supine Reps: 15 Treatments Pt transfers from [facility] to standing to use urinal. Pt transfers to EOB then lays to Supine. Pt completes Supine EX with RB as needed. Pt doffs shirt, pants & socks with assistance from REGIONAL WILDLIFE AGENT. Pt resting Supine at end of Rx, call light in hand. Assessment Current Status: Good Progress Pt is motivated to improve and go home. PT Short Term Goals Short Term Goals Time Frame: Nov 14, 2019 Roll Left & Right: 3 Sit to lyin Lying to sitting on side of be: 3 Sit to stand: 3 Chair/zoq-yh-owysi transfer: 3 Walk 10 feet: 2 Wheel 50ft w/2 turns: 4 Wheel 150 feet: 4 PT Nurse Administrator Goals Usp Goals PT Usp Goals Time Frame: Nov 28, 2019 Roll Left & Right (QC): 6 Sit to Lying (QC): 6 Lying-Sitting on Side/Bed(QC): 6 Sit to Stand (QC): 6 Chair/Nrf-gj-Qcfti Xfer(QC): 6 Toilet Transfer (QC): 6 Car Transfer (QC): 5 Does the Patient Walk: No and Walking Goal IS indicated Walk 10 feet (QC): 6 Walk 50ft with 2 Turns (QC): 6 Walk 150 ft (QC): 6 Walking 10ft on Uneven Surface: 5 1 Step (curb) (QC): 5 4 Steps (QC): 5 12 Steps (QC): 4 Picking up an Object (QC): 4 Wheel 50 feet with 2 turns (QC: 6 Type: Manual Wheel 150 feet: 6 Type: Manual PT Plan Problem List Problem List: Activity Tolerance, Functional Strength, Safety, Balance, Gait Treatment/Plan Treatment Plan: Continue Plan of Care Treatment Plan: Bed Mobility, Education, Functional Activity Joey, Functional Strength, Group Therapy, Gait, Safety, Therapeutic Exercise, Transfers Treatment Duration: Nov 28, 2019 Frequency: At least 5 of 7 days/Wk (IRF) Estimated Hrs Per Day: 1.5 hours per day Patient and/or Family Agrees t: Yes Safety Risks/Education Patient Education: Transfer Techniques, Correct Positioning, Safety Issues Teaching Recipient: Patient Teaching Methods: Discussion Response to Teaching: Verbalize Understanding Time/GCodes Time In: 1330 Time Out: 1400 Total Billed Treatment Time: 30 Total Billed Treatment 1, FA (10m) & EX (20m) JAIRO FINN PTA Nov 13, 2019 14:31
[2019-11-13] MEDS: SIMvastatin 10 MG (ZOCOR) TAB PO SCH (17:41)
[2019-11-13 18:00] VITALS: BP 108/68
--- NOTE | 2019-11-13 19:16 | NUR ---
bedside report received from [facility], assume care of pt
[2019-11-13] MEDS: MELATONIN 3 MG TABLET PO PRN (21:06)
[2019-11-13] MEDS: ASPIRIN E.C. 81 MG (ECOTRIN) TAB PO SCH (21:06)
[2019-11-13] MEDS: ACETAMINOPHEN 325 MG TABLET PO PRN (21:06)
--- NOTE | 2019-11-13 21:06 | NUR ---
pt refused Colace, Senokot & miralax, c/o headache pain level 5/10 on numeric scale, Tylenol 650mg given
--- NOTE | 2019-11-13 21:45 | NUR ---
resting quietly in bed, pain level 0/10 on CNPI scale
[2019-11-14 05:58] VITALS: BP 157/81
[2019-11-14] MEDS: inSUlin ASPART (NovoLOG) 1 UNIT/0.01 ML (CHARGE PER UNIT) SC SCH ×4 (06:00→21:36)
[2019-11-14] MEDS: metFORMIN XR 500 MG (GLUCOPHAGE XR) TAB PO SCH ×2 (06:43→17:00)
[2019-11-14 08:00] VITALS: BP 147/74
--- NOTE | 2019-11-14 09:36 | PM&R Progress Note ---
Subjective HPI/CC On Admission Date Seen by Provider: Nov 14, 2019 Time Seen by Provider: 09:30 Subjective/Events-last exam Patient feels better today but a bit cranky and frustrated with his right sided weakness and without his Eating well Sugars are labile but stable and appears improved No pain is reported Walking well with platform walker and doing well with it No falls Talks about the poor food constantly and threatening the cook Checked meds and labs Reviewed therapy notes Conferred with hvac design engineer of Systems Neurological: Weakness, Numbness, Incoordination Objective Exam Vital Signs Vital Signs Date Time Temp Pulse Resp B/P (MAP) Pulse Ox O2 Delivery O2 Flow Rate FiO2 11/14/19 18:35 Room Air 11/14/19 16:53 36.6 85 16 104/67 (79) 97 Capillary Refill : Less Than 3 Seconds General Appearance: No Apparent Distress, WD/WN HEENT: PERRL/EOMI, Normal ENT Inspection, Pharynx Normal Neck: Normal Inspection, Non Tender, Supple Respiratory: Lungs Clear, Normal Breath Sounds, No Accessory Muscle Use, No Respiratory Distress Cardiovascular: Regular Rate, Rhythm, No Edema, No Gallop, No Murmur, Normal Peripheral Pulses, Irregularly Irregular Gastrointestinal: Normal Bowel Sounds, No Organomegaly, No Pulsatile Mass, Non Tender, Soft Back: Normal Inspection, No CVA Tenderness, No Vertebral Tenderness Extremity: Normal Capillary Refill, Non Tender, No Calf Tenderness, No Pedal Edema Neurologic/Psychiatric: Alert, Oriented x3, Normal Mood/Affect, informal waiter/waitress II-XII Norm as Tested, Abnormal Gait, Motor Weakness Skin: Normal Color, Warm/Dry Lymphatic: No Adenopathy Results/Procedures Lab Patient resulted labs reviewed. FIM Transfers Therapy Code Descriptions/Definitions Functional [place] Measure: 0=Not Assessed/NA 4=Minimal Assistance 1=Total Assistance 5=Supervision or Setup 2=Maximal Assistance 6=Modified [place] 3=Moderate Assistance 7=Complete IndependenceSCALE: Activities may be completed with or without assistive devices. 3-Mbfcymczds-nfkosen completes the activity by him/herself with no assistance from a helper. 5-Set-up or Clean-up Assistance-helper sets up or cleans up; patient completes activity. [place] assists only prior to or following the activity. 4-Supervision or Touching Assistance-helper provides verbal cues and/or touching/steadying and/or contact guard assistance as patient completes ac tivity. Assistance may be provided throughout the activity or intermittently. 3-Partial/Moderate Assistance-helper does LESS THAN HALF the effort. [place] lifts, holds or supports trunk or limbs, but provides less than half the effort. 2-Substantial/Maximal Assistance-helper does MORE THAN HALF the effort. [place] lifts or holds trunk or limbs and provides more than half the effort. 4-Fgcfxnaca-eaufhy does ALL the effort. Patient does none of the effort to complete the activity. Or, the assistance of 2 or more helpers is required for the patient to complete the activity. If activity was not attempted, code reason: 7-Patient Refused. 9-Not Applicable-not attempted and the patient did not perform the activity before the current illness, exacerbation or injury. 10-Not Attempted due to Environmental Limitations-(lack of equipment, weather restraints, etc.). 88-Not Attempted due to Medical Conditions or Safety Concerns. Roll Left to Right (QC): 5 Sit to Lying (QC): 5 Sit to Stand (QC): 4 Chair/Zkv-px-Iusfl Xfer(QC): 4 Car Transfer (QC): 2 (max assist to transfer in/out of car) Gait Training Does the Patient Walk?: Yes Distance: 40', 56', 35' Walk 10 feet (QC): 4 Walk 50 ft with 2 Turns(QC): 4 Walk 150 ft (QC): 88 Walking 10ft/uneven surface-QC: 88 Gait Persons Needed: 1 Gait Assistive Device: FWW Wheelchair Training Does the Pt Use a Wheelchair?: Yes Wheel 50 ft with 2 turns (QC): 4 Wheel 150 ft (QC): 4 Type of Wheelchair: Manual Stair Training 1 Step (curb) (QC): 88 4 Steps (QC): 88 12 Steps (QC): 88 Balance Picking up an Object (QC): 88 ADL-Treatment Eating (QC): 5 Oral Hygiene (QC): 7 Bathing Location: L Arm, R Arm, L Upper Leg, R Upper Leg, L Lower Leg (including foot), R Lower Leg (including foot), Chest, Abdomen, Buttocks, Perineal Area Shower/Bathe Self (QC): 4 (SBA, pt does not criminalist technician shower, sitting throughout.) Upper Body Dressing (QC): 4 Lower Body Dressing (QC): 2 On/Off Footwear (QC): 3 Toileting Hygiene (QC): 1 Toilet Transfer (QC): 1 Assessment/Plan Assessment and Plan Assess & Plan/Chief Complaint Assessment: CVA 10/28/19 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 HTN HLP CRI AF ED Acute constipation initiated aggressive meds now resolved Dysphagia needs EGD and dilation but cannot go off OAC due to too high of risk for recurrent CVA Plan: IRF protocol BM regimen Fall risk Cardiology consultation appreciated Dr Wang consulted Increase PPI dose is working well Walking with platform working well for him Recheck next week (1) CVA (cerebral vascular accident) (2) Flaccid hemiplegia affecting dominant side (3) Diabetes (4) Hypertension (5) Hyperlipemia (6) On continuous oral anticoagulation (7) Atrial fibrillation (8) History of penile implant (9) History of colon cancer (10) Former smoker (11) Renal insufficiency (12) Constipation SCOTT BARBOSA DO Nov 14, 2019 09:36
--- NOTE | 2019-11-14 09:38 | NUR ---
CM/SS PATIENT CARE CONFERENCE Met with patient yesterday afternoon and updated spouse Sarah by phone regarding conference Summary and plan to review patient progress/status next team meeting. Patient and Sarah both in support of continued stay on ARU with goal to return home. Barriers to discharge are that Sarah will be patient's caregiver in the home and, while he is progressively improving, he is max assist for lower body dressing, toileting, and unable to perform steps at this time prohibitive for home entry. While the goal is patient to advance to modified step performance, ramp may be necessary and will be explored by Sarah and family network. Limited resources for rentals in overall region and definitely regarding lengths. Agencies generally have 6' ramps only appropriate for approx 2 steps depending on riser height. Other equipment/supplies needed to be determined by therapy staff relative to patient's maximum performance closer to discharge.
[2019-11-14] MEDS: MULTIVIT W/MINERALS TAB (THERAGRAN M) PO SCH (10:46)
[2019-11-14] MEDS: lisINopril 5 MG (PRINIVIL) TABLET PO SCH (10:47)
[2019-11-14] MEDS: DOCUSATE SODIUM 100 MG (COLACE) CAP PO SCH ×2 (10:47→21:35)
[2019-11-14] MEDS: PANTOPRAZOLE 40 MG (PROTONIX) TAB PO SCH (10:47)
[2019-11-14] MEDS: APIXABAN 5 MG (ELIQUIS) TABLET PO SCH ×2 (10:47→21:36)
[2019-11-14] MEDS: TAMSULOSIN 0.4 MG (FLOMAX) CAP PO SCH (10:47)
[2019-11-14] MEDS: AMIODARONE 200 MG (CORDARONE) TAB PO SCH (10:48)
[2019-11-14] MEDS: polyethylene glycoL POWDER 17 GM (MIRALAX) PACK PO SCH ×2 (10:48→21:35)
[2019-11-14] MEDS: SENNA W/DOCUSATE (SENOKOT S) TABLET PO SCH ×2 (10:49→21:35)
--- NOTE | 2019-11-14 11:00 | Physical Therapy Daily Note ---
PT Daily Note-Current Subjective Pt sitting in [facility] in room upon arrival. Pt demonstrates grumpiness throughout Rx. This is different than yesterday's Rx. Pain Location: No Pain Reported Mental Status Patient Orientation: Person, Place, Situation Transfers SCALE: Activities may be completed with or without assistive devices. 7-Ctnscwqbgu-otvnmdc completes the activity by him/herself with no assistance from a helper. 5-Set-up or Clean-up Assistance-helper sets up or cleans up; patient completes activity. [place] assists only prior to or following the activity. 4-Supervision or Touching Assistance-helper provides verbal cues and/or touching/steadying and/or contact guard assistance as patient completes activity. Assistance may be provided throughout the activity or intermittently. 3-Partial/Moderate Assistance-helper does LESS THAN HALF the effort. [place] lifts, holds or supports trunk or limbs, but provides less than half the effort. 2-Substantial/Maximal Assistance-helper does MORE THAN HALF the effort. [place] lifts or holds trunk or limbs and provides more than half the effort. 8-Oaotanyrl-curxcz does ALL the effort. Patient does none of the effort to complete the activity. Or, the assistance of 2 or more helpers is required for the patient to complete the activity. If activity was not attempted, code reason: 7-Patient Refused. 9-Not Applicable-not attempted and the patient did not perform the activity before the current illness, exacerbation or injury. 10-Not Attempted due to Environmental Limitations-(lack of equipment, weather restraints, etc.). 88-Not Attempted due to Medical Conditions or Safety Concerns. Sit to Stand (QC): 4 Weight Bearing Right Lower Extremity: Right Full Weight Bearing Left Lower Extremity: Left Full Weight Bearing Gait Training Does the Patient Walk?: Yes Distance: 10' Walk 10 feet (QC): 4 Gait Persons Needed: 1 Gait Assistive Device: Walker Platform Pt walks limited distance then cites fatigue and not feeling well and wants to return to bed. Wheelchair Training Does the Pt Use a Wheelchair?: Yes Type of Wheelchair: Manual Exercises Seated Therapy Exercises: Ankle pumps, Long arc quads, Hip flexion, Kicking activity Seated Reps: 15 Treatments Pt completes Seated Ex in [facility]. Pt needs encouragement to participate in any PT this morning. Pt continues to be fixated on Diet and other complaints pt has about staying on ARU. CELL COVERER attempts to refocus pt on benefits of PT and what can be achieved for going home which pt agrees is needed but continues to want to return to bed. Pt agrees to transfer to standing then ambulates short distance in room before sitting in [facility]. Pt again asks to return to bed. CELL COVERER assist pt with SPT to EOB then pt transfers to Supine. Pt has all needs met, call light in hand. Assessment Current Status: Fair Progress Pt self limits Rx this morning, grumpy demeanor. PT Short Term Goals Short Term Goals Time Frame: Nov 14, 2019 Roll Left & Right: 3 Sit to lyin Lying to sitting on side of be: 3 Sit to stand: 3 Chair/ppf-pu-uvuqn transfer: 3 Walk 10 feet: 2 Wheel 50ft w/2 turns: 4 Wheel 150 feet: 4 PT Energy Project Engineer Goals Penitentiary Goals PT Penitentiary Goals Time Frame: Nov 28, 2019 Roll Left & Right (QC): 6 Sit to Lying (QC): 6 Lying-Sitting on Side/Bed(QC): 6 Sit to Stand (QC): 6 Chair/Zkr-zk-Fvwzv Xfer(QC): 6 Toilet Transfer (QC): 6 Car Transfer (QC): 5 Does the Patient Walk: No and Walking Goal IS indicated Walk 10 feet (QC): 6 Walk 50ft with 2 Turns (QC): 6 Walk 150 ft (QC): 6 Walking 10ft on Uneven Surface: 5 1 Step (curb) (QC): 5 4 Steps (QC): 5 12 Steps (QC): 4 Picking up an Object (QC): 4 Wheel 50 feet with 2 turns (QC: 6 Type: Manual Wheel 150 feet: 6 Type: Manual PT Plan Problem List Problem List: Activity Tolerance, Functional Strength, Safety, Balance, Gait, Transfer Treatment/Plan Treatment Plan: Continue Plan of Care Treatment Plan: Bed Mobility, Education, Functional Activity Joey, Functional Strength, Group Therapy, Gait, Safety, Therapeutic Exercise, Transfers Treatment Duration: Nov 28, 2019 Frequency: At least 5 of 7 days/Wk (IRF) Estimated Hrs Per Day: 1.5 hours per day Patient and/or Family Agrees t: Yes Safety Risks/Education Patient Education: Gait Training, Transfer Techniques, Correct Positioning, Safety Issues Teaching Recipient: Patient Teaching Methods: Discussion Response to Teaching: Reinforcement Needed Time/GCodes Time In: 930 Time Out: 1030 Total Billed Treatment Time: 60 Total Billed Treatment 1, EX (15m), GT (10m) & FA x2 (35m) JAIRO FINN CELL COVERER Nov 14, 2019 11:00
--- NOTE | 2019-11-14 11:01 | Occupational Ther Daily Note ---
OT Current Status-Daily Note Subjective Pt alert, lying in bed. Pt agrees to therapy. No c/o pain. Pt is demonstrating increased moodiness/grumpiness with staff. Mental Status/Objective Patient Orientation: Person, Place, Time, Situation ADL-Treatment Pt declined completing bathing. Supine to EOB supervision using HOB raised and bed rail. Pt is demonstrating increased functional use of R hand though pt continues not to acknowledge progress being made. Pt sat at sink to complete grooming, declined completing oral care. Assist to thread R LE into pants/underpants and sock. Pt threads L LE into clothing and dons sock and shoes. Pt stands while stabilizing with platform walker then assist to hike over hips. CGA and verbal cues to don shirt with one handed technique. Therapy Code Descriptions/Definitions Functional [place] Measure: 0=Not Assessed/NA 4=Minimal Assistance 1=Total Assistance 5=Supervision or Setup 2=Maximal Assistance 6=Modified [place] 3=Moderate Assistance 7=Complete IndependenceSCALE: Activities may be completed with or without assistive devices. 4-Gkpurqpoxr-empvutu completes the activity by him/herself with no assistance from a helper. 5-Set-up or Clean-up Assistance-helper sets up or cleans up; patient completes activity. [place] assists only prior to or following the activity. 4-Supervision or Touching Assistance-helper provides verbal cues and/or touching/steadying and/or contact guard assistance as patient completes activity. Assistance may be provided throughout the activity or intermittently. 3-Partial/Moderate Assistance-helper does LESS THAN HALF the effort. [place] lifts, holds or supports trunk or limbs, but provides less than half the effort. 2-Substantial/Maximal Assistance-helper does MORE THAN HALF the effort. [place] lifts or holds trunk or limbs and provides more than half the effort. 6-Xcoqxbvmw-ofcdrs does ALL the effort. Patient does none of the effort to complete the activity. Or, the assistance of 2 or more helpers is required for the patient to complete the activity. If activity was not attempted, code reason: 7-Patient Refused. 9-Not Applicable-not attempted and the patient did not perform the activity before the current illness, exacerbation or injury. 10-Not Attempted due to Environmental Limitations-(lack of equipment, weather restraints, etc.). 88-Not Attempted due to Medical Conditions or Safety Concerns. Oral Hygiene (QC): 7 Shower/Bathe Self (QC): 7 Upper Body Dressing (QC): 4 Lower Body Dressing (QC): 2 On/Off Footwear: 3 Other Treatment Working modified SPT, continues to need mod A for safe transfers. OT Short Term Goals Short Term Goals Time Frame: Nov 15, 2019 Oral hygiene: 3 Toileting hygiene: 2 Shower/bathe self: 3 Upper body dressin Lower body dressin Putting on/taking off footwear: 3 OT Pc Maintenance Technician Goals Prison Goals Time Frame: Nov 29, 2019 Eating (QC): 6 Oral Hygiene (QC): 6 Toileting Hygiene (QC): 5 Shower/Bathe Self (QC): 4 Upper Body Dressing (QC): 5 Lower Body Dressing (QC): 5 On/Off Footwear (QC): 5 Additional Goals: 1-Demonstrate ADL Tasks, 2-Verbalize Understanding, 3- ImproveStrength/Joey 1=Demonstrate adherence to instructed precautions during ADL tasks. 2=Patient will verbalize/demonstrate understanding of assistive devices/modifications for ADL. 3=Patient will improve strength/tolerance for activity to enable patient to perform ADL's. OT Education/Plan Problem List/Assessment Assessment: Decreased Activ Tolerance, Decreased Safety Aware, Decreased UE Strength, Impaired Cognition, Impaired Coordination, Impaired Funct Balance, Impaired Self-Care Skills, Restricted Funct UE ROM Discharge Recommendations Plan/Recommendations: Continue POC Treatment Plan/Plan of Care Patient would benefit from OT for education, treatment and training to promote independence in ADL's, mobility, safety and/or upper extremity function for ADL's. Plan of Care: ADL Retraining, Functional Mobility, Group Exercise/Act as Ind, UE Funct Exercise/Act, UE Neuromus Re-Ed/Coord Treatment Duration: Nov 29, 2019 Frequency: At least 5 of 7 days/Wk (IRF) Estimated Hrs Per Day: 1.5 hours per day Rehab Potential: Good Time/GCodes Start Time: 08:15 Stop Time: 09:15 Total Time Billed (hr/min): 60 Billed Treatment Time 1 visit-ADL 3 (45 min) NM 1 (15 min) KAREN MARQUES Nov 14, 2019 11:01
--- NOTE | 2019-11-14 11:53 | Cardiology Progress Note ---
Cardiology SOAP Progress Note Subjective: No cardiac complaint. Objective: I&O/Vital Signs 11/14/19 11/14/19 05:58 09:00 Temp 36.0 Pulse 69 Resp 16 B/P (MAP) 157/81 (106) Pulse Ox 97 O2 Delivery Room Air Room Air 11/14/19 00:00 Intake Total 800 ml Output Total 650 ml Balance 150 ml Constitutional: AAO x 3, well-developed, well-nourished Respiratory: No accessory muscle use; other (good bilat air entry) Cardiovascular: regular rate-rhythm, S1 and S2, systolic murmur (soft QUINTON at card base) Gastrointestional: No tender; soft; No guarding, No rebound; audible bowel sounds Extremities: No clubbing, No cyanosis, No significant edema Neurologic/Psychiatric: other (R-sided weakness) Skin: normal color, warm/dry Results/Procedures: Labs Laboratory Tests 11/13/19 16:55: Glucometer 131H 11/13/19 20:16: Glucometer 259H 11/14/19 05:29: Glucometer 154H 11/14/19 10:52: Glucometer 286H A/P: Assessment/Dx: Status post CVA with R hemiparesis. Possible embolic event. Status post bradycardia, improved after stopping metoprolol Coronary artery disease, history of multiple intervention the past, had a CABG 3 done in 2017, has been doing well H/o PAF. OAC with apixaban Hypertension, however borderline blood pressure therefore certain medications were held. Blood pressure stable today. Hyperlipidemia, by history Diabetes mellitus, followed and managed by primary care physician Plan: Plan: * Continue current CV regimen * Monitor labs * Continue monitoring blood pressure. Thank you for your consultation. Please call me if you have any questions. Meaghan Thapa MD, FACP, FACC, FSCAI, FHRS, CCDS Interventional Cardiology Cardiac Electrophysiology Vascular Medicine and Endovascular Interventions Ryan THAPA MD Nov 14, 2019 11:53
--- NOTE | 2019-11-14 13:37 | Occupational Ther Daily Note ---
OT Current Status-Daily Note Subjective Pt alert, lying in bed. Pt agrees to therapy. No c/o pain. Pt aggravated of the amount of people that come into his room when he is trying to rest, discussed with nrsg. Pt also states that he is having nightmares when he sleeps. Mental Status/Objective Patient Orientation: Person, Place, Time, Situation ADL-Treatment Therapy Code Descriptions/Definitions Functional [place] Measure: 0=Not Assessed/NA 4=Minimal Assistance 1=Total Assistance 5=Supervision or Setup 2=Maximal Assistance 6=Modified [place] 3=Moderate Assistance 7=Complete IndependenceSCALE: Activities may be completed with or without assistive devices. 6-Xrerknldwx-xclyzxj completes the activity by him/herself with no assistance from a helper. 5-Set-up or Clean-up Assistance-helper sets up or cleans up; patient completes activity. [place] assists only prior to or following the activity. 4-Supervision or Touching Assistance-helper provides verbal cues and/or touching/steadying and/or contact guard assistance as patient completes activity. Assistance may be provided throughout the activity or intermittently. 3-Partial/Moderate Assistance-helper does LESS THAN HALF the effort. [place] lif ts, holds or supports trunk or limbs, but provides less than half the effort. 2-Substantial/Maximal Assistance-helper does MORE THAN HALF the effort. [place] lifts or holds trunk or limbs and provides more than half the effort. 8-Bboomiygk-nkdfzb does ALL the effort. Patient does none of the effort to complete the activity. Or, the assistance of 2 or more helpers is required for the patient to complete the activity. If activity was not attempted, code reason: 7-Patient Refused. 9-Not Applicable-not attempted and the patient did not perform the activity before the current illness, exacerbation or injury. 10-Not Attempted due to Environmental Limitations-(lack of equipment, weather restraints, etc.). 88-Not Attempted due to Medical Conditions or Safety Concerns. Other Treatment Supine to EOB, mod I. CGA for modified SPT from EOB to w/c. Pt worked on maneuvering w/c throughout hospital and outdoors. Pt fatigued quickly and required recovery breaks throughout session. Pt then completed 10 min of arm bike to increase strength throughout R UE and activity tolerance. No rest breaks taken. Pt also completed 5 min forward rotation and 5 min backward rotation. PT took over care in therapy gym. All needs met. OT Short Term Goals Short Term Goals Time Frame: Nov 15, 2019 Oral hygiene: 3 Toileting hygiene: 2 Shower/bathe self: 3 Upper body dressin Lower body dressin Putting on/taking off footwear: 3 OT Mcfp Goals Mcfp Goals Time Frame: Nov 29, 2019 Eating (QC): 6 Oral Hygiene (QC): 6 Toileting Hygiene (QC): 5 Shower/Bathe Self (QC): 4 Upper Body Dressing (QC): 5 Lower Body Dressing (QC): 5 On/Off Footwear (QC): 5 Additional Goals: 1-Demonstrate ADL Tasks, 2-Verbalize Understanding, 3- ImproveStrength/Joey 1=Demonstrate adherence to instructed precautions during ADL tasks. 2=Patient will verbalize/demonstrate understanding of assistive devices/modifications for ADL. 3=Patient will improve strength/tolerance for activity to enable patient to perform ADL's. OT Education/Plan Problem List/Assessment Assessment: Decreased Activ Tolerance, Decreased UE Strength, Impaired Coordination, Impaired Funct Balance, Impaired Self-Care Skills, Restricted Funct UE ROM Discharge Recommendations Plan/Recommendations: Continue POC Treatment Plan/Plan of Care Patient would benefit from OT for education, treatment and training to promote independence in ADL's, mobility, safety and/or upper extremity function for ADL's. Plan of Care: ADL Retraining, Functional Mobility, Group Exercise/Act as Ind, UE Funct Exercise/Act, UE Neuromus Re-Ed/Coord Treatment Duration: Nov 29, 2019 Frequency: At least 5 of 7 days/Wk (IRF) Estimated Hrs Per Day: 1.5 hours per day Rehab Potential: Good Time/GCodes Start Time: 12:40 Stop Time: 13:20 Total Time Billed (hr/min): 40 Billed Treatment Time 1 visit-FA 2 (30 min) EX 1 (10 min) KAREN MARQUES Nov 14, 2019 13:37
--- NOTE | 2019-11-14 14:11 | Speech Therapy Daily Note ---
Speech Daily Progress Note Subjective Date Seen by Provider: Nov 14, 2019 Time Seen by Provider: 00:30 Patient was resting in his bed waiting on his lunch when I arrived. Objective Patient utilized compensatory strategies as trained for safe intake of liquids at 90% with minimal cues. Assessment Assessment Current Status: Good Progress Treatment Plan Continue Plan of Care Speech Short Term Goals Short Term Goals Short Term Goals 1. Patient will complete memory tasks related to daily needs at 90% or greater with minimal cueing. 2. Patient will complete safety awareness tasks related to daily needs at 90% or greater with minimal cueing. 3. Patient will complete problem solving tasks related to daily needs at 90% or greater with minimal cueing. 4. Patient will complete word finding tasks related to daily needs at 90% or greater with minimal cueing. 5. Patient will tolerate least restrictive diet level without s/s of aspiration with 90% or greater. 6. Patient/caregiver will utilize compensatory strategies as trained with 90% or greater given minimal cues. Speech Economics Analyst Goals Economics Analyst Goals Patient will improve cognitive communication necessary for safety and daily l iving tasks with minimal assist. Patient will maintain adequate nutrition/hydration via safe effective swallow function. Speech-Plan Patient/Family Goals Patient/Family Goals: Patient plans on returning home with his upon rehab discharge. Treatment Plan Speech Therapy Treatment Plan: Continue Plan of Care Treatment Duration: Nov 08, 2019 Frequency: 5 times per week Estimated Hrs Per Day: .5 hour per day Rehab Potential: Good Barriers to Learning: Patient's recent CVA Pt/Family Agrees to Plan: Yes Safety Risks/Education Teaching Recipient: Patient Teaching Methods: Discussion Response to Teaching: Verbalize Understanding Education Topics Provided: Continued safety of oral intake Time Speech Therapy Time In: 11:30 Speech Therapy Time Out: 12:00 Total Billed Time: 30 Billed Treatment Time JACKSON Page BETHAN[place] Nov 14, 2019 14:11
--- NOTE | 2019-11-14 14:26 | Physical Therapy Daily Note ---
PT Daily Note-Current Subjective Pt sitting in [facility] in Therapy Gym after just finishing with DOTY. Pt agrees to PT. Pain Location: No Pain Reported Mental Status Patient Orientation: Person, Place, Situation Transfers SCALE: Activities may be completed with or without assistive devices. 3-Vmgxhpspic-vqnlpcy completes the activity by him/herself with no assistance from a helper. 5-Set-up or Clean-up Assistance-helper sets up or cleans up; patient completes activity. [place] assists only prior to or following the activity. 4-Supervision or Touching Assistance-helper provides verbal cues and/or touching/steadying and/or contact guard assistance as patient completes activity. Assistance may be provided throughout the activity or intermittently. 3-Partial/Moderate Assistance-helper does LESS THAN HALF the effort. [place] lifts, holds or supports trunk or limbs, but provides less than half the effort. 2-Substantial/Maximal Assistance-helper does MORE THAN HALF the effort. [place] lifts or holds trunk or limbs and provides more than half the effort. 1-Dxgrrfnzu-preday does ALL the effort. Patient does none of the effort to complete the activity. Or, the assistance of 2 or more helpers is required for the patient to complete the activity. If activity was not attempted, code reason: 7-Patient Refused. 9-Not Applicable-not attempted and the patient did not perform the activity before the current illness, exacerbation or injury. 10-Not Attempted due to Environmental Limitations-(lack of equipment, weather restraints, etc.). 88-Not Attempted due to Medical Conditions or Safety Concerns. Weight Bearing Right Lower Extremity: Right Full Weight Bearing Left Lower Extremity: Left Full Weight Bearing Wheelchair Training Does the Pt Use a Wheelchair?: Yes Wheel 50 ft with 2 turns (QC): 4 Wheel 150 ft (QC): 4 Type of Wheelchair: Manual Pt needed occasional assistance for steering since R side is weaker for both UE & LE at this time. Treatments Pt focused on [facility] mobility, UE strengthening and activity tolerance at this time. Pt worked on maneuvering over varying surfaces as well as on ramp. Pt returns to room at end of Rx with all needs met, call light next to pt. Assessment Current Status: Good Progress Pt was in better spirits this afternoon. Pt fatigues and needs short RB. Pt still limited by weakness on R UE & LE. PT Short Term Goals Short Term Goals Time Frame: Nov 14, 2019 Roll Left & Right: 3 Sit to lyin Lying to sitting on side of be: 3 Sit to stand: 3 Chair/txr-rp-wcthf transfer: 3 Walk 10 feet: 2 Wheel 50ft w/2 turns: 4 Wheel 150 feet: 4 PT Fpc Goals Residential Counselor Goals PT Residential Counselor Goals Time Frame: Nov 28, 2019 Roll Left & Right (QC): 6 Sit to Lying (QC): 6 Lying-Sitting on Side/Bed(QC): 6 Sit to Stand (QC): 6 Chair/Txt-xa-Wrqoo Xfer(QC): 6 Toilet Transfer (QC): 6 Car Transfer (QC): 5 Does the Patient Walk: No and Walking Goal IS indicated Walk 10 feet (QC): 6 Walk 50ft with 2 Turns (QC): 6 Walk 150 ft (QC): 6 Walking 10ft on Uneven Surface: 5 1 Step (curb) (QC): 5 4 Steps (QC): 5 12 Steps (QC): 4 Picking up an Object (QC): 4 Wheel 50 feet with 2 turns (QC: 6 Type: Manual Wheel 150 feet: 6 Type: Manual PT Plan Problem List Problem List: Activity Tolerance, Functional Strength Treatment/Plan Treatment Plan: Continue Plan of Care Treatment Plan: Bed Mobility, Education, Functional Activity Joey, Functional Strength, Group Therapy, Gait, Safety, Therapeutic Exercise, Transfers Treatment Duration: Nov 28, 2019 Frequency: At least 5 of 7 days/Wk (IRF) Estimated Hrs Per Day: 1.5 hours per day Patient and/or Family Agrees t: Yes Safety Risks/Education Patient Education: Correct Positioning, W/C Management, Safety Issues Teaching Recipient: Patient Teaching Methods: Discussion Response to Teaching: Verbalize Understanding Time/GCodes Time In: 1320 Time Out: 1400 Total Billed Treatment Time: 40 Total Billed Treatment 1, [facility] x2 (30m) & FA (10m) JAIRO FINN PTA Nov 14, 2019 14:26
[2019-11-14 16:53] VITALS: BP 104/67
[2019-11-14] MEDS: SIMvastatin 10 MG (ZOCOR) TAB PO SCH (18:00)
[2019-11-14] MEDS: MELATONIN 3 MG TABLET PO PRN (21:37)
[2019-11-14] MEDS: ASPIRIN E.C. 81 MG (ECOTRIN) TAB PO SCH (21:37)
[2019-11-15 06:00] VITALS: BP 149/73
[2019-11-15] MEDS: inSUlin ASPART (NovoLOG) 1 UNIT/0.01 ML (CHARGE PER UNIT) SC SCH ×4 (06:13→21:07)
[2019-11-15] MEDS: metFORMIN XR 500 MG (GLUCOPHAGE XR) TAB PO SCH ×2 (06:42→18:03)
[2019-11-15 06:55] LABS: HEMOGLOBIN 14.3 G/DL (13.3-17.7); MEAN PLATELET VOLUME 12.1 FL (7.4-10.4); RED CELL DISTRIBUTION WIDTH 13.9 % (10.0-14.5); WHITE BLOOD COUNT 9.9 10^3/uL (4.3-11.0)
[2019-11-15] MEDS: DOCUSATE SODIUM 100 MG (COLACE) CAP PO SCH ×2 (09:07→21:06)
[2019-11-15] MEDS: polyethylene glycoL POWDER 17 GM (MIRALAX) PACK PO SCH ×2 (09:08→21:06)
[2019-11-15] MEDS: SENNA W/DOCUSATE (SENOKOT S) TABLET PO SCH ×2 (09:13→21:06)
--- NOTE | 2019-11-15 10:12 | Physical Therapy Daily Note ---
PT Daily Note-Current Subjective Pt. in bed and states he slept really well last night. States he notices progress but is so unhappy with the food here. Agrees to Rx Pain Location: No Pain Reported Mental Status Patient Orientation: Person, Place, Time, Situation, Normal For Age Transfers SCALE: Activities may be completed with or without assistive devices. 1-Vxhcxvdlda-rkkgvic completes the activity by him/herself with no assistance from a helper. 5-Set-up or Clean-up Assistance-helper sets up or cleans up; patient completes activity. [place] assists only prior to or following the activity. 4-Supervision or Touching Assistance-helper provides verbal cues and/or touching/steadying and/or contact guard assistance as patient completes activity. Assistance may be provided throughout the activity or intermittently. 3-Partial/Moderate Assistance-helper does LESS THAN HALF the effort. [place] lifts, holds or supports trunk or limbs, but provides less than half the effort. 2-Substantial/Maximal Assistance-helper does MORE THAN HALF the effort. [place] lifts or holds trunk or limbs and provides more than half the effort. 0-Jibzcqavw-pjonld does ALL the effort. Patient does none of the effort to complete the activity. Or, the assistance of 2 or more helpers is required for the patient to complete the activity. If activity was not attempted, code reason: 7-Patient Refused. 9-Not Applicable-not attempted and the patient did not perform the activity before the current illness, exacerbation or injury. 10-Not Attempted due to Environmental Limitations-(lack of equipment, weather restraints, etc.). 88-Not Attempted due to Medical Conditions or Safety Concerns. Roll Left & Right (QC): 3 Sit to Lying (QC): 3 Lying to Sitting/Side of Bed(Q: 3 Sit to Stand (QC): 4 Chair/Kea-ic-Rgels Xfer(QC): 3 multiple TRFs SPTs toward right each time, sit to stand requires CGA to mod assist, sup to sit requires mod to min assist. practiced and instructed in aligning w/c toward right and TRFing Weight Bearing Right Lower Extremity: Right Full Weight Bearing Left Lower Extremity: Left Full Weight Bearing Gait Training pt. c/o dizziness each time he stood, BP taken in stance x 2 100/50. It was felt that pts BP and c/o dizziness limited activities in stance and or gait Wheelchair Training Does the Pt Use a Wheelchair?: Yes Wheel 50 ft with 2 turns (QC): 4 Type of Wheelchair: Manual LLE on leg rest Exercises Supine Ex: Bridging, Ankle pumps, Quad Set, Rolling, Glut sets, Heel Slides, Short Arc Quads, Scooting, Straight leg raise (assist left), Hip abd/add (assist left) Supine Reps: 15 Seated Therapy Exercises: Long arc quads (assist left), Hip flexion (assist left) Seated Reps: 12 Assessment Current Status: Good Progress no gait training this Rx secondary to dizziness and low BP, nursing informed PT Short Term Goals Short Term Goals Time Frame: Nov 14, 2019 Roll Left & Right: 3 Sit to lyin Lying to sitting on side of be: 3 Sit to stand: 3 Chair/vfk-jl-raour transfer: 3 Walk 10 feet: 2 Wheel 50ft w/2 turns: 4 Wheel 150 feet: 4 PT Correction Goals Rooms Director Goals PT Correction Goals Time Frame: Nov 28, 2019 Roll Left & Right (QC): 6 Sit to Lying (QC): 6 Lying-Sitting on Side/Bed(QC): 6 Sit to Stand (QC): 6 Chair/Pfg-kp-Szbpn Xfer(QC): 6 Toilet Transfer (QC): 6 Car Transfer (QC): 5 Does the Patient Walk: No and Walking Goal IS indicated Walk 10 feet (QC): 6 Walk 50ft with 2 Turns (QC): 6 Walk 150 ft (QC): 6 Walking 10ft on Uneven Surface: 5 1 Step (curb) (QC): 5 4 Steps (QC): 5 12 Steps (QC): 4 Picking up an Object (QC): 4 Wheel 50 feet with 2 turns (QC: 6 Type: Manual Wheel 150 feet: 6 Type: Manual PT Plan Treatment/Plan Treatment Plan: Continue Plan of Care Treatment Plan: Bed Mobility, Education, Functional Activity Joey, Functional Strength, Group Therapy, Gait, Safety, Therapeutic Exercise, Transfers Treatment Duration: Nov 28, 2019 Frequency: At least 5 of 7 days/Wk (IRF) Estimated Hrs Per Day: 1.5 hours per day Patient and/or Family Agrees t: Yes Safety Risks/Education Patient Education: Transfer Techniques, Correct Positioning, W/C Management, Disease Process, Safety Issues Teaching Recipient: Patient Teaching Methods: Demonstration, Discussion Response to Teaching: Verbalize Understanding, Return Demonstration, Reinforcement Needed Time/GCodes Time In: 800 Time Out: 900 Total Billed Treatment Time: 60 Total Billed Treatment 1,wch10m,EX15m,FA35m ELISEO JONES PUBLIC OPINION SURVEY TAKER Nov 15, 2019 10:12
[2019-11-15] MEDS: lisINopril 5 MG (PRINIVIL) TABLET PO SCH (11:25)
[2019-11-15] MEDS: PANTOPRAZOLE 40 MG (PROTONIX) TAB PO SCH (11:25)
[2019-11-15] MEDS: APIXABAN 5 MG (ELIQUIS) TABLET PO SCH ×2 (11:25→21:05)
[2019-11-15] MEDS: TAMSULOSIN 0.4 MG (FLOMAX) CAP PO SCH (11:25)
[2019-11-15] MEDS: MULTIVIT W/MINERALS TAB (THERAGRAN M) PO SCH (11:25)
[2019-11-15] MEDS: AMIODARONE 200 MG (CORDARONE) TAB PO SCH (11:25)
--- NOTE | 2019-11-15 11:38 | PM&R Progress Note ---
Subjective HPI/CC On Admission Date Seen by Provider: Nov 15, 2019 Time Seen by Provider: 11:00 Subjective/Events-last exam Patient feels better today but a bit cranky and frustrated with his right sided weakness and without his Eating well Sugars are labile but improved No pain is reported Walking well with platform walker and doing well with it No falls Talks about the poor food constantly and threatening the cook and constantly stating "he is the customer" and "you must do as I say." Paranoid with the med orders I have placed for his stool softner and he doesn't appreciate me ordering meds and he doesn't know what he is taking but nurse in room during this encounter told him we review each medication when they are given to him and assure they are all approved by the doctor, me, and confirmed b y the nurse. Checked meds and labs Reviewed therapy notes Conferred with methodologist of Systems Neurological: Weakness, Numbness, Incoordination Objective Exam Vital Signs Vital Signs Date Time Temp Pulse Resp B/P (MAP) Pulse Ox O2 Delivery O2 Flow Rate FiO2 11/15/19 06:00 36.4 87 20 149/73 (98) 98 Room Air Capillary Refill : Less Than 3 Seconds General Appearance: No Apparent Distress, WD/WN HEENT: PERRL/EOMI, Normal ENT Inspection, Pharynx Normal Neck: Normal Inspection, Non Tender, Supple Respiratory: Lungs Clear, Normal Breath Sounds, No Accessory Muscle Use, No Respiratory Distress Cardiovascular: Regular Rate, Rhythm, No Edema, No Gallop, No Murmur, Normal Peripheral Pulses, Irregularly Irregular Gastrointestinal: Normal Bowel Sounds, No Organomegaly, No Pulsatile Mass, Non Tender, Soft Back: Normal Inspection, No CVA Tenderness, No Vertebral Tenderness Extremity: Normal Capillary Refill, Non Tender, No Calf Tenderness, No Pedal Edema Neurologic/Psychiatric: Alert, Oriented x3, Normal Mood/Affect, batch tank controller II-XII Norm as Tested, Abnormal Gait, Motor Weakness Skin: Normal Color, Warm/Dry Lymphatic: No Adenopathy Results/Procedures Lab Laboratory Tests 11/15/19 06:15 Patient resulted labs reviewed. FIM Transfers Therapy Code Descriptions/Definitions Functional [place] Measure: 0=Not Assessed/NA 4=Minimal Assistance 1=Total Assistance 5=Supervision or Setup 2=Maximal Assistance 6=Modified [place] 3=Moderate Assistance 7=Complete IndependenceSCALE: Activities may be completed with or without assistive devices. 9-Grfhvhnxnn-uezmfeq completes the activity by him/herself with no assistance from a helper. 5-Set-up or Clean-up Assistance-helper sets up or cleans up; patient completes activity. [place] assists only prior to or following the activity. 4-Supervision or Touching Assistance-helper provides verbal cues and/or touching/steadying and/or contact guard assistance as patient completes activity. Assistance may be provided throughout the activity or intermittently. 3-Partial/Moderate Assistance-helper does LESS THAN HALF the effort. [place] lifts, holds or supports trunk or limbs, but provides less than half the effort. 2-Substantial/Maximal Assistance-helper does MORE THAN HALF the effort. [place] lifts or holds trunk or limbs and provides more than half the effort. 2-Pegletykd-cneocq does ALL the effort. Patient does none of the effort to complete the activity. Or, the assistance of 2 or more helpers is required for the patient to complete the activity. If activity was not attempted, code reason: 7-Patient Refused. 9-Not Applicable-not attempted and the patient did not perform the activity before the current illness, exacerbation or injury. 10-Not Attempted due to Environmental Limitations-(lack of equipment, weather restraints, etc.). 88-Not Attempted due to Medical Conditions or Safety Concerns. Roll Left to Right (QC): 3 Sit to Lying (QC): 3 Sit to Stand (QC): 4 Chair/Sqv-og-Dxihc Xfer(QC): 3 Car Transfer (QC): 2 (max assist to transfer in/out of car) Gait Training Does the Patient Walk?: Yes Distance: 10' Walk 10 feet (QC): 4 Walk 50 ft with 2 Turns(QC): 4 Walk 150 ft (QC): 88 Walking 10ft/uneven surface-QC: 88 Gait Persons Needed: 1 Gait Assistive Device: Walker Platform Wheelchair Training Does the Pt Use a Wheelchair?: Yes Wheel 50 ft with 2 turns (QC): 4 Wheel 150 ft (QC): 4 Type of Wheelchair: Manual Stair Training 1 Step (curb) (QC): 88 4 Steps (QC): 88 12 Steps (QC): 88 Balance Picking up an Object (QC): 88 ADL-Treatment Eating (QC): 5 Oral Hygiene (QC): 7 Bathing Location: L Arm, R Arm, L Upper Leg, R Upper Leg, L Lower Leg (including foot), R Lower Leg (including foot), Chest, Abdomen, Buttocks, Perineal Area Shower/Bathe Self (QC): 7 Upper Body Dressing (QC): 4 Lower Body Dressing (QC): 2 On/Off Footwear (QC): 3 Toileting Hygiene (QC): 1 Toilet Transfer (QC): 1 Assessment/Plan Assessment and Plan Assess & Plan/Chief Complaint Assessment: CVA 10/28/19 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 Plan: IRF protocol BM regimen Fall risk Cardiology consultation appreciated Dr Wang consulted Increase PPI dose is working well Walking with platform working well for him Evaluate paranoia? (1) CVA (cerebral vascular accident) (2) Flaccid hemiplegia affecting dominant side (3) Diabetes (4) Hypertension (5) Hyperlipemia (6) On continuous oral anticoagulation (7) Atrial fibrillation (8) History of penile implant (9) History of colon cancer (10) Former smoker (11) Renal insufficiency (12) Constipation SCOTT BARBOSA DO Nov 15, 2019 11:38
--- NOTE | 2019-11-15 11:58 | Occupational Ther Daily Note ---
OT Current Status-Daily Note Subjective Pt sleeping in w/c, woke easily. Pt agrees to therapy. No c/o pain. Mental Status/Objective Patient Orientation: Person, Place, Time, Situation ADL-Treatment Therapy Code Descriptions/Definitions Functional [place] Measure: 0=Not Assessed/NA 4=Minimal Assistance 1=Total Assistance 5=Supervision or Setup 2=Maximal Assistance 6=Modified [place] 3=Moderate Assistance 7=Complete IndependenceSCALE: Activities may be completed with or without assistive devices. 7-Maxeufqahe-kvreema completes the activity by him/herself with no assistance from a helper. 5-Set-up or Clean-up Assistance-helper sets up or cleans up; patient completes activity. [place] assists only prior to or following the activity. 4-Supervision or Touching Assistance-helper provides verbal cues and/or touching/steadying and/or contact guard assistance as patient completes activity. Assistance may be provided throughout the activity or intermittently. 3-Partial/Moderate Assistance-helper does LESS THAN HALF the effort. [place] lifts, holds or supports trunk or limbs, but provides less than half the effort. 2-Substantial/Maximal Assistance-helper does MORE THAN HALF the effort. [place] lifts or holds trunk or limbs and provides more than half the effort. 7-Acolixgvq-gxxpul does ALL the effort. Patient does none of the effort to complete the activity. Or, the assistance of 2 or more helpers is required for the patient to complete the activity. If activity was not attempted, code reason: 7-Patient Refused. 9-Not Applicable-not attempted and the patient did not perform the activity before the current illness, exacerbation or injury. 10-Not Attempted due to Environmental Limitations-(lack of equipment, weather restraints, etc.). 88-Not Attempted due to Medical Conditions or Safety Concerns. Other Treatment Pt declined shower or changing clothing. Pt ambulated without breaks using platform walker to/from gym/room. Pt completed arm bike to increase R UE AROM, strength and activity tolerance. Pt was able to sustain grasp with R hand for 1 min segments during 5 min rotating forward then 5 min rotating backward with assist at R elbow during each direction. Pt working on dynamic standing balance at parallel bars by alternating taking UE off of bar to work on hiking up pants. Pt then completed 20 squats with wt bearing for R UE and extending R elbow. UE pulleys completed 100x's to work on AAROM of R UE. After session, pt sitting in recliner with call light/phone in reach. All needs met in room. OT Short Term Goals Short Term Goals Time Frame: Nov 15, 2019 Oral hygiene: 3 Toileting hygiene: 2 Shower/bathe self: 3 Upper body dressin Lower body dressin Putting on/taking off footwear: 3 OT Fdc Goals Fdc Goals Time Frame: Nov 29, 2019 Eating (QC): 6 Oral Hygiene (QC): 6 Toileting Hygiene (QC): 5 Shower/Bathe Self (QC): 4 Upper Body Dressing (QC): 5 Lower Body Dressing (QC): 5 On/Off Footwear (QC): 5 Additional Goals: 1-Demonstrate ADL Tasks, 2-Verbalize Understanding, 3- ImproveStrength/Joey 1=Demonstrate adherence to instructed precautions during ADL tasks. 2=Patient will verbalize/demonstrate understanding of assistive devices/modifications for ADL. 3=Patient will improve strength/tolerance for activity to enable patient to perform ADL's. OT Education/Plan Problem List/Assessment Assessment: Decreased Activ Tolerance, Decreased Safety Aware, Decreased UE Strength, Impaired Coordination, Impaired Funct Balance, Impaired Self-Care Skills, Restricted Funct UE ROM Discharge Recommendations Plan/Recommendations: Continue POC Treatment Plan/Plan of Care Patient would benefit from OT for education, treatment and training to promote independence in ADL's, mobility, safety and/or upper extremity function for ADL's. Plan of Care: ADL Retraining, Functional Mobility, Group Exercise/Act as Ind, UE Funct Exercise/Act, UE Neuromus Re-Ed/Coord Treatment Duration: Nov 29, 2019 Frequency: At least 5 of 7 days/Wk (IRF) Estimated Hrs Per Day: 1.5 hours per day Rehab Potential: Good Time/GCodes Start Time: 10:15 Stop Time: 11:30 Total Time Billed (hr/min): 75 Billed Treatment Time 1 visit-NM 5 (75 min) KAREN MARQUES Nov 15, 2019 11:58
--- NOTE | 2019-11-15 12:59 | Speech Therapy Daily Note ---
Speech Daily Progress Note Subjective Date Seen by Provider: Nov 15, 2019 Time Seen by Provider: 00:30 Patient was resting following his other therapy when I entered his room. Lunch was expected within a few minutes. Objective Patient completed safe oral intake strategies of 1) alternating food/liquid of 2:1, 2) Small sips/bites and 3) sitting up for all intake at 90% with minimal cues. Assessment Assessment Current Status: Good Progress Treatment Plan Continue Plan of Care Speech Short Term Goals Short Term Goals Short Term Goals 1. Patient will complete memory tasks related to daily needs at 90% or greater with minimal cueing. 2. Patient will complete safety awareness tasks related to daily needs at 90% or greater with minimal cueing. 3. Patient will complete problem solving tasks related to daily needs at 90% or greater with minimal cueing. 4. Patient will complete word finding tasks related to daily needs at 90% or greater with minimal cueing. 5. Patient will tolerate least restrictive diet level without s/s of aspiration with 90% or greater. 6. Patient/caregiver will utilize compensatory strategies as trained with 90% or greater given minimal cues. Speech Ground Instructor Advanced Goals Mcc Goals Patient will improve cognitive communication necessary for safety and daily living tasks with minimal assist. Patient will maintain adequate nutrition/hydration via safe effective swallow function. Speech-Plan Patient/Family Goals Patient/Family Goals: Patient plans on returning home where he lives with his post rehab. Treatment Plan Speech Therapy Treatment Plan: Continue Plan of Care Treatment Duration: Nov 08, 2019 Frequency: 5 times per week Estimated Hrs Per Day: .5 hour per day Rehab Potential: Good Barriers to Learning: Patient's recent CVA deficits Pt/Family Agrees to Plan: Yes Safety Risks/Education Teaching Recipient: Patient Teaching Methods: Demonstration Response to Teaching: Verbalize Understanding, Return Demonstration Education Topics Provided: Continued safety of oral intake. Time Speech Therapy Time In: 11:30 Speech Therapy Time Out: 12:00 Total Billed Time: 30 Billed Treatment Time JACKSON Page [address] Nov 15, 2019 12:59
--- NOTE | 2019-11-15 13:40 | Cardiology Progress Note ---
Cardiology SOAP Progress Note Subjective: No cardiac complaints. Objective: I&O/Vital Signs 11/15/19 06:00 Temp 36.4 Pulse 87 Resp 20 B/P (MAP) 149/73 (98) Pulse Ox 98 O2 Delivery Room Air 11/15/19 00:00 Intake Total 840 ml Output Total 475 ml Balance 365 ml Constitutional: AAO x 3, well-developed, well-nourished Respiratory: No accessory muscle use; other (good bilat air entry) Cardiovascular: regular rate-rhythm, S1 and S2, systolic murmur (soft QUINTON at card base) Gastrointestional: No tender; soft; No guarding, No rebound; audible bowel sounds Extremities: No clubbing, No cyanosis, No significant edema Neurologic/Psychiatric: other (R-sided weakness) Skin: normal color, warm/dry Results/Procedures: Labs Laboratory Tests 11/14/19 16:44: Glucometer 201H 11/14/19 20:40: Glucometer 229H 11/15/19 06:13: Glucometer 146H 11/15/19 06:15: White Blood Count 9.9, Red Blood Count 4.59, Hemoglobin 14.3, Hematocrit 43, Mean Corpuscular Volume 94, Mean Corpuscular Hemoglobin 31, Mean Corpuscular H emoglobin Concent 33, Red Cell Distribution Width 13.9, Platelet Count 258, Mean Platelet Volume 12.1H, Creatinine 1.22 11/15/19 10:50: Glucometer 281H A/P: Assessment/Dx: Status post CVA with R hemiparesis. Possible embolic event. Status post bradycardia, improved after stopping metoprolol Coronary artery disease, history of multiple intervention the past, had a CABG 3 done in 2017, has been doing well H/o PAF. OAC with apixaban Hypertension, however borderline blood pressure therefore certain medications were held. Blood pressure stable today. Hyperlipidemia, by history Diabetes mellitus, followed and managed by primary care physician Plan: Plan: * Continue current CV regimen * Monitor labs * Continue monitoring blood pressure. Thank you for your consultation. Please call me if you have any questions. Meaghan Thapa MD, FACP, FACC, FSCAI, FHRS, CCDS Interventional Cardiology Cardiac Electrophysiology Vascular Medicine and Endovascular Interventions Ryan THAPA MD Nov 15, 2019 13:40
--- NOTE | 2019-11-15 13:48 | NUR ---
RD ASSESSMENT PMHx: DM; CAD; HLD; HTN; CA(colon - resection 2011); GERD PT INTERACTION: Pt was awake and semi-pleasant during nutrition follow-up. Pt states he has been eating alright since last assessment. Note avg PO intake 50-75% of meals, with some meals recorded as refused. When asked about the refused meals, pt states that the kitchen put something on his plate he didn't want and he sent the whole thing back. "If they're going to be hard-headed and not listen to me, then I'm going to be hard-headed too and send it back." Pt states no issues with n/v/c/d since last assessment. Note last BM was 11/14 and pt currently on bowel regimen of Colace BID; Senna BID; and Miralax BID, per chart review. ABNORMAL NUTRITION-RELATED LAB VALUES Labs Taken on 11/11/2019 LOW: Pro 6.0 HIGH: BUN 29; glu 188 Est. kcal needs: 6397-5277 kcal | 20-25 kcal/kg Est. Pro needs: 73-92 g | 0.8-1.0 g Pro/kg PES STATEMENT: Inadequate oral intake (NI-2.1) related to loss of appetite as evidenced by pt interview | avg PO intake 50-75% of meals INTERVENTION: Continue with current diet order of CHO 60g/m 0snack diet. Encouraged pt to eat when able. Will continue to follow and reassess as pt needs, intake, and status change. MONITOR/EVALUATE: PO Intake; Plan of Care; Hydration Status; Weight Status; Lab Values Audrey Garay, , RD, LD
--- NOTE | 2019-11-15 14:23 | Physical Therapy Daily Note ---
PT Daily Note-Current Subjective Pt. c/o he is very tired and agrees to TRF training and some LE exercises Pain Location: No Pain Reported Mental Status Patient Orientation: Normal For Age Transfers SCALE: Activities may be completed with or without assistive devices. 9-Whyhgsmlar-ajwhmbe completes the activity by him/herself with no assistance from a helper. 5-Set-up or Clean-up Assistance-helper sets up or cleans up; patient completes activity. [place] assists only prior to or following the activity. 4-Supervision or Touching Assistance-helper provides verbal cues and/or touching/steadying and/or contact guard assistance as patient completes activity. Assistance may be provided throughout the activity or intermittently. 3-Partial/Moderate Assistance-helper does LESS THAN HALF the effort. [place] lifts, holds or supports trunk or limbs, but provides less than half the effort. 2-Substantial/Maximal Assistance-helper does MORE THAN HALF the effort. [place] lifts or holds trunk or limbs and provides more than half the effort. 8-Noerzivez-zjupdb does ALL the effort. Patient does none of the effort to complete the activity. Or, the assistance of 2 or more helpers is required for the patient to complete the activity. If activity was not attempted, code reason: 7-Patient Refused. 9-Not Applicable-not attempted and the patient did not perform the activity before the current illness, exacerbation or injury. 10-Not Attempted due to Environmental Limitations-(lack of equipment, weather restraints, etc.). 88-Not Attempted due to Medical Conditions or Safety Concerns. sit to stand from w/c x 3 mod assist of 1. SPT w/c to bed mod assist. sit to sup CGA, has some difficulty stablilizing left knee into extension and needs some assist and instruction for turning and technique. Pt. able to independently push self up in bed to head of bed Weight Bearing Right Lower Extremity: Right Full Weight Bearing Left Lower Extremity: Left Full Weight Bearing Exercises Supine Ex: Bridging, Ankle pumps (R HC stretch 4 x 20s), Short Arc Quads, Scooting, Straight leg raise (assited), Hip abd/add (assisted) Assessment Current Status: Good Progress fatigued this afternoon PT Short Term Goals Short Term Goals Time Frame: Nov 14, 2019 Roll Left & Right: 3 Sit to lyin Lying to sitting on side of be: 3 Sit to stand: 3 Chair/dza-je-fabhf transfer: 3 Walk 10 feet: 2 Wheel 50ft w/2 turns: 4 Wheel 150 feet: 4 PT Group Home Goals Group Home Goals PT Group Home Goals Time Frame: Nov 28, 2019 Roll Left & Right (QC): 6 Sit to Lying (QC): 6 Lying-Sitting on Side/Bed(QC): 6 Sit to Stand (QC): 6 Chair/Vpr-jv-Rgooe Xfer(QC): 6 Toilet Transfer (QC): 6 Car Transfer (QC): 5 Does the Patient Walk: No and Walking Goal IS indicated Walk 10 feet (QC): 6 Walk 50ft with 2 Turns (QC): 6 Walk 150 ft (QC): 6 Walking 10ft on Uneven Surface: 5 1 Step (curb) (QC): 5 4 Steps (QC): 5 12 Steps (QC): 4 Picking up an Object (QC): 4 Wheel 50 feet with 2 turns (QC: 6 Type: Manual Wheel 150 feet: 6 Type: Manual PT Plan Treatment/Plan Treatment Plan: Continue Plan of Care Treatment Plan: Bed Mobility, Education, Functional Activity Joey, Functional Strength, Group Therapy, Gait, Safety, Therapeutic Exercise, Transfers Treatment Duration: Nov 28, 2019 Frequency: At least 5 of 7 days/Wk (IRF) Estimated Hrs Per Day: 1.5 hours per day Patient and/or Family Agrees t: Yes Safety Risks/Education Patient Education: Transfer Techniques, Correct Positioning, Disease Process, Safety Issues Teaching Recipient: Patient Teaching Methods: Demonstration, Discussion Response to Teaching: Verbalize Understanding, Return Demonstration, Reinforcement Needed Time/GCodes Time In: 1400 Time Out: 1420 Total Billed Treatment Time: 20 Total Billed Treatment 1,FA20m ELISEO JONES EMT B Nov 15, 2019 14:23
[2019-11-15 16:30] VITALS: BP 102/54
[2019-11-15] MEDS: SIMvastatin 10 MG (ZOCOR) TAB PO SCH (18:03)
[2019-11-15] MEDS: ASPIRIN E.C. 81 MG (ECOTRIN) TAB PO SCH (21:05)
[2019-11-16] MEDS: inSUlin ASPART (NovoLOG) 1 UNIT/0.01 ML (CHARGE PER UNIT) SC SCH ×4 (04:49→21:31)
[2019-11-16 05:18] VITALS: BP 131/53
[2019-11-16] MEDS: metFORMIN XR 500 MG (GLUCOPHAGE XR) TAB PO SCH ×2 (06:15→17:32)
[2019-11-16] MEDS: lisINopril 5 MG (PRINIVIL) TABLET PO SCH (10:41)
[2019-11-16] MEDS: PANTOPRAZOLE 40 MG (PROTONIX) TAB PO SCH (10:41)
[2019-11-16] MEDS: MULTIVIT W/MINERALS TAB (THERAGRAN M) PO SCH (10:41)
[2019-11-16] MEDS: TAMSULOSIN 0.4 MG (FLOMAX) CAP PO SCH (10:42)
[2019-11-16] MEDS: APIXABAN 5 MG (ELIQUIS) TABLET PO SCH ×2 (10:42→21:52)
[2019-11-16] MEDS: SENNA W/DOCUSATE (SENOKOT S) TABLET PO SCH ×2 (10:42→21:00)
[2019-11-16] MEDS: DOCUSATE SODIUM 100 MG (COLACE) CAP PO SCH ×2 (10:42→21:00)
[2019-11-16] MEDS: AMIODARONE 200 MG (CORDARONE) TAB PO SCH (10:43)
[2019-11-16] MEDS: polyethylene glycoL POWDER 17 GM (MIRALAX) PACK PO SCH ×2 (10:46→21:00)
--- NOTE | 2019-11-16 11:24 | PM&R Progress Note ---
Subjective HPI/CC On Admission Date Seen by Provider: Nov 16, 2019 Time Seen by Provider: 11:30 Subjective/Events-last exam Patient feels better today but a bit cranky and frustrated with his right sided weakness and without his and this continues to partially interfere with his recovery Eating well Sugars are labile but improved No pain is reported Walking well with platform walker and doing well with it No falls Talks about the fact he only receives 1 sausage per bfast every day and wants 2 and talks about this to everyone who treats him No falls reported Checked meds and labs Reviewed therapy notes Conferred with electric power line examiner of Systems Neurological: Weakness, Numbness, Incoordination Objective Exam Vital Signs Vital Signs Date Time Temp Pulse Resp B/P (MAP) Pulse Ox O2 Delivery O2 Flow Rate FiO2 11/16/19 09:00 Room Air 11/16/19 05:18 36.4 58 18 131/53 (79) 94 Capillary Refill : Less Than 3 Seconds General Appearance: No Apparent Distress, WD/WN HEENT: PERRL/EOMI, Normal ENT Inspection, Pharynx Normal Neck: Normal Inspection, Non Tender, Supple Respiratory: Lungs Clear, Normal Breath Sounds, No Accessory Muscle Use, No Respiratory Distress Cardiovascular: Regular Rate, Rhythm, No Edema, No Gallop, No Murmur, Normal Peripheral Pulses, Irregularly Irregular Gastrointestinal: Normal Bowel Sounds, No Organomegaly, No Pulsatile Mass, Non Tender, Soft Back: Normal Inspection, No CVA Tenderness, No Vertebral Tenderness Extremity: Normal Capillary Refill, Non Tender, No Calf Tenderness, No Pedal Edema Neurologic/Psychiatric: Alert, Oriented x3, Normal Mood/Affect, electrical unit rebuilder II-XII Norm as Tested, Abnormal Gait, Motor Weakness Skin: Normal Color, Warm/Dry Lymphatic: No Adenopathy Results/Procedures Lab Patient resulted labs reviewed. FIM Transfers Therapy Code Descriptions/Definitions Functional [place] Measure: 0=Not Assessed/NA 4=Minimal Assistance 1=Total Assistance 5=Supervision or Setup 2=Maximal Assistance 6=Modified [place] 3=Moderate Assistance 7=Complete IndependenceSCALE: Activities may be completed with or without assistive devices. 0-Fnhnfkhbhl-evsulrx completes the activity by him/herself with no assistance from a helper. 5-Set-up or Clean-up Assistance-helper sets up or cleans up; patient completes activity. [place] assists only prior to or following the activity. 4-Supervision or Touching Assistance-helper provides verbal cues and/or touching/steadying and/or contact guard assistance as patient completes activ ity. Assistance may be provided throughout the activity or intermittently. 3-Partial/Moderate Assistance-helper does LESS THAN HALF the effort. [place] lifts, holds or supports trunk or limbs, but provides less than half the effort. 2-Substantial/Maximal Assistance-helper does MORE THAN HALF the effort. [place] lifts or holds trunk or limbs and provides more than half the effort. 7-Xhrpfllnd-hfzdev does ALL the effort. Patient does none of the effort to complete the activity. Or, the assistance of 2 or more helpers is required for the patient to complete the activity. If activity was not attempted, code reason: 7-Patient Refused. 9-Not Applicable-not attempted and the patient did not perform the activity before the current illness, exacerbation or injury. 10-Not Attempted due to Environmental Limitations-(lack of equipment, weather restraints, etc.). 88-Not Attempted due to Medical Conditions or Safety Concerns. Roll Left to Right (QC): 3 Sit to Lying (QC): 3 Sit to Stand (QC): 4 Chair/Plo-cy-Jmlgr Xfer(QC): 3 Car Transfer (QC): 2 (max assist to transfer in/out of car) Gait Training Does the Patient Walk?: Yes Distance: 10' Walk 10 feet (QC): 4 Walk 50 ft with 2 Turns(QC): 4 Walk 150 ft (QC): 88 Walking 10ft/uneven surface-QC: 88 Gait Persons Needed: 1 Gait Assistive Device: Walker Platform Wheelchair Training Does the Pt Use a Wheelchair?: Yes Wheel 50 ft with 2 turns (QC): 4 Wheel 150 ft (QC): 4 Type of Wheelchair: Manual Stair Training 1 Step (curb) (QC): 88 4 Steps (QC): 88 12 Steps (QC): 88 Balance Picking up an Object (QC): 88 ADL-Treatment Eating (QC): 5 Oral Hygiene (QC): 7 Bathing Location: L Arm, R Arm, L Upper Leg, R Upper Leg, L Lower Leg (including foot), R Lower Leg (including foot), Chest, Abdomen, Buttocks, Perineal Area Shower/Bathe Self (QC): 7 Upper Body Dressing (QC): 4 Lower Body Dressing (QC): 2 On/Off Footwear (QC): 3 Toileting Hygiene (QC): 1 Toilet Transfer (QC): 1 Assessment/Plan Assessment and Plan Assess & Plan/Chief Complaint Assessment: CVA 10/28/19 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 Plan: IRF protocol BM regimen Fall risk Cardiology consultation appreciated Dr Wang consulted Increase PPI dose is working well Walking with platform working well for him Evaluate paranoia? (1) CVA (cerebral vascular accident) (2) Flaccid hemiplegia affecting dominant side (3) Diabetes (4) Hypertension (5) Hyperlipemia (6) On continuous oral anticoagulation (7) Atrial fibrillation (8) History of penile implant (9) History of colon cancer (10) Former smoker (11) Renal insufficiency (12) Constipation SCOTT BARBOSA DO Nov 16, 2019 11:24
--- NOTE | 2019-11-16 11:33 | Physical Therapy Daily Note ---
PT Daily Note-Current Subjective Pt laying Supine in bed upon arrival. Pt agrees to PT for walking. Mental Status Patient Orientation: Person, Confused, Place Transfers SCALE: Activities may be completed with or without assistive devices. 2-Owultcwwso-nwioolb completes the activity by him/herself with no assistance from a helper. 5-Set-up or Clean-up Assistance-helper sets up or cleans up; patient completes activity. [place] assists only prior to or following the activity. 4-Supervision or Touching Assistance-helper provides verbal cues and/or touching/steadying and/or contact guard assistance as patient completes activity. Assistance may be provided throughout the activity or intermittently. 3-Partial/Moderate Assistance-helper does LESS THAN HALF the effort. [place] lift s, holds or supports trunk or limbs, but provides less than half the effort. 2-Substantial/Maximal Assistance-helper does MORE THAN HALF the effort. [place] lifts or holds trunk or limbs and provides more than half the effort. 0-Ostkjzror-eekuwi does ALL the effort. Patient does none of the effort to complete the activity. Or, the assistance of 2 or more helpers is required for the patient to complete the activity. If activity was not attempted, code reason: 7-Patient Refused. 9-Not Applicable-not attempted and the patient did not perform the activity before the current illness, exacerbation or injury. 10-Not Attempted due to Environmental Limitations-(lack of equipment, weather restraints, etc.). 88-Not Attempted due to Medical Conditions or Safety Concerns. Sit to Lying (QC): 4 Lying to Sitting/Side of Bed(Q: 3 Sit to Stand (QC): 4 Weight Bearing Right Lower Extremity: Right Full Weight Bearing Left Lower Extremity: Left Full Weight Bearing Gait Training Does the Patient Walk?: Yes Distance: 100' x2 Walk 10 feet (QC): 3 Walk 50 ft with 2 Turns(QC): 3 Gait Persons Needed: 1 Gait Assistive Device: Walker Platform Wheelchair Training Does the Pt Use a Wheelchair?: Yes Wheel 50 ft with 2 turns (QC): 5 Type of Wheelchair: Manual Treatments REVIEW RN assists pt with dressing then transfers from EOB to Standing. Pt ambulates in hallway with WCH following. Pt propels WCH back to room. Pt resting in WCH in room at end of Rx with all needs met. Assessment Current Status: Good Progress Pt increases distance ambulated but needs VC for safety to slow down for better control. PT Short Term Goals Short Term Goals Time Frame: Nov 14, 2019 Roll Left & Right: 3 Sit to lyin Lying to sitting on side of be: 3 Sit to stand: 3 Chair/ond-me-gtkyo transfer: 3 Walk 10 feet: 2 Wheel 50ft w/2 turns: 4 Wheel 150 feet: 4 PT Snf Goals Snf Goals PT Snf Goals Time Frame: Nov 28, 2019 Roll Left & Right (QC): 6 Sit to Lying (QC): 6 Lying-Sitting on Side/Bed(QC): 6 Sit to Stand (QC): 6 Chair/Vzv-ty-Xrdqf Xfer(QC): 6 Toilet Transfer (QC): 6 Car Transfer (QC): 5 Does the Patient Walk: No and Walking Goal IS indicated Walk 10 feet (QC): 6 Walk 50ft with 2 Turns (QC): 6 Walk 150 ft (QC): 6 Walking 10ft on Uneven Surface: 5 1 Step (curb) (QC): 5 4 Steps (QC): 5 12 Steps (QC): 4 Picking up an Object (QC): 4 Wheel 50 feet with 2 turns (QC: 6 Type: Manual Wheel 150 feet: 6 Type: Manual PT Plan Problem List Problem List: Activity Tolerance, Functional Strength, Safety, Balance, Gait, Transfer Treatment/Plan Treatment Plan: Continue Plan of Care Treatment Plan: Bed Mobility, Education, Functional Activity Joey, Functional Strength, Group Therapy, Gait, Safety, Therapeutic Exercise, Transfers Treatment Duration: Nov 28, 2019 Frequency: At least 5 of 7 days/Wk (IRF) Estimated Hrs Per Day: 1.5 hours per day Patient and/or Family Agrees t: Yes Safety Risks/Education Patient Education: Gait Training, Transfer Techniques, Correct Positioning, Safety Issues Teaching Recipient: Patient Teaching Methods: Discussion Response to Teaching: Reinforcement Needed Time/GCodes Time In: 1035 Time Out: 1055 Total Billed Treatment Time: 20 Total Billed Treatment 1, GT (20m) JAIRO FINN PTA Nov 16, 2019 11:33
[2019-11-16 16:30] VITALS: BP 111/56
--- NOTE | 2019-11-16 16:53 | Cardiology Progress Note ---
Cardiology SOAP Progress Note Subjective: No cardiac complaints. Objective: I&O/Vital Signs 11/16/19 11/16/19 05:18 09:00 Temp 36.4 Pulse 58 Resp 18 B/P (MAP) 131/53 (79) Pulse Ox 94 O2 Delivery Room Air Room Air 11/16/19 00:00 Intake Total 600 ml Balance 600 ml Constitutional: AAO x 3, well-developed, well-nourished Respiratory: No accessory muscle use; other (good bilat air entry) Cardiovascular: regular rate-rhythm, S1 and S2, systolic murmur (soft QUINTON at card base) Gastrointestional: No tender; soft; No guarding, No rebound; audible bowel sounds Extremities: No clubbing, No cyanosis, No significant edema Neurologic/Psychiatric: other (R-sided weakness) Skin: normal color, warm/dry Results/Procedures: Labs Laboratory Tests 11/15/19 20:49: Glucometer 124H 11/16/19 04:49: Glucometer 154H 11/16/19 11:20: Glucometer 222H 11/16/19 16:29: Glucometer 236H A/P: Assessment/Dx: Status post CVA with R hemiparesis. Possible embolic event. Status post bradycardia, improved after stopping metoprolol Coronary artery disease, history of multiple intervention the past, had a CABG 3 done in 2017, has been doing well H/o PAF. OAC with apixaban Hypertension, however borderline blood pressure therefore certain medications were held. Blood pressure stable today. Hyperlipidemia, by history Diabetes mellitus, followed and managed by primary care physician Plan: Plan: * Continue current CV regimen * Monitor labs * Continue monitoring blood pressure. Thank you for your consultation. Please call me if you have any questions. Meaghan Thapa MD, FACP, FACC, FSCAI, FHRS, CCDS Interventional Cardiology Cardiac Electrophysiology Vascular Medicine and Endovascular Interventions Ryan THAPA MD Nov 16, 2019 16:53
[2019-11-16] MEDS: SIMvastatin 10 MG (ZOCOR) TAB PO SCH (17:32)
[2019-11-16 18:00] VITALS: BP 122/72
[2019-11-16] MEDS: ASPIRIN E.C. 81 MG (ECOTRIN) TAB PO SCH (21:52)
--- NOTE | 2019-11-16 22:30 | NUR ---
MUCH MORE PLEASANT TONIGHT COMPARED TO MONDAY. STILL VOICES UNHAPPINESS THAT CAN NOT BE HERE, BUT APPEARS MORE ACCEPTING OF IT. DENIES PAIN. FEELS IS HAVING CONTINUED PROGRESS IN RIGHT LEG AND ARM.
[2019-11-17] MEDS: inSUlin ASPART (NovoLOG) 1 UNIT/0.01 ML (CHARGE PER UNIT) SC SCH ×4 (05:51→21:30)
[2019-11-17 06:00] VITALS: BP 130/70
--- NOTE | 2019-11-17 06:00 | NUR ---
SLEPT WELL. AN UNEVENTFUL NIGHT.
[2019-11-17] MEDS: metFORMIN XR 500 MG (GLUCOPHAGE XR) TAB PO SCH ×2 (06:05→17:29)
[2019-11-17] MEDS: MULTIVIT W/MINERALS TAB (THERAGRAN M) PO SCH (10:45)
[2019-11-17] MEDS: polyethylene glycoL POWDER 17 GM (MIRALAX) PACK PO SCH ×2 (10:45→22:09)
[2019-11-17] MEDS: TAMSULOSIN 0.4 MG (FLOMAX) CAP PO SCH (10:45)
[2019-11-17] MEDS: PANTOPRAZOLE 40 MG (PROTONIX) TAB PO SCH (10:45)
[2019-11-17] MEDS: AMIODARONE 200 MG (CORDARONE) TAB PO SCH (10:45)
[2019-11-17] MEDS: APIXABAN 5 MG (ELIQUIS) TABLET PO SCH ×2 (10:45→21:30)
[2019-11-17] MEDS: lisINopril 5 MG (PRINIVIL) TABLET PO SCH (10:45)
[2019-11-17] MEDS: SENNA W/DOCUSATE (SENOKOT S) TABLET PO SCH ×2 (10:46→22:09)
[2019-11-17] MEDS: DOCUSATE SODIUM 100 MG (COLACE) CAP PO SCH ×2 (10:46→22:08)
--- NOTE | 2019-11-17 12:07 | PM&R Progress Note ---
Subjective HPI/CC On Admission Date Seen by Provider: Nov 17, 2019 Time Seen by Provider: 12:10 Subjective/Events-last exam Patient very difficult to manage by all providers Very cranky and angry Told me that I needed to leave and he didn't want to see me and was very angry and disrespectful to me No falls reported Checked meds and labs Reviewed therapy notes Conferred with helper/driver of Systems General: Fatigue Pulmonary: Dyspnea Objective Exam Vital Signs Vital Signs Date Time Temp Pulse Resp B/P (MAP) Pulse Ox O2 Delivery O2 Flow Rate FiO2 11/17/19 18:18 36.8 79 18 111/60 (77) 96 Room Air Capillary Refill : Less Than 3 Seconds General Appearance: No Apparent Distress, WD/WN HEENT: PERRL/EOMI, Normal ENT Inspection, Pharynx Normal Neck: Normal Inspection, Non Tender, Supple Respiratory: Lungs Clear, Normal Breath Sounds, No Accessory Muscle Use, No Respiratory Distress Cardiovascular: Regular Rate, Rhythm, No Edema, No Gallop, No Murmur, Normal Peripheral Pulses, Irregularly Irregular Gastrointestinal: Normal Bowel Sounds, No Organomegaly, No Pulsatile Mass, Non Tender, Soft Back: Normal Inspection, No CVA Tenderness, No Vertebral Tenderness Extremity: Normal Capillary Refill, Non Tender, No Calf Tenderness, No Pedal Edema Neurologic/Psychiatric: Alert, Oriented x3, Normal Mood/Affect, manager business II-XII Norm as Tested, Abnormal Gait, Motor Weakness Skin: Normal Color, Warm/Dry Lymphatic: No Adenopathy Results/Procedures Lab Patient resulted labs reviewed. FIM Transfers Therapy Code Descriptions/Definitions Functional [place] Measure: 0=Not Assessed/NA 4=Minimal Assistance 1=Total Assistance 5=Supervision or Setup 2=Maximal Assistance 6=Modified [place] 3=Moderate Assistance 7=Complete IndependenceSCALE: Activities may be completed with or without assistive devices. 9-Vfnfioekeo-ytncadr completes the activity by him/herself with no assistance from a helper. 5-Set-up or Clean-up Assistance-helper sets up or cleans up; patient completes activity. [place] assists only prior to or following the activity. 4-Supervision or Touching Assistance-helper provides verbal cues and/or touching/steadying and/or contact guard assistance as patient completes activity. Assistance may be provided throughout the activity or intermittently. 3-Partial/Moderate Assistance-helper does LESS THAN HALF the effort. [place] lifts, holds or supports trunk or limbs, but provides less than half the effort. 2-Substantial/Maximal Assistance-helper does MORE THAN HALF the effort. [place] lifts or holds trunk or limbs and provides more than half the effort. 5-Apoxjkojj-qrgtrc does ALL the effort. Patient does none of the effort to complete the activity. Or, the assistance of 2 or more helpers is required for the patient to complete the activity. If activity was not attempted, code reason: 7-Patient Refused. 9-Not Applicable-not attempted and the patient did not perform the activity before the current illness, exacerbation or injury. 10-Not Attempted due to Environmental Limitations-(lack of equipment, weather restraints, etc.). 88-Not Attempted due to Medical Conditions or Safety Concerns. Roll Left to Right (QC): 3 Sit to Lying (QC): 4 Sit to Stand (QC): 4 Chair/Rmu-gu-Mycir Xfer(QC): 3 Car Transfer (QC): 2 (max assist to transfer in/out of car) Gait Training Does the Patient Walk?: Yes Distance: 100' x2 Walk 10 feet (QC): 3 Walk 50 ft with 2 Turns(QC): 3 Walk 150 ft (QC): 88 Walking 10ft/uneven surface-QC: 88 Gait Persons Needed: 1 Gait Assistive Device: Walker Platform Wheelchair Training Does the Pt Use a Wheelchair?: Yes Wheel 50 ft with 2 turns (QC): 5 Wheel 150 ft (QC): 4 Type of Wheelchair: Manual Stair Training 1 Step (curb) (QC): 88 4 Steps (QC): 88 12 Steps (QC): 88 Balance Picking up an Object (QC): 88 ADL-Treatment Eating (QC): 5 Oral Hygiene (QC): 7 Bathing Location: L Arm, R Arm, L Upper Leg, R Upper Leg, L Lower Leg (including foot), R Lower Leg (including foot), Chest, Abdomen, Buttocks, Perineal Area Shower/Bathe Self (QC): 7 Upper Body Dressing (QC): 4 Lower Body Dressing (QC): 2 On/Off Footwear (QC): 3 Toileting Hygiene (QC): 1 Toilet Transfer (QC): 1 Assessment/Plan Assessment and Plan Assess & Plan/Chief Complaint Assessment: 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 Plan: IRF protocol BM regimen Fall risk Cardiology consultation appreciated Dr Wang consulted Increase PPI dose is working well Walking with platform working well for him Evaluate paranoia? (1) CVA (cerebral vascular accident) (2) Flaccid hemiplegia affecting dominant side (3) Diabetes (4) Hypertension (5) Hyperlipemia (6) On continuous oral anticoagulation (7) Atrial fibrillation (8) History of penile implant (9) History of colon cancer (10) Former smoker (11) Renal insufficiency (12) Constipation SCOTT BARBOSA DO Nov 17, 2019 12:07
--- NOTE | 2019-11-17 14:30 | Cardiology Progress Note ---
Cardiology SOAP Progress Note Subjective: No active cardiac complaints. Objective: I&O/Vital Signs 11/17/19 11/17/19 06:00 09:00 Temp 36.4 Pulse 58 Resp 16 B/P (MAP) 130/70 (90) Pulse Ox 96 O2 Delivery Room Air Room Air 11/17/19 00:00 Intake Total 1420 ml Output Total 375 ml Balance 1045 ml Constitutional: AAO x 3, well-developed, well-nourished Respiratory: No accessory muscle use; other (good bilat air entry) Cardiovascular: regular rate-rhythm, S1 and S2, systolic murmur (soft QUINTON at card base) Gastrointestional: No tender; soft; No guarding, No rebound; audible bowel s ounds Extremities: No clubbing, No cyanosis, No significant edema Neurologic/Psychiatric: other (R-sided weakness) Skin: normal color, warm/dry Results/Procedures: Labs Laboratory Tests 11/16/19 16:29: Glucometer 236H 11/16/19 20:42: Glucometer 142H 11/17/19 05:48: Glucometer 148H 11/17/19 11:03: Glucometer 300H A/P: Assessment/Dx: Status post CVA with R hemiparesis. Possible embolic event. Status post bradycardia, improved after stopping metoprolol Coronary artery disease, history of multiple intervention the past, had a CABG 3 done in 2017, has been doing well H/o PAF. OAC with apixaban Hypertension, however borderline blood pressure therefore certain medications were held. Blood pressure stable today. Hyperlipidemia, by history Diabetes mellitus, followed and managed by primary care physician Plan: Plan: * Continue current CV regimen * Monitor labs * Continue monitoring blood pressure. Thank you for your consultation. Please call me if you have any questions. Meaghan Thapa MD, FACP, FACC, FSCAI, FHRS, CCDS Interventional Cardiology Cardiac Electrophysiology Vascular Medicine and Endovascular Interventions Ryan THAPA MD Nov 17, 2019 14:30
[2019-11-17] MEDS: SIMvastatin 10 MG (ZOCOR) TAB PO SCH (18:17)
[2019-11-17 18:18] VITALS: BP 111/60
[2019-11-17] MEDS: ASPIRIN E.C. 81 MG (ECOTRIN) TAB PO SCH (21:32)
[2019-11-18 05:58] VITALS: BP 138/72
[2019-11-18] MEDS: metFORMIN XR 500 MG (GLUCOPHAGE XR) TAB PO SCH ×2 (06:49→18:27)
[2019-11-18] MEDS: inSUlin ASPART (NovoLOG) 1 UNIT/0.01 ML (CHARGE PER UNIT) SC SCH ×4 (07:42→21:28)
[2019-11-18 07:48] LABS: BASOPHILS # (AUTO) 0.1 10^3/uL (0.0-0.1); BASOPHILS % (AUTO) 1 % (0-10); EOSINOPHILS # (AUTO) 0.2 10^3/uL (0.0-0.3); EOSINOPHILS % (AUTO) 2 % (0-10); HEMATOCRIT 42 % (40-54); HEMOGLOBIN 13.9 G/DL (13.3-17.7); LYMPHOCYTES # (AUTO) 2.8 X 10^3 (1.0-4.0); LYMPHOCYTES % (AUTO) 28 % (12-44); MEAN CORPUSCULAR HEMOGLOBIN 32 PG (25-34); MEAN CORPUSCULAR HGB CONC 33 G/DL (32-36); MEAN CORPUSCULAR VOLUME 94 FL (80-99); MEAN PLATELET VOLUME 12.2 FL (7.4-10.4); MONOCYTES # (AUTO) 1.2 X 10^3 (0.0-1.0); MONOCYTES % (AUTO) 12 % (0-12); NEUTROPHILS # (AUTO) 5.9 X 10^3 (1.8-7.8); NEUTROPHILS % (AUTO) 58 % (42-75); PLATELET COUNT 239 10^3/uL (130-400); RED CELL DISTRIBUTION WIDTH 13.4 % (10.0-14.5); WHITE BLOOD COUNT 10.1 10^3/uL (4.3-11.0)
[2019-11-18 08:19] LABS: ALBUMIN 3.6 GM/DL (3.2-4.5); BILIRUBIN,TOTAL 0.4 MG/DL (0.1-1.0); CALCIUM 9.1 MG/DL (8.5-10.1); CREATININE SERUM 1.26 MG/DL (0.60-1.30); POTASSIUM 4.6 MMOL/L (3.6-5.0); TOTAL PROTEIN 6.1 GM/DL (6.4-8.2)
--- NOTE | 2019-11-18 09:07 | Physical Therapy Daily Note ---
PT Daily Note-Current Subjective Pt. initially agrees to Rx. Very worried about where his special made tshirts are. Pt. with previous right shoulder injury and disuse has tshirts with velcro seams for easy on etc. During Rx pt. states he "cant" try to walk with wider safer ILAN and "cant" make sure his right arm is off the platform before ploppin g into his w/c. Discussed safety and good habits Pain Location: No Pain Reported Mental Status Patient Orientation: Person, Place, Time, Situation Transfers SCALE: Activities may be completed with or without assistive devices. 9-Btefqiypvh-wysicto completes the activity by him/herself with no assistance from a helper. 5-Set-up or Clean-up Assistance-helper sets up or cleans up; patient completes activity. [place] assists only prior to or following the activity. 4-Supervision or Touching Assistance-helper provides verbal cues and/or touching/steadying and/or contact guard assistance as patient completes activity. Assistance may be provided throughout the activity or intermittently. 3-Partial/Moderate Assistance-helper does LESS THAN HALF the effort. [place] l ifts, holds or supports trunk or limbs, but provides less than half the effort. 2-Substantial/Maximal Assistance-helper does MORE THAN HALF the effort. [place] lifts or holds trunk or limbs and provides more than half the effort. 2-Dlvfzwiru-zcbzvt does ALL the effort. Patient does none of the effort to complete the activity. Or, the assistance of 2 or more helpers is required for t he patient to complete the activity. If activity was not attempted, code reason: 7-Patient Refused. 9-Not Applicable-not attempted and the patient did not perform the activity before the current illness, exacerbation or injury. 10-Not Attempted due to Environmental Limitations-(lack of equipment, weather restraints, etc.). 88-Not Attempted due to Medical Conditions or Safety Concerns. Roll Left & Right (QC): 6 Sit to Lying (QC): 4 Lying to Sitting/Side of Bed(Q: 4 (HOB up) Sit to Stand (QC): 4 Chair/Kbd-cz-Dpiry Xfer(QC): 4 Weight Bearing Right Lower Extremity: Right Full Weight Bearing Left Lower Extremity: Left Full Weight Bearing Gait Training Does the Patient Walk?: Yes Walk 10 feet (QC): 3 Walk 50 ft with 2 Turns(QC): 3 Gait Persons Needed: 1 (and w.c follow up) Wheelchair Training Does the Pt Use a Wheelchair?: Yes Wheel 50 ft with 2 turns (QC): 5 Type of Wheelchair: Manual slow, some reeducation about approach and position to align with target spot to TRF to Exercises Supine Ex: Bridging, Ankle pumps (right HC stretch), Quad Set, Rolling, Glut sets, Heel Slides (assist right), Short Arc Quads, Scooting, Straight leg raise (ssist right), Hip abd/add (assist right) NuStep Minutes: 10 NuStep Workload: 2 Treatments pt. needed assist to keep right knee hip aligned on nustep, 6 min using hands, 6 min no hands Assessment Current Status: Good Progress pt. resists following safety and good practice for gait and TRFs at times. will cont to encourage safe prudent functional mob PT Short Term Goals Short Term Goals Time Frame: Nov 14, 2019 Roll Left & Right: 3 Sit to lyin Lying to sitting on side of be: 3 Sit to stand: 3 Chair/jof-gk-rrqci transfer: 3 Walk 10 feet: 2 Wheel 50ft w/2 turns: 4 Wheel 150 feet: 4 PT Prison Goals [place] Maker Goals PT Prison Goals Time Frame: Nov 28, 2019 Roll Left & Right (QC): 6 Sit to Lying (QC): 6 Lying-Sitting on Side/Bed(QC): 6 Sit to Stand (QC): 6 Chair/Hdi-ge-Ntqic Xfer(QC): 6 Toilet Transfer (QC): 6 Car Transfer (QC): 5 Does the Patient Walk: No and Walking Goal IS indicated Walk 10 feet (QC): 6 Walk 50ft with 2 Turns (QC): 6 Walk 150 ft (QC): 6 Walking 10ft on Uneven Surface: 5 1 Step (curb) (QC): 5 4 Steps (QC): 5 12 Steps (QC): 4 Picking up an Object (QC): 4 Wheel 50 feet with 2 turns (QC: 6 Type: Manual Wheel 150 feet: 6 Type: Manual PT Plan Treatment/Plan Treatment Plan: Continue Plan of Care Treatment Plan: Bed Mobility, Education, Functional Activity Joey, Functional Strength, Group Therapy, Gait, Safety, Therapeutic Exercise, Transfers Treatment Duration: Nov 28, 2019 Frequency: At least 5 of 7 days/Wk (IRF) Estimated Hrs Per Day: 1.5 hours per day Patient and/or Family Agrees t: Yes Safety Risks/Education Patient Education: Gait Training, Transfer Techniques, Correct Positioning, W/C Management, Disease Process, Safety Issues Teaching Recipient: Patient Teaching Methods: Demonstration, Discussion Response to Teaching: Verbalize Understanding, Return Demonstration, Reinforcement Needed Time/GCodes Time In: 800 Time Out: 900 Total Billed Treatment Time: 60 Total Billed Treatment 1,GT25m,FA15m,EX20m ELISEO JONES GLUING MACHINE ADJUSTER Nov 18, 2019 09:07
--- NOTE | 2019-11-18 10:20 | PM&R Progress Note ---
Subjective HPI/CC On Admission Date Seen by Provider: Nov 18, 2019 Time Seen by Provider: 10:15 Subjective/Events-last exam Patient very difficult to manage by all providers at times Very cranky and angry but seems to be better today to me Told me yesterday that I needed to leave and he didn't want to see me and was very angry and disrespectful to me but he seems to me a bit nicer to me today No falls reported Checked meds and labs Reviewed therapy notes Conferred with nailing machine feeder of Systems Neurological: Weakness, Numbness, Incoordination Objective Exam Vital Signs Vital Signs Date Time Temp Pulse Resp B/P (MAP) Pulse Ox O2 Delivery O2 Flow Rate FiO2 11/18/19 16:30 36.3 67 16 121/73 (89) 96 Room Air Capillary Refill : Less Than 3 Seconds General Appearance: No Apparent Distress, WD/WN HEENT: PERRL/EOMI, Normal ENT Inspection, Pharynx Normal Neck: Normal Inspection, Non Tender, Supple Respiratory: Lungs Clear, Normal Breath Sounds, No Accessory Muscle Use, No Respiratory Distress Cardiovascular: Regular Rate, Rhythm, No Edema, No Gallop, No Murmur, Normal Peripheral Pulses, Irregularly Irregular Gastrointestinal: Normal Bowel Sounds, No Organomegaly, No Pulsatile Mass, Non Tender, Soft Back: Normal Inspection, No CVA Tenderness, No Vertebral Tenderness Extremity: Normal Capillary Refill, Non Tender, No Calf Tenderness, No Pedal Edema Neurologic/Psychiatric: Alert, Oriented x3, Normal Mood/Affect, hourly caregiver II-XII Norm as Tested, Abnormal Gait, Motor Weakness Skin: Normal Color, Warm/Dry Lymphatic: No Adenopathy Results/Procedures Lab Laboratory Tests 11/18/19 06:51 Patient resulted labs reviewed. FIM Transfers Therapy Code Descriptions/Definitions Functional [place] Measure: 0=Not Assessed/NA 4=Minimal Assistance 1=Total Assistance 5=Supervision or Setup 2=Maximal Assistance 6=Modified [place] 3=Moderate Assistance 7=Complete IndependenceSCALE: Activities may be completed with or without assistive devices. 1-Wjiejviucc-alcsoic completes the activity by him/herself with no assistance from a helper. 5-Set-up or Clean-up Assistance-helper sets up or cleans up; patient completes activity. [place] assists only prior to or following the activity. 4-Supervision or Touching Assistance-helper provides verbal cues and/or touching/steadying and/or contact guard assistance as patient completes activity. Assistance may be provided throughout the activity or intermittently. 3-Partial/Moderate Assistance-helper does LESS THAN HALF the effort. [place] lifts, holds or supports trunk or limbs, but provides less than half the effort. 2-Substantial/Maximal Assistance-helper does MORE THAN HALF the effort. [place] lifts or holds trunk or limbs and provides more than half the effort. 9-Baeqeyidf-kxtvep does ALL the effort. Patient does none of the effort to complete the activity. Or, the assistance of 2 or more helpers is required for the patient to complete the activity. If activity was not attempted, code reason: 7-Patient Refused. 9-Not Applicable-not attempted and the patient did not perform the activity before the current illness, exacerbation or injury. 10-Not Attempted due to Environmental Limitations-(lack of equipment, weather restraints, etc.). 88-Not Attempted due to Medical Conditions or Safety Concerns. Roll Left to Right (QC): 6 Sit to Lying (QC): 4 Sit to Stand (QC): 4 Chair/Fed-ms-Zzawu Xfer(QC): 4 Car Transfer (QC): 2 (max assist to transfer in/out of car) Gait Training Does the Patient Walk?: Yes Distance: 100' x2 Walk 10 feet (QC): 3 Walk 50 ft with 2 Turns(QC): 3 Walk 150 ft (QC): 88 Walking 10ft/uneven surface-QC: 88 Gait Persons Needed: 1 (and w.c follow up) Gait Assistive Device: Walker Platform Wheelchair Training Does the Pt Use a Wheelchair?: Yes Wheel 50 ft with 2 turns (QC): 5 Wheel 150 ft (QC): 4 Type of Wheelchair: Manual Stair Training 1 Step (curb) (QC): 88 4 Steps (QC): 88 12 Steps (QC): 88 Balance Picking up an Object (QC): 88 ADL-Treatment Eating (QC): 5 Oral Hygiene (QC): 7 Bathing Location: L Arm, R Arm, L Upper Leg, R Upper Leg, L Lower Leg (including foot), R Lower Leg (including foot), Chest, Abdomen, Buttocks, Perineal Area Shower/Bathe Self (QC): 7 Upper Body Dressing (QC): 4 Lower Body Dressing (QC): 2 On/Off Footwear (QC): 3 Toileting Hygiene (QC): 1 Toilet Transfer (QC): 1 Assessment/Plan Assessment and Plan Assess & Plan/Chief Complaint Assessment: CVA 10/28/19 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 Plan: IRF protocol BM regimen Fall risk Cardiology consultation appreciated Dr Wang consulted Increase PPI dose is working well Walking with platform working well for him (1) CVA (cerebral vascular accident) (2) Flaccid hemiplegia affecting dominant side (3) Diabetes (4) Hypertension (5) Hyperlipemia (6) On continuous oral anticoagulation (7) Atrial fibrillation (8) History of penile implant (9) History of colon cancer (10) Former smoker (11) Renal insufficiency (12) Constipation SCOTT BARBOSA DO Nov 18, 2019 10:20
[2019-11-18] MEDS: TAMSULOSIN 0.4 MG (FLOMAX) CAP PO SCH (11:19)
[2019-11-18] MEDS: DOCUSATE SODIUM 100 MG (COLACE) CAP PO SCH ×2 (11:20→21:31)
[2019-11-18] MEDS: SENNA W/DOCUSATE (SENOKOT S) TABLET PO SCH ×2 (11:20→21:31)
[2019-11-18] MEDS: AMIODARONE 200 MG (CORDARONE) TAB PO SCH (11:20)
[2019-11-18] MEDS: APIXABAN 5 MG (ELIQUIS) TABLET PO SCH ×2 (11:20→21:27)
[2019-11-18] MEDS: polyethylene glycoL POWDER 17 GM (MIRALAX) PACK PO SCH ×2 (11:20→21:31)
[2019-11-18] MEDS: lisINopril 5 MG (PRINIVIL) TABLET PO SCH (11:20)
[2019-11-18] MEDS: MULTIVIT W/MINERALS TAB (THERAGRAN M) PO SCH (11:20)
[2019-11-18] MEDS: PANTOPRAZOLE 40 MG (PROTONIX) TAB PO SCH (11:20)
--- NOTE | 2019-11-18 11:40 | Occupational Ther Daily Note ---
OT Current Status-Daily Note Subjective Pt alert, sitting in w/c. Pt agrees to therapy. No c/o pain at this time. Mental Status/Objective Patient Orientation: Person, Place, Time, Situation ADL-Treatment Pt declined shower or oral care at this time. Therapy Code Descriptions/Definitions Functional [place] Measure: 0=Not Assessed/NA 4=Minimal Assistance 1=Total Assistance 5=Supervision or Setup 2=Maximal Assistance 6=Modified [place] 3=Moderate Assistance 7=Complete IndependenceSCALE: Activities may be completed with or without assistive devices. 9-Kulrheonyh-llnmrtp completes the activity by him/herself with no assistance from a helper. 5-Set-up or Clean-up Assistance-helper sets up or cleans up; patient completes activity. [place] assists only prior to or following the activity. 4-Supervision or Touching Assistance-helper provides verbal cues and/or touching/steadying and/or contact guard assistance as patient completes activity. Assistance may be provided throughout the activity or intermittently. 3-Partial/Moderate Assistance-helper does LESS THAN HALF the effort. [place] lifts, holds or supports trunk or limbs, but provides less than half the effort. 2-Substantial/Maximal Assistance-helper does MORE THAN HALF the effort. [place] lifts or holds trunk or limbs and provides more than half the effort. 7-Gzfzjiusw-xbamnz does ALL the effort. Patient does none of the effort to complete the activity. Or, the assistance of 2 or more helpers is required for the patient to complete the activity. If activity was not attempted, code reason: 7-Patient Refused. 9-Not Applicable-not attempted and the patient did not perform the activity before the current illness, exacerbation or injury. 10-Not Attempted due to Environmental Limitations-(lack of equipment, weather restraints, etc.). 88-Not Attempted due to Medical Conditions or Safety Concerns. Other Treatment Pt completed arm bike to increase R UE AROM, strength and activity tolerance. Pt was able to sustain grasp with R hand for 5 min rotating forward then 5 min rotating backward. Working on finger and wrist flex/ext against gravity, 20x's. Pt completed 10 min with B UE arm pulleys. Pt working on SPT toward R side and L side. Mod A for R SPT, CGA for L SPT. Pt ambulated using platform walker to and from room. Pt takes increased time to complete tasks due to lengthy recovery period between each task. Pt lying in bed with call light/phone in reach after session. All needs met in room. OT Short Term Goals Short Term Goals Time Frame: Nov 15, 2019 Oral hygiene: 3 Toileting hygiene: 2 Shower/bathe self: 3 Upper body dressin Lower body dressin Putting on/taking off footwear: 3 OT Leg Man Goals Leg Man Goals Time Frame: Nov 29, 2019 Eating (QC): 6 Oral Hygiene (QC): 6 Toileting Hygiene (QC): 5 Shower/Bathe Self (QC): 4 Upper Body Dressing (QC): 5 Lower Body Dressing (QC): 5 On/Off Footwear (QC): 5 Additional Goals: 1-Demonstrate ADL Tasks, 2-Verbalize Understanding, 3- ImproveStrength/Joey 1=Demonstrate adherence to instructed precautions during ADL tasks. 2=Patient will verbalize/demonstrate understanding of assistive devices/modifications for ADL. 3=Patient will improve strength/tolerance for activity to enable patient to perform ADL's. OT Education/Plan Problem List/Assessment Assessment: Decreased Activ Tolerance, Decreased Safety Aware, Decreased UE Strength, Impaired Coordination, Impaired Funct Balance, Impaired Self-Care Skills, Restricted Funct UE ROM Discharge Recommendations Plan/Recommendations: Continue POC Treatment Plan/Plan of Care Patient would benefit from OT for education, treatment and training to promote independence in ADL's, mobility, safety and/or upper extremity function for ADL's. Plan of Care: ADL Retraining, Functional Mobility, Group Exercise/Act as Ind, UE Funct Exercise/Act, UE Neuromus Re-Ed/Coord Treatment Duration: Nov 29, 2019 Frequency: At least 5 of 7 days/Wk (IRF) Estimated Hrs Per Day: 1.5 hours per day Rehab Potential: Good Time/GCodes Start Time: 10:00 Stop Time: 11:15 Total Time Billed (hr/min): 75 Billed Treatment Time 1 visit-SANCHO 5 (75 min) KAREN MARQUES Nov 18, 2019 11:40
--- NOTE | 2019-11-18 12:40 | Speech Therapy Daily Note ---
Speech Daily Progress Note Subjective Date Seen by Provider: Nov 18, 2019 Time Seen by Provider: 00:30 Patient required encouragement to participate in therapy today. Objective The patient utilized compensatory strategies as trained at 85% with 20% verbal/visual cues. Assessment Assessment Current Status: Good Progress Treatment Plan Continue Plan of Care Speech Short Term Goals Short Term Goals Short Term Goals 1. Patient will complete memory tasks related to daily needs at 90% or greater with minimal cueing. 2. Patient will complete safety awareness tasks related to daily needs at 90% or greater with minimal cueing. 3. Patient will complete problem solving tasks related to daily needs at 90% or greater with minimal cueing. 4. Patient will complete word finding tasks related to daily needs at 90% or greater with minimal cueing. 5. Patient will tolerate least restrictive diet level without s/s of aspiration with 90% or greater. 6. Patient/caregiver will utilize compensatory strategies as trained with 90% or greater given minimal cues. Speech Repairer Evaporator Goals Repairer Evaporator Goals Patient will improve cognitive communication necessary for safety and daily living tasks with minimal assist. Patient will maintain adequate nutrition/hydration via safe effective swallow function. Speech-Plan Patient/Family Goals Patient/Family Goals: Patient plans on returning home where he lives with his . Treatment Plan Speech Therapy Treatment Plan: Continue Plan of Care Treatment Duration: Nov 08, 2019 Frequency: 5 times per week Estimated Hrs Per Day: .5 hour per day Rehab Potential: Good Barriers to Learning: Patient's recent CVA afffects Pt/Family Agrees to Plan: Yes Safety Risks/Education Teaching Recipient: Patient Teaching Methods: Demonstration, Discussion Response to Teaching: Verbalize Understanding, Return Demonstration Education Topics Provided: Continued safety of oral intake Time Speech Therapy Time In: 11:30 Speech Therapy Time Out: 12:00 Total Billed Time: 30 Billed Treatment Time 1, RAY Keller Nov 18, 2019 12:40
--- NOTE | 2019-11-18 13:09 | Physical Therapy Daily Note ---
PT Daily Note-Current Subjective C/o he is so tired and really wants a nap but agrees to do exercises in bed. Pain Location: No Pain Reported Mental Status Patient Orientation: Normal For Age Transfers SCALE: Activities may be completed with or without assistive devices. 5-Hhffxfbysm-limvjjx completes the activity by him/herself with no assistance from a helper. 5-Set-up or Clean-up Assistance-helper sets up or cleans up; patient completes activity. [place] assists only prior to or following the activity. 4-Supervision or Touching Assistance-helper provides verbal cues and/or touching/steadying and/or contact guard assistance as patient completes activity. Assistance may be provided throughout the activity or intermittently. 3-Partial/Moderate Assistance-helper does LESS THAN HALF the effort. [place] lifts, holds or supports trunk or limbs, but provides less than half the effort. 2-Substantial/Maximal Assistance-helper does MORE THAN HALF the effort. [place] lifts or holds trunk or limbs and provides more than half the effort. 0-Jbafbsdth-kkqnts does ALL the effort. Patient does none of the effort to com plete the activity. Or, the assistance of 2 or more helpers is required for the patient to complete the activity. If activity was not attempted, code reason: 7-Patient Refused. 9-Not Applicable-not attempted and the patient did not perform the activity before the current illness, exacerbation or injury. 10-Not Attempted due to Environmental Limitations-(lack of equipment, weather restraints, etc.). 88-Not Attempted due to Medical Conditions or Safety Concerns. rolling left and right multiple times indep with some cues, pushes self up in bed indep with bed flat Weight Bearing Right Lower Extremity: Right Full Weight Bearing Left Lower Extremity: Left Full Weight Bearing Exercises Supine Ex: Bridging, Ankle pumps (assist right), Quad Set, Rolling, Glut sets, Heel Slides, Short Arc Quads, Scooting, Straight leg raise (x10), Hip abd/add Supine Reps: 15 Treatments int rotation right hip with hold x 10 Assessment Current Status: Good Progress fatigued this PM PT Short Term Goals Short Term Goals Time Frame: Nov 14, 2019 Roll Left & Right: 3 Sit to lyin Lying to sitting on side of be: 3 Sit to stand: 3 Chair/sby-jc-arquy transfer: 3 Walk 10 feet: 2 Wheel 50ft w/2 turns: 4 Wheel 150 feet: 4 PT Aeronautics Commission Director Goals Custodial Goals PT Aeron[employer] Director Goals Time Frame: Nov 28, 2019 Roll Left & Right (QC): 6 Sit to Lying (QC): 6 Lying-Sitting on Side/Bed(QC): 6 Sit to Stand (QC): 6 Chair/Cir-au-Unvgu Xfer(QC): 6 Toilet Transfer (QC): 6 Car Transfer (QC): 5 Does the Patient Walk: No and Walking Goal IS indicated Walk 10 feet (QC): 6 Walk 50ft with 2 Turns (QC): 6 Walk 150 ft (QC): 6 Walking 10ft on Uneven Surface: 5 1 Step (curb) (QC): 5 4 Steps (QC): 5 12 Steps (QC): 4 Picking up an Object (QC): 4 Wheel 50 feet with 2 turns (QC: 6 Type: Manual Wheel 150 feet: 6 Type: Manual PT Plan Treatment/Plan Treatment Plan: Continue Plan of Care Treatment Plan: Bed Mobility, Education, Functional Activity Joey, Functional Strength, Group Therapy, Gait, Safety, Therapeutic Exercise, Transfers Treatment Duration: Nov 28, 2019 Frequency: At least 5 of 7 days/Wk (IRF) Estimated Hrs Per Day: 1.5 hours per day Patient and/or Family Agrees t: Yes Safety Risks/Education Patient Education: Issued Written HEP, Correct Positioning, Disease Process, Safety Issues Teaching Recipient: Patient Teaching Methods: Demonstration, Discussion Response to Teaching: Verbalize Understanding, Return Demonstration, Reinforcement Needed Time/GCodes Time In: 1255 Time Out: 1310 Total Billed Treatment Time: 15 Total Billed Treatment 1,EX15m ELISEO JONES TRACKMOBILE OPERATOR Nov 18, 2019 13:08
[2019-11-18 16:30] VITALS: BP 121/73
--- NOTE | 2019-11-18 17:44 | Cardiology Progress Note ---
Cardiology SOAP Progress Note Subjective: No cardiac complaints. Objective: I&O/Vital Signs 11/18/19 11/18/19 05:58 08:20 Temp 36.6 Pulse 72 Resp 18 B/P (MAP) 138/72 (94) Pulse Ox 97 O2 Delivery Room Air Room Air 11/18/19 00:00 Intake Total 780 ml Output Total 350 ml Balance 430 ml Constitutional: AAO x 3, well-developed, well-nourished Respiratory: No accessory muscle use; other (good bilat air entry) Cardiovascular: regular rate-rhythm, S1 and S2, systolic murmur (soft QUINTON at card base) Gastrointestional: No tender; soft; No guarding, No rebound; audible bowel sounds Extremities: No clubbing, No cyanosis, No significant edema Neurologic/Psychiatric: other (R-sided weakness) Skin: normal color, warm/dry Results/Procedures: Labs Laboratory Tests 11/17/19 20:28: Glucometer 255H 11/18/19 06:51: White Blood Count 10.1, Red Blood Count 4.41, Hemoglobin 13.9, Hematocrit 42, Mean Corpuscular Volume 94, Mean Corpuscular Hemoglobin 32, Mean Corpuscular Hemoglobin Concent 33, Red Cell Distribution Width 13.4, Platelet Count 239, Mean Platelet Volume 12.2H, Neutrophils (%) (Auto) 58, Lymphocytes (%) (Auto) 28, Monocytes (%) (Auto) 12, Eosinophils (%) (Auto) 2, Basophils (%) (Auto) 1, Neutrophils # (Auto) 5.9, Lymphocytes # (Auto) 2.8, Monocytes # (Auto) 1.2H, Eosinophils # (Auto) 0.2, Basophils # (Auto) 0.1, Sodium Level 135, Potassium Level 4.6, Chloride Level 101, Carbon Dioxide Level 24, Anion Gap 10, Blood Urea Nitrogen 25H, Creatinine 1.26, Estimat Glomerular Filtration Rate 55, BUN/Creatinine Ratio 20, Glucose Level 173H, Calcium Level 9.1, Corrected Calcium 9.4, Total Bilirubin 0.4, Aspartate Amino Transf (AST/SGOT) 19, Alanine Aminotransferase (ALT/SGPT) 16, Alkaline Phosphatase 91, Total Protein 6.1L, Albumin 3.6 11/18/19 07:37: Glucometer 212H 3/30/20 11:18: Glucometer 239H 11/18/19 16:36: Glucometer 185H A/P: Assessment/Dx: Status post CVA with R hemiparesis. Possible embolic event. Status post bradycardia, improved after stopping metoprolol Coronary artery disease, history of multiple intervention the past, had a CABG 3 done in 2017, has been doing well H/o PAF. OAC with apixaban Hypertension, however borderline blood pressure therefore certain medications were held. Blood pressure stable today. Hyperlipidemia, by history Diabetes mellitus, followed and managed by primary care physician Plan: Plan: * Continue current CV regimen * Monitor labs * Continue monitoring blood pressure. Thank you for your consultation. Please call me if you have any questions. Meaghan Thapa MD, FACP, FACC, FSCAI, FHRS, CCDS Interventional Cardiology Cardiac Electrophysiology Vascular Medicine and Endovascular Interventions Ryan THAPA MD Nov 18, 2019 17:44
[2019-11-18] MEDS: SIMvastatin 10 MG (ZOCOR) TAB PO SCH (18:27)
--- NOTE | 2019-11-18 19:23 | NUR ---
bedside report received from [facility], assume care of pt
[2019-11-18] MEDS: ASPIRIN E.C. 81 MG (ECOTRIN) TAB PO SCH (21:27)
[2019-11-18] MEDS: ACETAMINOPHEN 325 MG TABLET PO PRN (21:27)
--- NOTE | 2019-11-18 21:27 | NUR ---
pt refused Colace, Senokot & miralax, fsbs 251, NovoLog 8 units given, c/o headache, pain level 4/10 on numeric scale, Tylenol 650mg given
--- NOTE | 2019-11-18 22:20 | NUR ---
resting quietly in bed, pain level 0/10 on CNPI SCALE
[2019-11-19 06:00] VITALS: BP 127/59
[2019-11-19] MEDS: inSUlin ASPART (NovoLOG) 1 UNIT/0.01 ML (CHARGE PER UNIT) SC SCH ×4 (06:00→21:59)
[2019-11-19] MEDS: metFORMIN XR 500 MG (GLUCOPHAGE XR) TAB PO SCH ×2 (07:54→17:00)
[2019-11-19] MEDS: TAMSULOSIN 0.4 MG (FLOMAX) CAP PO SCH (08:17)
[2019-11-19] MEDS: lisINopril 5 MG (PRINIVIL) TABLET PO SCH (08:18)
[2019-11-19] MEDS: AMIODARONE 200 MG (CORDARONE) TAB PO SCH (08:18)
[2019-11-19] MEDS: PANTOPRAZOLE 40 MG (PROTONIX) TAB PO SCH (08:18)
[2019-11-19] MEDS: MULTIVIT W/MINERALS TAB (THERAGRAN M) PO SCH (08:18)
[2019-11-19] MEDS: APIXABAN 5 MG (ELIQUIS) TABLET PO SCH ×2 (08:18→21:59)
[2019-11-19] MEDS: DOCUSATE SODIUM 100 MG (COLACE) CAP PO SCH ×2 (08:19→21:58)
[2019-11-19] MEDS: polyethylene glycoL POWDER 17 GM (MIRALAX) PACK PO SCH ×2 (08:19→21:58)
[2019-11-19] MEDS: SENNA W/DOCUSATE (SENOKOT S) TABLET PO SCH ×2 (08:19→22:05)
[2019-11-19 08:20] VITALS: BP 134/68
--- NOTE | 2019-11-19 10:32 | Occupational Ther Daily Note ---
OT Current Status-Daily Note Subjective Pt in bed, agrees to therapy. No c/o pain. ADL-Treatment Pt declined shower, but agrees to sponge bath this am. Supine to sit with SBA. Pt transferred to w/c with CGA to left side. Pt completed sponge bath while seated at sink. Upper body bathing completed with SBA and increased time. Pt able to wash bilateral upper legs, but requires assist for lower legs/feet and buttocks. Don pullover shirt with SBA and skilled cues. Pt states he is unable to complete task, but with encouragement and increased time pt dons shirt. Pt requires assist to thread right LE into underwear and pants, is able to thread left LE. Sit to stand with CGA. Pt able to pull pants up over left hip, but requires assist with right. Pt dons left sock/shoe, requires assist with right. Pt shaved with electric razor with set up and increased time using left UE. Pt requires occasional rest breaks throughout session, increased time for functional tasks. Pt sitting in w/c with needs met after session. Therapy Code Descriptions/Definitions Functional [place] Measure: 0=Not Assessed/NA 4=Minimal Assistance 1=Total Assistance 5=Supervision or Setup 2=Maximal Assistance 6=Modified [place] 3=Moderate Assistance 7=Complete IndependenceSCALE: Activities may be completed with or without assistive devices. 8-Gslzamiaou-xjwwokp completes the activity by him/herself with no assistance from a helper. 5-Set-up or Clean-up Assistance-helper sets up or cleans up; patient completes activity. [place] assists only prior to or following the activity. 4-Supervision or Touching Assistance-helper provides verbal cues and/or touching/steadying and/or contact guard assistance as patient completes activity. Assistance may be provided throughout the activity or intermittently. 3-Partial/Moderate Assistance-helper does LESS THAN HALF the effort. [place] lifts, holds or supports trunk or limbs, but provides less than half the effort. 2-Substantial/Maximal Assistance-helper does MORE THAN HALF the effort. [place] lifts or holds trunk or limbs and provides more than half the effort. 5-Rnrtsnzns-yifvhk does ALL the effort. Patient does none of the effort to complete the activity. Or, the assistance of 2 or more helpers is required for the patient to complete the activity. If activity was not attempted, code reason: 7-Patient Refused. 9-Not Applicable-not attempted and the patient did not perform the activity before the current illness, exacerbation or injury. 10-Not Attempted due to Environmental Limitations-(lack of equipment, weather restraints, etc.). 88-Not Attempted due to Medical Conditions or Safety Concerns. Shower/Bathe Self (QC): 3 Upper Body Dressing (QC): 4 Lower Body Dressing (QC): 2 OT Short Term Goals Short Term Goals Time Frame: Nov 15, 2019 Oral hygiene: 3 Toileting hygiene: 2 Shower/bathe self: 3 Upper body dressin Lower body dressin Putting on/taking off footwear: 3 OT Physician Assistant Goals Residential Goals Time Frame: Nov 29, 2019 Eating (QC): 6 Oral Hygiene (QC): 6 Toileting Hygiene (QC): 5 Shower/Bathe Self (QC): 4 Upper Body Dressing (QC): 5 Lower Body Dressing (QC): 5 On/Off Footwear (QC): 5 Additional Goals: 1-Demonstrate ADL Tasks, 2-Verbalize Understanding, 3- ImproveStrength/Joey 1=Demonstrate adherence to instructed precautions during ADL tasks. 2=Patient will verbalize/demonstrate understanding of assistive devices/modifications for ADL. 3=Patient will improve strength/tolerance for activity to enable patient to perform ADL's. OT Education/Plan Discharge Recommendations Plan/Recommendations: Continue POC Treatment Plan/Plan of Care Patient would benefit from OT for education, treatment and training to promote independence in ADL's, mobility, safety and/or upper extremity function for ADL's. Plan of Care: ADL Retraining, Functional Mobility, Group Exercise/Act as Ind, UE Funct Exercise/Act, UE Neuromus Re-Ed/Coord Treatment Duration: Nov 29, 2019 Frequency: At least 5 of 7 days/Wk (IRF) Estimated Hrs Per Day: 1.5 hours per day Rehab Potential: Good Time/GCodes Start Time: 08:00 Stop Time: 09:00 Total Time Billed (hr/min): 60 Billed Treatment Time 1 visit, ADLx4(60minutes) JALIL MERCEDES OT Nov 19, 2019 10:32
--- NOTE | 2019-11-19 10:33 | PM&R Progress Note ---
Subjective HPI/CC On Admission Date Seen by Provider: Nov 19, 2019 Time Seen by Provider: 10:30 Subjective/Events-last exam Patient seems to be less angry today Misses his Tomorrow's team meeting will help decide if he can go home or not BM regular No dysphagia No falls reported Checked meds and labs Reviewed therapy notes Conferred with manager merchandise of Systems General: Fatigue Objective Exam Vital Signs Vital Signs Date Time Temp Pulse Resp B/P (MAP) Pulse Ox O2 Delivery O2 Flow Rate FiO2 11/19/19 09:35 Room Air 11/19/19 08:20 67 134/68 (90) 11/19/19 06:00 36.4 18 96 Capillary Refill : Less Than 3 Seconds General Appearance: No Apparent Distress, WD/WN HEENT: PERRL/EOMI, Normal ENT Inspection, Pharynx Normal Neck: Normal Inspection, Non Tender, Supple Respiratory: Lungs Clear, Normal Breath Sounds, No Accessory Muscle Use, No Respiratory Distress Cardiovascular: Regular Rate, Rhythm, No Edema, No Gallop, No Murmur, Normal Peripheral Pulses, Irregularly Irregular Gastrointestinal: Normal Bowel Sounds, No Organomegaly, No Pulsatile Mass, Non Tender, Soft Back: Normal Inspection, No CVA Tenderness, No Vertebral Tenderness Extremity: Normal Capillary Refill, Non Tender, No Calf Tenderness, No Pedal Edema Neurologic/Psychiatric: Alert, Oriented x3, Normal Mood/Affect, welfare administrator II-XII Norm as Tested, Abnormal Gait, Motor Weakness Skin: Normal Color, Warm/Dry Lymphatic: No Adenopathy Results/Procedures Lab Patient resulted labs reviewed. FIM Transfers Therapy Code Descriptions/Definitions Functional [place] Measure: 0=Not Assessed/NA 4=Minimal Assistance 1=Total Assistance 5=Supervision or Setup 2=Maximal Assistance 6=Modified [place] 3=Moderate Assistance 7=Complete IndependenceSCALE: Activities may be completed with or without assistive devices. 5-Vhbclfhymr-bulqtpk completes the activity by him/herself with no assistance from a helper. 5-Set-up or Clean-up Assistance-helper sets up or cleans up; patient completes activity. [place] assists only prior to or following the activity. 4-Supervision or Touching Assistance-helper provides verbal cues and/or touching/steadying and/or contact guard assistance as patient completes activity. Assistance may be provided throughout the activity or intermittently. 3-Partial/Moderate Assistance-helper does LESS THAN HALF the effort. [place] lifts, holds or supports trunk or limbs, but provides less than half the effort. 2-Substantial/Maximal Assistance-helper does MORE THAN HALF the effort. [place] lifts or holds trunk or limbs and provides more than half the effort. 1-Nurnmpazk-youocx does ALL the effort. Patient does none of the effort to complete the activity. Or, the assistance of 2 or more helpers is required for the patient to complete the activity. If activity was not attempted, code reason: 7-Patient Refused. 9-Not Applicable-not attempted and the patient did not perform the activity before the current illness, exacerbation or injury. 10-Not Attempted due to Environmental Limitations-(lack of equipment, weather restraints, etc.). 88-Not Attempted due to Medical Conditions or Safety Concerns. Roll Left to Right (QC): 6 Sit to Lying (QC): 4 Sit to Stand (QC): 4 Chair/Rsy-fe-Gahjt Xfer(QC): 4 Car Transfer (QC): 2 (max assist to transfer in/out of car) Gait Training Does the Patient Walk?: Yes Distance: 100' x2 Walk 10 feet (QC): 3 Walk 50 ft with 2 Turns(QC): 3 Walk 150 ft (QC): 88 Walking 10ft/uneven surface-QC: 88 Gait Persons Needed: 1 (and w.c follow up) Gait Assistive Device: Walker Platform Wheelchair Training Does the Pt Use a Wheelchair?: Yes Wheel 50 ft with 2 turns (QC): 5 Wheel 150 ft (QC): 4 Type of Wheelchair: Manual Stair Training 1 Step (curb) (QC): 88 4 Steps (QC): 88 12 Steps (QC): 88 Balance Picking up an Object (QC): 88 ADL-Treatment Eating (QC): 5 Oral Hygiene (QC): 7 Bathing Location: L Arm, R Arm, L Upper Leg, R Upper Leg, L Lower Leg (including foot), R Lower Leg (including foot), Chest, Abdomen, Buttocks, Perineal Area Shower/Bathe Self (QC): 7 Upper Body Dressing (QC): 4 Lower Body Dressing (QC): 2 On/Off Footwear (QC): 3 Toileting Hygiene (QC): 1 Toilet Transfer (QC): 1 Assessment/Plan Assessment and Plan Assess & Plan/Chief Complaint Assessment: 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 HTN HLP CRI AF ED Acute constipation initiated aggressive meds now resolved Dysphagia needs EGD and dilation but cannot go off OAC due to too high of risk for recurrent CVA Plan: IRF protocol BM regimen Fall risk Cardiology consultation appreciated Dr Wang consulted and is appreciated Increase PPI dose is working well Walking with platform working well for him Dispo discussion in team meeting tomorrow (1) CVA (cerebral vascular accident) (2) Flaccid hemiplegia affecting dominant side (3) Diabetes (4) Hypertension (5) Hyperlipemia (6) On continuous oral anticoagulation (7) Atrial fibrillation (8) History of penile implant (9) History of colon cancer (10) Former smoker (11) Renal insufficiency (12) Constipation SCOTT BARBOSA DO Nov 19, 2019 10:33
--- NOTE | 2019-11-19 10:40 | Physical Therapy Daily Note ---
PT Daily Note-Current Subjective Patient in WC at bedside pre tx, agrees to PT, no complaints of pain. Appearance Patient in WC at bedside post tx, has nurse call, tray, all needs met. Mental Status Patient Orientation: Person, Place, Situation Transfers SCALE: Activities may be completed with or without assistive devices. 0-Wjoxxulpyd-rpebten completes the activity by him/herself with no assistance from a helper. 5-Set-up or Clean-up Assistance-helper sets up or cleans up; patient completes activity. [place] assists only prior to or following the activity. 4-Supervision or Touching Assistance-helper provides verbal cues and/or touc carlito/steadying and/or contact guard assistance as patient completes activity. Assistance may be provided throughout the activity or intermittently. 3-Partial/Moderate Assistance-helper does LESS THAN HALF the effort. [place] lifts, holds or supports trunk or limbs, but provides less than half the effort. 2-Substantial/Maximal Assistance-helper does MORE THAN HALF the effort. [place] lifts or holds trunk or limbs and provides more than half the effort. 6-Yoxetdald-estxrn does ALL the effort. Patient does none of the effort to complete the activity. Or, the assistance of 2 or more helpers is required for the patient to complete the activity. If activity was not attempted, code reason: 7-Patient Refused. 9-Not Applicable-not attempted and the patient did not perform the activity before the current illness, exacerbation or injury. 10-Not Attempted due to Environmental Limitations-(lack of equipment, weather restraints, etc.). 88-Not Attempted due to Medical Conditions or Safety Concerns. Sit to Stand (QC): 4 Chair/Xan-rg-Hilop Xfer(QC): 4 CGA, occasional cues for positioning, has difficulty remembering to let go of platform walker with right hand before sitting Weight Bearing Right Lower Extremity: Right Full Weight Bearing Left Lower Extremity: Left Full Weight Bearing Gait Training Distance: 150', 120'x2 Walk 10 feet (QC): 4 Walk 50 ft with 2 Turns(QC): 4 Walk 150 ft (QC): 4 Gait Persons Needed: 1 Gait Assistive Device: Walker Platform CGA, moments of unsteadiness but no assist needed to recover, patient recovered himself, sometimes difficulty advancing his right leg but can do it with position adjusting. Exercises Standing: Hip Abduction, Heel/toe raises, Marching, Mini squats Standing Reps: 15 LAQ alternating for 5 min NuStep Minutes: 15 NuStep Workload: 4 Treatments transfers, ambulation, LE exercise Assessment Current Status: Fair Progress improving advancing his right leg PT Short Term Goals Short Term Goals Time Frame: Nov 14, 2019 Roll Left & Right: 3 Sit to lyin Lying to sitting on side of be: 3 Sit to stand: 3 Chair/ibp-gj-pnkhn transfer: 3 Walk 10 feet: 2 Wheel 50ft w/2 turns: 4 Wheel 150 feet: 4 PT Education Rep Goals Education Rep Goals PT Education Rep Goals Time Frame: Nov 28, 2019 Roll Left & Right (QC): 6 Sit to Lying (QC): 6 Lying-Sitting on Side/Bed(QC): 6 Sit to Stand (QC): 6 Chair/Rwh-uo-Riird Xfer(QC): 6 Toilet Transfer (QC): 6 Car Transfer (QC): 5 Does the Patient Walk: No and Walking Goal IS indicated Walk 10 feet (QC): 6 Walk 50ft with 2 Turns (QC): 6 Walk 150 ft (QC): 6 Walking 10ft on Uneven Surface: 5 1 Step (curb) (QC): 5 4 Steps (QC): 5 12 Steps (QC): 4 Picking up an Object (QC): 4 Wheel 50 feet with 2 turns (QC: 6 Type: Manual Wheel 150 feet: 6 Type: Manual PT Plan Problem List Problem List: Activity Tolerance, Functional Strength, Safety, Balance, Gait, Transfer, Bed Mobility, ROM Treatment/Plan Treatment Plan: Continue Plan of Care Treatment Plan: Bed Mobility, Education, Functional Activity Joey, Functional Strength, Group Therapy, Gait, Safety, Therapeutic Exercise, Transfers Treatment Duration: Nov 28, 2019 Frequency: At least 5 of 7 days/Wk (IRF) Estimated Hrs Per Day: 1.5 hours per day Patient and/or Family Agrees t: Yes Safety Risks/Education Patient Education: Gait Training, Transfer Techniques, Correct Positioning, Safety Issues Teaching Recipient: Patient Teaching Methods: Demonstration, Discussion Response to Teaching: Reinforcement Needed Time/GCodes Time In: 0930 Time Out: 1030 Total Billed Treatment Time: 60 Total Billed Treatment 1 visit EX 30' GT 30' ELZA WEN PT Nov 19, 2019 10:40
--- NOTE | 2019-11-19 11:31 | Occupational Ther Daily Note ---
OT Current Status-Daily Note Subjective Pt sitting in w/c, agrees to therapy. No c/o pain. ADL-Treatment Therapy Code Descriptions/Definitions Functional [place] Measure: 0=Not Assessed/NA 4=Minimal Assistance 1=Total Assistance 5=Supervision or Setup 2=Maximal Assistance 6=Modified [place] 3=Moderate Assistance 7=Complete IndependenceSCALE: Activities may be completed with or without assistive devices. 5-Bpytnavozg-yyjbzwp completes the activity by him/herself with no assistance from a helper. 5-Set-up or Clean-up Assistance-helper sets up or cleans up; patient completes activity. [place] assists only prior to or following the activity. 4-Supervision or Touching Assistance-helper provides verbal cues and/or touching/steadying and/or contact guard assistance as patient completes activity. Assistance may be provided throughout the activity or intermittently. 3-Partial/Moderate Assistance-helper does LESS THAN HALF the effort. [place] lifts, holds or supports trunk or limbs, but provides less than half the effort. 2-Substantial/Maximal Assistance-helper does MORE THAN HALF the effort. [place] lifts or holds trunk or limbs and provides more than half the effort. 2-Jgwvipzpn-fershl does ALL the effort. Patient does none of the effort to complete the activity. Or, the assistance of 2 or more helpers is required for the patient to complete the activity. If activity was not attempted, code reason: 7-Patient Refused. 9-Not Applicable-not attempted and the patient did not perform the activity before the current illness, exacerbation or injury. 10-Not Attempted due to Environmental Limitations-(lack of equipment, weather restraints, etc.). 88-Not Attempted due to Medical Conditions or Safety Concerns. Other Treatment Pt completed A/AAROM of right UE at all joints x10 reps to increase ROM and strength. Pt fatigues quickly with activity and requires rest breaks between exercises. Pt completed right UE activity to promote reaching, crossing midline, and grasp/ release. Pt able to stack five large cones x2 trials with right UE with increased time and effort. Pt sitting in w/c with needs met after session. OT Short Term Goals Short Term Goals Time Frame: Nov 15, 2019 Oral hygiene: 3 Toileting hygiene: 2 Shower/bathe self: 3 Upper body dressin Lower body dressin Putting on/taking off footwear: 3 OT Fci Goals Landscape Artist Goals Time Frame: Nov 29, 2019 Eating (QC): 6 Oral Hygiene (QC): 6 Toileting Hygiene (QC): 5 Shower/Bathe Self (QC): 4 Upper Body Dressing (QC): 5 Lower Body Dressing (QC): 5 On/Off Footwear (QC): 5 Additional Goals: 1-Demonstrate ADL Tasks, 2-Verbalize Understanding, 3- ImproveStrength/Joey 1=Demonstrate adherence to instructed precautions during ADL tasks. 2=Patient will verbalize/demonstrate understanding of assistive devices/modifications for ADL. 3=Patient will improve strength/tolerance for activity to enable patient to perform ADL's. OT Education/Plan Discharge Recommendations Plan/Recommendations: Continue POC Treatment Plan/Plan of Care Patient would benefit from OT for education, treatment and training to promote independence in ADL's, mobility, safety and/or upper extremity function for ADL's. Plan of Care: ADL Retraining, Functional Mobility, Group Exercise/Act as Ind, UE Funct Exercise/Act, UE Neuromus Re-Ed/Coord Treatment Duration: Nov 29, 2019 Frequency: At least 5 of 7 days/Wk (IRF) Estimated Hrs Per Day: 1.5 hours per day Rehab Potential: Good Time/GCodes Start Time: 11:00 Stop Time: 11:20 Total Time Billed (hr/min): 20 Billed Treatment Time 1 visit, SANCHO(20minutes) JALIL MERCEDES OT Nov 19, 2019 11:31
--- NOTE | 2019-11-19 12:52 | NUR ---
CM/SS CONCURRENT DOCUMENTATION Patient had reportedly been grouchy and short with staff at times, met with him yesterday afternoon to explore. Patient shared openly specific issues that were bringing on annoying feelings. It goes without saying that he misses his and his home tremendously, she can no longer visit because of Covid19 pandemic mandates. They do visit by phone frequently. This is the time of year that they worked outside together which she is doing alone in his absence. While this is hard for him he does understand and appreciate the reasoning for no visitors. Patient does not appreciate being interrupted during his meal time for routine vitals or Rx. He said that in bed with his tray close and only his left hand useful, staff inevitably come to take his BP. He asked that they come back when he is done eating. Patient is not sleeping well at night, he has experienced nightmares and just a few hours of sleep and then awake cycles. He has asked that when he is on his free time from therapy, if he is asleep please let him sleep unless something is very important. He desires a calm and quiet room, that staff do not mays in and talk loud to him startling him from sleep. Patient is having some struggles with foods, he is wanting to have choices at times and doesn't know how to manage that. Updated Unit RN and dietary. Purchasing Analyst created a "patient message" for his door, patient read and approved. It simply asks for acknowledgement and courtesy about the above frustrations. Patient goal continues to be to return home. He said that when he is able to walk better, then he will feel that HE is better. Therapy notes reflect improvement. Spouse will need to be able to participate in care education regarding his return home.
--- NOTE | 2019-11-19 12:57 | Speech Therapy Daily Note ---
Speech Daily Progress Note Subjective Date Seen by Provider: Nov 19, 2019 Time Seen by Provider: 00:30 Patient was just served his noon meal when I entered his room. Objective Patient utilizes compensatory strategies as trained with 90% accuracy given 10% verbal/visual cues. Assessment Assessment Current Status: Good Progress Treatment Plan Continue Plan of Care Speech Short Term Goals Short Term Goals Short Term Goals 1. Patient will complete memory tasks related to daily needs at 90% or greater with minimal cueing. 2. Patient will complete safety awareness tasks related to daily needs at 90% or greater with minimal cueing. 3. Patient will complete problem solving tasks related to daily needs at 90% or greater with minimal cueing. 4. Patient will complete word finding tasks related to daily needs at 90% or greater with minimal cueing. 5. Patient will tolerate least restrictive diet level without s/s of aspiration with 90% or greater. 6. Patient/caregiver will utilize compensatory strategies as trained with 90% or greater given minimal cues. Speech Claim Approver Goals Correction Goals Patient will improve cognitive communication necessary for safety and daily living tasks with minimal assist. Patient will maintain adequate nutrition/hydration via safe effective swallow function. Speech-Plan Patient/Family Goals Patient/Family Goals: Patient plans on returning home where he lives with his upon discharge. Treatment Plan Speech Therapy Treatment Plan: Continue Plan of Care Treatment Duration: Nov 08, 2019 Frequency: 5 times per week Estimated Hrs Per Day: .5 hour per day Rehab Potential: Good Barriers to Learning: Patient's cognitive deficits, although they have improved Pt/Family Agrees to Plan: Yes Safety Risks/Education Teaching Recipient: Patient Teaching Methods: Demonstration, Discussion Response to Teaching: Verbalize Understanding, Return Demonstration Education Topics Provided: Continued safety of oral intake. Time Speech Therapy Time In: 11:55 Speech Therapy Time Out: 12:25 Total Billed Time: 30 Billed Treatment Time 1, JACKSON Carri ÓSCAR RODRÍGUEZENRIQUE BURKETT Nov 19, 2019 12:57
--- NOTE | 2019-11-19 14:12 | Physical Therapy Daily Note ---
PT Daily Note-Current Subjective Patient is up in w/c and agrees to PT. Pain Numeric Pain Scale: 0-No Pain Location: No Pain Reported Mental Status Patient Orientation: Normal For Age Transfers SCALE: Activities may be completed with or without assistive devices. 2-Igmbhbzosk-moltgxl completes the activity by him/herself with no assistance from a helper. 5-Set-up or Clean-up Assistance-helper sets up or cleans up; patient completes activity. [place] assists only prior to or following the activity. 4-Supervision or Touching Assistance-helper provides verbal cues and/or touching/steadying and/or contact guard assistance as patient completes activity. Assistance may be provided throughout the activity or intermittently. 3-Partial/Moderate Assistance-helper does LESS THAN HALF the effort. [place] lifts, holds or supports trunk or limbs, but provides less than half the effort. 2-Substantial/Maximal Assistance-helper does MORE THAN HALF the effort. [place] lifts or holds trunk or limbs and provides more than half the effort. 9-Wazviomwf-aamwyo does ALL the effort. Patient does none of the effort to complete the activity. Or, the assistance of 2 or more helpers is required for the patient to complete the activity. If activity was not attempted, code reason: 7-Patient Refused. 9-Not Applicable-not attempted and the patient did not perform the activity before the current illness, exacerbation or injury. 10-Not Attempted due to Environmental Limitations-(lack of equipment, weather restraints, etc.). 88-Not Attempted due to Medical Conditions or Safety Concerns. Roll Left & Right (QC): 5 Sit to Lying (QC): 5 Sit to Stand (QC): 4 Chair/Mab-nj-Qpitr Xfer(QC): 4 Weight Bearing Right Lower Extremity: Right Full Weight Bearing Left Lower Extremity: Left Full Weight Bearing Gait Training Does the Patient Walk?: Yes Distance: 150' x 4 Walk 10 feet (QC): 3 Walk 50 ft with 2 Turns(QC): 3 Walk 150 ft (QC): 3 Gait Assistive Device: Walker Platform (right) difficulty advancing right LE this p.m. due to fatigue. Exercises Seated Therapy Exercises: Long arc quads Seated Reps: 15 Assessment Patient returned to bed modified independently and has needs met. Patient progressing with treatment plan. PT Short Term Goals Short Term Goals Time Frame: Nov 14, 2019 Roll Left & Right: 3 Sit to lyin Lying to sitting on side of be: 3 Sit to stand: 3 Chair/rhr-jg-ecdjr transfer: 3 Walk 10 feet: 2 Wheel 50ft w/2 turns: 4 Wheel 150 feet: 4 PT Animal Handler Goals Animal Handler Goals PT Animal Handler Goals Time Frame: Nov 28, 2019 Roll Left & Right (QC): 6 Sit to Lying (QC): 6 Lying-Sitting on Side/Bed(QC): 6 Sit to Stand (QC): 6 Chair/Qim-wg-Havmy Xfer(QC): 6 Toilet Transfer (QC): 6 Car Transfer (QC): 5 Does the Patient Walk: No and Walking Goal IS indicated Walk 10 feet (QC): 6 Walk 50ft with 2 Turns (QC): 6 Walk 150 ft (QC): 6 Walking 10ft on Uneven Surface: 5 1 Step (curb) (QC): 5 4 Steps (QC): 5 12 Steps (QC): 4 Picking up an Object (QC): 4 Wheel 50 feet with 2 turns (QC: 6 Type: Manual Wheel 150 feet: 6 Type: Manual PT Plan Treatment/Plan Treatment Plan: Continue Plan of Care Treatment Plan: Bed Mobility, Education, Functional Activity Joey, Functional Strength, Group Therapy, Gait, Safety, Therapeutic Exercise, Transfers Treatment Duration: Nov 28, 2019 Frequency: At least 5 of 7 days/Wk (IRF) Estimated Hrs Per Day: 1.5 hours per day Patient and/or Family Agrees t: Yes Time/GCodes Time In: 1331 Time Out: 1401 Total Billed Treatment Time: 30 Total Billed Treatment 1 visit GT x 2 30 min DAVID TONEY PT Nov 19, 2019 14:12
--- NOTE | 2019-11-19 15:25 | Cardiology Progress Note ---
Cardiology SOAP Progress Note Subjective: No cardiac complaints. Objective: I&O/Vital Signs 11/19/19 11/19/19 11/19/19 06:00 08:20 09:35 Temp 36.4 Pulse 58 67 Resp 18 B/P (MAP) 127/59 (81) 134/68 (90) Pulse Ox 96 O2 Delivery Room Air Room Air 11/19/19 00:00 Intake Total 590 ml Output Total 550 ml Balance 40 ml Constitutional: AAO x 3, well-developed, well-nourished Respiratory: No accessory muscle use; other (good bilat air entry) Cardiovascular: regular rate-rhythm, S1 and S2, systolic murmur (soft QUINTON at card base) Gastrointestional: No tender; soft; No guarding, No rebound; audible bowel sounds Extremities: No clubbing, No cyanosis, No significant edema Neurologic/Psychiatric: other (R-sided weakness) Skin: normal color, warm/dry Results/Procedures: Labs Laboratory Tests 11/18/19 16:36: Glucometer 185H 11/18/19 20:41: Glucometer 251H 11/19/19 05:53: Glucometer 164H 11/19/19 10:57: Glucometer 280H A/P: Assessment/Dx: Status post CVA with R hemiparesis. Possible embolic event. Status post bradycardia, improved after stopping metoprolol Coronary artery disease, history of multiple intervention the past, had a CABG 3 done in 2017, has been doing well H/o PAF. OAC with apixaban Hypertension, however borderline blood pressure therefore certain medications were held. Blood pressure stable today. Hyperlipidemia, by history Diabetes mellitus, followed and managed by primary care physician Plan: Plan: * Continue current CV regimen * Monitor labs * Continue monitoring blood pressure. Thank you for your consultation. Please call me if you have any questions. Meagahn Thapa MD, FACP, FACC, FSCAI, FHRS, CCDS Interventional Cardiology Cardiac Electrophysiology Vascular Medicine and Endovascular Interventions Ryan THAPA MD Nov 19, 2019 15:25
--- NOTE | 2019-11-19 15:44 | NUR ---
BED SWITCHED FROM AIR MATTRESS TO REGULAR BED PER PATIENT'S REQUEST.
[2019-11-19] MEDS: SIMvastatin 10 MG (ZOCOR) TAB PO SCH (17:02)
[2019-11-19 18:31] VITALS: BP 102/62
--- NOTE | 2019-11-19 19:17 | NUR ---
bedside report received from YAJAIRA WOLF, assume care of pt
--- NOTE | 2019-11-19 21:58 | NUR ---
refused Hanna, Elli & john, fsbs 328 NovoLog 10 units given
[2019-11-19] MEDS: ASPIRIN E.C. 81 MG (ECOTRIN) TAB PO SCH (21:59)
--- NOTE | 2019-11-19 22:00 | NUR ---
c/o headache pain level 5/10 on numeric scale, Tylenol 650mg given
[2019-11-19] MEDS: ACETAMINOPHEN 325 MG TABLET PO PRN (22:02)
--- NOTE | 2019-11-19 22:42 | NUR ---
resting quietly in bed, pain level 0/10 on CNPI SCALE
[2019-11-20 05:55] VITALS: BP 131/64
[2019-11-20] MEDS: inSUlin ASPART (NovoLOG) 1 UNIT/0.01 ML (CHARGE PER UNIT) SC SCH ×4 (06:00→21:12)
[2019-11-20] MEDS: metFORMIN XR 500 MG (GLUCOPHAGE XR) TAB PO SCH ×2 (06:45→17:17)
[2019-11-20] MEDS: polyethylene glycoL POWDER 17 GM (MIRALAX) PACK PO SCH ×2 (08:23→21:11)
--- NOTE | 2019-11-20 09:27 | Physical Therapy Daily Note ---
PT Daily Note-Current Subjective Pt in bed upon arrival. Pt agrees to therapy tx. Pain Numeric Pain Scale: 0-No Pain Comment: Pt states he never has any pain; sometimes will have a headache before bed Mental Status Patient Orientation: Person, Place, Time, Situation Transfers SCALE: Activities may be completed with or without assistive devices. 2-Mgtkvwsngc-zomvldf completes the activity by him/herself with no assistance from a helper. 5-Set-up or Clean-up Assistance-helper sets up or cleans up; patient completes activity. [place] assists only prior to or following the activity. 4-Supervision or Touching Assistance-helper provides verbal cues and/or touching/steadying and/or contact guard assistance as patient completes activity. Assistance may be provided throughout the activity or intermittently. 3-Partial/Moderate Assistance-helper does LESS THAN HALF the effort. [place] lifts, holds or supports trunk or limbs, but provides less than half the effort. 2-Substantial/Maximal Assistance-helper does MORE THAN HALF the effort. [place] lifts or holds trunk or limbs and provides more than half the effort. 9-Ometgyqlj-klgmqk does ALL the effort. Patient does none of the effort to complete the activity. Or, the assistance of 2 or more helpers is required for the patient to complete the activity. If activity was not attempted, code reason: 7-Patient Refused. 9-Not Applicable-not attempted and the patient did not perform the activity before the current illness, exacerbation or injury. 10-Not Attempted due to Environmental Limitations-(lack of equipment, weather restraints, etc.). 88-Not Attempted due to Medical Conditions or Safety Concerns. Roll Left & Right (QC): 5 Lying to Sitting/Side of Bed(Q: 5 Sit to Stand (QC): 4 Pt uses bed railing to help assist himself w/ rolling and lying to sitting at EOB. Weight Bearing Right Lower Extremity: Right Full Weight Bearing Left Lower Extremity: Left Full Weight Bearing Gait Training Does the Patient Walk?: Yes Distance: 75', 150' Gait Persons Needed: 1 Gait Assistive Device: Walker Platform Pt requires VC to let go of platform walker, w/ R UE, when returning to seated position Exercises Seated Therapy Exercises: Ankle pumps, Long arc quads, Hip flexion, Hip abd/add Seated Reps: 15 Standing: Hip Abduction, Heel/toe raises, Marching, Mini squats, Step-ups (15 reps x4 ) Standing Reps: 15 Treatments Pt completes bed mobility, using bed rails, w/ NEWSPAPER PEDDLER standing by. Pt requires ModA x1 w/ dressing LE's. From EOB to standing, pt requires CGA. Pt ambulates in room, throughout therapy unit and into therapy gym using platform walker, at [facility]. Pt requires constant VC to let go of platform walker w/ R UE, when returning to seating. Pt completes seated ex, then completes standing ex at //bars. Pt ambulates from therapy gym, throughout therapy unit and into room using platform walker, at [facility]. Pt in recliner w/ call light, bed side table and all needs met at end of tx. Assessment Current Status: Good Progress Pt motivated to work w/ NEWSPAPER PEDDLER and complete therapy tx this morning. Pt voices that he feels he's not making progress as fast as he feels he should be. Pt appears slightly fatigued at end of therapy tx, but pushed on w/ no complaints. PT Short Term Goals Short Term Goals Time Frame: Nov 14, 2019 Roll Left & Right: 3 Sit to lyin Lying to sitting on side of be: 3 Sit to stand: 3 Chair/vmi-lg-vlxwq transfer: 3 Walk 10 feet: 2 Wheel 50ft w/2 turns: 4 Wheel 150 feet: 4 PT Senior Living Goals Alternative Energy Technician Goals PT Senior Living Goals Time Frame: Nov 28, 2019 Roll Left & Right (QC): 6 Sit to Lying (QC): 6 Lying-Sitting on Side/Bed(QC): 6 Sit to Stand (QC): 6 Chair/Csf-eh-Lhewb Xfer(QC): 6 Toilet Transfer (QC): 6 Car Transfer (QC): 5 Does the Patient Walk: No and Walking Goal IS indicated Walk 10 feet (QC): 6 Walk 50ft with 2 Turns (QC): 6 Walk 150 ft (QC): 6 Walking 10ft on Uneven Surface: 5 1 Step (curb) (QC): 5 4 Steps (QC): 5 12 Steps (QC): 4 Picking up an Object (QC): 4 Wheel 50 feet with 2 turns (QC: 6 Type: Manual Wheel 150 feet: 6 Type: Manual PT Plan Problem List Problem List: Activity Tolerance, Functional Strength, Safety, Balance, Gait Treatment/Plan Treatment Plan: Continue Plan of Care Treatment Plan: Bed Mobility, Education, Functional Activity Joey, Functional Strength, Group Therapy, Gait, Safety, Therapeutic Exercise, Transfers Treatment Duration: Nov 28, 2019 Frequency: At least 5 of 7 days/Wk (IRF) Estimated Hrs Per Day: 1.5 hours per day Patient and/or Family Agrees t: Yes Safety Risks/Education Patient Education: Gait Training, Correct Positioning, Safety Issues Teaching Recipient: Patient Teaching Methods: Discussion Response to Teaching: Verbalize Understanding Time/GCodes Time In: 814 Time Out: 914 Total Billed Treatment Time: 60 Total Billed Treatment 1, Ex x2 (30m), FA x1 (15m), GT x1 (15m) AUSTIN CHEW NEWSPAPER PEDDLER Nov 20, 2019 09:27
--- NOTE | 2019-11-20 09:46 | Cardiology Progress Note ---
Subjective Date Seen by Provider: Nov 20, 2019 Time Seen by Provider: 09:05 Subjective/Events-last exam Patient is sitting up in chair, denies any chest pain or dyspnea. Review of Systems General: No Chills, No Night Sweats, No Fatigue, No Malaise, No Appetite, No Other HEENT: No Head Aches, No Visual Changes, No Eye Pain, No Ear Pain, No Dysphasia, No Sinus Congestion, No Post Nasal Drip, No Sore Throat, No Other Pulmonary: No Dyspnea, No Cough, No Pleuritic Chest Pain, No Other Cardiovascular: No: Chest Pain, Palpitations, Orthopnea, Paroxysmal Noc. Dyspnea, Edema, Lt Headedness, Other Objective-Cardiology Exam Last Set of Vital Signs Vital Signs 11/20/19 05:55 Temp 36.4 Pulse 71 Resp 18 B/P (MAP) 131/64 (86) Pulse Ox 97 O2 Delivery Room Air Capillary Refill : Less Than 3 Seconds I&O Intake and Output 11/20/19 00:00 Intake Total 840 ml Output Total 850 ml Balance -10 ml Intake Oral 840 ml Output Urine Total 850 ml General: Alert, Oriented X3, Cooperative HEENT: Atraumatic, PERRLA Neck: Supple, No JVD, No Thyromegaly Lungs: Clear to Auscultation, Normal Air Movement Heart: Regular Rate, Normal S1, Normal S2, No Murmurs Abdomen: Normal Bowel Sounds, Soft, No Tenderness, No Hepatosplenomegaly, No Masses Extremities: No Clubbing, No Cyanosis, No Edema, Normal Pulses, No Tenderness /Swelling Skin: No Rashes, No Breakdown, No Significant Lesion Neuro: Normal Gait, Normal Speech, Strength at 5/5 X4 Ext, Normal Tone, Sensation Intact Psych/Mental Status: Mental Status NL, Mood NL Results Lab Laboratory Tests Test 11/19/19 16:55 11/19/19 20:45 11/20/19 05:27 11/20/19 11:03 Range/Units Glucometer 193 H 328 H 130 H 254 H 70-110 MG/DL A/P-Cardiology Admission Diagnosis CVA Coronary artery disease Paroxysmal atrial fibrillation Hypertension Hyperlipidemia Assessment/Plan Status post CVA with residual right hemiplegia, 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 Receiving physical therapy. Chest pain nonspecific etiology, reporting occasional chest discomfort, continue on aspirin and Eliquis, intolerant to isosorbide with hypotension and abdominal pain. Denies any recent chest pain, continue to monitor. Status post transient bradycardia, improved after stopping metoprolol. Continue to monitor blood pressure Coronary artery disease, history of multiple intervention the past, had a CABG 3 done in 2017, has been doing well. Continue to monitor Paroxysmal atrial fibrillation, reporting history of atrial fibrillation in the remote past. Was on oral anticoagulation for some time in the past and it was discontinued in the remote past. Admitted with TIA on October 26 and started on oral anticoagulation and then had another CVA on October 28, 2019 did not qualify for TPA. Currently receiving physical therapy. [id number] score of 6, yearly risk of stroke without oral anticoagulation is 9.8 percent, maintained on Eliquis Hypertension, controlled, continue to monitor. Hyperlipidemia, monitor lipids Diabetes mellitus, followed and managed by primary care physician Patient was seen and evaluated with Alisia, examination performed, management plan was discussed, agree with the current scribed note, I made few changes to the note using Italic font Patient was seen while receiving physical therapy, has been doing well. No new complaint Heart rate and blood pressure are better controlled at this time. Continue on current medication and monitor No changes from cardiology standpoint are recommended at this point Clinical Quality Measures DVT/VTE Risk/Contraindication: Risk Factor Score Per Nursin RFS Level Per Nursing on Admit: 4+=Very High ALISIA GARCIA Nov 20, 2019 9:46 am JOSE PINO MD Nov 20, 2019 12:21 pm
[2019-11-20] MEDS: TAMSULOSIN 0.4 MG (FLOMAX) CAP PO SCH (10:05)
[2019-11-20] MEDS: MULTIVIT W/MINERALS TAB (THERAGRAN M) PO SCH (10:05)
[2019-11-20] MEDS: DOCUSATE SODIUM 100 MG (COLACE) CAP PO SCH ×2 (10:05→21:11)
[2019-11-20] MEDS: APIXABAN 5 MG (ELIQUIS) TABLET PO SCH ×2 (10:05→21:04)
[2019-11-20] MEDS: AMIODARONE 200 MG (CORDARONE) TAB PO SCH (10:06)
[2019-11-20] MEDS: lisINopril 5 MG (PRINIVIL) TABLET PO SCH (10:06)
[2019-11-20] MEDS: PANTOPRAZOLE 40 MG (PROTONIX) TAB PO SCH (10:06)
[2019-11-20] MEDS: SENNA W/DOCUSATE (SENOKOT S) TABLET PO SCH ×2 (10:06→21:11)
--- NOTE | 2019-11-20 10:29 | PM&R Progress Note ---
Subjective HPI/CC On Admission Date Seen by Provider: Nov 20, 2019 Time Seen by Provider: 10:30 Subjective/Events-last exam Patient seems to be less angry today DC planned for next week DC home is planned but definitely needs family training BM regular No dysphagia No falls reported Checked meds and labs Reviewed therapy notes Conferred with carding machine feeder of Systems General: Fatigue Neurological: Weakness, Numbness, Incoordination Objective Exam Vital Signs Vital Signs Date Time Temp Pulse Resp B/P (MAP) Pulse Ox O2 Delivery O2 Flow Rate FiO2 11/20/19 08:20 Room Air 11/20/19 05:55 36.4 71 18 131/64 (86) 97 Capillary Refill : Less Than 3 Seconds General Appearance: No Apparent Distress, WD/WN HEENT: PERRL/EOMI, Normal ENT Inspection, Pharynx Normal Neck: Normal Inspection, Non Tender, Supple Respiratory: Lungs Clear, Normal Breath Sounds, No Accessory Muscle Use, No Respiratory Distress Cardiovascular: Regular Rate, Rhythm, No Edema, No Gallop, No Murmur, Normal Peripheral Pulses, Irregularly Irregular Gastrointestinal: Normal Bowel Sounds, No Organomegaly, No Pulsatile Mass, Non Tender, Soft Back: Normal Inspection, No CVA Tenderness, No Vertebral Tenderness Extremity: Normal Capillary Refill, Non Tender, No Calf Tenderness, No Pedal Edema Neurologic/Psychiatric: Alert, Oriented x3, Normal Mood/Affect, medical scientific liaison II-XII Norm as Tested, Abnormal Gait, Motor Weakness Skin: Normal Color, Warm/Dry Lymphatic: No Adenopathy Results/Procedures Lab Patient resulted labs reviewed. FIM Transfers Therapy Code Descriptions/Definitions Functional [place] Measure: 0=Not Assessed/NA 4=Minimal Assistance 1=Total Assistance 5=Supervision or Setup 2=Maximal Assistance 6=Modified [place] 3=Moderate Assistance 7=Complete IndependenceSCALE: Activities may be completed with or without assistive devices. 6-Dqspeooywk-fniemgg completes the activity by him/herself with no assistance from a helper. 5-Set-up or Clean-up Assistance-helper sets up or cleans up; patient completes activity. [place] assists only prior to or following the activity. 4-Supervision or Touching Assistance-helper provides verbal cues and/or touching/steadying and/or contact guard assistance as patient completes activity. Assistance may be provided throughout the activity or intermittently. 3-Partial/Moderate Assistance-helper does LESS THAN HALF the effort. [place] lifts, holds or supports trunk or limbs, but provides less than half the effort. 2-Substantial/Maximal Assistance-helper does MORE THAN HALF the effort. [place] lifts or holds trunk or limbs and provides more than half the effort. 3-Nfkldowws-yhfczi does ALL the effort. Patient does none of the effort to complete the activity. Or, the assistance of 2 or more helpers is required for the patient to complete the activity. If activity was not attempted, code reason: 7-Patient Refused. 9-Not Applicable-not attempted and the patient did not perform the activity before the current illness, exacerbation or injury. 10-Not Attempted due to Environmental Limitations-(lack of equipment, weather restraints, etc.). 88-Not Attempted due to Medical Conditions or Safety Concerns. Roll Left to Right (QC): 5 Sit to Lying (QC): 5 Sit to Stand (QC): 4 Chair/Njk-sy-Kuivs Xfer(QC): 4 Car Transfer (QC): 2 (max assist to transfer in/out of car) Gait Training Does the Patient Walk?: Yes Distance: 75', 150' Walk 10 feet (QC): 3 Walk 50 ft with 2 Turns(QC): 3 Walk 150 ft (QC): 3 Walking 10ft/uneven surface-QC: 88 Gait Persons Needed: 1 Gait Assistive Device: Walker Platform Wheelchair Training Does the Pt Use a Wheelchair?: Yes Wheel 50 ft with 2 turns (QC): 5 Wheel 150 ft (QC): 4 Type of Wheelchair: Manual Stair Training 1 Step (curb) (QC): 88 4 Steps (QC): 88 12 Steps (QC): 88 Balance Picking up an Object (QC): 88 ADL-Treatment Eating (QC): 5 Oral Hygiene (QC): 7 Bathing Location: L Arm, R Arm, L Upper Leg, R Upper Leg, L Lower Leg (including foot), R Lower Leg (including foot), Chest, Abdomen, Buttocks, Perineal Area Shower/Bathe Self (QC): 3 Upper Body Dressing (QC): 4 Lower Body Dressing (QC): 2 On/Off Footwear (QC): 3 Toileting Hygiene (QC): 1 Toilet Transfer (QC): 1 Assessment/Plan Assessment and Plan Assess & Plan/Chief Complaint Assessment: CVA 10/28/19 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 HTN HLP CRI AF ED Acute constipation initiated aggressive meds now resolved Dysphagia needs EGD and dilation but cannot go off OAC due to too high of risk for recurrent CVA Plan: IRF protocol BM regimen Fall risk Cardiology consultation appreciated Dr Wang consulted and is appreciated Increase PPI dose is working well Walking with platform working well for him Dispo next week after family prep (1) CVA (cerebral vascular accident) (2) Flaccid hemiplegia affecting dominant side (3) Diabetes (4) Hypertension (5) Hyperlipemia (6) On continuous oral anticoagulation (7) Atrial fibrillation (8) History of penile implant (9) History of colon cancer (10) Former smoker (11) Renal insufficiency (12) Constipation SCOTT BARBOSA DO Nov 20, 2019 10:29
--- NOTE | 2019-11-20 11:17 | Occupational Ther Daily Note ---
OT Current Status-Daily Note Subjective Pt sleeping in recliner, woke easily. Pt agrees to therapy. No c/o pain. brought clothes, was picked up at front entrance. Mental Status/Objective Patient Orientation: Person, Place, Time, Situation ADL-Treatment Pt declines bathing or changing clothes. Therapy Code Descriptions/Definitions Functional [place] Measure: 0=Not Assessed/NA 4=Minimal Assistance 1=Total Assistance 5=Supervision or Setup 2=Maximal Assistance 6=Modified [place] 3=Moderate Assistance 7=Complete IndependenceSCALE: Activities may be completed with or without assistive devices. 0-Wpehophwdz-yepthsy completes the activity by him/herself with no assistance from a helper. 5-Set-up or Clean-up Assistance-helper sets up or cleans up; patient completes activity. [place] assists only prior to or following the activity. 4-Supervision or Touching Assistance-helper provides verbal cues and/or touching/steadying and/or contact guard assistance as patient completes activity. Assistance may be provided throughout the activity or intermittently. 3-Partial/Moderate Assistance-helper does LESS THAN HALF the effort. [place] lifts, holds or supports trunk or limbs, but provides less than half the effort. 2-Substantial/Maximal Assistance-helper does MORE THAN HALF the effort. [place] lifts or holds trunk or limbs and provides more than half the effort. 9-Vbbdmokxs-tciems does ALL the effort. Patient does none of the effort to compl ete the activity. Or, the assistance of 2 or more helpers is required for the patient to complete the activity. If activity was not attempted, code reason: 7-Patient Refused. 9-Not Applicable-not attempted and the patient did not perform the activity before the current illness, exacerbation or injury. 10-Not Attempted due to Environmental Limitations-(lack of equipment, weather restraints, etc.). 88-Not Attempted due to Medical Conditions or Safety Concerns. Other Treatment Pt ambulated to/from gym using platform walker, no breaks. Pt completed B UE exercises to strengthen, increased AROM and activity tolerance. Pt completed pulleys with 1# wt attached to wrists with shldr flex/ext and horizontal shldr abd/add, self AAROM. Pt able to grasp, lift and place 5 cones 3x's-first front of pt, second R side of pt, third L side of pt. Pt took increased time and required multiple attempts by the 5th cone. Pt then worked on SPT-toward R side, min A then toward L side, CGA. Pt continues to demonstrate increase grasp strength, AROM with shldr, wrist and finger. R elbow flexion is completed with assist to keep R forearm in alignment. After session, pt sitting in recliner with call light/phone in reach. All needs met in room. OT Short Term Goals Short Term Goals Time Frame: Nov 15, 2019 Oral hygiene: 3 Toileting hygiene: 2 Shower/bathe self: 3 Upper body dressin Lower body dressin Putting on/taking off footwear: 3 OT Thread Winder Goals Mcc Goals Time Frame: Nov 29, 2019 Eating (QC): 6 Oral Hygiene (QC): 6 Toileting Hygiene (QC): 5 Shower/Bathe Self (QC): 4 Upper Body Dressing (QC): 5 Lower Body Dressing (QC): 5 On/Off Footwear (QC): 5 Additional Goals: 1-Demonstrate ADL Tasks, 2-Verbalize Understanding, 3-Improve Strength/Joey 1=Demonstrate adherence to instructed precautions during ADL tasks. 2=Patient will verbalize/demonstrate understanding of assistive devices/modifications for ADL. 3=Patient will improve strength/tolerance for activity to enable patient to pe rform ADL's. OT Education/Plan Problem List/Assessment Assessment: Decreased Activ Tolerance, Decreased Safety Aware, Decreased UE Strength, Impaired Coordination, Impaired Funct Balance, Impaired Self-Care Ski lls, Restricted Funct UE ROM Discharge Recommendations Plan/Recommendations: Continue POC Treatment Plan/Plan of Care Patient would benefit from OT for education, treatment and training to promote independence in ADL's, mobility, safety and/or upper extremity function for ADL's. Plan of Care: ADL Retraining, Functional Mobility, Group Exercise/Act as Ind, UE Funct Exercise/Act, UE Neuromus Re-Ed/Coord Treatment Duration: Nov 29, 2019 Frequency: At least 5 of 7 days/Wk (IRF) Estimated Hrs Per Day: 1.5 hours per day Rehab Potential: Good Time/GCodes Start Time: 10:00 Stop Time: 11:15 Total Time Billed (hr/min): 75 Billed Treatment Time 1 visit-SANCHO 5 (75 min) KAREN MARQUES Nov 20, 2019 11:17
--- NOTE | 2019-11-20 13:41 | Physical Therapy Daily Note ---
PT Daily Note-Current Subjective Pt in recliner upon arrival. Pt agrees to therapy tx. Pain Numeric Pain Scale: 0-No Pain Location: No Pain Reported Mental Status Patient Orientation: Normal For Age Transfers SCALE: Activities may be completed with or without assistive devices. 5-Fkyxhkeqav-ucvshly completes the activity by him/herself with no assistance from a helper. 5-Set-up or Clean-up Assistance-helper sets up or cleans up; patient completes activity. [place] assists only prior to or following the activity. 4-Supervision or Touching Assistance-helper provides verbal cues and/or touching/steadying and/or contact guard assistance as patient completes activity. Assistance may be provided throughout the activity or intermittently. 3-Partial/Moderate Assistance-helper does LESS THAN HALF the effort. [place] lifts, holds or supports trunk or limbs, but provides less than half the effort. 2-Substantial/Maximal Assistance-helper does MORE THAN HALF the effort. [place] lifts or holds trunk or limbs and provides more than half the effort. 4-Nysqfikmp-llmfmt does ALL the effort. Patient does none of the effort to complete the activity. Or, the assistance of 2 or more helpers is required for the patient to complete the activity. If activity was not attempted, code reason: 7-Patient Refused. 9-Not Applicable-not attempted and the patient did not perform the activity before the current illness, exacerbation or injury. 10-Not Attempted due to Environmental Limitations-(lack of equipment, weather restraints, etc.). 88-Not Attempted due to Medical Conditions or Safety Concerns. Sit to Stand (QC): 4 Pt transfers sit to stand at [facility]. Pt requires VC's for hand placement, body placement and AD placement when returning to a seated position during this tx. Weight Bearing Right Lower Extremity: Right Full Weight Bearing Left Lower Extremity: Left Full Weight Bearing Gait Training Does the Patient Walk?: Yes Distance: 150' x2 Gait Persons Needed: 1 Gait Assistive Device: Walker Platform Pt requires several VC's, at end of tx, on advancement of R LE d/t fatigue. Exercises NuStep Minutes: 10 NuStep Workload: 3 Treatments Pt transfers from recliner to standing w/ CGA. Pt ambulates in room, throughout therapy unit and into therapy gym; pt is seated on NuStep. Pt completes 3 mins at WL2, 7 mins at WL3, for strengthening, coordination and activity tolerance. Pt instructed on diaphragmatic breathing after stating he was feeling "winded"; pt insisted he completes last few mins on NuStep. Pt requires a seated rest break, upon completing the NuStep. Pt ambulates from therapy gym, throughout therapy unit and into pt room. IRONING WORKER noticed pt fatigue d/t pt having difficulty advancing R LE; inability to DF. Pt in recliner w/ call light, bed side table w/in reach and all needs met, at end of treatment. Assessment Current Status: Good Progress Pt c/o being "winded" during last 2 mins on NuStep. Pt completed NuStep and required a seated rest break, d/t fatigue. PT Short Term Goals Short Term Goals Time Frame: Nov 14, 2019 Roll Left & Right: 3 Sit to lyin Lying to sitting on side of be: 3 Sit to stand: 3 Chair/vya-ln-jscss transfer: 3 Walk 10 feet: 2 Wheel 50ft w/2 turns: 4 Wheel 150 feet: 4 PT Test Inspection Engineer Goals Test Inspection Engineer Goals PT Test Inspection Engineer Goals Time Frame: Nov 28, 2019 Roll Left & Right (QC): 6 Sit to Lying (QC): 6 Lying-Sitting on Side/Bed(QC): 6 Sit to Stand (QC): 6 Chair/Hiw-gi-Wuuyy Xfer(QC): 6 Toilet Transfer (QC): 6 Car Transfer (QC): 5 Does the Patient Walk: No and Walking Goal IS indicated Walk 10 feet (QC): 6 Walk 50ft with 2 Turns (QC): 6 Walk 150 ft (QC): 6 Walking 10ft on Uneven Surface: 5 1 Step (curb) (QC): 5 4 Steps (QC): 5 12 Steps (QC): 4 Picking up an Object (QC): 4 Wheel 50 feet with 2 turns (QC: 6 Type: Manual Wheel 150 feet: 6 Type: Manual PT Plan Problem List Problem List: Activity Tolerance, Functional Strength, Safety, Gait Treatment/Plan Treatment Plan: Continue Plan of Care Treatment Plan: Bed Mobility, Education, Functional Activity Joey, Functional Strength, Group Therapy, Gait, Safety, Therapeutic Exercise, Transfers Treatment Duration: Nov 28, 2019 Frequency: At least 5 of 7 days/Wk (IRF) Estimated Hrs Per Day: 1.5 hours per day Patient and/or Family Agrees t: Yes Safety Risks/Education Patient Education: Gait Training, Correct Positioning, Safety Issues Teaching Recipient: Patient Teaching Methods: Discussion Response to Teaching: Verbalize Understanding Time/GCodes Time In: 1300 Time Out: 1330 Total Billed Treatment Time: 30 Total Billed Treatment 1, GT (15m), EX (15m) AUSTIN CHEW IRONING WORKER Nov 20, 2019 13:41
--- NOTE | 2019-11-20 14:46 | Speech Therapy Daily Note ---
Speech Daily Progress Note Subjective Date Seen by Provider: Nov 20, 2019 Time Seen by Provider: 00:30 Patient was in a pleasant mood today. Objective Patient utilized compensatory strategies for safe oral intake for the noontime meal at 90% with minimal cues. Assessment Assessment Current Status: Good Progress Treatment Plan Continue Plan of Care Speech Short Term Goals Short Term Goals Short Term Goals 1. Patient will complete memory tasks related to daily needs at 90% or greater with minimal cueing. 2. Patient will complete safety awareness tasks related to daily needs at 90% or greater with minimal cueing. 3. Patient will complete problem solving tasks related to daily needs at 90% or greater with minimal cueing. 4. Patient will complete word finding tasks related to daily needs at 90% or greater with minimal cueing. 5. Patient will tolerate least restrictive diet level without s/s of aspiration with 90% or greater. 6. Patient/caregiver will utilize compensatory strategies as trained with 90% or greater given minimal cues. Speech Tank Pumper Panelboard Goals Tank Pumper Panelboard Goals Patient will improve cognitive communication necessary for safety and daily living tasks with minimal assist. Patient will maintain adequate nutrition/hydration via safe effective swallow function. Speech-Plan Patient/Family Goals Patient/Family Goals: The patient plans on returning home where he lives with his . Treatment Plan Speech Therapy Treatment Plan: Continue Plan of Care Treatment Duration: Nov 08, 2019 Frequency: 5 times per week Estimated Hrs Per Day: .5 hour per day Rehab Potential: Good Barriers to Learning: Patient's recent CVA Pt/Family Agrees to Plan: Yes Safety Risks/Education Teaching Recipient: Patient Teaching Methods: Demonstration, Discussion Response to Teaching: Verbalize Understanding, Return Demonstration Education Topics Provided: Continued safety of oral intake. Time Speech Therapy Time In: 11:30 Speech Therapy Time Out: 12:00 Total Billed Time: 30 Billed Treatment Time 1JACKSON RAY Arias Nov 20, 2019 14:46
[2019-11-20] MEDS: SIMvastatin 10 MG (ZOCOR) TAB PO SCH (17:17)
[2019-11-20 18:32] VITALS: BP 113/61
--- NOTE | 2019-11-20 19:12 | NUR ---
bedside report received from [facility], assume care of pt
[2019-11-20] MEDS: ASPIRIN E.C. 81 MG (ECOTRIN) TAB PO SCH (21:04)
[2019-11-20] MEDS: ACETAMINOPHEN 325 MG TABLET PO PRN (21:05)
--- NOTE | 2019-11-20 21:05 | NUR ---
pt refused Colace, Senokot & miralax, fsbs 173 no NovoLog insulin required, pt c/o headache pain level 5/10 on numeric scale, Tylenol 650mg given
--- NOTE | 2019-11-20 22:00 | NUR ---
resting quietly in bed, pain level 0/10 on CNPI scale
[2019-11-21 05:30] VITALS: BP 126/71
[2019-11-21] MEDS: metFORMIN XR 500 MG (GLUCOPHAGE XR) TAB PO SCH ×2 (06:34→17:30)
[2019-11-21] MEDS: inSUlin ASPART (NovoLOG) 1 UNIT/0.01 ML (CHARGE PER UNIT) SC SCH ×4 (06:34→21:19)
--- NOTE | 2019-11-21 08:49 | PM&R Progress Note ---
Subjective HPI/CC On Admission Date Seen by Provider: Nov 21, 2019 Time Seen by Provider: 11:00 Subjective/Events-last exam Patient always seems to be bothered by my visit and others too No pain is reported BP ok Good transfers BM regular stool softners given today No dysphagia No falls reported Checked meds and labs Reviewed therapy notes Conferred with radarman of Systems Neurological: Weakness, Numbness, Incoordination Objective Exam Vital Signs Vital Signs Date Time Temp Pulse Resp B/P (MAP) Pulse Ox O2 Delivery O2 Flow Rate FiO2 11/21/19 09:00 Room Air 11/21/19 05:30 36.2 63 18 126/71 (89) 95 Capillary Refill : Less Than 3 Seconds General Appearance: No Apparent Distress, WD/WN HEENT: PERRL/EOMI, Normal ENT Inspection, Pharynx Normal Neck: Normal Inspection, Non Tender, Supple Respiratory: Lungs Clear, Normal Breath Sounds, No Accessory Muscle Use, No Respiratory Distress Cardiovascular: Regular Rate, Rhythm, No Edema, No Gallop, No Murmur, Normal Peripheral Pulses, Irregularly Irregular Gastrointestinal: Normal Bowel Sounds, No Organomegaly, No Pulsatile Mass, Non Tender, Soft Back: Normal Inspection, No CVA Tenderness, No Vertebral Tenderness Extremity: Normal Capillary Refill, Non Tender, No Calf Tenderness, No Pedal Edema Neurologic/Psychiatric: Alert, Oriented x3, Normal Mood/Affect, shot core drill operator II-XII Norm as Tested, Abnormal Gait, Motor Weakness Skin: Normal Color, Warm/Dry Lymphatic: No Adenopathy Results/Procedures Lab Patient resulted labs reviewed. FIM Transfers Therapy Code Descriptions/Definitions Functional [place] Measure: 0=Not Assessed/NA 4=Minimal Assistance 1=Total Assistance 5=Supervision or Setup 2=Maximal Assistance 6=Modified [place] 3=Moderate Assistance 7=Complete IndependenceSCALE: Activities may be completed with or without assistive devices. 4-Wwrihrisbo-kruyzdr completes the activity by him/herself with no assistance from a helper. 5-Set-up or Clean-up Assistance-helper sets up or cleans up; patient completes activity. [place] assists only prior to or following the activity. 4-Supervision or Touching Assistance-helper provides verbal cues and/or touching/steadying and/or contact guard assistance as patient completes activity. Assistance may be provided throughout the activity or intermittently. 3-Partial/Moderate Assistance-helper does LESS THAN HALF the effort. [place] lifts, holds or supports trunk or limbs, but provides less than half the effort. 2-Substantial/Maximal Assistance-helper does MORE THAN HALF the effort. [place] lifts or holds trunk or limbs and provides more than half the effort. 7-Nbpayxjzo-yzdxba does ALL the effort. Patient does none of the effort to complete the activity. Or, the assistance of 2 or more helpers is required for the patient to complete the activity. If activity was not attempted, code reason: 7-Patient Refused. 9-Not Applicable-not attempted and the patient did not perform the activity before the current illness, exacerbation or injury. 10-Not Attempted due to Environmental Limitations-(lack of equipment, weather restraints, etc.). 88-Not Attempted due to Medical Conditions or Safety Concerns. Roll Left to Right (QC): 5 Sit to Lying (QC): 5 Sit to Stand (QC): 4 Chair/Vsl-ys-Bdaay Xfer(QC): 4 Car Transfer (QC): 2 (max assist to transfer in/out of car) Gait Training Does the Patient Walk?: Yes Distance: 150' x2 Walk 10 feet (QC): 3 Walk 50 ft with 2 Turns(QC): 3 Walk 150 ft (QC): 3 Walking 10ft/uneven surface-QC: 88 Gait Persons Needed: 1 Gait Assistive Device: Walker Platform Wheelchair Training Does the Pt Use a Wheelchair?: Yes Wheel 50 ft with 2 turns (QC): 5 Wheel 150 ft (QC): 4 Type of Wheelchair: Manual Stair Training 1 Step (curb) (QC): 88 4 Steps (QC): 88 12 Steps (QC): 88 Balance Picking up an Object (QC): 88 ADL-Treatment Eating (QC): 5 Oral Hygiene (QC): 7 Bathing Location: L Arm, R Arm, L Upper Leg, R Upper Leg, L Lower Leg (including foot), R Lower Leg (including foot), Chest, Abdomen, Buttocks, Perineal Area Shower/Bathe Self (QC): 3 Upper Body Dressing (QC): 4 Lower Body Dressing (QC): 2 On/Off Footwear (QC): 3 Toileting Hygiene (QC): 1 Toilet Transfer (QC): 1 Assessment/Plan Assessment and Plan Assess & Plan/Chief Complaint Assessment: 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/28/19 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 HTN HLP CRI AF ED Acute constipation initiated aggressive meds now resolved Dysphagia needs EGD and dilation but cannot go off OAC due to too high of risk for recurrent CVA Plan: IRF protocol BM regimen Fall risk Cardiology consultation appreciated Dr Wang consulted and is appreciated Increase PPI dose is working well Walking with platform working well for him Dispo next week after family prep (1) CVA (cerebral vascular accident) (2) Flaccid hemiplegia affecting dominant side (3) Diabetes (4) Hypertension (5) Hyperlipemia (6) On continuous oral anticoagulation (7) Atrial fibrillation (8) History of penile implant (9) History of colon cancer (10) Former smoker (11) Renal insufficiency (12) Constipation SCOTT BARBOSA DO Nov 21, 2019 08:49
[2019-11-21] MEDS: SENNA W/DOCUSATE (SENOKOT S) TABLET PO SCH ×2 (09:49→21:25)
[2019-11-21] MEDS: MULTIVIT W/MINERALS TAB (THERAGRAN M) PO SCH (09:49)
[2019-11-21] MEDS: APIXABAN 5 MG (ELIQUIS) TABLET PO SCH ×2 (09:49→21:23)
[2019-11-21] MEDS: DOCUSATE SODIUM 100 MG (COLACE) CAP PO SCH ×2 (09:49→21:24)
[2019-11-21] MEDS: lisINopril 5 MG (PRINIVIL) TABLET PO SCH (09:49)
[2019-11-21] MEDS: AMIODARONE 200 MG (CORDARONE) TAB PO SCH (09:49)
[2019-11-21] MEDS: TAMSULOSIN 0.4 MG (FLOMAX) CAP PO SCH (09:49)
[2019-11-21] MEDS: PANTOPRAZOLE 40 MG (PROTONIX) TAB PO SCH (09:49)
[2019-11-21] MEDS: polyethylene glycoL POWDER 17 GM (MIRALAX) PACK PO SCH ×2 (09:50→21:25)
--- NOTE | 2019-11-21 11:19 | Cardiology Progress Note ---
Subjective Date Seen by Provider: Nov 21, 2019 Time Seen by Provider: 09:25 Subjective/Events-last exam Patient is with PT, no new complaints denies any chest pain or dyspnea. Review of Systems General: No Chills, No Night Sweats, No Fatigue, No Malaise, No Appetite, No Other HEENT: No Head Aches, No Visual Changes, No Eye Pain, No Ear Pain, No Dysphasia, No Sinus Congestion, No Post Nasal Drip, No Sore Throat, No Other Pulmonary: No Dyspnea, No Cough, No Pleuritic Chest Pain, No Other Cardiovascular: No: Chest Pain, Palpitations, Orthopnea, Paroxysmal Noc. Dyspnea, Edema, Lt Headedness, Other Objective-Cardiology Exam Last Set of Vital Signs Vital Signs 11/21/19 11/21/19 05:30 09:00 Temp 36.2 Pulse 63 Resp 18 B/P (MAP) 126/71 (89) Pulse Ox 95 O2 Delivery Room Air Capillary Refill : Less Than 3 Seconds I&O Intake and Output 11/21/19 00:00 Intake Total 750 ml Output Total 1475 ml Balance -725 ml Intake Oral 750 ml Output Urine Total 1475 ml General: Alert, Oriented X3, Cooperative HEENT: Atraumatic, PERRLA Neck: Supple, No JVD, No Thyromegaly Lungs: Clear to Auscultation, Normal Air Movement Heart: Regular Rate, Normal S1, Normal S2, No Murmurs Abdomen: Normal Bowel Sounds, Soft, No Tenderness, No Hepatosplenomegaly, No Masses Extremities: No Clubbing, No Cyanosis, No Edema, Normal Pulses, No Tenderness/Swelling Skin: No Rashes, No Breakdown, No Significant Lesion Neuro: Normal Gait, Normal Speech, Strength at 5/5 X4 Ext, Normal Tone, Sensation Intact Psych/Mental Status: Mental Status NL, Mood NL Results Lab Laboratory Tests Test 11/20/19 15:39 11/20/19 20:04 11/21/19 06:26 11/21/19 11:02 Range/Units Glucometer 230 H 173 H 189 H 198 H 70-110 MG/DL A/P-Cardiology Admission Diagnosis CVA Coronary artery disease Paroxysmal atrial fibrillation Hypertension Hyperlipidemia Assessment/Plan Status post CVA with residual right hemiplegia, 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 Receiving physical therapy. Chest pain nonspecific etiology, reporting occasional chest discomfort, continue on aspirin and Eliquis, intolerant to isosorbide with hypotension and abdominal pain. Denies any recent chest pain, continue to monitor. Status post transient bradycardia, improved after stopping metoprolol. Continue to monitor blood pressure Coronary artery disease, history of multiple intervention the past, had a CABG 3 done in 2017, has been doing well. Continue to monitor Paroxysmal atrial fibrillation, reporting history of atrial fibrillation in the remote past. Was on oral anticoagulation for some time in the past and it was discontinued in the remote past. Admitted with TIA on October 26 and started on oral anticoagulation and then had another CVA on October 28, 2019 did not qualify for TPA. Currently receiving physical therapy. [id number] score of 6, yearly risk of stroke without oral anticoagulation is 9.8 percent, maintained on Eliquis Hypertension, controlled, continue to monitor. Hyperlipidemia, monitor lipids Diabetes mellitus, followed and managed by primary care physician Patient was seen and evaluated with Alisia, examination performed, management plan was discussed, agree with the current scribed note, I made few changes to the note using Italic font Patient was seen while receiving physical therapy, has been doing well. No new complaint Heart rate and blood pressure are better controlled at this time. Continue on current medication and monitor No changes from cardiology standpoint are recommended at this point Clinical Quality Measures DVT/VTE Risk/Contraindication: Risk Factor Score Per Nursin RFS Level Per Nursing on Admit: 4+=Very High ALISIA GARCIA Nov 21, 2019 11:19 JOSE PINO MD Nov 21, 2019 12:04
--- NOTE | 2019-11-21 13:17 | Physical Therapy Daily Note ---
PT Daily Note-Current Subjective Pt up in chair, agreeable. OT removed platform from walker, reported Pt was able to maintain museum specialist and Pt was requesting to switch to a walker with skis on back. Different walker to room, Pt reported it was easier to use. Mental Status Patient Orientation: Person, Place, Time, Situation Transfers SCALE: Activities may be completed with or without assistive devices. 4-Zokidzyfhs-hogzeqr completes the activity by him/herself with no assistance from a helper. 5-Set-up or Clean-up Assistance-helper sets up or cleans up; patient completes activity. [place] assists only prior to or following the activity. 4-Supervision or Touching Assistance-helper provides verbal cues and/or touching/steadying and/or contact guard assistance as patient completes activit y. Assistance may be provided throughout the activity or intermittently. 3-Partial/Moderate Assistance-helper does LESS THAN HALF the effort. [place] lifts, holds or supports trunk or limbs, but provides less than half the effort. 2-Substantial/Maximal Assistance-helper does MORE THAN HALF the effort. [place] lifts or holds trunk or limbs and provides more than half the effort. 3-Nuasahuob-ewsyxd does ALL the effort. Patient does none of the effort to complete the activity. Or, the assistance of 2 or more helpers is required for the patient to complete the activity. If activity was not attempted, code reason: 7-Patient Refused. 9-Not Applicable-not attempted and the patient did not perform the activity before the current illness, exacerbation or injury. 10-Not Attempted due to Environmental Limitations-(lack of equipment, weather restraints, etc.). 88-Not Attempted due to Medical Conditions or Safety Concerns. Sit to Stand (QC): 4 Weight Bearing Right Lower Extremity: Right Full Weight Bearing Left Lower Extremity: Left Full Weight Bearing Gait Training Does the Patient Walk?: Yes Distance: 150 Walk 10 feet (QC): 4 Walk 50 ft with 2 Turns(QC): 4 Walk 150 ft (QC): 4 Gait Persons Needed: 1 Gait Assistive Device: FWW Pt ambulated with min A x 1, VCS to clear (R) foot during swing. No santiago LOB but unsteady, occasionally catching (R) toes during swing, also occasionally kicking walker with (R) foot. Good control of walker without platform this date. Exercises NuStep Minutes: 8 NuStep Workload: 5 Treatments Gait training with FWW, NuStep for activity tolerance, (B) integration. Pt returned to room, up in recliner with all needs met. Assessment Current Status: Good Progress PT Short Term Goals Short Term Goals Time Frame: Nov 14, 2019 Roll Left & Right: 3 Sit to lyin Lying to sitting on side of be: 3 Sit to stand: 3 Chair/zxs-ul-qowfg transfer: 3 Walk 10 feet: 2 Wheel 50ft w/2 turns: 4 Wheel 150 feet: 4 PT Nursing Student Goals Nursing Student Goals PT Nursing Student Goals Time Frame: Nov 28, 2019 Roll Left & Right (QC): 6 Sit to Lying (QC): 6 Lying-Sitting on Side/Bed(QC): 6 Sit to Stand (QC): 6 Chair/Sbw-ot-Rbbyz Xfer(QC): 6 Toilet Transfer (QC): 6 Car Transfer (QC): 5 Does the Patient Walk: No and Walking Goal IS indicated Walk 10 feet (QC): 6 Walk 50ft with 2 Turns (QC): 6 Walk 150 ft (QC): 6 Walking 10ft on Uneven Surface: 5 1 Step (curb) (QC): 5 4 Steps (QC): 5 12 Steps (QC): 4 Picking up an Object (QC): 4 Wheel 50 feet with 2 turns (QC: 6 Type: Manual Wheel 150 feet: 6 Type: Manual PT Plan Problem List Problem List: Activity Tolerance, Functional Strength, Safety, Balance, Gait, Transfer, Bed Mobility Treatment/Plan Treatment Plan: Continue Plan of Care Treatment Plan: Bed Mobility, Education, Functional Activity Joey, Functional Strength, Group Therapy, Gait, Safety, Therapeutic Exercise, Transfers Treatment Duration: Nov 28, 2019 Frequency: At least 5 of 7 days/Wk (IRF) Estimated Hrs Per Day: 1.5 hours per day Patient and/or Family Agrees t: Yes Time/GCodes Time In: 1100 Time Out: 1130 Total Billed Treatment Time: 30 Total Billed Treatment 1, GT x 22, Ex x 8 ARLIN MCCONNELL DPManasa Nov 21, 2019 13:17
--- NOTE | 2019-11-21 13:21 | Physical Therapy Daily Note ---
PT Daily Note-Current Subjective Pt agreeable. OT reports that platform was removed as Pt was able to appropriately grasp walker with (R) hand. Mental Status Patient Orientation: Person, Place, Time, Situation Transfers SCALE: Activities may be completed with or without assistive devices. 7-Dbdsselthx-krjozsh completes the activity by him/herself with no assistance from a helper. 5-Set-up or Clean-up Assistance-helper sets up or cleans up; patient completes activity. [place] assists only prior to or following the activity. 4-Supervision or Touching Assistance-helper provides verbal cues and/or touching/steadying and/or contact guard assistance as patient completes activity. Assistance may be provided throughout the activity or intermittently. 3-Partial/Moderate Assistance-helper does LESS THAN HALF the effort. [place] lifts, holds or supports trunk or limbs, but provides less than half the effort. 2-Substantial/Maximal Assistance-helper does MORE THAN HALF the effort. [place] lifts or holds trunk or limbs and provides more than half the effort. 3-Tveqmuhsj-znhtfs does ALL the effort. Patient does none of the effort to complete the activity. Or, the assistance of 2 or more helpers is required for the patient to complete the activity. If activity was not attempted, code reason: 7-Patient Refused. 9-Not Applicable-not attempted and the patient did not perform the activity before the current illness, exacerbation or injury. 10-Not Attempted due to Environmental Limitations-(lack of equipment, weather restraints, etc.). 88-Not Attempted due to Medical Conditions or Safety Concerns. Sit to Stand (QC): 4 Weight Bearing Right Lower Extremity: Right Full Weight Bearing Left Lower Extremity: Left Full Weight Bearing Gait Training Does the Patient Walk?: Yes Distance: 150 Walk 10 feet (QC): 4 Walk 50 ft with 2 Turns(QC): 4 Walk 150 ft (QC): 4 Gait Persons Needed: 1 Gait Assistive Device: FWW Pt ambulates with min A x 1 with FWW. VCS for (R) foot clearance, occasionally dragging foot during swing and kicking walker during step through. Exercises NuStep Minutes: 8 NuStep Workload: 5 Treatments Gait training with FWW, NuStep for activity tolerance, (B) integration. Returned to up in chair with all needs met. Assessment Current Status: Good Progress Pt tolerated well. Able to control FWW with (R) UE well this date. PT Short Term Goals Short Term Goals Time Frame: Nov 14, 2019 Roll Left & Right: 3 Sit to lyin Lying to sitting on side of be: 3 Sit to stand: 3 Chair/ong-dk-dapfd transfer: 3 Walk 10 feet: 2 Wheel 50ft w/2 turns: 4 Wheel 150 feet: 4 PT Correction Goals Correction Goals PT Clinical Support Specialist Goals Time Frame: Nov 28, 2019 Roll Left & Right (QC): 6 Sit to Lying (QC): 6 Lying-Sitting on Side/Bed(QC): 6 Sit to Stand (QC): 6 Chair/Nbl-yo-Hobvw Xfer(QC): 6 Toilet Transfer (QC): 6 Car Transfer (QC): 5 Does the Patient Walk: No and Walking Goal IS indicated Walk 10 feet (QC): 6 Walk 50ft with 2 Turns (QC): 6 Walk 150 ft (QC): 6 Walking 10ft on Uneven Surface: 5 1 Step (curb) (QC): 5 4 Steps (QC): 5 12 Steps (QC): 4 Picking up an Object (QC): 4 Wheel 50 feet with 2 turns (QC: 6 Type: Manual Wheel 150 feet: 6 Type: Manual PT Plan Problem List Problem List: Activity Tolerance, Functional Strength, Safety, Balance, Gait, Transfer, Bed Mobility Treatment/Plan Treatment Plan: Continue Plan of Care Treatment Plan: Bed Mobility, Education, Functional Activity Joey, Functional Strength, Group Therapy, Gait, Safety, Therapeutic Exercise, Transfers Treatment Duration: Nov 28, 2019 Frequency: At least 5 of 7 days/Wk (IRF) Estimated Hrs Per Day: 1.5 hours per day Patient and/or Family Agrees t: Yes Safety Risks/Education Patient Education: Gait Training Teaching Recipient: Patient Teaching Methods: Discussion Response to Teaching: Reinforcement Needed Time/GCodes Time In: 1100 Time Out: 1130 Total Billed Treatment Time: 30 Total Billed Treatment 1, GT x 22', Ex x 8' ARLIN MCCONNELL DPManasa Nov 21, 2019 13:21
--- NOTE | 2019-11-21 13:55 | Occupational Ther Daily Note ---
OT Current Status-Daily Note Subjective Pt alert, lying in bed. Pt agrees to therapy. No c/o pain at this time. C/o people interrupting when he is busy. Mental Status/Objective Patient Orientation: Person, Place, Time, Situation ADL-Treatment Pt agrees to shower. Supine to EOB, supervision with HOB slightly elevated. Pt ambulated to toilet using platform walker with min A and transferred to/from toilet with min A. CGA to manipulate clothing, assist to cleanse buttocks after BM. Pt transferred into/out of shower using grabbars and shower bench with min A. Pt completed shower sitting on shower bench except to cleanse buttocks in standing using R UE to stabilize on grabbar and L UE to wash with CGA for safety. Pt able to dry self sitting on w/c. Pt donned shirt by self after set up. Assist to place R LE into pant leg, Pt threaded L LE into pant leg. Using platform walker, pt able to hike pants over left hip then assist to hike over R hip (CGA). Assist to don/doff socks/shoes. Pt completed own oral care after given supplies. Pt ambulated to therapy gym to complete UE exercises. Pt completed B UE kelly system with 1# wt on wrists for 15 min. Pt able to maneuver R UE into all planes. Platform taken off of walker. Pt able to grasp and sustain R elbow in extension to maneuver FWW. After session, pt sitting in recliner with call light/phone in reach. All needs met in room. Therapy Code Descriptions/Definitions Functional [place] Measure: 0=Not Assessed/NA 4=Minimal Assistance 1=Total Assistance 5=Supervision or Setup 2=Maximal Assistance 6=Modified [place] 3=Moderate Assistance 7=Complete IndependenceSCALE: Activities may be completed with or without assistive devices. 7-Otsnswlswt-mhsxyhq completes the activity by him/herself with no assistance from a helper. 5-Set-up or Clean-up Assistance-helper sets up or cleans up; patient completes activity. [place] assists only prior to or following the activity. 4-Supervision or Touching Assistance-helper provides verbal cues and/or touching/steadying and/or contact guard assistance as patient completes activi ty. Assistance may be provided throughout the activity or intermittently. 3-Partial/Moderate Assistance-helper does LESS THAN HALF the effort. [place] lifts, holds or supports trunk or limbs, but provides less than half the effort. 2-Substantial/Maximal Assistance-helper does MORE THAN HALF the effort. [place] lifts or holds trunk or limbs and provides more than half the effort. 6-Pxuymcknr-lkkuzu does ALL the effort. Patient does none of the effort to complete the activity. Or, the assistance of 2 or more helpers is required for the patient to complete the activity. If activity was not attempted, code reason: 7-Patient Refused. 9-Not Applicable-not attempted and the patient did not perform the activity before the current illness, exacerbation or injury. 10-Not Attempted due to Environmental Limitations-(lack of equipment, weather restraints, etc.). 88-Not Attempted due to Medical Conditions or Safety Concerns. Oral Hygiene (QC): 5 Shower/Bathe Self (QC): 4 Upper Body Dressing (QC): 5 Lower Body Dressing (QC): 2 On/Off Footwear: 2 Toileting Hygiene (QC): 2 Toilet Transfer (QC): 3 OT Short Term Goals Short Term Goals Time Frame: Nov 15, 2019 Oral hygiene: 3 Toileting hygiene: 2 Shower/bathe self: 3 Upper body dressin Lower body dressin Putting on/taking off footwear: 3 OT [facility] Goals Membership Sales Manager Goals Time Frame: Nov 29, 2019 Eating (QC): 6 Oral Hygiene (QC): 6 Toileting Hygiene (QC): 5 Shower/Bathe Self (QC): 4 Upper Body Dressing (QC): 5 Lower Body Dressing (QC): 5 On/Off Footwear (QC): 5 Additional Goals: 1-Demonstrate ADL Tasks, 2-Verbalize Understanding, 3-ImproveStrength/Joey 1=Demonstrate adherence to instructed precautions during ADL tasks. 2=Patient will verbalize/demonstrate understanding of assistive devices/modifications for ADL. 3=Patient will improve strength/tolerance for activity to enable patient to perform ADL's. OT Education/Plan Problem List/Assessment Assessment: Decreased Activ Tolerance, Decreased UE Strength, Impaired Coordination, Impaired Funct Balance, Impaired Self-Care Skills, Restricted Funct UE ROM Discharge Recommendations Plan/Recommendations: Continue POC Treatment Plan/Plan of Care Patient would benefit from OT for education, treatment and training to promote independence in ADL's, mobility, safety and/or upper extremity function for ADL's. Plan of Care: ADL Retraining, Functional Mobility, Group Exercise/Act as Ind, UE Funct Exercise/Act, UE Neuromus Re-Ed/Coord Treatment Duration: Nov 29, 2019 Frequency: At least 5 of 7 days/Wk (IRF) Estimated Hrs Per Day: 1.5 hours per day Rehab Potential: Good Time/GCodes Start Time: 09:30 Stop Time: 11:00 Total Time Billed (hr/min): 90 Billed Treatment Time 1 visit-ADL 5 (75 min) EX 1 (15 min) KAREN MARQUES Nov 21, 2019 13:55
--- NOTE | 2019-11-21 14:03 | Speech Therapy Daily Note ---
Speech Daily Progress Note Subjective Date Seen by Provider: Nov 21, 2019 Time Seen by Provider: 00:30 Patient was sitting in his recliner waiting on his lunch to arrive when I entered his room. I assisted him in getting his dentures in. Objective Patient utilizes compensatory strategies as trained at 85% with minimal cuing. Patient has to use his left hand for eating which creates some difficulty, although this is improving. Assessment Assessment Current Status: Good Progress Treatment Plan Continue Plan of Care Speech Short Term Goals Short Term Goals Short Term Goals 1. Patient will complete memory tasks related to daily needs at 90% or greater with minimal cueing. 2. Patient will complete safety awareness tasks related to daily needs at 90% or greater with minimal cueing. 3. Patient will complete problem solving tasks related to daily needs at 90% or greater with minimal cueing. 4. Patient will complete word finding tasks related to daily needs at 90% or greater with minimal cueing. 5. Patient will tolerate least restrictive diet level without s/s of aspiration with 90% or greater. 6. Patient/caregiver will utilize compensatory strategies as trained with 90% or greater given minimal cues. Speech Street Cleaner Goals Street Cleaner Goals Patient will improve cognitive communication necessary for safety and daily living tasks with minimal assist. Patient will maintain adequate nutrition/hydration via safe effective swallow fu nction. Speech-Plan Patient/Family Goals Patient/Family Goals: Patient is returning to his home where he lives with his . Treatment Plan Speech Therapy Treatment Plan: Continue Plan of Care Treatment Duration: Nov 08, 2019 Frequency: 5 times per week Estimated Hrs Per Day: .5 hour per day Rehab Potential: Good Barriers to Learning: Recent after affects of the CVA Pt/Family Agrees to Plan: Yes Safety Risks/Education Teaching Recipient: Patient Teaching Methods: Demonstration, Discussion Response to Teaching: Verbalize Understanding, Return Demonstration Education Topics Provided: Continued safety with oral intake while in the hospital as well as upon his return home. Time Speech Therapy Time In: 11:30 Speech Therapy Time Out: 12:00 Total Billed Time: 30 Billed Treatment Time [address] Nov 21, 2019 14:03
--- NOTE | 2019-11-21 15:07 | Physical Therapy Daily Note ---
PT Daily Note-Current Subjective Pt agreeable. States, "I do think I am a little better but that arm and leg just don't do what I want it to". Mental Status Patient Orientation: Person, Place, Time, Situation Transfers SCALE: Activities may be completed with or without assistive devices. 7-Nekruqrlol-vjdslgw completes the activity by him/herself with no assistance from a helper. 5-Set-up or Clean-up Assistance-helper sets up or cleans up; patient completes activity. [place] assists only prior to or following the activity. 4-Supervision or Touching Assistance-helper provides verbal cues and/or touching/steadying and/or contact guard assistance as patient completes activity. Assistance may be provided throughout the activity or intermittently. 3-Partial/Moderate Assistance-helper does LESS THAN HALF the effort. [place] lifts, holds or supports trunk or limbs, but provides less than half the effort. 2-Substantial/Maximal Assistance-helper does MORE THAN HALF the effort. [place] lifts or holds trunk or limbs and provides more than half the effort. 0-Vdvatndbf-nrcyes does ALL the effort. Patient does none of the effort to complete the activity. Or, the assistance of 2 or more helpers is required for the patient to complete the activity. If activity was not attempted, code reason: 7-Patient Refused. 9-Not Applicable-not attempted and the patient did not perform the activity before the current illness, exacerbation or injury. 10-Not Attempted due to Environmental Limitations-(lack of equipment, weather restraints, etc.). 88-Not Attempted due to Medical Conditions or Safety Concerns. Sit to Stand (QC): 4 Weight Bearing Right Lower Extremity: Right Full Weight Bearing Left Lower Extremity: Left Full Weight Bearing Gait Training Does the Patient Walk?: Yes Distance: 150 Walk 10 feet (QC): 4 Walk 50 ft with 2 Turns(QC): 4 Walk 150 ft (QC): 4 Gait Persons Needed: 1 Gait Assistive Device: FWW Pt ambulates with min A x 1 with FWW. Precarious balance, occasionally dragging (R) foot and kicking walker. Poor proprioception on (R) LE, big variance in step length and height. Exercises Standing: Floor clock (colored cones for proprioception/coordination), Marching, Stepping over objects ((R) LE forward and backward over cone) Standing Reps: 20 min A x 1 in // bars for proprioception activities Treatments Gait training, proprioception exercises. Returned to recliner with needs met. Assessment Current Status: Good Progress Pt tolerated well. Precarious balance with gait, high fall risk due to poor proprioception on (R) LE. Poor muscle isolation in (R) LE for coordinated move ments. PT Short Term Goals Short Term Goals Time Frame: Nov 14, 2019 Roll Left & Right: 3 Sit to lyin Lying to sitting on side of be: 3 Sit to stand: 3 Chair/oty-yk-bmadk transfer: 3 Walk 10 feet: 2 Wheel 50ft w/2 turns: 4 Wheel 150 feet: 4 PT [place] Goals Shelter Goals PT Shelter Goals Time Frame: Nov 28, 2019 Roll Left & Right (QC): 6 Sit to Lying (QC): 6 Lying-Sitting on Side/Bed(QC): 6 Sit to Stand (QC): 6 Chair/Odf-pv-Qitcp Xfer(QC): 6 Toilet Transfer (QC): 6 Car Transfer (QC): 5 Does the Patient Walk: No and Walking Goal IS indicated Walk 10 feet (QC): 6 Walk 50ft with 2 Turns (QC): 6 Walk 150 ft (QC): 6 Walking 10ft on Uneven Surface: 5 1 Step (curb) (QC): 5 4 Steps (QC): 5 12 Steps (QC): 4 Picking up an Object (QC): 4 Wheel 50 feet with 2 turns (QC: 6 Type: Manual Wheel 150 feet: 6 Type: Manual PT Plan Problem List Problem List: Activity Tolerance, Functional Strength, Safety, Balance, Gait, Transfer, Bed Mobility Treatment/Plan Treatment Plan: Continue Plan of Care Treatment Plan: Bed Mobility, Education, Functional Activity Joey, Functional Strength, Group Therapy, Gait, Safety, Therapeutic Exercise, Transfers Treatment Duration: Nov 28, 2019 Frequency: At least 5 of 7 days/Wk (IRF) Estimated Hrs Per Day: 1.5 hours per day Patient and/or Family Agrees t: Yes Safety Risks/Education Patient Education: Gait Training Teaching Recipient: Patient Teaching Methods: Demonstration, Discussion Response to Teaching: Reinforcement Needed Time/GCodes Time In: 1345 Time Out: 1415 Total Billed Treatment Time: 30 Total Billed Treatment 1, Gt x 15', Ex x 15' ARLIN MCCONNELL DPManasa Nov 21, 2019 15:07
[2019-11-21 16:00] VITALS: BP 106/66
--- NOTE | 2019-11-21 16:03 | NUR ---
CM/SS PATIENT CARE CONFERENCE Met with patient to review Conference summary. Patient is in agreement to target discharge date of 11/27/19. Patient appears to be progressing during therapy sessions; however, his goal is to 'walk out of here.' Professor Of Poultry Science continues to encourage patient to acknowledge his progress from admission to current date and remind that his recovery is a series of levels and phases. Looking toward a more formal discharge plan, barriers are accessing the home as well as accessing zambrano essential parts of the home like bathroom and bedroom. He indicates 2 steps to front door, ground level entry from garage but with two steps into original part of the home where the essential rooms are located. Updated barber shop manager re same. The team agreed that recommendation will be for patient to use wheelchair at home until transfers and gait is more consistent and stable. C PT/OT will be ordered to continue therapeutic sessions, explore safety and set up at home, promote independence, and decrease caregiver burden. His spouse is unable to provide physical stability due to size difference and patient does acknowledge same. DME to be explored are wheelchair and appropriate ramp, FWW with right arm rest. Continue to partner with patient and spouse for post hospital care plan preparation.
[2019-11-21] MEDS: SIMvastatin 10 MG (ZOCOR) TAB PO SCH (17:30)
[2019-11-21] MEDS: ASPIRIN E.C. 81 MG (ECOTRIN) TAB PO SCH (21:23)
[2019-11-21] MEDS: ACETAMINOPHEN 325 MG TABLET PO PRN (21:23)
[2019-11-22 06:18] VITALS: BP 147/68
[2019-11-22] MEDS: inSUlin ASPART (NovoLOG) 1 UNIT/0.01 ML (CHARGE PER UNIT) SC SCH ×4 (06:30→21:24)
[2019-11-22] MEDS: metFORMIN XR 500 MG (GLUCOPHAGE XR) TAB PO SCH ×2 (06:40→18:03)
[2019-11-22] MEDS: PANTOPRAZOLE 40 MG (PROTONIX) TAB PO SCH (08:34)
[2019-11-22] MEDS: APIXABAN 5 MG (ELIQUIS) TABLET PO SCH ×2 (08:34→21:23)
[2019-11-22] MEDS: AMIODARONE 200 MG (CORDARONE) TAB PO SCH (08:34)
[2019-11-22] MEDS: lisINopril 5 MG (PRINIVIL) TABLET PO SCH (08:34)
[2019-11-22] MEDS: MULTIVIT W/MINERALS TAB (THERAGRAN M) PO SCH (08:34)
[2019-11-22] MEDS: SENNA W/DOCUSATE (SENOKOT S) TABLET PO SCH ×2 (08:35→21:54)
[2019-11-22] MEDS: TAMSULOSIN 0.4 MG (FLOMAX) CAP PO SCH (08:35)
[2019-11-22] MEDS: DOCUSATE SODIUM 100 MG (COLACE) CAP PO SCH ×2 (08:35→21:54)
[2019-11-22] MEDS: polyethylene glycoL POWDER 17 GM (MIRALAX) PACK PO SCH ×2 (08:35→21:54)
--- NOTE | 2019-11-22 10:18 | Cardiology Progress Note ---
Subjective Date Seen by Provider: Nov 22, 2019 Time Seen by Provider: 09:20 Subjective/Events-last exam Patient is with PT, denies any chest pain or dyspnea. Review of Systems General: No Chills, No Night Sweats, No Fatigue, No Malaise, No Appetite, No Other HEENT: No Head Aches, No Visual Changes, No Eye Pain, No Ear Pain, No Dysphasia, No Sinus Congestion, No Post Nasal Drip, No Sore Throat, No Other Pulmonary: No Dyspnea, No Cough, No Pleuritic Chest Pain, No Other Cardiovascular: No: Chest Pain, Palpitations, Orthopnea, Paroxysmal Noc. Dyspnea, Edema, Lt Headedness, Other Objective-Cardiology Exam Last Set of Vital Signs Vital Signs 11/22/19 11/22/19 06:18 08:20 Temp 36.6 Pulse 64 Resp 20 B/P (MAP) 147/68 (94) Pulse Ox 97 O2 Delivery Room Air Capillary Refill : Less Than 3 Seconds I&O Intake and Output 11/22/19 00:00 Intake Total 790 ml Output Total 600 ml Balance 190 ml Intake Oral 790 ml Output Urine Total 600 ml # Bowel Movements 3 General: Alert, Oriented X3, Cooperative HEENT: Atraumatic, PERRLA Neck: Supple, No JVD, No Thyromegaly Lungs: Clear to Auscultation, Normal Air Movement Heart: Regular Rate, Normal S1, Normal S2, No Murmurs Abdomen: Normal Bowel Sounds, Soft, No Tenderness, No Hepatosplenomegaly, No Masses Extremities: No Clubbing, No Cyanosis, No Edema, Normal Pulses, No Tenderness/Swelling Skin: No Rashes, No Breakdown, No Significant Lesion Neuro: Normal Gait, Normal Speech, Strength at 5/5 X4 Ext, Normal Tone, Sensation Intact Psych/Mental Status: Mental Status NL, Mood NL Results Lab Laboratory Tests Test 11/21/19 16:28 11/21/19 21:03 11/22/19 05:40 11/22/19 11:00 Range/Units Glucometer 270 H 151 H 144 H 287 H 70-110 MG/DL A/P-Cardiology Admission Diagnosis CVA Coronary artery disease Paroxysmal atrial fibrillation Hypertension Hyperlipidemia Assessment/Plan Status post CVA with residual right hemiplegia, 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 Receiving physical therapy. Chest pain nonspecific etiology, reporting occasional chest discomfort, continue on aspirin and Eliquis, intolerant to isosorbide with hypotension and abdominal pain. Denies any recent chest pain, continue to monitor. Status post transient bradycardia, improved after stopping metoprolol. Continue to monitor blood pressure Coronary artery disease, history of multiple intervention the past, had a CABG 3 done in 2017, has been doing well. Continue to monitor Paroxysmal atrial fibrillation, reporting history of atrial fibrillation in the remote past. Was on oral anticoagulation for some time in the past and it was discontinued in the remote past. Admitted with TIA on October 26 and started on oral anticoagulation and then had another CVA on October 28, 2019 did not qualify for TPA. Currently receiving physical therapy. [id number] score of 6, yearly risk of stroke without oral anticoagulation is 9.8 percent, maintained on Eliquis Hypertension, controlled, continue to monitor. Hyperlipidemia, monitor lipids Diabetes mellitus, followed and managed by primary care physician Patient was seen and evaluated with Alisia, examination performed, management plan was discussed, agree with the current scribed note, I made few changes to the note using Italic font denied any chest pain, doing well, reporting improvement continue on current medication, continue to monitor. No changes are recommended Clinical Quality Measures DVT/VTE Risk/Contraindication: Risk Factor Score Per Nursin RFS Level Per Nursing on Admit: 4+=Very High ALISIA GARCIA Nov 22, 2019 10:18 JOSE PINO MD Nov 22, 2019 11:47
--- NOTE | 2019-11-22 10:57 | Physical Therapy Daily Note ---
PT Daily Note-Current Subjective Patient in therapy gym pre tx, agrees to PT, has no complaints of pain at rest. Appearance Patient in WC at bedside post tx with nurse call, phone, tray, all needs met. Mental Status Patient Orientation: Person, Place, Situation Transfers SCALE: Activities may be completed with or without assistive devices. 1-Wlztlabkqw-yptljmf completes the activity by him/herself with no assistance from a helper. 5-Set-up or Clean-up Assistance-helper sets up or cleans up; patient completes activity. [place] assists only prior to or following the activity. 4-Supervision or Touching Assistance-helper provides verbal cues and/or touching/steadying and/or contact guard assistance as patient completes activity. Assistance may be provided throughout the activity or intermittently. 3-Partial/Moderate Assistance-helper does LESS THAN HALF the effort. [place] lifts, holds or supports trunk or limbs, but provides less than half the effort. 2-Substantial/Maximal Assistance-helper does MORE THAN HALF the effort. [place] lifts or holds trunk or limbs and provides more than half the effort. 1-Pqgkcknov-wgexxk does ALL the effort. Patient does none of the effort to complete the activity. Or, the assistance of 2 or more helpers is required for the patient to complete the activity. If activity was not attempted, code reason: 7-Patient Refused. 9-Not Applicable-not attempted and the patient did not perform the activity before the current illness, exacerbation or injury. 10-Not Attempted due to Environmental Limitations-(lack of equipment, weather restraints, etc.). 88-Not Attempted due to Medical Conditions or Safety Concerns. Sit to Stand (QC): 4 Chair/Kzp-yn-Rkcfc Xfer(QC): 4 Patient practiced SPT x4 to each side. He needs cues for positioning and safety when transferring to the right side but can do it with the correct instructions with CGA. Weight Bearing Right Lower Extremity: Right Full Weight Bearing Left Lower Extremity: Left Full Weight Bearing Gait Training Distance: 120', 60'x2 Walk 10 feet (QC): 4 Walk 50 ft with 2 Turns(QC): 4 Gait Persons Needed: 1 Gait Assistive Device: FWW Patient ambulated 120' with a rolling walker with CGA but also 60'x2 using a hemiwalker with CGA. He has slower ambulation with the hemiwalker, needs cues for sequencing, has right knee hyperextension and more difficulty advancing his right foot but it forces him to work harder on his balance and weight shifting. Exercises NuStep Minutes: 15 NuStep Workload: 4 Treatments LE exercise, transfers, ambulation Assessment Current Status: Fair Progress improving transfers and ambulation PT Short Term Goals Short Term Goals Time Frame: Nov 14, 2019 Roll Left & Right: 3 Sit to lyin Lying to sitting on side of be: 3 Sit to stand: 3 Chair/rjw-yf-vzgld transfer: 3 Walk 10 feet: 2 Wheel 50ft w/2 turns: 4 Wheel 150 feet: 4 PT Skilled Nursing Goals Skilled Nursing Goals PT Skilled Nursing Goals Time Frame: Nov 28, 2019 Roll Left & Right (QC): 6 Sit to Lying (QC): 6 Lying-Sitting on Side/Bed(QC): 6 Sit to Stand (QC): 6 Chair/Dwv-sv-Aflmy Xfer(QC): 6 Toilet Transfer (QC): 6 Car Transfer (QC): 5 Does the Patient Walk: No and Walking Goal IS indicated Walk 10 feet (QC): 6 Walk 50ft with 2 Turns (QC): 6 Walk 150 ft (QC): 6 Walking 10ft on Uneven Surface: 5 1 Step (curb) (QC): 5 4 Steps (QC): 5 12 Steps (QC): 4 Picking up an Object (QC): 4 Wheel 50 feet with 2 turns (QC: 6 Type: Manual Wheel 150 feet: 6 Type: Manual PT Plan Problem List Problem List: Activity Tolerance, Functional Strength, Safety, Balance, Gait, Transfer, Bed Mobility, ROM Treatment/Plan Treatment Plan: Continue Plan of Care Treatment Plan: Bed Mobility, Education, Functional Activity Joey, Functional Strength, Group Therapy, Gait, Safety, Therapeutic Exercise, Transfers Treatment Duration: Nov 28, 2019 Frequency: At least 5 of 7 days/Wk (IRF) Estimated Hrs Per Day: 1.5 hours per day Patient and/or Family Agrees t: Yes Safety Risks/Education Patient Education: Gait Training, Transfer Techniques, Correct Positioning, Safety Issues Teaching Recipient: Patient Teaching Methods: Demonstration, Discussion Response to Teaching: Reinforcement Needed Time/GCodes Time In: 1000 Time Out: 1100 Total Billed Treatment Time: 60 Total Billed Treatment 1 visit EX 15' GT 30' FA 15' ELZA WEN PT Nov 22, 2019 10:57
--- NOTE | 2019-11-22 11:17 | NUR ---
"RD ASSESSMENT PMHx: DM; CAD; HLD; HTN; GERD; CA(colon - resection 2011) PT INTERACTION: Pt was awake and pleasant during nutrition follow-up. Pt states he has been eating well since last assessment. Note avg PO intake 92% x4d, per chart review. Pt states no issues with n/v/c/d since last assessment. Note last BM was 4/2 and pt currently on bowel regimen of Colace BID; Senna BID; and Miralax BID, per chart review. ABNORMAL NUTRITION-RELATED LAB VALUES Taken 11/18/2019 LOW: Pro 6.1 HIGH: BUN 25; glu 173 Est. kcal needs: 9849-6804 kcal | 20-25 kcal/kg Est. Pro needs: 71-88 g Pro | 0.8-1.0 g Pro/kg PES STATEMENT: Given current PO intake, no nutrition diagnosis at this time (NO-1.1) INTERVENTION: Continue with current diet order of CHO 60g/m 0snack diet. Will continue to follow and reassess as pt needs, intake, and status change. MONITOR/EVALUATE: PO Intake; Plan of Care; Hydration Status; Weight Status; Lab Values Audrey Garay, MS, RD, LD"
--- NOTE | 2019-11-22 11:23 | PM&R Progress Note ---
Subjective HPI/CC On Admission Date Seen by Provider: Nov 22, 2019 Time Seen by Provider: 11:30 Subjective/Events-last exam Patient always seems to be bothered by my visit and others too DC planned for Monday after comes for training on Monday then goes home Monday and picks him up Mon walker is needed to start working on that prior to DC No pain is reported BP ok Good transfers BM regular stool softners given today No dysphagia No falls reported Checked meds and labs Reviewed therapy notes Conferred with air brush artist of Systems Neurological: Weakness, Numbness, Incoordination Objective Exam Vital Signs Vital Signs Date Time Temp Pulse Resp B/P (MAP) Pulse Ox O2 Delivery O2 Flow Rate FiO2 11/22/19 16:00 36.4 61 16 117/65 (82) 95 11/22/19 08:20 Room Air Capillary Refill : Less Than 3 Seconds General Appearance: No Apparent Distress, WD/WN HEENT: PERRL/EOMI, Normal ENT Inspection, Pharynx Normal Neck: Normal Inspection, Non Tender, Supple Respiratory: Lungs Clear, Normal Breath Sounds, No Accessory Muscle Use, No Respiratory Distress Cardiovascular: Regular Rate, Rhythm, No Edema, No Gallop, No Murmur, Normal Peripheral Pulses, Irregularly Irregular Gastrointestinal: Normal Bowel Sounds, No Organomegaly, No Pulsatile Mass, Non Tender, Soft Back: Normal Inspection, No CVA Tenderness, No Vertebral Tenderness Extremity: Normal Capillary Refill, Non Tender, No Calf Tenderness, No Pedal Edema Neurologic/Psychiatric: Alert, Oriented x3, Normal Mood/Affect, cutting pressman II-XII Norm as Tested, Abnormal Gait, Motor Weakness Skin: Normal Color, Warm/Dry Lymphatic: No Adenopathy Results/Procedures Lab Patient resulted labs reviewed. FIM Transfers Therapy Code Descriptions/Definitions Functional [place] Measure: 0=Not Assessed/NA 4=Minimal Assistance 1=Total Assistance 5=Supervision or Setup 2=Maximal Assistance 6=Modified [place] 3=Moderate Assistance 7=Complete IndependenceSCALE: Activities may be completed with or without assistive devices. 1-Kalefxirvy-dcbjaik completes the activity by him/herself with no assistance from a helper. 5-Set-up or Clean-up Assistance-helper sets up or cleans up; patient completes activity. Custer assists only prior to or following the activity. 4-Supervision or Touching Assistance-helper provides verbal cues and/or touching/steadying and/or contact guard assistance as patient completes activity. Assistance may be provided throughout the activity or intermittently. 3-Partial/Moderate Assistance-helper does LESS THAN HALF the effort. Custer lifts, holds or supports trunk or limbs, but provides less than half the effort. 2-Substantial/Maximal Assistance-helper does MORE THAN HALF the effort. Custer lifts or holds trunk or limbs and provides more than half the effort. 6-Hqcekwhxx-pfirfg does ALL the effort. Patient does none of the effort to complete the activity. Or, the assistance of 2 or more helpers is required for the patient to complete the activity. If activity was not attempted, code reason: 7-Patient Refused. 9-Not Applicable-not attempted and the patient did not perform the activity before the current illness, exacerbation or injury. 10-Not Attempted due to Environmental Limitations-(lack of equipment, weather restraints, etc.). 88-Not Attempted due to Medical Conditions or Safety Concerns. Roll Left to Right (QC): 5 Sit to Lying (QC): 5 Sit to Stand (QC): 4 Chair/Qif-hv-Yjgvr Xfer(QC): 4 Car Transfer (QC): 2 (max assist to transfer in/out of car) Gait Training Does the Patient Walk?: Yes Distance: 120', 60'x2 Walk 10 feet (QC): 4 Walk 50 ft with 2 Turns(QC): 4 Walk 150 ft (QC): 4 Walking 10ft/uneven surface-QC: 88 Gait Persons Needed: 1 Gait Assistive Device: FWW Wheelchair Training Does the Pt Use a Wheelchair?: Yes Wheel 50 ft with 2 turns (QC): 5 Wheel 150 ft (QC): 4 Type of Wheelchair: Manual Stair Training 1 Step (curb) (QC): 88 4 Steps (QC): 88 12 Steps (QC): 88 Balance Picking up an Object (QC): 88 ADL-Treatment Eating (QC): 5 Oral Hygiene (QC): 5 Bathing Location: L Arm, R Arm, L Upper Leg, R Upper Leg, L Lower Leg (inclu ding foot), R Lower Leg (including foot), Chest, Abdomen, Buttocks, Perineal Area Shower/Bathe Self (QC): 4 Upper Body Dressing (QC): 5 Lower Body Dressing (QC): 2 On/Off Footwear (QC): 2 Toileting Hygiene (QC): 2 Toilet Transfer (QC): 3 Assessment/Plan Assessment and Plan Assess & Plan/Chief Complaint Assessment: CVA 10/28/19 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 HTN HLP CRI AF ED Acute constipation initiated aggressive meds now resolved Dysphagia needs EGD and dilation but cannot go off OAC due to too high of risk for recurrent CVA Plan: IRF protocol BM regimen Fall risk Cardiology consultation appreciated Dr Wang consulted and is appreciated Increase PPI dose is working well Walking with platform working well for him Dispo next week after family training on Monday (1) CVA (cerebral vascular accident) (2) Flaccid hemiplegia affecting dominant side (3) Diabetes (4) Hypertension (5) Hyperlipemia (6) On continuous oral anticoagulation (7) Atrial fibrillation (8) History of penile implant (9) History of colon cancer (10) Former smoker (11) Renal insufficiency (12) Constipation SCOTT BARBOSA DO Nov 22, 2019 11:23
--- NOTE | 2019-11-22 11:53 | Occupational Ther Daily Note ---
OT Current Status-Daily Note Subjective Pt alert, lying in bed. Pt agrees to therapy. No c/o pain at this time. Mental Status/Objective Patient Orientation: Person, Place, Time, Situation ADL-Treatment Pt declines shower/sponge bath. Supine to EOB, modified independent. CGA to don shirt after set up. Mod A to don pants, assist with R side and pt completed L side then CGA in standing with FWW as pt hikes pants. Pt donned L sock/shoe, assist with R sock/shoe. Pt stood at toilet to urinate with CGA, pt manipulated clothing and placed penis in position to urinate. Therapy Code Descriptions/Definitions Functional [place] Measure: 0=Not Assessed/NA 4=Minimal Assistance 1=Total Assistance 5=Supervision or Setup 2=Maximal Assistance 6=Modified [place] 3=Moderate Assistance 7=Complete IndependenceSCALE: Activities may be completed with or without assistive devices. 6-Xyslqeluxr-yrdkjrk completes the activity by him/herself with no assistance from a helper. 5-Set-up or Clean-up Assistance-helper sets up or cleans up; patient completes activity. Sherwood assists only prior to or following the activity. 4-Supervision or Touching Assistance-helper provides verbal cues and/or touching/steadying and/or contact guard assistance as patient completes activity. Assistance may be provided throughout the activity or intermittently. 3-Partial/Moderate Assistance-helper does LESS THAN HALF the effort. Sherwood lifts, holds or supports trunk or limbs, but provides less than half the effort. 2-Substantial/Maximal Assistance-helper does MORE THAN HALF the effort. Sherwood lifts or holds trunk or limbs and provides more than half the effort. 0-Oidzmserq-rahrxy does ALL the effort. Patient does none of the effort to complete the activity. Or, the assistance of 2 or more helpers is required for the patient to complete the activity. If activity was not attempted, code reason: 7-Patient Refused. 9-Not Applicable-not attempted and the patient did not perform the activity before the current illness, exacerbation or injury. 10-Not Attempted due to Environmental Limitations-(lack of equipment, weather restraints, etc.). 88-Not Attempted due to Medical Conditions or Safety Concerns. Upper Body Dressing (QC): 4 Lower Body Dressing (QC): 2 On/Off Footwear: 3 Toileting Hygiene (QC): 3 Toilet Transfer (QC): 3 Other Treatment Pt ambulated to therapy gym using FWW. Pt working on decreasing compensatory patterns with R shldr and using ergonomically correct movement to grasp, move and place items in designated areas. Pt initially required physical cues to keep shldr from lifting hand while with facilitation using bicep and tricep to lift hand and reach forward. PT took care of pt after session. All needs met. OT Short Term Goals Short Term Goals Time Frame: Nov 15, 2019 Oral hygiene: 3 Toileting hygiene: 2 Shower/bathe self: 3 Upper body dressin Lower body dressin Putting on/taking off footwear: 3 OT Chcf Goals Plastics Heat Welder Goals Time Frame: Nov 29, 2019 Eating (QC): 6 Oral Hygiene (QC): 6 Toileting Hygiene (QC): 5 Shower/Bathe Self (QC): 4 Upper Body Dressing (QC): 5 Lower Body Dressing (QC): 5 On/Off Footwear (QC): 5 Additional Goals: 1-Demonstrate ADL Tasks, 2-Verbalize Understanding, 3- ImproveStrength/Joey 1=Demonstrate adherence to instructed precautions during ADL tasks. 2=Patient will verbalize/demonstrate understanding of assistive devices/modifications for ADL. 3=Patient will improve strength/tolerance for activity to enable patient to perform ADL's. OT Education/Plan Problem List/Assessment Assessment: Decreased Activ Tolerance, Decreased Safety Aware, Decreased UE Strength, Impaired Coordination, Impaired Funct Balance, Impaired Self-Care Skills, Restricted Funct UE ROM Discharge Recommendations Plan/Recommendations: Continue POC Treatment Plan/Plan of Care Patient would benefit from OT for education, treatment and training to promote independence in ADL's, mobility, safety and/or upper extremity function for ADL's. Plan of Care: ADL Retraining, Functional Mobility, Group Exercise/Act as Ind, UE Funct Exercise/Act, UE Neuromus Re-Ed/Coord Treatment Duration: Nov 29, 2019 Frequency: At least 5 of 7 days/Wk (IRF) Estimated Hrs Per Day: 1.5 hours per day Rehab Potential: Good Time/GCodes Start Time: 09:00 Stop Time: 10:00 Total Time Billed (hr/min): 60 Billed Treatment Time 1 visit-ADL 2 (30 min) NM 2 (30 min) KAREN MARQUES DANNY Nov 22, 2019 11:53
--- NOTE | 2019-11-22 13:15 | Speech Therapy Daily Note ---
Speech Daily Progress Note Subjective Date Seen by Provider: Nov 22, 2019 Time Seen by Provider: 00:30 Patient was eating his lunch when I arrived. He stated he didn't like being interrupted when he was eating by the nurses. Objective Patient utilizes compensatory strategies as trained for safe oral intake with 80% given min to mod verbal cues. Assessment Assessment Current Status: Good Progress Treatment Plan Continue Plan of Care Speech Short Term Goals Short Term Goals Short Term Goals 1. Patient will complete memory tasks related to daily needs at 90% or greater with minimal cueing. 2. Patient will complete safety awareness tasks related to daily needs at 90% or greater with minimal cueing. 3. Patient will complete problem solving tasks related to daily needs at 90% or greater with minimal cueing. 4. Patient will complete word finding tasks related to daily needs at 90% or greater with minimal cueing. 5. Patient will tolerate least restrictive diet level without s/s of aspiration with 90% or greater. 6. Patient/caregiver will utilize compensatory strategies as trained with 90% or greater given minimal cues. Speech Residential Goals Residential Goals Patient will improve cognitive communication necessary for safety and daily living tasks with minimal assist. Patient will maintain adequate nutrition/hydration via safe effective swallow function. Speech-Plan Patient/Family Goals Patient/Family Goals: Patient plans to return to his home with his upon hospital discharge. Treatment Plan Speech Therapy Treatment Plan: Continue Plan of Care Treatment Duration: Nov 08, 2019 Frequency: 5 times per week Estimated Hrs Per Day: .5 hour per day Rehab Potential: Good Barriers to Learning: Patient's after affects of his recent CVA Pt/Family Agrees to Plan: Yes Safety Risks/Education Teaching Recipient: Patient Teaching Methods: Demonstration, Discussion Response to Teaching: Verbalize Understanding, Return Demonstration Education Topics Provided: Continued safety and utilization of compensatory strategies for all oral intake Time Speech Therapy Time In: 11:30 Speech Therapy Time Out: 12:00 Total Billed Time: 30 Billed Treatment Time 1[address] Nov 22, 2019 13:15
--- NOTE | 2019-11-22 13:45 | Physical Therapy Daily Note ---
PT Daily Note-Current Subjective Patient in WC at bedside pre tx, agrees to PT, has no complaints of pain. Appearance Patient in WC at bedside post tx with nurse call, OT taking over right after PT. Mental Status Patient Orientation: Person, Place, Situation Transfers SCALE: Activities may be completed with or without assistive devices. 2-Uklwysaubg-diothin completes the activity by him/herself with no assistance from a helper. 5-Set-up or Clean-up Assistance-helper sets up or cleans up; patient completes activity. Celeste assists only prior to or following the activity. 4-Supervision or Touching Assistance-helper provides verbal cues and/or touching/steadying and/or contact guard assistance as patient completes activity. Assistance may be provided throughout the activity or intermittently. 3-Partial/Moderate Assistance-helper does LESS THAN HALF the effort. Celeste lifts, holds or supports trunk or limbs, but provides less than half the effort. 2-Substantial/Maximal Assistance-helper does MORE THAN HALF the effort. Celeste lifts or holds trunk or limbs and provides more than half the effort. 7-Nhqixtuzv-kiokqn does ALL the effort. Patient does none of the effort to complete the activity. Or, the assistance of 2 or more helpers is required for the patient to complete the activity. If activity was not attempted, code reason: 7-Patient Refused. 9-Not Applicable-not attempted and the patient did not perform the activity before the current illness, exacerbation or injury. 10-Not Attempted due to Environmental Limitations-(lack of equipment, weather restraints, etc.). 88-Not Attempted due to Medical Conditions or Safety Concerns. Sit to Stand (QC): 4 Chair/Jty-jw-Kxjgc Xfer(QC): 4 CGA Weight Bearing Right Lower Extremity: Right Full Weight Bearing Left Lower Extremity: Left Full Weight Bearing Gait Training Distance: 150', 120' Gait Persons Needed: 1 Gait Assistive Device: FWW CGA, some unsteadiness but no assist needed to maintain balance, occasional difficulty advancing his right foot due to toe drag Treatments ambulation, transfers Assessment Current Status: Fair Progress improving ambulation and advancement of right foot during ambulation PT Short Term Goals Short Term Goals Time Frame: Nov 14, 2019 Roll Left & Right: 3 Sit to lyin Lying to sitting on side of be: 3 Sit to stand: 3 Chair/ccj-ub-naexy transfer: 3 Walk 10 feet: 2 Wheel 50ft w/2 turns: 4 Wheel 150 feet: 4 PT Chcf Goals Chcf Goals PT Rides Supervisor Goals Time Frame: Nov 28, 2019 Roll Left & Right (QC): 6 Sit to Lying (QC): 6 Lying-Sitting on Side/Bed(QC): 6 Sit to Stand (QC): 6 Chair/Nxi-lz-Sexgg Xfer(QC): 6 Toilet Transfer (QC): 6 Car Transfer (QC): 5 Does the Patient Walk: No and Walking Goal IS indicated Walk 10 feet (QC): 6 Walk 50ft with 2 Turns (QC): 6 Walk 150 ft (QC): 6 Walking 10ft on Uneven Surface: 5 1 Step (curb) (QC): 5 4 Steps (QC): 5 12 Steps (QC): 4 Picking up an Object (QC): 4 Wheel 50 feet with 2 turns (QC: 6 Type: Manual Wheel 150 feet: 6 Type: Manual PT Plan Problem List Problem List: Activity Tolerance, Functional Strength, Safety, Balance, Gait, Transfer, Bed Mobility Treatment/Plan Treatment Plan: Continue Plan of Care Treatment Plan: Bed Mobility, Education, Functional Activity Joey, Functional Strength, Group Therapy, Gait, Safety, Therapeutic Exercise, Transfers Treatment Duration: Nov 28, 2019 Frequency: At least 5 of 7 days/Wk (IRF) Estimated Hrs Per Day: 1.5 hours per day Patient and/or Family Agrees t: Yes Safety Risks/Education Patient Education: Gait Training, Transfer Techniques, Correct Positioning, Safety Issues Teaching Recipient: Patient Teaching Methods: Demonstration, Discussion Response to Teaching: Reinforcement Needed Time/GCodes Time In: 1330 Time Out: 1345 Total Billed Treatment Time: 15 Total Billed Treatment 1 visit GT 15' ELZA WEN PT Nov 22, 2019 13:45
--- NOTE | 2019-11-22 14:05 | NUR ---
CM/SS CONCURRENT DOCUMENTATION Extensive/multiple conversations with spouse Sarah today to finalize plans for family education and patient discharge home 11/27/19. JOANNE/Marisol has worked in partnership with [facility] to permit Sarah's presence outside the Covid19 protocols/restrictions. Plan is as follows: DME: Ramp. Sarah has arranged for a friend to build an inside ramp from their family room into the rest of house where essential access is for bathrooms, bedroom, kitchen, dining. Sarah states that she will be able to push patient to and from. This is described as a one step level change between original house and added room/garage all on one level. FWW with Right Arm Rest. Mental Health Social Worker [facility], request is to deliver Monday so that therapist can get set up for patient. Wheelchair. Sarah and patient's rivet machine operator has offered wheelchair from [facility], senior technical writer asked her to make sure it was a newer, military cook version for easier handling. Sarah will update senior technical writer Monday re same, she understands [facility] has wheelchairs for rent $65 monthly plus tax. Medicare will not pay for both FWW and wheelchair since need is based on diagnosis. HHC: Reviewed agencies in service area, Sarah has selected [facility]. Mental Health Social Worker spoke with director of recruitment and admissions to put patient on schedule for therapy , 11/28/19. Orders will be for RN, PT, OT. FAMILY TRAINING: Sarah to arrive Monday at 0830, call [facility] desk [phone]. Staff will moss picker Sarah at [facility] entrance and escort to [facility]. Patient will be moved to [address] and Sarah will stay with him as part of training. Sarah will train Monday, stay the night, train Monday and return home. She will come Monday for patient's discharge and take him home at that time. Sarah understands to have family/friends to assist upon arrival at home. Continue discharge planning.
--- NOTE | 2019-11-22 14:09 | Occupational Ther Daily Note ---
OT Current Status-Daily Note Subjective Took over care of pt from PT in room. Pt agrees to therapy. No c/o pain. Mental Status/Objective Patient Orientation: Person, Place, Time, Situation ADL-Treatment Therapy Code Descriptions/Definitions Functional [place] Measure: 0=Not Assessed/NA 4=Minimal Assistance 1=Total Assistance 5=Supervision or Setup 2=Maximal Assistance 6=Modified [place] 3=Moderate Assistance 7=Complete IndependenceSCALE: Activities may be completed with or without assistive devices. 6-Uvogxdxwzq-upvzobv completes the activity by him/herself with no assistance from a helper. 5-Set-up or Clean-up Assistance-helper sets up or cleans up; patient completes activity. Cashion assists only prior to or following the activity. 4-Supervision or Touching Assistance-helper provides verbal cues and/or touching/steadying and/or contact guard assistance as patient completes activity. Assistance may be provided throughout the activity or intermittently. 3-Partial/Moderate Assistance-helper does LESS THAN HALF the effort. Cashion lifts, holds or supports trunk or limbs, but provides less than half the effort. 2-Substantial/Maximal Assistance-helper does MORE THAN HALF the effort. Cashion l ifts or holds trunk or limbs and provides more than half the effort. 0-Ogxpurigf-ilfirw does ALL the effort. Patient does none of the effort to complete the activity. Or, the assistance of 2 or more helpers is required for the patient to complete the activity. If activity was not attempted, code reason: 7-Patient Refused. 9-Not Applicable-not attempted and the patient did not perform the activity before the current illness, exacerbation or injury. 10-Not Attempted due to Environmental Limitations-(lack of equipment, weather restraints, etc.). 88-Not Attempted due to Medical Conditions or Safety Concerns. Other Treatment Working on pt's SPT. Going towards R side 1x CGA 2nd time min A. Going to L side, CGA. Pt then demonstrates independence with bed mobility. After session, pt sitting EOB with call light/phone in reach. All needs met in room. OT Short Term Goals Short Term Goals Time Frame: Nov 15, 2019 Oral hygiene: 3 Toileting hygiene: 2 Shower/bathe self: 3 Upper body dressin Lower body dressin Putting on/taking off footwear: 3 OT Community Living Specialist Goals Community Living Specialist Goals Time Frame: Nov 29, 2019 Eating (QC): 6 Oral Hygiene (QC): 6 Toileting Hygiene (QC): 5 Shower/Bathe Self (QC): 4 Upper Body Dressing (QC): 5 Lower Body Dressing (QC): 5 On/Off Footwear (QC): 5 Additional Goals: 1-Demonstrate ADL Tasks, 2-Verbalize Understanding, 3-Impro veStrength/Joey 1=Demonstrate adherence to instructed precautions during ADL tasks. 2=Patient will verbalize/demonstrate understanding of assistive devices/modifications for ADL. 3=Patient will improve strength/tolerance for activity to enable patient to perform ADL's. OT Education/Plan Problem List/Assessment Assessment: Decreased Activ Tolerance, Impaired Coordination, Impaired Funct Balance, Impaired Self-Care Skills, Restricted Funct UE ROM Discharge Recommendations Plan/Recommendations: Continue POC Treatment Plan/Plan of Care Patient would benefit from OT for education, treatment and training to promote independence in ADL's, mobility, safety and/or upper extremity function for ADL's. Plan of Care: ADL Retraining, Functional Mobility, Group Exercise/Act as Ind, UE Funct Exercise/Act, UE Neuromus Re-Ed/Coord Treatment Duration: Nov 29, 2019 Frequency: At least 5 of 7 days/Wk (IRF) Estimated Hrs Per Day: 1.5 hours per day Rehab Potential: Good Time/GCodes Start Time: 13:45 Stop Time: 14:00 Total Time Billed (hr/min): 15 Billed Treatment Time 1 visit-FA 1 (15 min) KAREN MARQUES Nov 22, 2019 14:09
[2019-11-22 16:00] VITALS: BP 117/65
[2019-11-22] MEDS: SIMvastatin 10 MG (ZOCOR) TAB PO SCH (18:02)
[2019-11-22] MEDS: ACETAMINOPHEN 325 MG TABLET PO PRN (21:23)
[2019-11-22] MEDS: ASPIRIN E.C. 81 MG (ECOTRIN) TAB PO SCH (21:23)
[2019-11-23] MEDS: inSUlin ASPART (NovoLOG) 1 UNIT/0.01 ML (CHARGE PER UNIT) SC SCH ×4 (05:11→21:13)
[2019-11-23 06:00] VITALS: BP 150/74
[2019-11-23] MEDS: metFORMIN XR 500 MG (GLUCOPHAGE XR) TAB PO SCH ×2 (06:14→16:54)
[2019-11-23 08:56] VITALS: BP 125/65
[2019-11-23] MEDS: PANTOPRAZOLE 40 MG (PROTONIX) TAB PO SCH (08:56)
[2019-11-23] MEDS: MULTIVIT W/MINERALS TAB (THERAGRAN M) PO SCH (08:56)
[2019-11-23] MEDS: lisINopril 5 MG (PRINIVIL) TABLET PO SCH (08:56)
[2019-11-23] MEDS: AMIODARONE 200 MG (CORDARONE) TAB PO SCH (08:56)
[2019-11-23] MEDS: SENNA W/DOCUSATE (SENOKOT S) TABLET PO SCH ×2 (08:57→21:17)
[2019-11-23] MEDS: DOCUSATE SODIUM 100 MG (COLACE) CAP PO SCH ×2 (08:57→21:16)
[2019-11-23] MEDS: polyethylene glycoL POWDER 17 GM (MIRALAX) PACK PO SCH ×2 (08:57→21:16)
[2019-11-23] MEDS: TAMSULOSIN 0.4 MG (FLOMAX) CAP PO SCH (08:57)
[2019-11-23] MEDS: APIXABAN 5 MG (ELIQUIS) TABLET PO SCH ×2 (09:02→21:13)
--- NOTE | 2019-11-23 10:37 | Cardiology Progress Note ---
Subjective Date Seen by Provider: Nov 23, 2019 Time Seen by Provider: 10:36 Subjective/Events-last exam Patient was seen at bedside, sitting comfortably, denied any chest pain Review of Systems General: No Chills, No Night Sweats, No Fatigue, No Malaise, No Appetite, No Other HEENT: No Head Aches, No Visual Changes, No Eye Pain, No Ear Pain, No Dysphasia, No Sinus Congestion, No Post Nasal Drip, No Sore Throat, No Other Pulmonary: No Dyspnea, No Cough, No Pleuritic Chest Pain, No Other Cardiovascular: No: Chest Pain, Palpitations, Orthopnea, Paroxysmal Noc. Dyspnea, Edema, Lt Headedness, Other Objective-Cardiology Exam Last Set of Vital Signs Vital Signs 11/23/19 11/23/19 11/23/19 06:00 08:56 09:58 Temp 36.2 Pulse 71 Resp 20 B/P (MAP) 125/65 (85) Pulse Ox 97 O2 Delivery Room Air Capillary Refill : Less Than 3 Seconds I&O Intake and Output 11/23/19 00:00 Intake Total 700 ml Output Total 1000 ml Balance -300 ml Intake Oral 700 ml Output Urine Total 1000 ml General: Alert, Oriented X3, Cooperative HEENT: Atraumatic, PERRLA Neck: Supple, No JVD, No Thyromegaly Lungs: Clear to Auscultation, Normal Air Movement Heart: Regular Rate, Normal S1, Normal S2, No Murmurs Abdomen: Normal Bowel Sounds, Soft, No Tenderness, No Hepatosplenomegaly, No Masses Extremities: No Clubbing, No Cyanosis, No Edema, Normal Pulses, No Tenderness/Swelling Skin: No Rashes, No Breakdown, No Significant Lesion Neuro: Normal Gait, Normal Speech, Strength at 5/5 X4 Ext, Normal Tone, Sensation Intact Psych/Mental Status: Mental Status NL, Mood NL Results Lab Laboratory Tests Test 11/22/19 11:00 11/22/19 17:01 11/22/19 20:52 11/23/19 05:06 Range/Units Glucometer 287 H 151 H 205 H 134 H 70-110 MG/DL A/P-Cardiology Admission Diagnosis CVA Coronary artery disease Paroxysmal atrial fibrillation Hypertension Hyperlipidemia Assessment/Plan Status post CVA with residual right hemiplegia, 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 Receiving physical therapy. Chest pain nonspecific etiology, reporting occasional chest discomfort, continue on aspirin and Eliquis, intolerant to isosorbide with hypotension and abdominal pain. Denies any recent chest pain, continue to monitor. Status post transient bradycardia, improved after stopping metoprolol. Continue to monitor blood pressure Coronary artery disease, history of multiple intervention the past, had a CABG 3 done in 2017, has been doing well. Continue to monitor Paroxysmal atrial fibrillation, reporting history of atrial fibrillation in the remote past. Was on oral anticoagulation for some time in the past and it was discontinued in the remote past. Admitted with TIA on October 26 and started on oral anticoagulation and then had another CVA on October 28, 2019 did not qualify for TPA. Currently receiving physical therapy. [id number] score of 6, yearly risk of stroke without oral anticoagulation is 9.8 percent, maintained on Eliquis Hypertension, controlled, continue to monitor. Hyperlipidemia, monitor lipids Diabetes mellitus, followed and managed by primary care physician Clinical Quality Measures DVT/VTE Risk/Contraindication: Risk Factor Score Per Nursin RFS Level Per Nursing on Admit: 4+=Very High JOSE PINO MD Nov 23, 2019 10:37
--- NOTE | 2019-11-23 11:42 | PM&R Progress Note ---
Subjective HPI/CC On Admission Date Seen by Provider: Nov 23, 2019 Time Seen by Provider: 11:30 Subjective/Events-last exam Patient always seems to be bothered by my visit and others too as he was again today and told me to not be so cheerful and loud. DC planned for Monday after comes for training on Monday then goes home Monday and picks him up Mon. 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 of Systems Neurological: Weakness, Numbness, Incoordination Objective Exam Vital Signs Vital Signs Date Time Temp Pulse Resp B/P (MAP) Pulse Ox O2 Delivery O2 Flow Rate FiO2 11/23/19 09:58 Room Air 11/23/19 08:56 71 125/65 (85) 11/23/19 06:00 36.2 20 97 Capillary Refill : Less Than 3 Seconds General Appearance: No Apparent Distress, WD/WN HEENT: PERRL/EOMI, Normal ENT Inspection, Pharynx Normal Neck: Normal Inspection, Non Tender, Supple Respiratory: Lungs Clear, Normal Breath Sounds, No Accessory Muscle Use, No Respiratory Distress Cardiovascular: Regular Rate, Rhythm, No Edema, No Gallop, No Murmur, Normal Peripheral Pulses, Irregularly Irregular Gastrointestinal: Normal Bowel Sounds, No Organomegaly, No Pulsatile Mass, Non Tender, Soft Back: Normal Inspection, No CVA Tenderness, No Vertebral Tenderness Extremity: Normal Capillary Refill, Non Tender, No Calf Tenderness, No Pedal Edema Neurologic/Psychiatric: Alert, Oriented x3, Normal Mood/Affect, global security architect II-XII Norm as Tested, Abnormal Gait, Motor Weakness Skin: Normal Color, Warm/Dry Lymphatic: No Adenopathy Results/Procedures Lab Patient resulted labs reviewed. FIM Transfers Therapy Code Descriptions/Definitions Functional [place] Measure: 0=Not Assessed/NA 4=Minimal Assistance 1=Total Assistance 5=Supervision or Setup 2=Maximal Assistance 6=Modified [place] 3=Moderate Assistance 7=Complete IndependenceSCALE: Activities may be completed with or without assistive devices. 7-Trxsswqecq-sqwfodj completes the activity by him/herself with no assistance from a helper. 5-Set-up or Clean-up Assistance-helper sets up or cleans up; patient completes activity. [place] assists only prior to or following the activity. 4-Supervision or Touching Assistance-helper provides verbal cues and/or touching/steadying and/or contact guard assistance as patient completes activity. Assistance may be provided throughout the activity or intermittently. 3-Partial/Moderate Assistance-helper does LESS THAN HALF the effort. [place] lifts, holds or supports trunk or limbs, but provides less than half the effort. 2-Substantial/Maximal Assistance-helper does MORE THAN HALF the effort. [place] lifts or holds trunk or limbs and provides more than half the effort. 8-Ehhjhfjgs-clbrsm does ALL the effort. Patient does none of the effort to c omplete the activity. Or, the assistance of 2 or more helpers is required for the patient to complete the activity. If activity was not attempted, code reason: 7-Patient Refused. 9-Not Applicable-not attempted and the patient did not perform the activity before the current illness, exacerbation or injury. 10-Not Attempted due to Environmental Limitations-(lack of equipment, weather restraints, etc.). 88-Not Attempted due to Medical Conditions or Safety Concerns. Roll Left to Right (QC): 5 Sit to Lying (QC): 5 Sit to Stand (QC): 4 Chair/Poo-ox-Lddvw Xfer(QC): 4 Car Transfer (QC): 2 (max assist to transfer in/out of car) Gait Training Does the Patient Walk?: Yes Distance: 150', 120' Walk 10 feet (QC): 4 Walk 50 ft with 2 Turns(QC): 4 Walk 150 ft (QC): 4 Walking 10ft/uneven surface-QC: 88 Gait Persons Needed: 1 Gait Assistive Device: FWW Wheelchair Training Does the Pt Use a Wheelchair?: Yes Wheel 50 ft with 2 turns (QC): 5 Wheel 150 ft (QC): 4 Type of Wheelchair: Manual Stair Training 1 Step (curb) (QC): 88 4 Steps (QC): 88 12 Steps (QC): 88 Balance Picking up an Object (QC): 88 ADL-Treatment Eating (QC): 5 Oral Hygiene (QC): 5 Bathing Location: L Arm, R Arm, L Upper Leg, R Upper Leg, L Lower Leg (including foot), R Lower Leg (including foot), Chest, Abdomen, Buttocks, Perineal Area Shower/Bathe Self (QC): 4 Upper Body Dressing (QC): 4 Lower Body Dressing (QC): 2 On/Off Footwear (QC): 3 Toileting Hygiene (QC): 3 Toilet Transfer (QC): 3 Assessment/Plan Assessment and Plan Assess & Plan/Chief Complaint Assessment: CVA 10/28/19 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 HTN HLP CRI AF ED Acute constipation initiated aggressive meds now resolved Dysphagia needs EGD and dilation but cannot go off OAC due to too high of risk for recurrent CVA Plan: IRF protocol BM regimen Fall risk Cardiology consultation appreciated Dr Wang consulted and is appreciated Increase PPI dose is working well Walking with platform working well for him Dispo next week after family training on Monday (1) CVA (cerebral vascular accident) (2) Flaccid hemiplegia affecting dominant side (3) Diabetes (4) Hypertension (5) Hyperlipemia (6) On continuous oral anticoagulation (7) Atrial fibrillation (8) History of penile implant (9) History of colon cancer (10) Former smoker (11) Renal insufficiency (12) Constipation SCOTT BARBOSA DO Nov 23, 2019 11:42
--- NOTE | 2019-11-23 12:36 | Physical Therapy Daily Note ---
PT Daily Note-Current Subjective Pt reports he feels like he might be a little worse today. He notes that he can't hang on to the walker as good as yesterday. Transfers SCALE: Activities may be completed with or without assistive devices. 4-Xmpzimqzzu-fxhdkwf completes the activity by him/herself with no assistance from a helper. 5-Set-up or Clean-up Assistance-helper sets up or cleans up; patient completes activity. [place] assists only prior to or following the activity. 4-Supervision or Touching Assistance-helper provides verbal cues and/or touching/steadying and/or contact guard assistance as patient completes activity. Assistance may be provided throughout the activity or intermittently. 3-Partial/Moderate Assistance-helper does LESS THAN HALF the effort. [place] lifts, holds or supports trunk or limbs, but provides less than half the effort. 2-Substantial/Maximal Assistance-helper does MORE THAN HALF the effort. [place] lifts or holds trunk or limbs and provides more than half the effort. 5-Aqwnhfohi-lsxvrl does ALL the effort. Patient does none of the effort to complete the activity. Or, the assistance of 2 or more helpers is required for the patient to complete the activity. If activity was not attempted, code reason: 7-Patient Refused. 9-Not Applicable-not attempted and the patient did not perform the activity before the current illness, exacerbation or injury. 10-Not Attempted due to Environmental Limitations-(lack of equipment, weather restraints, etc.). 88-Not Attempted due to Medical Conditions or Safety Concerns. Weight Bearing Right Lower Extremity: Right Full Weight Bearing Left Lower Extremity: Left Full Weight Bearing Gait Training Gait Assistive Device: FWW Gait train 100ft x 8 trials, performed one trial with no assistive device. Gait education on (R) foot clearance, upright posture, and (L) wt shift. Pt did not perform will without walker. Exercises standing dynamic balance exercise including reaching outside center, trunk rotations, and stepping strategies. PT Short Term Goals Short Term Goals Time Frame: Nov 14, 2019 Roll Left & Right: 3 Sit to lyin Lying to sitting on side of be: 3 Sit to stand: 3 Chair/gwj-ew-ilxob transfer: 3 Walk 10 feet: 2 Wheel 50ft w/2 turns: 4 Wheel 150 feet: 4 PT Jail Goals Jail Goals PT Global Director Air And Climate Change Goals Time Frame: Nov 28, 2019 Roll Left & Right (QC): 6 Sit to Lying (QC): 6 Lying-Sitting on Side/Bed(QC): 6 Sit to Stand (QC): 6 Chair/Utf-nm-Edsfs Xfer(QC): 6 Toilet Transfer (QC): 6 Car Transfer (QC): 5 Does the Patient Walk: No and Walking Goal IS indicated Walk 10 feet (QC): 6 Walk 50ft with 2 Turns (QC): 6 Walk 150 ft (QC): 6 Walking 10ft on Uneven Surface: 5 1 Step (curb) (QC): 5 4 Steps (QC): 5 12 Steps (QC): 4 Picking up an Object (QC): 4 Wheel 50 feet with 2 turns (QC: 6 Type: Manual Wheel 150 feet: 6 Type: Manual PT Plan Problem List Problem List: Balance, Gait Treatment/Plan Treatment Plan: Continue Plan of Care Treatment Plan: Bed Mobility, Education, Functional Activity Joey, Functional Strength, Group Therapy, Gait, Safety, Therapeutic Exercise, Transfers Treatment Duration: Nov 28, 2019 Frequency: At least 5 of 7 days/Wk (IRF) Estimated Hrs Per Day: 1.5 hours per day Patient and/or Family Agrees t: Yes Time/GCodes Time In: 1005 Time Out: 1030 Total Billed Treatment Time: 25 Total Billed Treatment visit, gait 15min, ex 10min BRIANDA QURESHI PT Nov 23, 2019 12:36
[2019-11-23] MEDS ORDERED: APIX5TAB PO (15:55)
[2019-11-23] MEDS ORDERED: LISI-556 PO (15:55)
[2019-11-23] MEDS ORDERED: PANT40TA3 PO (15:55)
[2019-11-23] MEDS ORDERED: AMIO200T4 PO (15:55)
--- NOTE | 2019-11-23 15:57 | D/C HH Face to Face Order ---
D/C Face to Face Orders Reconcile Patient Problems Problems Reviewed?: Yes Instructions for Patient Via [facility], Patient Instructions/FollowUp: PCP 1 week Physician to follow Patient: PCP Discharge Diet for Home: ADA Diet Patient Problems: CVA right sided weakness DM AF Goals for Patient: [place] Patient Data-Allergies,Ht & Wt Patient Allergies: Coded Allergies: No Known Drug Allergies (Unverified , 11/02/19) Home Health Need/Face to Face Date of Face to Face: Nov 25, 2019 Clinical Findings: Generalized weakness and fatigue, Instability, Muscle weakness, Unsteady gait I have seen Pt cwky-ha-hduq: Yes Discharged To: Home Diagnosis/Conditions: CVA right sided weakness DM AF Patient is Homebound due to: [place] fall risk due to instabilty, Muscle weakness Homebound Status Due to the above stated illness, injury or surgical procedure (medical condition or diagnosis) and associated clinical findings, the patient is homebound because of his/her inability to leave home except with aid of a supportive device and/or person AND leaving the home requires a considerable and taxing effort or is medically contraindicated. Pt req the following assistanc: Aid of another person, Walker Home Health Nursing Orders Home Health Services Order: Nursing Services, Trick Rodeo Rider-Evaluate & Calli t, Physical Therapy-Evaluate & Treat Certify Stmt I certify that this patient is under my care and that I, a nurse practitioner or a physician; a music library assistant working with me, had a face to face encounter that - meets the physician face to face encounter requirements with this patient as dated. SCOTT BARBOSA DO Nov 23, 2019 15:57
[2019-11-23] MEDS: SIMvastatin 10 MG (ZOCOR) TAB PO SCH (16:54)
[2019-11-23 18:08] VITALS: BP 132/74
[2019-11-23] MEDS: ASPIRIN E.C. 81 MG (ECOTRIN) TAB PO SCH (21:13)
[2019-11-23] MEDS: ACETAMINOPHEN 325 MG TABLET PO PRN (21:14)
[2019-11-24] MEDS: inSUlin ASPART (NovoLOG) 1 UNIT/0.01 ML (CHARGE PER UNIT) SC SCH ×4 (05:50→20:13)
[2019-11-24 05:59] VITALS: BP 168/74
[2019-11-24] MEDS: metFORMIN XR 500 MG (GLUCOPHAGE XR) TAB PO SCH ×2 (06:42→16:34)
[2019-11-24] MEDS: AMIODARONE 200 MG (CORDARONE) TAB PO SCH (09:04)
[2019-11-24] MEDS: TAMSULOSIN 0.4 MG (FLOMAX) CAP PO SCH (09:04)
[2019-11-24] MEDS: MULTIVIT W/MINERALS TAB (THERAGRAN M) PO SCH (09:04)
[2019-11-24] MEDS: APIXABAN 5 MG (ELIQUIS) TABLET PO SCH ×2 (09:04→20:57)
[2019-11-24] MEDS: PANTOPRAZOLE 40 MG (PROTONIX) TAB PO SCH (09:04)
[2019-11-24] MEDS: lisINopril 5 MG (PRINIVIL) TABLET PO SCH (09:04)
[2019-11-24] MEDS: SENNA W/DOCUSATE (SENOKOT S) TABLET PO SCH ×2 (09:05→21:00)
[2019-11-24] MEDS: DOCUSATE SODIUM 100 MG (COLACE) CAP PO SCH ×2 (09:05→21:00)
[2019-11-24] MEDS: polyethylene glycoL POWDER 17 GM (MIRALAX) PACK PO SCH ×2 (09:05→21:00)
--- NOTE | 2019-11-24 12:49 | Cardiology Progress Note ---
Subjective Date Seen by Provider: Nov 24, 2019 Time Seen by Provider: 12:49 Subjective/Events-last exam Patient was seen at bedside, feeling better, reporting improvement Review of Systems General: No Chills, No Night Sweats, No Fatigue, No Malaise, No Appetite, No Other HEENT: No Head Aches, No Visual Changes, No Eye Pain, No Ear Pain, No Dysphasia, No Sinus Congestion, No Post Nasal Drip, No Sore Throat, No Other Pulmonary: No Dyspnea, No Cough, No Pleuritic Chest Pain, No Other Cardiovascular: No: Chest Pain, Palpitations, Orthopnea, Paroxysmal Noc. Dyspnea, Edema, Lt Headedness, Other Objective-Cardiology Exam Last Set of Vital Signs Vital Signs 11/24/19 11/24/19 05:59 09:30 Temp 36.4 Pulse 56 Resp 18 B/P (MAP) 168/74 (105) Pulse Ox 96 O2 Delivery Room Air Capillary Refill : Less Than 3 Seconds I&O Intake and Output 11/24/19 00:00 Intake Total 1070 ml Output Total 1225 ml Balance -155 ml Intake Oral 1070 ml Output Urine Total 1225 ml # Voids 1 # Bowel Movements 1 General: Alert, Oriented X3, Cooperative HEENT: Atraumatic, PERRLA Neck: Supple, No JVD, No Thyromegaly Lungs: Clear to Auscultation, Normal Air Movement Heart: Regular Rate, Normal S1, Normal S2, No Murmurs Abdomen: Normal Bowel Sounds, Soft, No Tenderness, No Hepatosplenomegaly, No Masses Extremities: No Clubbing, No Cyanosis, No Edema, Normal Pulses, No Tenderness/Swelling Skin: No Rashes, No Breakdown, No Significant Lesion Neuro: Normal Gait, Normal Speech, Strength at 5/5 X4 Ext, Normal Tone, Sensation Intact Psych/Mental Status: Mental Status NL, Mood NL Results Lab Laboratory Tests Test 11/23/19 16:26 11/23/19 20:16 11/24/19 05:32 11/24/19 11:09 Range/Units Glucometer 372 H 211 H 177 H 171 H 70-110 MG/DL A/P-Cardiology Admission Diagnosis CVA Coronary artery disease Paroxysmal atrial fibrillation Hypertension Hyperlipidemia Assessment/Plan Status post CVA with residual right hemiplegia, 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 Receiving physical therapy. Chest pain nonspecific etiology, reporting occasional chest discomfort, continue on aspirin and Eliquis, intolerant to isosorbide with hypotension and abdominal pain. Denies any recent chest pain, continue to monitor. Status post transient bradycardia, improved after stopping metoprolol. Continue to monitor blood pressure Coronary artery disease, history of multiple intervention the past, had a CABG 3 done in 2017, has been doing well. Continue to monitor Paroxysmal atrial fibrillation, reporting history of atrial fibrillation in the remote past. Was on oral anticoagulation for some time in the past and it was discontinued in the remote past. Admitted with TIA on October 26 and started on oral anticoagulation and then had another CVA on October 28, 2019 did not qualify for TPA. Currently receiving physical therapy. [id number] score of 6, yearly risk of stroke without oral anticoagulation is 9.8 percent, maintained on Eliquis Hypertension, controlled, continue to monitor. Hyperlipidemia, monitor lipids Diabetes mellitus, followed and managed by primary care physician Dr. Santos is covering starting tomorrow Clinical Quality Measures DVT/VTE Risk/Contraindication: Risk Factor Score Per Nursin RFS Level Per Nursing on Admit: 4+=Very High JOSE PINO MD Nov 24, 2019 12:49
[2019-11-24] MEDS: SIMvastatin 10 MG (ZOCOR) TAB PO SCH (16:35)
[2019-11-24 17:08] VITALS: BP 138/62
[2019-11-24] MEDS: ACETAMINOPHEN 325 MG TABLET PO PRN (20:57)
[2019-11-24] MEDS: ASPIRIN E.C. 81 MG (ECOTRIN) TAB PO SCH (20:57)
[2019-11-25 06:27] VITALS: BP 175/81
[2019-11-25] MEDS: metFORMIN XR 500 MG (GLUCOPHAGE XR) TAB PO SCH ×2 (06:32→17:22)
[2019-11-25] MEDS: inSUlin ASPART (NovoLOG) 1 UNIT/0.01 ML (CHARGE PER UNIT) SC SCH ×4 (06:38→20:17)
--- NOTE | 2019-11-25 10:11 | Occupational Ther Daily Note ---
OT Current Status-Daily Note Subjective Pt alert, sitting EOB with . Pt agrees to therapy. No c/o pain at this time. stated that ramp had been built for steps in the house and has w/c for pt in the home. Mental Status/Objective Patient Orientation: Person, Place, Time, Situation ADL-Treatment Pt's had completed sponge bath and dressing with pt prior to OT session. Therapy Code Descriptions/Definitions Functional [place] Measure: 0=Not Assessed/NA 4=Minimal Assistance 1=Total Assistance 5=Supervision or Setup 2=Maximal Assistance 6=Modified [place] 3=Moderate Assistance 7=Complete IndependenceSCALE: Activities may be completed with or without assistive devices. 2-Zbvgnnfhyy-wmbkydw completes the activity by him/herself with no assistance from a helper. 5-Set-up or Clean-up Assistance-helper sets up or cleans up; patient completes activity. [place] assists only prior to or following the activity. 4-Supervision or Touching Assistance-helper provides verbal cues and/or touching/steadying and/or contact guard assistance as patient completes activit y. Assistance may be provided throughout the activity or intermittently. 3-Partial/Moderate Assistance-helper does LESS THAN HALF the effort. [place] lifts, holds or supports trunk or limbs, but provides less than half the effort. 2-Substantial/Maximal Assistance-helper does MORE THAN HALF the effort. [place] lifts or holds trunk or limbs and provides more than half the effort. 3-Emqyjulyw-xywhwu does ALL the effort. Patient does none of the effort to complete the activity. Or, the assistance of 2 or more helpers is required for the patient to complete the activity. If activity was not attempted, code reason: 7-Patient Refused. 9-Not Applicable-not attempted and the patient did not perform the activity before the current illness, exacerbation or injury. 10-Not Attempted due to Environmental Limitations-(lack of equipment, weather restraints, etc.). 88-Not Attempted due to Medical Conditions or Safety Concerns. Other Treatment Pt requires verbal cues for turning fully around to sit in chair and reach back to sit safely. Pt ambulating with FWW around ARU with CGA though does get distracted and drags R foot and requires assist to stabilize before taking next step. Initially R hand not gripping FWW well, by end of session driver service technician was better. Pt ambulated to therapy gym to complete neuromuscular training for R UE. Pt working on wt bearing with R hand during scooting side to side on mat table. Reach and grasping cones with R hand and placing across midline toward R/L sides. Pt then completed UE kelly for 15 min in all planes with 1# wt attached to B wrists. Pt given medium resistance theraband to complete kelly work at home. Pt then ambulated back to room and sat EOB. Pt then worked on squat SPT toward L side, SBA. After session, pt sitting in w/c with call light/phone in reach. present in room. All needs met in room. OT Short Term Goals Short Term Goals Time Frame: Nov 15, 2019 Oral hygiene: 3 Toileting hygiene: 2 Shower/bathe self: 3 Upper body dressin Lower body dressin Putting on/taking off footwear: 3 OT Jail Goals Jail Goals Time Frame: Nov 29, 2019 Eating (QC): 6 Oral Hygiene (QC): 6 Toileting Hygiene (QC): 5 Shower/Bathe Self (QC): 4 Upper Body Dressing (QC): 5 Lower Body Dressing (QC): 5 On/Off Footwear (QC): 5 Additional Goals: 1-Demonstrate ADL Tasks, 2-Verbalize Understanding, 3- ImproveStrength/Joey 1=Demonstrate adherence to instructed precautions during ADL tasks. 2=Patient will verbalize/demonstrate understanding of assistive devices/modifications for ADL. 3=Patient will improve strength/tolerance for activity to enable patient to perform ADL's. OT Education/Plan Problem List/Assessment Assessment: Decreased Activ Tolerance, Decreased UE Strength, Impaired Coordination, Impaired Funct Balance, Impaired Self-Care Skills, Restricted Funct UE ROM Discharge Recommendations Plan/Recommendations: Continue POC Treatment Plan/Plan of Care Patient would benefit from OT for education, treatment and training to promote independence in ADL's, mobility, safety and/or upper extremity function for ADL's. Plan of Care: ADL Retraining, Functional Mobility, Group Exercise/Act as Ind, UE Funct Exercise/Act, UE Neuromus Re-Ed/Coord Treatment Duration: Nov 29, 2019 Frequency: At least 5 of 7 days/Wk (IRF) Estimated Hrs Per Day: 1.5 hours per day Rehab Potential: Good Time/GCodes Start Time: 09:00 Stop Time: 10:00 Total Time Billed (hr/min): 60 Billed Treatment Time 1 visit-OK 4 (60 min) KAREN MARQUES Nov 25, 2019 10:11
--- NOTE | 2019-11-25 10:12 | Progress Note - Cardiology ---
Cardiology SOAP Progress Note Subjective: Sitting up in w/c at the bedside. States he feels good. No c/o CP, dyspnea, palpitations, syncope or near syncope. Spouse at the bedside. Objective: I&O/Vital Signs 11/25/19 11/25/19 06:27 09:00 Temp 36.2 Pulse 61 Resp 18 B/P (MAP) 175/81 (112) Pulse Ox 97 O2 Delivery Room Air Room Air 11/25/19 00:00 Intake Total 730 ml Output Total 875 ml Balance -145 ml Constitutional: AAO x 3, well-developed, well-nourished Respiratory: No accessory muscle use; other (good bilat air entry) Cardiovascular: regular rate-rhythm, S1 and S2, systolic murmur (soft QUINTON at c jon base) Gastrointestional: No tender; soft; No guarding, No rebound; audible bowel sounds Extremities: No clubbing, No cyanosis, No significant edema Neurologic/Psychiatric: other (R-sided weakness) Skin: normal color, warm/dry Results/Procedures: Labs Laboratory Tests 11/24/19 16:03: Glucometer 273H 11/24/19 20:06: Glucometer 169H 11/25/19 06:26: Glucometer 166H 11/25/19 11:02: Glucometer 386H A/P: Assessment: Status post CVA with R hemiparesis. 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 OAC with apixaban Hypertension, by history Hyperlipidemia, by history Diabetes mellitus, followed and managed by primary care physician Plan: * Continue current CV regimen * Monitor labs MARIE LEE Nov 25, 2019 10:12
[2019-11-25] MEDS: polyethylene glycoL POWDER 17 GM (MIRALAX) PACK PO SCH ×2 (10:19→20:23)
[2019-11-25] MEDS: DOCUSATE SODIUM 100 MG (COLACE) CAP PO SCH ×2 (10:19→20:23)
[2019-11-25] MEDS: APIXABAN 5 MG (ELIQUIS) TABLET PO SCH ×2 (10:19→20:17)
[2019-11-25] MEDS: TAMSULOSIN 0.4 MG (FLOMAX) CAP PO SCH (10:19)
[2019-11-25] MEDS: AMIODARONE 200 MG (CORDARONE) TAB PO SCH (10:19)
[2019-11-25] MEDS: lisINopril 5 MG (PRINIVIL) TABLET PO SCH (10:19)
[2019-11-25] MEDS: MULTIVIT W/MINERALS TAB (THERAGRAN M) PO SCH (10:19)
[2019-11-25] MEDS: PANTOPRAZOLE 40 MG (PROTONIX) TAB PO SCH (10:19)
[2019-11-25] MEDS: SENNA W/DOCUSATE (SENOKOT S) TABLET PO SCH ×2 (10:20→20:23)
--- NOTE | 2019-11-25 10:41 | PM&R Progress Note ---
Subjective HPI/CC On Admission Date Seen by Provider: Nov 25, 2019 Time Seen by Provider: 10:45 Subjective/Events-last exam is here and will spend night and obtain training from therapists Monday DC In better mood C[place] sent to [place] pharmacy No dysphagia No falls reported Checked meds and labs Reviewed therapy notes Conferred with perl programmer of Systems Neurological: Weakness, Numbness, Incoordination Objective Exam Vital Signs Vital Signs Date Time Temp Pulse Resp B/P (MAP) Pulse Ox O2 Delivery O2 Flow Rate FiO2 11/25/19 21:00 Room Air 11/25/19 20:24 74 16 114/71 (85) 97 11/25/19 18:00 36.6 Capillary Refill : Less Than 3 Seconds General Appearance: No Apparent Distress, WD/WN HEENT: PERRL/EOMI, Normal ENT Inspection, Pharynx Normal Neck: Normal Inspection, Non Tender, Supple Respiratory: Lungs Clear, Normal Breath Sounds, No Accessory Muscle Use, No Respiratory Distress Cardiovascular: Regular Rate, Rhythm, No Edema, No Gallop, No Murmur, Normal Peripheral Pulses, Irregularly Irregular Gastrointestinal: Normal Bowel Sounds, No Organomegaly, No Pulsatile Mass, Non Tender, Soft Back: Normal Inspection, No CVA Tenderness, No Vertebral Tenderness Extremity: Normal Capillary Refill, Non Tender, No Calf Tenderness, No Pedal Edema Neurologic/Psychiatric: Alert, Oriented x3, Normal Mood/Affect, scanning manager II-XII Norm as Tested, Abnormal Gait, Motor Weakness Skin: Normal Color, Warm/Dry Lymphatic: No Adenopathy Results/Procedures Lab Patient resulted labs reviewed. FIM Transfers Therapy Code Descriptions/Definitions Functional Lottie Measure: 0=Not Assessed/NA 4=Minimal Assistance 1=Total Assistance 5=Supervision or Setup 2=Maximal Assistance 6=Modified Lottie 3=Moderate Assistance 7=Complete IndependenceSCALE: Activities may be completed with or without assistive devices. 5-Cyqpejkpil-amkkqzf completes the activity by him/herself with no assistance from a helper. 5-Set-up or Clean-up Assistance-helper sets up or cleans up; patient completes activity. [place] assists only prior to or following the activity. 4-Supervision or Touching Assistance-helper provides verbal cues and/or touching/steadying and/or contact guard assistance as patient completes activity. Assistance may be provided throughout the activity or intermittently. 3-Partial/Moderate Assistance-helper does LESS THAN HALF the effort. Bessie lifts, holds or supports trunk or limbs, but provides less than half the effort. 2-Substantial/Maximal Assistance-helper does MORE THAN HALF the effort. Bessie lifts or holds trunk or limbs and provides more than half the effort. 2-Lbinarpsa-vncule does ALL the effort. Patient does none of the effort to complete the activity. Or, the assistance of 2 or more helpers is required for the patient to complete the activity. If activity was not attempted, code reason: 7-Patient Refused. 9-Not Applicable-not attempted and the patient did not perform the activity before the current illness, exacerbation or injury. 10-Not Attempted due to Environmental Limitations-(lack of equipment, weather restraints, etc.). 88-Not Attempted due to Medical Conditions or Safety Concerns. Roll Left to Right (QC): 5 Sit to Lying (QC): 5 Sit to Stand (QC): 4 Chair/Gre-gg-Piran Xfer(QC): 4 Car Transfer (QC): 2 (max assist to transfer in/out of car) Gait Training Does the Patient Walk?: Yes Distance: 150', 120' Walk 10 feet (QC): 4 Walk 50 ft with 2 Turns(QC): 4 Walk 150 ft (QC): 4 Walking 10ft/uneven surface-QC: 88 Gait Persons Needed: 1 Gait Assistive Device: FWW Wheelchair Training Does the Pt Use a Wheelchair?: Yes Wheel 50 ft with 2 turns (QC): 5 Wheel 150 ft (QC): 4 Type of Wheelchair: Manual Stair Training 1 Step (curb) (QC): 88 4 Steps (QC): 88 12 Steps (QC): 88 Balance Picking up an Object (QC): 88 ADL-Treatment Eating (QC): 5 Oral Hygiene (QC): 5 Bathing Location: L Arm, R Arm, L Upper Leg, R Upper Leg, L Lower Leg (including foot), R Lower Leg (including foot), Chest, Abdomen, Buttocks, Perineal Area Shower/Bathe Self (QC): 4 Upper Body Dressing (QC): 4 Lower Body Dressing (QC): 2 On/Off Footwear (QC): 3 Toileting Hygiene (QC): 3 Toilet Transfer (QC): 3 Assessment/Plan Assessment and Plan Assess & Plan/Chief Complaint Assessment: CVA 10/28/19 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 HTN HLP CRI AF ED Acute constipation initiated aggressive meds now resolved Dysphagia needs EGD and dilation but cannot go off OAC due to too high of risk for recurrent CVA Plan: IRF protocol BM regimen Fall risk Cardiology consultation appreciated Dr Wang consulted and is appreciated Increase PPI dose is working well Walking with platform working well for him DC Wed (1) CVA (cerebral vascular accident) (2) Flaccid hemiplegia affecting dominant side (3) Diabetes (4) Hypertension (5) Hyperlipemia (6) On continuous oral anticoagulation (7) Atrial fibrillation (8) History of penile implant (9) History of colon cancer (10) Former smoker (11) Renal insufficiency (12) Constipation SCOTT BARBOSA DO Nov 25, 2019 10:40
--- NOTE | 2019-11-25 11:14 | Physical Therapy Daily Note ---
PT Daily Note-Current Subjective Pt. and in room. pleasant and encouraging to and has goal of learning how to help pt. manage funct mob to make transition to home most likely on Wed. Pt. appears frustrated today and states many times "Im telling you I cant do it" ( mostly during w/c mobility training) Pt. also states he is not pierre re he can sleep in this soft bed. strernly encourages pt. that he can do whatever is required to accomplish what he needs to to go home by Wed. Pt. c/o fatigue several times during Rx and required several rest breaks Pain Location: No Pain Reported Mental Status Patient Orientation: Normal For Age Transfers SCALE: Activities may be completed with or without assistive devices. 0-Ctmutldeik-caixwbx completes the activity by him/herself with no assistance from a helper. 5-Set-up or Clean-up Assistance-helper sets up or cleans up; patient completes activity. [place] assists only prior to or following the activity. 4-Supervision or Touching Assistance-helper provides verbal cues and/or touching/steadying and/or contact guard assistance as patient completes activi ty. Assistance may be provided throughout the activity or intermittently. 3-Partial/Moderate Assistance-helper does LESS THAN HALF the effort. [place] lifts, holds or supports trunk or limbs, but provides less than half the effort. 2-Substantial/Maximal Assistance-helper does MORE THAN HALF the effort. [place] lifts or holds trunk or limbs and provides more than half the effort. 9-Bjfdebcir-nfbgmj does ALL the effort. Patient does none of the effort to complete the activity. Or, the assistance of 2 or more helpers is required for the patient to complete the activity. If activity was not attempted, code reason: 7-Patient Refused. 9-Not Applicable-not attempted and the patient did not perform the activity before the current illness, exacerbation or injury. 10-Not Attempted due to Environmental Limitations-(lack of equipment, weather restraints, etc.). 88-Not Attempted due to Medical Conditions or Safety Concerns. Roll Left & Right (QC): 5 Sit to Lying (QC): 5 Lying to Sitting/Side of Bed(Q: 5 Sit to Stand (QC): 5 Chair/Hyz-jg-Mxheq Xfer(QC): 5 Toilet Transfer (QC): 4 pt. just moved to indep room to enable to learn to manage pt. at home. Toilet TRFs were practiced with very good results as pt. uses railing on wall and locked w/c for stability to TRF on and off toilet. present and shares that she will have rails installed at home if she can obtain these items in [employer] stores as they may be closed secondary to Covid 19 closures. Pt. also practiced w/c to bed and bed to w/c with use of "bed cane" which was aligned for pt. and utilized very well by him. understood all TRF techniques as well as demonstrating good understanding of how to utilize gait belt Weight Bearing Right Lower Extremity: Right Full Weight Bearing Left Lower Extremity: Left Full Weight Bearing Gait Training Does the Patient Walk?: Yes Walk 10 feet (QC): 4 Walk 50 ft with 2 Turns(QC): 4 Gait Persons Needed: 1 Gait Assistive Device: FWW occasional right foot not clearing and pt. has difficulty stopping to regain good stability and balance and becomes a bit angry and frustrated. Gait overall is improved, unsure of home surfaces and will review this this aftrnoon Rx Wheelchair Training Does the Pt Use a Wheelchair?: Yes Wheel 50 ft with 2 turns (QC): 3 Type of Wheelchair: Manual much work on w/c mobility as informs that there is minimal clearance at home for w/c . It was decided that pt could clear doors without leg rest on w/c but not with. As a result pts seating height level was raised to help accommodate this in that pt. can more easily lift and place his right foot and leg and use it to advance the w/c. This was very frustrating to pt. but not because he cant do it but because the coordination of it is a challenge for him.. again very encouraging and could move him about in the house if needed Exercises Supine Ex: Bridging, Rolling, Heel Slides, Straight leg raise, Hip abd/add Supine Reps: 10 Seated Therapy Exercises: Ankle pumps, Sit to stand, Long arc quads, Hip flexion Seated Reps: 15 (x2) Treatments present for education and prep for possible DC on Wed. Plan to practice ramp work in w/c this pm Assessment Current Status: Good Progress encouraging and helpful, smart and resourceful PT Short Term Goals Short Term Goals Time Frame: Nov 14, 2019 Roll Left & Right: 3 Sit to lyin Lying to sitting on side of be: 3 Sit to stand: 3 Chair/vjj-wc-klhde transfer: 3 Walk 10 feet: 2 Wheel 50ft w/2 turns: 4 Wheel 150 feet: 4 PT Clinical Asst Goals Residential Goals PT Residential Goals Time Frame: Nov 28, 2019 Roll Left & Right (QC): 6 Sit to Lying (QC): 6 Lying-Sitting on Side/Bed(QC): 6 Sit to Stand (QC): 6 Chair/Ouh-jh-Dltwk Xfer(QC): 6 Toilet Transfer (QC): 6 Car Transfer (QC): 5 Does the Patient Walk: No and Walking Goal IS indicated Walk 10 feet (QC): 6 Walk 50ft with 2 Turns (QC): 6 Walk 150 ft (QC): 6 Walking 10ft on Uneven Surface: 5 1 Step (curb) (QC): 5 4 Steps (QC): 5 12 Steps (QC): 4 Picking up an Object (QC): 4 Wheel 50 feet with 2 turns (QC: 6 Type: Manual Wheel 150 feet: 6 Type: Manual PT Plan Treatment/Plan Treatment Plan: Continue Plan of Care Treatment Plan: Bed Mobility, Education, Functional Activity Joey, Functional Strength, Group Therapy, Gait, Safety, Therapeutic Exercise, Transfers Treatment Duration: Nov 28, 2019 Frequency: At least 5 of 7 days/Wk (IRF) Estimated Hrs Per Day: 1.5 hours per day Patient and/or Family Agrees t: Yes Safety Risks/Education Patient Education: Gait Training, Transfer Techniques, Correct Positioning, W/C Management, Disease Process, Safety Issues Teaching Recipient: Patient Teaching Methods: Demonstration, Discussion Response to Teaching: Verbalize Understanding, Return Demonstration, Reinforcement Needed Time/GCodes Time In: 1000 Time Out: 1100 Total Billed Treatment Time: 60 Total Billed Treatment 1,GT15m,WCH 15m,FA15m,EX15m ELISEO JONES MEAT COOLER Nov 25, 2019 11:13
--- NOTE | 2019-11-25 12:05 | Speech Therapy Daily Note ---
Speech Daily Progress Note Subjective Date Seen by Provider: Nov 25, 2019 Time Seen by Provider: 00:30 Patient is in a much more pleasant mood with the arrival of his today. Objective Patient completed safe oral intake with 90% with minimal cues. Patient's was present. Assessment Assessment Current Status: Good Progress Treatment Plan Continue Plan of Care Speech Short Term Goals Short Term Goals Short Term Goals 1. Patient will complete memory tasks related to daily needs at 90% or greater with minimal cueing. 2. Patient will complete safety awareness tasks related to daily needs at 90% or greater with minimal cueing. 3. Patient will complete problem solving tasks related to daily needs at 90% or greater with minimal cueing. 4. Patient will complete word finding tasks related to daily needs at 90% or greater with minimal cueing. 5. Patient will tolerate least restrictive diet level without s/s of aspiration with 90% or greater. 6. Patient/caregiver will utilize compensatory strategies as trained with 90% or greater given minimal cues. Speech Public Address Systems Mechanic Goals Senior Care Goals Patient will improve cognitive communication necessary for safety and daily living tasks with minimal assist. Patient will maintain adequate nutrition/hydration via safe effective swallow function. Speech-Plan Patient/Family Goals Patient/Family Goals: Patient will be discharging to his home with his on 11/27/2019 Treatment Plan Speech Therapy Treatment Plan: Continue Plan of Care Treatment Duration: Nov 08, 2019 Frequency: 5 times per week Estimated Hrs Per Day: .5 hour per day Rehab Potential: Good Barriers to Learning: Patient's recent CVA Pt/Family Agrees to Plan: Yes Safety Risks/Education Teaching Recipient: Patient, Significant Other Teaching Methods: Demonstration, Discussion Response to Teaching: Verbalize Understanding, Return Demonstration Education Topics Provided: Continued safety with oral intake and upon his return home. Time Speech Therapy Time In: 11:30 Speech Therapy Time Out: 12:00 Total Billed Time: 30 Billed Treatment Time [address] Nov 25, 2019 12:05
--- NOTE | 2019-11-25 12:18 | Progress Note - Cardiology ---
Cardiology SOAP Progress Note Subjective: No cp or palp or syncope or shortness of breath Gen weakness R-sided weakness No n/v/d Objective: I&O/Vital Signs 11/25/19 11/25/19 06:27 09:00 Temp 36.2 Pulse 61 Resp 18 B/P (MAP) 175/81 (112) Pulse Ox 97 O2 Delivery Room Air Room Air 11/25/19 00:00 Intake Total 730 ml Output Total 875 ml Balance -145 ml Constitutional: AAO x 3, well-developed, well-nourished Respiratory: No accessory muscle use; other (good bilat air entry) Cardiovascular: regular rate-rhythm, S1 and S2, systolic murmur (soft QUINTON at card base) Gastrointestional: No tender; soft; No guarding, No rebound; audible bowel sounds Extremities: No clubbing, No cyanosis, No significant edema Neurologic/Psychiatric: other (R-sided weakness) Skin: normal color, warm/dry Results/Procedures: Labs Laboratory Tests 11/24/19 16:03: Glucometer 273H 11/24/19 20:06: Glucometer 169H 11/25/19 06:26: Glucometer 166H 11/25/19 11:02: Glucometer 386H A/P: Assessment: Uncontrolled hypertension Status post CVA with R hemiparesis. 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 OAC with apixaban Hypertension, by history Hyperlipidemia, by history Diabetes mellitus, followed and managed by primary care physician Plan: * I reviewed his records and interviewed and examined him * I spoke with his nurse who has been noting daily bp elevation in the morning. We will add clonidine 0.1 mg at bedtime and adjust according to response * I discussed his CV issues with him an answered questions * Monitor labs CHEY FORMAN MD FACP FAC CCDS Nov 25, 2019 12:18
--- NOTE | 2019-11-25 14:07 | Occupational Ther Daily Note ---
OT Current Status-Daily Note Subjective Pt alert, sitting in w/c. present in room for family training. No c/o pain at this time. Mental Status/Objective Patient Orientation: Person, Place, Time, Situation ADL-Treatment Therapy Code Descriptions/Definitions Functional [place] Measure: 0=Not Assessed/NA 4=Minimal Assistance 1=Total Assistance 5=Supervision or Setup 2=Maximal Assistance 6=Modified [place] 3=Moderate Assistance 7=Complete IndependenceSCALE: Activities may be completed with or without assistive devices. 2-Kkylkuwrpy-dmywlgp completes the activity by him/herself with no assistance from a helper. 5-Set-up or Clean-up Assistance-helper sets up or cleans up; patient completes activity. [place] assists only prior to or following the activity. 4-Supervision or Touching Assistance-helper provides verbal cues and/or touching/steadying and/or contact guard assistance as patient completes activity. Assistance may be provided throughout the activity or intermittently. 3-Partial/Moderate Assistance-helper does LESS THAN HALF the effort. [place] lifts, holds or supports trunk or limbs, but provides less than half the effort. 2-Substantial/Maximal Assistance-helper does MORE THAN HALF the effort. [place] lifts or holds trunk or limbs and provides more than half the effort. 4-Kocqsgnfc-vcoywj does ALL the effort. Patient does none of the effort to complete the activity. Or, the assistance of 2 or more helpers is required for the patient to complete the activity. If activity was not attempted, code reason: 7-Patient Refused. 9-Not Applicable-not attempted and the patient did not perform the activity before the current illness, exacerbation or injury. 10-Not Attempted due to Environmental Limitations-(lack of equipment, weather restraints, etc.). 88-Not Attempted due to Medical Conditions or Safety Concerns. Other Treatment Family training for squat pivot transfers. Pt requires CGA to min A for transfers going toward R side, CGA for L side transfer. Pt's was able to complete 1 R side transfer with close SBA from DOTY/L. After session, pt sitting in recliner with call light/phone in reach. All needs met in room. in room. OT Short Term Goals Short Term Goals Time Frame: Nov 15, 2019 Oral hygiene: 3 Toileting hygiene: 2 Shower/bathe self: 3 Upper body dressin Lower body dressin Putting on/taking off footwear: 3 OT Jail Goals Jail Goals Time Frame: Nov 29, 2019 Eating (QC): 6 Oral Hygiene (QC): 6 Toileting Hygiene (QC): 5 Shower/Bathe Self (QC): 4 Upper Body Dressing (QC): 5 Lower Body Dressing (QC): 5 On/Off Footwear (QC): 5 Additional Goals: 1-Demonstrate ADL Tasks, 2-Verbalize Understanding, 3- ImproveStrength/Joey 1=Demonstrate adherence to instructed precautions during ADL tasks. 2=Patient will verbalize/demonstrate understanding of assistive devices/modifications for ADL. 3=Patient will improve strength/tolerance for activity to enable patient to perform ADL's. OT Education/Plan Problem List/Assessment Assessment: Decreased Activ Tolerance, Decreased Safety Aware, Impaired Self- Care Skills, Restricted Funct UE ROM Discharge Recommendations Plan/Recommendations: Continue POC Treatment Plan/Plan of Care Patient would benefit from OT for education, treatment and training to promote independence in ADL's, mobility, safety and/or upper extremity function for ADL's. Plan of Care: ADL Retraining, Functional Mobility, Group Exercise/Act as Ind, UE Funct Exercise/Act, UE Neuromus Re-Ed/Coord Treatment Duration: Nov 29, 2019 Frequency: At least 5 of 7 days/Wk (IRF) Estimated Hrs Per Day: 1.5 hours per day Rehab Potential: Good Time/GCodes Start Time: 13:00 Stop Time: 13:15 Total Time Billed (hr/min): 15 Billed Treatment Time 1 visit-NM 1 (15 min) KAREN MARQUES Nov 25, 2019 14:07
--- NOTE | 2019-11-25 14:15 | Physical Therapy Daily Note ---
PT Daily Note-Current Subjective Pt. agrees to Rx. is present and participates in RX of w/c mobility on ramp. Pain Location: No Pain Reported Mental Status Patient Orientation: Normal For Age Transfers SCALE: Activities may be completed with or without assistive devices. 8-Oewzguiwmq-gcsvume completes the activity by him/herself with no assistance from a helper. 5-Set-up or Clean-up Assistance-helper sets up or cleans up; patient completes activity. [place] assists only prior to or following the activity. 4-Supervision or Touching Assistance-helper provides verbal cues and/or touching/steadying and/or contact guard assistance as patient completes activity. Assistance may be provided throughout the activity or intermittently. 3-Partial/Moderate Assistance-helper does LESS THAN HALF the effort. [place] lifts, holds or supports trunk or limbs, but provides less than half the effort. 2-Substantial/Maximal Assistance-helper does MORE THAN HALF the effort. [place] lifts or holds trunk or limbs and provides more than half the effort. 5-Akngvbdzc-axawmu does ALL the effort. Patient does none of the effort to complete the activity. Or, the assistance of 2 or more helpers is required for the patient to complete the activity. If activity was not attempted, code reason: 7-Patient Refused. 9-Not Applicable-not attempted and the patient did not perform the activity before the current illness, exacerbation or injury. 10-Not Attempted due to Environmental Limitations-(lack of equipment, weather restraints, etc.). 88-Not Attempted due to Medical Conditions or Safety Concerns. sit to stands in place x 5 SBA Weight Bearing Right Lower Extremity: Right Full Weight Bearing Left Lower Extremity: Left Full Weight Bearing Wheelchair Training Does the Pt Use a Wheelchair?: Yes Wheel 50 ft with 2 turns (QC): 3 Wheel 150 ft (QC): 3 Type of Wheelchair: Manual pt. to ramp to attempt to simulate home situation. Pt. and practiced and were instructed in up down ramp forward and backward , with assist and without, pt. instructed in turning head to manage backing so he could use LLE and let right foot leg (drag) rest. Pt. continues to resist using RLE to heel dig to manage w/c going forward and did very well backing up ramp with wifes guidance approx 25 ft x 6 Exercises Seated Therapy Exercises: Sit to stand, Long arc quads, Hip flexion Seated Reps: 15 Assessment Current Status: Good Progress PT Short Term Goals Short Term Goals Time Frame: Nov 14, 2019 Roll Left & Right: 3 Sit to lyin Lying to sitting on side of be: 3 Sit to stand: 3 Chair/ofy-wv-xclnk transfer: 3 Walk 10 feet: 2 Wheel 50ft w/2 turns: 4 Wheel 150 feet: 4 PT [facility] Goals Spindle Repairer Goals PT Spindle Repairer Goals Time Frame: Nov 28, 2019 Roll Left & Right (QC): 6 Sit to Lying (QC): 6 Lying-Sitting on Side/Bed(QC): 6 Sit to Stand (QC): 6 Chair/Snt-ja-Dqlfn Xfer(QC): 6 Toilet Transfer (QC): 6 Car Transfer (QC): 5 Does the Patient Walk: No and Walking Goal IS indicated Walk 10 feet (QC): 6 Walk 50ft with 2 Turns (QC): 6 Walk 150 ft (QC): 6 Walking 10ft on Uneven Surface: 5 1 Step (curb) (QC): 5 4 Steps (QC): 5 12 Steps (QC): 4 Picking up an Object (QC): 4 Wheel 50 feet with 2 turns (QC: 6 Type: Manual Wheel 150 feet: 6 Type: Manual PT Plan Treatment/Plan Treatment Plan: Continue Plan of Care Treatment Plan: Bed Mobility, Education, Functional Activity Joey, Functional Strength, Group Therapy, Gait, Safety, Therapeutic Exercise, Transfers Treatment Duration: Nov 28, 2019 Frequency: At least 5 of 7 days/Wk (IRF) Estimated Hrs Per Day: 1.5 hours per day Patient and/or Family Agrees t: Yes Safety Risks/Education Patient Education: Correct Positioning, W/C Management Teaching Recipient: Patient, Family, Significant Other Teaching Methods: Demonstration, Discussion Response to Teaching: Verbalize Understanding, Return Demonstration, Reinforcement Needed Time/GCodes Time In: 1330 Time Out: 1400 Total Billed Treatment Time: 30 Total Billed Treatment 1,BALDEMAR 30m ELISEO JONES FUNCTIONAL ARCHITECT Nov 25, 2019 14:15
--- NOTE | 2019-11-25 15:59 | NUR ---
CM/SS CONCURRENT DOCUMENTATION Spouse Sarah here as planned today for caregiver education and hands on experience, special permission because of COVID19 protocols/restrictions. Post hospital care plan updates: Ramp has been built in the home from family room to one-step level change into main household. Sarah has provided pictures for therapy approval. DME, FWW has been delivered along with Right Arm Rest Platform; however, therapy team now say patient will not need the platform. Ruby On Rails Engineer will process getting that of their statement and returned to [facility]. Wheelchair, Sarah got from [employer] and she practiced using the new ramp at home with livestock buyer in the chair. [facility], confirmed with [facility] [place] [facility] they remain prepared to begin services .
[2019-11-25 16:00] VITALS: BP 116/69
[2019-11-25] MEDS: SIMvastatin 10 MG (ZOCOR) TAB PO SCH (17:23)
[2019-11-25 18:00] VITALS: BP 126/69
[2019-11-25] MEDS: cloNIDine 0.1 MG (CATAPRES) TAB PO SCH (20:15)
[2019-11-25] MEDS: ASPIRIN E.C. 81 MG (ECOTRIN) TAB PO SCH (20:17)
[2019-11-25] MEDS: ACETAMINOPHEN 325 MG TABLET PO PRN (20:18)
[2019-11-25 20:24] VITALS: BP 114/71
[2019-11-26 06:00] VITALS: BP 137/68
[2019-11-26] MEDS: inSUlin ASPART (NovoLOG) 1 UNIT/0.01 ML (CHARGE PER UNIT) SC SCH ×4 (06:15→20:21)
[2019-11-26] MEDS: metFORMIN XR 500 MG (GLUCOPHAGE XR) TAB PO SCH ×2 (06:28→16:30)
[2019-11-26 08:00] VITALS: BP_SYST 115; BP_SYST 98; BP_DIAS 63; BP_DIAS 66
--- NOTE | 2019-11-26 08:50 | Physical Therapy Daily Note ---
PT Daily Note-Current Subjective Patient in bed pre tx, agrees to PT, has no complaints of pain. Appearance Patient in recliner post tx with nurse call, phone, tray, all needs met, in room. Mental Status Patient Orientation: Person, Place, Situation Transfers SCALE: Activities may be completed with or without assistive devices. 0-Ceossoheoc-sxeeijh completes the activity by him/herself with no assistance from a helper. 5-Set-up or Clean-up Assistance-helper sets up or cleans up; patient completes activity. [place] assists only prior to or following the activity. 4-Supervision or Touching Assistance-helper provides verbal cues and/or touching/steadying and/or contact guard assistance as patient completes activity. Assistance may be provided throughout the activity or intermittently. 3-Partial/Moderate Assistance-helper does LESS THAN HALF the effort. [place] lifts, holds or supports trunk or limbs, but provides less than half the effort. 2-Substantial/Maximal Assistance-helper does MORE THAN HALF the effort. [place] lifts or holds trunk or limbs and provides more than half the effort. 9-Qacrsgpwn-vjwuvx does ALL the effort. Patient does none of the effort to complete the activity. Or, the assistance of 2 or more helpers is required for the patient to complete the activity. If activity was not attempted, code reason: 7-Patient Refused. 9-Not Applicable-not attempted and the patient did not perform the activity before the current illness, exacerbation or injury. 10-Not Attempted due to Environmental Limitations-(lack of equipment, weather restraints, etc.). 88-Not Attempted due to Medical Conditions or Safety Concerns. Roll Left & Right (QC): 4 Sit to Lying (QC): 4 Lying to Sitting/Side of Bed(Q: 3 Sit to Stand (QC): 4 Chair/Xgx-xx-Poqfw Xfer(QC): 4 Car Transfer (QC): 4 Patient performs bed mobility with SBA, supine to sit with min assist, sit to supine SBA, sit <-> stand CGA, transfers CGA, car transfer CGA. Patient needs occasional cues for positioning and safety. Has a tendency to get into and out of the car transfer machine with one leg in and one leg on the ground. Patient performed 2 car transfers and was trained with one of them. Weight Bearing Right Lower Extremity: Right Full Weight Bearing Left Lower Extremity: Left Full Weight Bearing Gait Training Distance: 150'x2 Walk 10 feet (QC): 4 Walk 50 ft with 2 Turns(QC): 4 Walk 150 ft (QC): 4 Gait Persons Needed: 1 Gait Assistive Device: FWW Patient can ambulate 150' with a rolling walker with CGA (including 50' with at least 2 turns of 90 degrees). Patient ambulated over carpet (training with ). He has a tendency to kick walker with right leg, has a wide ILAN, uncoordinated stepping with right leg, knee hyperextension. Stair Training Stair Training: Handrails/: 2 handrails #of Steps: 4 1 Step (curb) (QC): 4 4 Steps (QC): 4 12 Steps (QC): 88 Stairs: Pattern: Step to Patient can go up and down 4 steps using 2 handrails with CGA. Cues for foot pl acement. Exercises NuStep Minutes: 10 NuStep Workload: 5 Treatments bed mobility and transfers, ambulation, stairs, LE exercise Assessment Current Status: Fair Progress improving general mobility, trained on walking patient over carpet and car transfer PT Short Term Goals Short Term Goals Time Frame: Nov 14, 2019 Roll Left & Right: 3 Sit to lyin Lying to sitting on side of be: 3 Sit to stand: 3 Chair/xin-zw-eypyy transfer: 3 Walk 10 feet: 2 Wheel 50ft w/2 turns: 4 Wheel 150 feet: 4 PT Senior Living Goals Handhole Machine Operator Goals PT Handhole Machine Operator Goals Time Frame: Nov 28, 2019 Roll Left & Right (QC): 6 Sit to Lying (QC): 6 Lying-Sitting on Side/Bed(QC): 6 Sit to Stand (QC): 6 Chair/Ovv-hb-Jzyzd Xfer(QC): 6 Toilet Transfer (QC): 6 Car Transfer (QC): 5 Does the Patient Walk: No and Walking Goal IS indicated Walk 10 feet (QC): 6 Walk 50ft with 2 Turns (QC): 6 Walk 150 ft (QC): 6 Walking 10ft on Uneven Surface: 5 1 Step (curb) (QC): 5 4 Steps (QC): 5 12 Steps (QC): 4 Picking up an Object (QC): 4 Wheel 50 feet with 2 turns (QC: 6 Type: Manual Wheel 150 feet: 6 Type: Manual PT Plan Problem List Problem List: Activity Tolerance, Functional Strength, Safety, Balance, Gait, Transfer, Bed Mobility, ROM Treatment/Plan Treatment Plan: Continue Plan of Care Treatment Plan: Bed Mobility, Education, Functional Activity Joey, Functional Strength, Group Therapy, Gait, Safety, Therapeutic Exercise, Transfers Treatment Duration: Nov 28, 2019 Frequency: At least 5 of 7 days/Wk (IRF) Estimated Hrs Per Day: 1.5 hours per day Patient and/or Family Agrees t: Yes Safety Risks/Education Patient Education: Gait Training, Transfer Techniques, Steps, Correct Positioning, Safety Issues Teaching Recipient: Patient Teaching Methods: Demonstration, Discussion Response to Teaching: Reinforcement Needed Time/GCodes Time In: 0800 Time Out: 0845 Total Billed Treatment Time: 45 Total Billed Treatment 1 visit EX 10' FA 35' ELZA WEN PT Nov 26, 2019 08:50
[2019-11-26] MEDS: SENNA W/DOCUSATE (SENOKOT S) TABLET PO SCH ×2 (09:00→20:24)
[2019-11-26] MEDS: polyethylene glycoL POWDER 17 GM (MIRALAX) PACK PO SCH ×2 (09:00→20:20)
[2019-11-26] MEDS: DOCUSATE SODIUM 100 MG (COLACE) CAP PO SCH ×2 (09:00→20:48)
--- NOTE | 2019-11-26 10:00 | NUR ---
OKAY'D WITH DR. BARBOSA THAT PATIENT'S SPOUSE MAY SPEND THE NIGHT AGAIN TONIGHT. PATIENT HAS ALREADY SAID, "IF SHE CAN'T STAY, I'LL LEAVE TO". DENIES PAIN. BOTH PATIENT AND SPOUSE FEEL READY FOR DISCHARGE.
--- NOTE | 2019-11-26 10:16 | Progress Note - Cardiology ---
Cardiology SOAP Progress Note Subjective: Sitting up in chair with spouse. No c/o CP, palpitations, syncope, near syncope or dyspnea Objective: I&O/Vital Signs 11/27/19 06:00 Temp 36.4 Pulse 58 Resp 16 B/P (MAP) 124/64 (84) Pulse Ox 94 O2 Delivery Room Air 11/27/19 00:00 Intake Total 1000 ml Balance 1000 ml Constitutional: AAO x 3, well-developed, well-nourished Respiratory: No accessory muscle use; other (good bilat air entry) Cardiovascular: regular rate-rhythm, S1 and S2, systolic murmur (soft QUINTON at card base) Gastrointestional: No tender; soft; No guarding, No rebound; audible bowel sounds Extremities: No clubbing, No cyanosis, No significant edema Neurologic/Psychiatric: other (R-sided weakness) Skin: normal color, warm/dry Results/Procedures: Labs Laboratory Tests 11/26/19 10:53: Glucometer 304H 11/26/19 15:48: Glucometer 217H 11/26/19 20:01: Glucometer 169H 11/27/19 05:26: Glucometer 165H A/P: Assessment: Uncontrolled hypertension - BP improved Status post CVA with R hemiparesis. Chart review indicates this is thought to have been an embolic event Status post bradycardia, improved after stopping metoprolol Coronary artery disease, history of multiple intervention the past, had a CABG 3 done in 2017 H/o PAF. OAC with apixaban Hypertension, by history Hyperlipidemia, by history Diabetes mellitus, followed and managed by primary care physician Plan: * BP improved with addition of clonidine 0.1 mg at bedtime - continue to monitor and adjust as indicated * Monitor labs MARIE LEE Nov 26, 2019 10:15
[2019-11-26] MEDS: MULTIVIT W/MINERALS TAB (THERAGRAN M) PO SCH (10:22)
[2019-11-26] MEDS: PANTOPRAZOLE 40 MG (PROTONIX) TAB PO SCH (10:22)
[2019-11-26] MEDS: TAMSULOSIN 0.4 MG (FLOMAX) CAP PO SCH (10:22)
[2019-11-26] MEDS: lisINopril 5 MG (PRINIVIL) TABLET PO SCH (10:23)
[2019-11-26] MEDS: AMIODARONE 200 MG (CORDARONE) TAB PO SCH (10:23)
[2019-11-26] MEDS: APIXABAN 5 MG (ELIQUIS) TABLET PO SCH ×2 (10:23→20:18)
--- NOTE | 2019-11-26 11:26 | PM&R Progress Note ---
Subjective HPI/CC On Admission Date Seen by Provider: Nov 26, 2019 Time Seen by Provider: 10:30 Subjective/Events-last exam is here and will spend night again and obtain training from therapists for DC tomorrow home with HH Monday DC is agreed on Not even using the platform walker now In better mood [place] sent [place] [facility] and she has obtained it by mail at home DC meds will be checked on by SW to be sure he has everything I sent in No dysphagia No falls reported Checked meds and labs Reviewed therapy notes Conferred with strategic sourcing specialist of Systems Neurological: Weakness, Numbness, Incoordination Objective Exam Vital Signs Vital Signs Date Time Temp Pulse Resp B/P (MAP) Pulse Ox O2 Delivery O2 Flow Rate FiO2 11/26/19 18:14 Room Air 11/26/19 16:00 36.7 70 16 109/54 (72) 97 Capillary Refill : Less Than 3 Seconds General Appearance: No Apparent Distress, WD/WN HEENT: PERRL/EOMI, Normal ENT Inspection, Pharynx Normal Neck: Normal Inspection, Non Tender, Supple Respiratory: Lungs Clear, Normal Breath Sounds, No Accessory Muscle Use, No Respiratory Distress Cardiovascular: Regular Rate, Rhythm, No Edema, No Gallop, No Murmur, Normal Peripheral Pulses, Irregularly Irregular Gastrointestinal: Normal Bowel Sounds, No Organomegaly, No Pulsatile Mass, Non Tender, Soft Back: Normal Inspection, No CVA Tenderness, No Vertebral Tenderness Extremity: Normal Capillary Refill, Non Tender, No Calf Tenderness, No Pedal Edema Neurologic/Psychiatric: Alert, Oriented x3, Normal Mood/Affect, casting molder II-XII Norm as Tested, Abnormal Gait, Motor Weakness Skin: Normal Color, Warm/Dry Lymphatic: No Adenopathy Results/Procedures Lab Patient resulted labs reviewed. FIM Transfers Therapy Code Descriptions/Definitions Functional [place] Measure: 0=Not Assessed/NA 4=Minimal Assistance 1=Total Assistance 5=Supervision or Setup 2=Maximal Assistance 6=Modified [place] 3=Moderate Assistance 7=Complete IndependenceSCALE: Activities may be completed with or without assistive devices. 0-[place]-sniwszy completes the activity by him/herself with no assistance from a helper. 5-Set-up or Clean-up Assistance-helper sets up or cleans up; patient completes activity. [place] assists only prior to or following the activity. 4-Supervision or Touching Assistance-helper provides verbal cues and/or touching/steadying and/or contact guard assistance as patient completes activity. Assistance may be provided throughout the activity or intermittently. 3-Partial/Moderate Assistance-helper does LESS THAN HALF the effort. [place] lifts, holds or supports trunk or limbs, but provides less than half the effort. 2-Substantial/Maximal Assistance-helper does MORE THAN HALF the effort. [place] lifts or holds trunk or limbs and provides more than half the effort. 6-Hpsfviusl-rsubgt does ALL the effort. Patient does none of the effort to complete the activity. Or, the assistance of 2 or more helpers is required for the patient to complete the activity. If activity was not attempted, code reason: 7-Patient Refused. 9-Not Applicable-not attempted and the patient did not perform the activity before the current illness, exacerbation or injury. 10-Not Attempted due to Environmental Limitations-(lack of equipment, weather restraints, etc.). 88-Not Attempted due to Medical Conditions or Safety Concerns. Roll Left to Right (QC): 4 Sit to Lying (QC): 4 Sit to Stand (QC): 4 Chair/Liz-jx-Lejqw Xfer(QC): 4 Car Transfer (QC): 4 Gait Training Does the Patient Walk?: Yes Distance: 150'x2 Walk 10 feet (QC): 4 Walk 50 ft with 2 Turns(QC): 4 Walk 150 ft (QC): 4 Walking 10ft/uneven surface-QC: 88 Gait Persons Needed: 1 Gait Assistive Device: FWW Wheelchair Training Does the Pt Use a Wheelchair?: Yes Wheel 50 ft with 2 turns (QC): 3 Wheel 150 ft (QC): 3 Type of Wheelchair: Manual Stair Training Stair Training: Handrails/: 2 handrails #of Steps: 4 1 Step (curb) (QC): 4 4 Steps (QC): 4 12 Steps (QC): 88 Stairs: Pattern: Step to Balance Picking up an Object (QC): 88 ADL-Treatment Eating (QC): 5 Oral Hygiene (QC): 5 Bathing Location: L Arm, R Arm, L Upper Leg, R Upper Leg, L Lower Leg (including foot), R Lower Leg (including foot), Chest, Abdomen, Buttocks, Perineal Area Shower/Bathe Self (QC): 4 Upper Body Dressing (QC): 4 Lower Body Dressing (QC): 2 On/Off Footwear (QC): 3 Toileting Hygiene (QC): 3 Toilet Transfer (QC): 3 Assessment/Plan Assessment and Plan Assess & Plan/Chief Complaint Assessment: CVA 10/28/19 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 HTN HLP CRI AF ED Acute constipation initiated aggressive meds now resolved Dysphagia needs EGD and dilation but cannot go off OAC due to too high of risk for recurrent CVA Plan: IRF protocol BM regimen Fall risk Cardiology consultation appreciated Dr Wang consulted and is appreciated Increase PPI dose is working well Walker without platform now DC tomorrow (1) CVA (cerebral vascular accident) (2) Flaccid hemiplegia affecting dominant side (3) Diabetes (4) Hypertension (5) Hyperlipemia (6) On continuous oral anticoagulation (7) Atrial fibrillation (8) History of penile implant (9) History of colon cancer (10) Former smoker (11) Renal insufficiency (12) Constipation SCOTT BARBOSA DO Nov 26, 2019 11:26
--- NOTE | 2019-11-26 11:46 | Progress Note - Cardiology ---
Cardiology SOAP Progress Note Subjective: No cp or palp or syncope Gen malaise Persistent R-sided weakness No shortness of breath No n/v/d Objective: I&O/Vital Signs 11/26/19 06:00 Temp 36.7 Pulse 69 Resp 16 B/P (MAP) 137/68 (91) Pulse Ox 96 O2 Delivery Room Air 11/26/19 00:00 Intake Total 600 ml Balance 600 ml Constitutional: AAO x 3, well-developed, well-nourished Respiratory: No accessory muscle use; other (good bilat air entry) Cardiovascular: regular rate-rhythm, S1 and S2, systolic murmur (soft QUINTON at card base) Gastrointestional: No tender; soft; No guarding, No rebound; audible bowel sounds Extremities: No clubbing, No cyanosis, No significant edema Neurologic/Psychiatric: other (R-sided weakness) Skin: normal color, warm/dry Results/Procedures: Labs Laboratory Tests 11/25/19 16:02: Glucometer 204H 11/25/19 20:09: Glucometer 179H 11/26/19 05:57: Glucometer 159H 11/26/19 10:53: Glucometer 304H A/P: Assessment: Hypertension - BP improved Status post CVA with R hemiparesis. Chart review indicates this is thought to have been an embolic event Status post bradycardia, improved after stopping metoprolol Coronary artery disease, history of multiple intervention the past, had a CABG 3 done in 2017 H/o PAF. OAC with apixaban Hypertension, by history Hyperlipidemia, by history Diabetes mellitus, followed and managed by primary care physician Plan: * BP improved with addition of clonidine 0.1 mg at bedtime - continue to monitor and adjust as indicated * Monitor labs * I spoke with him and his and answered CV-related questions CHEY FORMAN MD FACP [facility] Nov 26, 2019 11:46
--- NOTE | 2019-11-26 11:51 | Occupational Ther Daily Note ---
OT Current Status-Daily Note Subjective Pt alert, sitting in recliner. present for family training. Pt agrees to therapy. No c/o pain. Mental Status/Objective Patient Orientation: Person, Place, Time, Situation ADL-Treatment Pt agrees to shower. is assisting pt with ADLs today for family training. DOTY/L is assisting for training verbal and physical instructions when needed. Pt is able to don/doff clothing on L side, assist needed for R side. Pt is inconsistent in attempting to complete own ADLs, is present and willing to assist pt. ambulated pt to bathroom with CGA using FWW and transferred to toilet with CGA, 1 balance break. Pt able to manipulate pants (CGA) and completes hygiene sitting on toilet by self. CGA for transfer into tub/shower using tub transfer bench. assisted pt when necessary. Pt able to reach all areas with assist to dry feet and buttocks. Pt able to complete oral care and grooming sitting at sink. Pt donned shirt with set up by . Pt is able to stand with CGA for safety and hike pants over hips. Pt dons L sock and shoe by self, assists with R sock/shoe. After session, pt sitting in w/c with call light/phone in reach. All needs met in room. Therapy Code Descriptions/Definitions Functional [place] Measure: 0=Not Assessed/NA 4=Minimal Assistance 1=Total Assistance 5=Supervision or Setup 2=Maximal Assistance 6=Modified [place] 3=Moderate Assistance 7=Complete IndependenceSCALE: Activities may be completed with or without assistive devices. 4-Qnilvgzdua-thgwnxv completes the activity by him/herself with no assistance from a helper. 5-Set-up or Clean-up Assistance-helper sets up or cleans up; patient completes activity. [place] assists only prior to or following the activity. 4-Supervision or Touching Assistance-helper provides verbal cues and/or to uching/steadying and/or contact guard assistance as patient completes activity. Assistance may be provided throughout the activity or intermittently. 3-Partial/Moderate Assistance-helper does LESS THAN HALF the effort. [place] lifts, holds or supports trunk or limbs, but provides less than half the effort. 2-Substantial/Maximal Assistance-helper does MORE THAN HALF the effort. [place] lifts or holds trunk or limbs and provides more than half the effort. 3-Ileznyoav-llewze does ALL the effort. Patient does none of the effort to complete the activity. Or, the assistance of 2 or more helpers is required for the patient to complete the activity. If activity was not attempted, code reason: 7-Patient Refused. 9-Not Applicable-not attempted and the patient did not perform the activity before the current illness, exacerbation or injury. 10-Not Attempted due to Environmental Limitations-(lack of equipment, weather restraints, etc.). 88-Not Attempted due to Medical Conditions or Safety Concerns. Eating (QC): 6 (Pt has demonstrated ability to open packages and containers for set up and uses regular utensils to eat.) Oral Hygiene (QC): 6 Shower/Bathe Self (QC): 3 Upper Body Dressing (QC): 3 Lower Body Dressing (QC): 3 On/Off Footwear: 3 Toileting Hygiene (QC): 3 Toilet Transfer (QC): 4 OT Short Term Goals Short Term Goals Time Frame: Nov 15, 2019 Oral hygiene: 3 Toileting hygiene: 2 Shower/bathe self: 3 Upper body dressin Lower body dressin Putting on/taking off footwear: 3 OT Jail Goals Jail Goals Time Frame: Nov 29, 2019 Eating (QC): 6 (met) Oral Hygiene (QC): 6 (met) Toileting Hygiene (QC): 5 (not met) Shower/Bathe Self (QC): 4 (not met) Upper Body Dressing (QC): 5 (not met) Lower Body Dressing (QC): 5 (not met) On/Off Footwear (QC): 5 (not met) Additional Goals: 1-Demonstrate ADL Tasks, 2-Verbalize Understanding, 3- ImproveStrength/Joey 1=Demonstrate adherence to instructed precautions during ADL tasks. 2=Patient will verbalize/demonstrate understanding of assistive devices/modifications for ADL. 3=Patient will improve strength/tolerance for activity to enable patient to perform ADL's. OT Education/Plan Problem List/Assessment Assessment: Decreased Activ Tolerance, Decreased Safety Aware, Decreased UE Strength, Impaired Coordination, Impaired Funct Balance, Impaired Self-Care Skills, Restricted Funct UE ROM Discharge Recommendations Plan/Recommendations: Continue POC Treatment Plan/Plan of Care Patient would benefit from OT for education, treatment and training to promote independence in ADL's, mobility, safety and/or upper extremity function for ADL's. Plan of Care: ADL Retraining, Functional Mobility, Group Exercise/Act as Ind, UE Funct Exercise/Act, UE Neuromus Re-Ed/Coord Treatment Duration: Nov 29, 2019 Frequency: At least 5 of 7 days/Wk (IRF) Estimated Hrs Per Day: 1.5 hours per day Rehab Potential: Good Time/GCodes Start Time: 08:45 Stop Time: 10:00 Total Time Billed (hr/min): 75 Billed Treatment Time 1 visit-ADL 5 (75 min) KAREN MARQUES Nov 26, 2019 11:51
--- NOTE | 2019-11-26 13:29 | Physical Therapy Daily Note ---
PT Daily Note-Current Subjective Patient in WC at bedside pre tx, agrees to PT, no complaints of pain. Appearance Patient in recliner post tx with nurse call, phone ,tray, all needs met. Mental Status Patient Orientation: Person, Place, Situation Transfers SCALE: Activities may be completed with or without assistive devices. 4-Rebntqdqjw-stsdxom completes the activity by him/herself with no assistance from a helper. 5-Set-up or Clean-up Assistance-helper sets up or cleans up; patient completes activity. [place] assists only prior to or following the activity. 4-Supervision or Touching Assistance-helper provides verbal cues and/or to uching/steadying and/or contact guard assistance as patient completes activity. Assistance may be provided throughout the activity or intermittently. 3-Partial/Moderate Assistance-helper does LESS THAN HALF the effort. [place] lifts, holds or supports trunk or limbs, but provides less than half the effort. 2-Substantial/Maximal Assistance-helper does MORE THAN HALF the effort. [place] lifts or holds trunk or limbs and provides more than half the effort. 3-Hndxqcpko-wtrlte does ALL the effort. Patient does none of the effort to complete the activity. Or, the assistance of 2 or more helpers is required for the patient to complete the activity. If activity was not attempted, code reason: 7-Patient Refused. 9-Not Applicable-not attempted and the patient did not perform the activity before the current illness, exacerbation or injury. 10-Not Attempted due to Environmental Limitations-(lack of equipment, weather restraints, etc.). 88-Not Attempted due to Medical Conditions or Safety Concerns. Sit to Stand (QC): 4 Weight Bearing Right Lower Extremity: Right Full Weight Bearing Left Lower Extremity: Left Full Weight Bearing Gait Training Distance: 150', 75'x2 Walk 10 feet (QC): 4 Walk 50 ft with 2 Turns(QC): 4 Walk 150 ft (QC): 4 Walking 10ft/uneven surface-QC: 4 Gait Persons Needed: 1 Gait Assistive Device: FWW Patient can ambulate 150' with a rolling walker with CGA (including 50' with at least 2 turns of 90 degrees and 10' over an uneven surface). Patient ambulated only long term on the way back due to fatigue and then finished. Patient ambulates slowly, has some unsteadiness, uncoordinated steps with right leg. Occasional cues for positioning and safety, has a tendency to kick walker with right leg. Treatments transfers, ambulation Assessment Current Status: Fair Progress has his own walker now, trained with ambulating over carpet and car transfers PT Short Term Goals Short Term Goals Time Frame: Nov 14, 2019 Roll Left & Right: 3 Sit to lyin Lying to sitting on side of be: 3 Sit to stand: 3 Chair/gdr-yi-idzsb transfer: 3 Walk 10 feet: 2 Wheel 50ft w/2 turns: 4 Wheel 150 feet: 4 PT Pest Controller Assistant Goals Pest Controller Assistant Goals PT Alf Goals Time Frame: Nov 28, 2019 Roll Left & Right (QC): 6 Sit to Lying (QC): 6 Lying-Sitting on Side/Bed(QC): 6 Sit to Stand (QC): 6 Chair/Tsv-dk-Cfrsr Xfer(QC): 6 Toilet Transfer (QC): 6 Car Transfer (QC): 5 Does the Patient Walk: No and Walking Goal IS indicated Walk 10 feet (QC): 6 Walk 50ft with 2 Turns (QC): 6 Walk 150 ft (QC): 6 Walking 10ft on Uneven Surface: 5 1 Step (curb) (QC): 5 4 Steps (QC): 5 12 Steps (QC): 4 Picking up an Object (QC): 4 Wheel 50 feet with 2 turns (QC: 6 Type: Manual Wheel 150 feet: 6 Type: Manual PT Plan Problem List Problem List: Activity Tolerance, Functional Strength, Safety, Balance, Gait, Transfer, Bed Mobility, ROM Treatment/Plan Treatment Plan: Continue Plan of Care Treatment Plan: Bed Mobility, Education, Functional Activity Joey, Functional Strength, Group Therapy, Gait, Safety, Therapeutic Exercise, Transfers Treatment Duration: Nov 28, 2019 Frequency: At least 5 of 7 days/Wk (IRF) Estimated Hrs Per Day: 1.5 hours per day Patient and/or Family Agrees t: Yes Safety Risks/Education Patient Education: Gait Training, Transfer Techniques, Correct Positioning, Safety Issues Teaching Recipient: Patient Teaching Methods: Demonstration, Discussion Response to Teaching: Reinforcement Needed Time/GCodes Time In: 1300 Time Out: 1330 Total Billed Treatment Time: 60 Total Billed Treatment 1 visit GT 30' ELZA WEN PT Nov 26, 2019 13:29
--- NOTE | 2019-11-26 13:51 | Speech Therapy Daily Note ---
Speech Daily Progress Note Subjective Date Seen by Provider: Nov 26, 2019 Time Seen by Provider: 03:00 Patient was resting waiting on his lunch when I arrived. His was present for the session. Objective Patient utilizes compensatory strategies as trained without cues. Assessment Assessment Current Status: Good Progress Treatment Plan Discontinue ST, Goals Met Speech Short Term Goals Short Term Goals Short Term Goals 1. Patient will complete memory tasks related to daily needs at 90% or greater with minimal cueing. 2. Patient will complete safety awareness tasks related to daily needs at 90% or greater with minimal cueing. 3. Patient will complete problem solving tasks related to daily needs at 90% or greater with minimal cueing. 4. Patient will complete word finding tasks related to daily needs at 90% or greater with minimal cueing. 5. Patient will tolerate least restrictive diet level without s/s of aspiration with 90% or greater. 6. Patient/caregiver will utilize compensatory strategies as trained with 90% or greater given minimal cues. Speech Pressroom Foreman Goals Group Home Goals Patient will improve cognitive communication necessary for safety and daily living tasks with minimal assist. Patient will maintain adequate nutrition/hydration via safe effective swallow function. Speech-Plan Patient/Family Goals Patient/Family Goals: Patient is returning to his home tomorrow with his . He will be receiving home health services. Treatment Plan Speech Therapy Treatment Plan: Discontinue ST, Goals Met Treatment Duration: Nov 08, 2019 Frequency: 5 times per week Estimated Hrs Per Day: .5 hour per day Rehab Potential: Good Barriers to Learning: Patient's recent CVA, however these deficits have mostly resolved Pt/Family Agrees to Plan: Yes Safety Risks/Education Teaching Recipient: Patient, Significant Other Teaching Methods: Demonstration, Discussion Response to Teaching: Verbalize Understanding, Return Demonstration Education Topics Provided: Continued safety utilization of compensatory strategies with oral intake upon his return home Time Speech Therapy Time In: 11:30 Speech Therapy Time Out: 12:00 Total Billed Time: 30 Billed Treatment Time 1, DYST No QUALITY CODES: EXPRESSION OF IDEAS/WANTS: 4 UNDERSTANDING VERBAL CONTENT: 4 BRIEF INTERVIEW MENTAL STATUS: YES REPETITION OF 3 WORDS: 3 TEMPORAL ORIENTATION: YEAR: CORRECT, MONTH: CORRECT, DAY: CORRECT RECALL SOCK: YES, COLOR: YES WITH CUE, BED: YES MEMORY/RECALL ABILITY: SEASON, LOCATION OF ROOM, STAFF NAMES, THAT HE IS IN THE HOSPITAL [facility] Nov 26, 2019 13:51
[2019-11-26 16:00] VITALS: BP 109/54
[2019-11-26] MEDS: SIMvastatin 10 MG (ZOCOR) TAB PO SCH (17:51)
--- NOTE | 2019-11-26 18:00 | NUR ---
A GOOD DAY. HAS BEEN HELPING THROUGHOUT DAY. NO COMPLAINTS.
[2019-11-26] MEDS: cloNIDine 0.1 MG (CATAPRES) TAB PO SCH (20:17)
[2019-11-26] MEDS: ASPIRIN E.C. 81 MG (ECOTRIN) TAB PO SCH (20:18)
[2019-11-27] MEDS: inSUlin ASPART (NovoLOG) 1 UNIT/0.01 ML (CHARGE PER UNIT) SC SCH (05:29)
[2019-11-27 06:00] VITALS: BP 124/64
[2019-11-27] MEDS: metFORMIN XR 500 MG (GLUCOPHAGE XR) TAB PO SCH (06:20)
[2019-11-27] MEDS: MULTIVIT W/MINERALS TAB (THERAGRAN M) PO SCH (07:59)
[2019-11-27] MEDS: AMIODARONE 200 MG (CORDARONE) TAB PO SCH (07:59)
[2019-11-27] MEDS: APIXABAN 5 MG (ELIQUIS) TABLET PO SCH (07:59)
[2019-11-27] MEDS: lisINopril 5 MG (PRINIVIL) TABLET PO SCH (07:59)
[2019-11-27] MEDS: TAMSULOSIN 0.4 MG (FLOMAX) CAP PO SCH (07:59)
[2019-11-27] MEDS: PANTOPRAZOLE 40 MG (PROTONIX) TAB PO SCH (07:59)
--- NOTE | 2019-11-27 09:25 | Therapy Team Discharge Summary ---
Therapy Discharge Summary Discharge Recommendations Date of Discharge Physical Therapy Patient came to rehab following a CVA. Upon evaluation patient performed bed mobility with max assist, supine <-> sit max assist, sit <-> stand dependent, car transfer max assist, no ambulation. Patient has been performing bed m obility and transfer training, balance and endurance training, functional strengthening, stair training, gait training, and education. Patient has made good progress but has not met any of his [facility] goals. Now, patient performs bed mobility with SBA, supine to sit with min assist, sit to supine SBA, sit <-> stand CGA, transfers CGA, car transfer CGA, ambulate 150' with a rolling walker with CGA (including 50' with at least 2 turns of 90 degrees and 10' over an uneven surface), and can go up and down 4 steps using 2 handrails with CGA. Patient is discharging from this facility today and will be discharged from PT at this time. Occupational Therapy Decreased Activ Tolerance, Decreased Safety Aware, Decreased UE Strength, Impaired Coordination, Impaired Funct Balance, Impaired Self-Care Skills, Restricted Funct UE ROM PT Paint Spray Tender Goals [facility] Goals PT Paint Spray Tender Goals Time Frame: Nov 28, 2019 Roll Left to Right (QC): 6 Sit to Lying (QC): 6 Lying-Sitting on Side/Bed(QC): 6 Sit to Stand (QC): 6 Chair/Jvs-of-Vqrtx Xfer(QC): 6 Car Transfer (QC): 5 Does the Patient Walk: No and Walking Goal IS indicated Walk 10 feet (QC): 6 Walk 10ft-Uneven Surface(QC): 5 Walk 50ft with 2 Turns (QC): 6 Walk 150 ft (QC): 6 Wheel 50 feet with 2 turns (QC: 6 1 Step (curb) (QC): 5 4 Steps (QC): 5 12 Steps (QC): 4 Picking up an Object (QC): 4 OT Paint Spray Tender Goals Paint Spray Tender Goals Time Frame: Nov 29, 2019 Eating (QC): 6 (met) Oral Hygiene (QC): 6 (met) Shower/Bathe Self (QC): 4 (not met) Upper Body Dressing (QC): 5 (not met) Lower Body Dressing (QC): 5 (not met) On/Off Footwear (QC): 5 (not met) Toileting Hygiene (QC): 5 (not met) Toilet/Commode Transfer (QC): 6 Additional Goals: 1-Demonstrate ADL Tasks, 2-Verbalize Understanding, 3- ImproveStrength/Joey 1=Demonstrate adherence to instructed precautions during ADL tasks. 2=Patient will verbalize/demonstrate understanding of assistive saulo aj/modifications for ADL. 3=Patient will improve strength/tolerance for activity to enable patient to perform ADL's. Speech Paint Spray Tender Goals Paint Spray Tender Goals Patient will improve cognitive communication necessary for safety and daily living tasks with minimal assist. Patient will maintain adequate nutrition/hydration via safe effective swallow function. ELZA WEN PT Nov 27, 2019 09:25
[2019-11-27] MEDS: DOCUSATE SODIUM 100 MG (COLACE) CAP PO SCH (09:30)
[2019-11-27] MEDS: SENNA W/DOCUSATE (SENOKOT S) TABLET PO SCH (09:30)
[2019-11-27] MEDS: polyethylene glycoL POWDER 17 GM (MIRALAX) PACK PO SCH (09:30)
--- NOTE | 2019-11-27 10:33 | Discharge Summary ---
Diagnosis/Chief Complaint Date of Admission Oct 31, 2019 at 15:05 Date of Discharge Nov 27, 2019 at 09:00 Discharge Date: Nov 27, 2019 Discharge Diagnosis Assessment: CVA 10/28/19 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 HTN HLP CRI AF ED Acute constipation initiated aggressive meds now resolved Dysphagia needs EGD and dilation but cannot go off OAC due to too high of risk for recurrent CVA Plan: IRF protocol BM regimen Fall risk Cardiology consultation appreciated Dr Wang consulted and is appreciated Increase PPI dose is working well Walker without platform now DC today (1) CVA (cerebral vascular accident) (2) Flaccid hemiplegia affecting dominant side (3) Diabetes (4) Hypertension (5) Hyperlipemia (6) On continuous oral anticoagulation (7) Atrial fibrillation (8) History of penile implant (9) History of colon cancer (10) Former smoker (11) Renal insufficiency (12) Constipation Discharge Summary Discharge Physical Examination Allergies: Coded Allergies: No Known Drug Allergies (Unverified , 11/02/19) Vitals & I&Os Vital Signs Date Time Temp Pulse Resp B/P (MAP) Pulse Ox O2 Delivery O2 Flow Rate FiO2 11/27/19 09:00 Room Air 11/27/19 06:00 36.4 58 16 124/64 (84) 94 General Appearance: Alert, Oriented X3, Cooperative Respiratory: Clear to Auscultation Cardiovascular: Regular Rate Neuro: Normal Speech, Other (right sided flaccidity) Psych/Mental Status: Mental Status NL Hospital Course Was the Problem List Reviewed?: Yes Patient had an uncomplicated but lengthy hospital course in IRF after moving [facility] after sustaining a catastrophic CVA with right sided flaccidity. AF managed with OAC Eliquis and BP management per Cardiology. BM regimen initiated and that system returned to normal. DM management was maintained with adequate sugar control. Platform added to walker and ultimately he did not require that anymore at time of DC. Fall risk discussed and was brought in for family training and everyone was in agreement for DC with HH to continue his recovery. Labs (last 24 hrs) Laboratory Tests 10/31/19 16:04: Glucometer 334H 10/31/19 20:13: Glucometer 193H 11/01/19 05:12: Glucometer 92 11/01/19 05:50: White Blood Count 8.5, Red Blood Count 4.51, Hemoglobin 14.4, Hematocrit 43, Mean Corpuscular Volume 95, Mean Corpuscular Hemoglobin 32, Mean Corpuscular Hemoglobin Concent 34, Red Cell Distribution Width 14.7H, Platelet Count 262, Mean Platelet Volume 11.4H, Neutrophils (%) (Auto) 54, Lymphocytes (%) (Auto) 30, Monocytes (%) (Auto) 12, Eosinophils (%) (Auto) 3, Basophils (%) (Auto) 1, Neutrophils # (Auto) 4.6, Lymphocytes # (Auto) 2.6, Monocytes # (Auto) 1.0, Eosinophils # (Auto) 0.3, Basophils # (Auto) 0.0, Sodium Level 138, Potassium Level 4.1, Chloride Level 103, Carbon Dioxide Level 24, Anion Gap 11, Blood Urea Nitrogen 21H, Creatinine 1.05, Estimat Glomerular Filtration Rate > 60, BUN/Creatinine Ratio 20, Glucose Level 95, Calcium Level 9.1, Corrected Calcium 9.5, Total Bilirubin 0.5, Aspartate Amino Transf (AST/SGOT) 18, Alanine Aminotransferase (ALT/SGPT) 18, Alkaline Phosphatase 86, Total Protein 5.8L, Albumin 3.5 11/01/19 11:52: Glucometer 259H 11/01/19 16:19: Glucometer 237H 11/01/19 20:50: Glucometer 137H 11/02/19 01:07: Glucometer 61L 11/02/19 01:58: Glucometer 103 11/02/19 06:01: Glucometer 238H 11/02/19 11:01: Glucometer 254H 11/02/19 15:59: Glucometer 260H 11/02/19 20:47: Glucometer 179H 11/03/19 04:26: Glucometer 112H 11/03/19 05:47: Glucometer 114H 11/03/19 10:59: Glucometer 218H 11/03/19 16:02: Glucometer 350H 11/03/19 20:49: Glucometer 257H 11/04/19 00:07: Glucometer 59*L 11/04/19 01:10: Glucometer 112H 11/04/19 07:10: White Blood Count 9.8, Red Blood Count 4.60, Hemoglobin 14.4, Hematocrit 44, Mean Corpuscular Volume 96, Mean Corpuscular Hemoglobin 31, Mean Corpuscular Hemoglobin Concent 33, Red Cell Distribution Width 14.7H, Platelet Count 266, Mean Platelet Volume 11.6H, Neutrophils (%) (Auto) 62, Lymphocytes (%) (Auto) 25, Monocytes (%) (Auto) 10, Eosinophils (%) (Auto) 2, Basophils (%) (Auto) 1, Neutrophils # (Auto) 6.1, Lymphocytes # (Auto) 2.4, Monocytes # (Auto) 1.0, Eosinophils # (Auto) 0.2, Basophils # (Auto) 0.1, Sodium Level 137, Potassium Level 4.7, Chloride Level 103, Carbon Dioxide Level 24, Anion Gap 10, Blood Urea Nitrogen 31H, Creatinine 1.34H, Estimat Glomerular Filtration Rate 51, BUN/Creatinine Ratio 23, Glucose Level 227H, Glucometer 206H, Calcium Level 9.2, Corrected Calcium 9.4, Total Bilirubin 0.4, Aspartate Amino Transf (AST/SGOT) 17, Alanine Aminotransferase (ALT/SGPT) 14, Alkaline Phosphatase 94, Total Protein 6.1L, Albumin 3.7 11/04/19 11:07: Glucometer 474*H 11/04/19 16:14: Glucometer 301H 11/04/19 21:04: Glucometer 149H 11/05/19 05:36: Glucometer 180H 11/05/19 11:06: Glucometer 311H 11/05/19 15:39: Glucometer 365H 11/05/19 20:29: Glucometer 277H 11/06/19 05:32: Glucometer 227H 11/06/19 10:49: Glucometer 332H 11/06/19 15:42: Glucometer 255H 11/06/19 21:21: Glucometer 196H 11/07/19 05:41: Sodium Level 137, Potassium Level 4.5, Chloride Level 102, Carbon Dioxide Level 24, Anion Gap 11, Blood Urea Nitrogen 32H, Creatinine 1.19, Estimat Glomerular Filtration Rate 58, BUN/Creatinine Ratio 27, Glucose Level 174H, Calcium Level 9.3, Corrected Calcium 9.6, Total Bilirubin 0.5, Aspartate Amino Transf (AST/SGOT) 19, Alanine Aminotransferase (ALT/SGPT) 13, Alkaline Phosphatase 84, Troponin I < 0.028, Total Protein 6.1L, Albumin 3.6 11/07/19 05:43: Glucometer 155H 11/07/19 10:59: Glucometer 309H 11/07/19 13:19: Glucometer 318H 11/07/19 16:12: Glucometer 303H 11/07/19 21:23: Glucometer 227H 11/08/19 05:58: Glucometer 156H 11/08/19 10:56: Glucometer 313H 11/08/19 16:02: Glucometer 229H 11/08/19 21:14: Glucometer 217H 11/09/19 05:22: Glucometer 158H 11/09/19 10:45: Glucometer 323H 11/09/19 15:43: Glucometer 216H 11/09/19 20:50: Glucometer 243H 11/10/19 05:45: Glucometer 157H 11/10/19 10:50: Glucometer 288H 11/10/19 15:46: Glucometer 288H 11/10/19 20:35: Glucometer 137H 11/11/19 05:42: Glucometer 216H 11/11/19 06:14: White Blood Count 8.2, Red Blood Count 4.47, Hemoglobin 14.3, Hematocrit 43, Mean Corpuscular Volume 96, Mean Corpuscular Hemoglobin 32, Mean Corpuscular Hemoglobin Concent 33, Red Cell Distribution Width 14.1, Platelet Count 264, Mean Platelet Volume 11.5H, Neutrophils (%) (Auto) 61, Lymphocytes (%) (Auto) 25, Monocytes (%) (Auto) 11, Eosinophils (%) (Auto) 2, Basophils (%) (Auto) 1, Neutrophils # (Auto) 5.0, Lymphocytes # (Auto) 2.0, Monocytes # (Auto) 0.9, Eosinophils # (Auto) 0.2, Basophils # (Auto) 0.1, Sodium Level 138, Potassium Level 4.5, Chloride Level 102, Carbon Dioxide Level 26, Anion Gap 10, Blood Urea Nitrogen 29H, Creatinine 1.21, Estimat Glomerular Filtration Rate 57, BUN/Creatinine Ratio 24, Glucose Level 188H, Calcium Level 9.1, Corrected Calcium 9.4, Total Bilirubin 0.5, Aspartate Amino Transf (AST/SGOT) 18, Alanine Aminotransferase (ALT/SGPT) 14, Alkaline Phosphatase 89, Total Protein 6.0L, Albumin 3.6 11/11/19 10:45: Glucometer 221H 11/11/19 15:50: Glucometer 223H 11/11/19 20:06: Glucometer 270H 11/12/19 05:45: Glucometer 161H 11/12/19 11:15: Glucometer 347H 11/12/19 16:42: Glucometer 237H 11/12/19 21:34: Glucometer 118H 11/13/19 06:41: Glucometer 182H 11/13/19 11:33: Glucometer 312H 11/13/19 16:55: Glucometer 131H 11/13/19 20:16: Glucometer 259H 11/14/19 05:29: Glucometer 154H 11/14/19 10:52: Glucometer 286H 11/14/19 16:44: Glucometer 201H 11/14/19 20:40: Glucometer 229H 11/15/19 06:13: Glucometer 146H 11/15/19 06:15: White Blood Count 9.9, Red Blood Count 4.59, Hemoglobin 14.3, Hematocrit 43, Mean Corpuscular Volume 94, Mean Corpuscular Hemoglobin 31, Mean Corpuscular H emoglobin Concent 33, Red Cell Distribution Width 13.9, Platelet Count 258, Mean Platelet Volume 12.1H, Creatinine 1.22 11/15/19 10:50: Glucometer 281H 11/15/19 16:43: Glucometer 238H 11/15/19 20:49: Glucometer 124H 11/16/19 04:49: Glucometer 154H 11/16/19 11:20: Glucometer 222H 11/16/19 16:29: Glucometer 236H 11/16/19 20:42: Glucometer 142H 11/17/19 05:48: Glucometer 148H 11/17/19 11:03: Glucometer 300H 11/17/19 16:51: Glucometer 305H 11/17/19 20:28: Glucometer 255H 11/18/19 06:51: White Blood Count 10.1, Red Blood Count 4.41, Hemoglobin 13.9, Hematocrit 42, Mean Corpuscular Volume 94, Mean Corpuscular Hemoglobin 32, Mean Corpuscular Hemoglobin Concent 33, Red Cell Distribution Width 13.4, Platelet Count 239, Mean Platelet Volume 12.2H, Neutrophils (%) (Auto) 58, Lymphocytes (%) (Auto) 28, Monocytes (%) (Auto) 12, Eosinophils (%) (Auto) 2, Basophils (%) (Auto) 1, Neutrophils # (Auto) 5.9, Lymphocytes # (Auto) 2.8, Monocytes # (Auto) 1.2H, Eosinophils # (Auto) 0.2, Basophils # (Auto) 0.1, Sodium Level 135, Potassium Level 4.6, Chloride Level 101, Carbon Dioxide Level 24, Anion Gap 10, Blood Urea Nitrogen 25H, Creatinine 1.26, Estimat Glomerular Filtration Rate 55, BUN /Creatinine Ratio 20, Glucose Level 173H, Calcium Level 9.1, Corrected Calcium 9.4, Total Bilirubin 0.4, Aspartate Amino Transf (AST/SGOT) 19, Alanine Aminotransferase (ALT/SGPT) 16, Alkaline Phosphatase 91, Total Protein 6.1L, Albumin 3.6 11/18/19 07:37: Glucometer 212H 11/18/19 11:18: Glucometer 239H 11/18/19 16:36: Glucometer 185H 11/18/19 20:41: Glucometer 251H 11/19/19 05:53: Glucometer 164H 11/19/19 10:57: Glucometer 280H 11/19/19 16:55: Glucometer 193H 11/19/19 20:45: Glucometer 328H 11/20/19 05:27: Glucometer 130H 11/20/19 11:03: Glucometer 254H 11/20/19 15:39: Glucometer 230H 11/20/19 20:04: Glucometer 173H 11/21/19 06:26: Glucometer 189H 11/21/19 11:02: Glucometer 198H 11/21/19 16:28: Glucometer 270H 11/21/19 21:03: Glucometer 151H 11/22/19 05:40: Glucometer 144H 11/22/19 11:00: Glucometer 287H 11/22/19 17:01: Glucometer 151H 11/22/19 20:52: Glucometer 205H 11/23/19 05:06: Glucometer 134H 11/23/19 10:57: Glucometer 223H 11/23/19 16:26: Glucometer 372H 11/23/19 20:16: Glucometer 211H 11/24/19 05:32: Glucometer 177H 11/24/19 11:09: Glucometer 171H 11/24/19 16:03: Glucometer 273H 11/24/19 20:06: Glucometer 169H 11/25/19 06:26: Glucometer 166H 11/25/19 11:02: Glucometer 386H 11/25/19 16:02: Glucometer 204H 11/25/19 20:09: Glucometer 179H 11/26/19 05:57: Glucometer 159H 11/26/19 10:53: Glucometer 304H 11/26/19 15:48: Glucometer 217H 11/26/19 20:01: Glucometer 169H 11/27/19 05:26: Glucometer 165H Pending Labs Laboratory Tests 10/31/19 16:04: Glucometer 334 10/31/19 20:13: Glucometer 193 11/01/19 05:12: Glucometer 92 11/01/19 05:50: White Blood Count 8.5, Red Blood Count 4.51, Hemoglobin 14.4, Hematocrit 43, Mean Corpuscular Volume 95, Mean Corpuscular Hemoglobin 32, Mean Corpuscular Hemoglobin Concent 34, Red Cell Distribution Width 14.7, Platelet Count 262, Mean Platelet Volume 11.4, Neutrophils (%) (Auto) 54, Lymphocytes (%) (Auto) 30, Monocytes (%) (Auto) 12, Eosinophils (%) (Auto) 3, Basophils (%) (Auto) 1, Neutrophils # (Auto) 4.6, Lymphocytes # (Auto) 2.6, Monocytes # (Auto) 1.0, Eosinophils # (Auto) 0.3, Basophils # (Auto) 0.0, Sodium Level 138, Potassium Level 4.1, Chloride Level 103, Carbon Dioxide Level 24, Anion Gap 11, Blood Urea Nitrogen 21, Creatinine 1.05, Estimat Glomerular Filtration Rate > 60, BUN/Creatinine Ratio 20, Glucose Level 95, Calcium Level 9.1, Corrected Calcium 9.5, Total Bilirubin 0.5, Aspartate Amino Transf (AST/SGOT) 18, Alanine Aminotransferase (ALT/SGPT) 18, Alkaline Phosphatase 86, Total Protein 5.8, Albumin 3.5 11/01/19 11:52: Glucometer 259 11/01/19 16:19: Glucometer 237 11/01/19 20:50: Glucometer 137 11/02/19 01:07: Glucometer 61 11/02/19 01:58: Glucometer 103 11/02/19 06:01: Glucometer 238 11/02/19 11:01: Glucometer 254 11/02/19 15:59: Glucometer 260 11/02/19 20:47: Glucometer 179 11/03/19 04:26: Glucometer 112 11/03/19 05:47: Glucometer 114 11/03/19 10:59: Glucometer 218 11/03/19 16:02: Glucometer 350 11/03/19 20:49: Glucometer 257 11/04/19 00:07: Glucometer 59 11/04/19 01:10: Glucometer 112 11/04/19 07:10: White Blood Count 9.8, Red Blood Count 4.60, Hemoglobin 14.4, Hematocrit 44, Mean Corpuscular Volume 96, Mean Corpuscular Hemoglobin 31, Mean Corpuscular Hemoglobin Concent 33, Red Cell Distribution Width 14.7, Platelet Count 266, Mean Platelet Volume 11.6, Neutrophils (%) (Auto) 62, Lymphocytes (%) (Auto) 25, Monocytes (%) (Auto) 10, Eosinophils (%) (Auto) 2, Basophils (%) (Auto) 1, Neutrophils # (Auto) 6.1, Lymphocytes # (Auto) 2.4, Monocytes # (Auto) 1.0, Eosinophils # (Auto) 0.2, Basophils # (Auto) 0.1, Sodium Level 137, Potassium Level 4.7, Chloride Level 103, Carbon Dioxide Level 24, Anion Gap 10, Blood Urea Nitrogen 31, Creatinine 1.34, Estimat Glomerular Filtration Rate 51, BUN/Creatinine Ratio 23, Glucose Level 227, Glucometer 206, Calcium Level 9.2, Corrected Calcium 9.4, Total Bilirubin 0.4, Aspartate Amino Transf (AST/SGOT) 17, Alanine Aminotransferase (ALT/SGPT) 14, Alkaline Phosphatase 94, Total Protein 6.1, Albumin 3.7 11/04/19 11:07: Glucometer 474 11/04/19 16:14: Glucometer 301 11/04/19 21:04: Glucometer 149 11/05/19 05:36: Glucometer 180 11/05/19 11:06: Glucometer 311 11/05/19 15:39: Glucometer 365 11/05/19 20:29: Glucometer 277 11/06/19 05:32: Glucometer 227 11/06/19 10:49: Glucometer 332 11/06/19 15:42: Glucometer 255 11/06/19 21:21: Glucometer 196 11/07/19 05:41: Sodium Level 137, Potassium Level 4.5, Chloride Level 102, Carbon Dioxide Level 24, Anion Gap 11, Blood Urea Nitrogen 32, Creatinine 1.19, Estimat Glomerular Filtration Rate 58, BUN/Creatinine Ratio 27, Glucose Level 174, Calcium Level 9.3, Corrected Calcium 9.6, Total Bilirubin 0.5, Aspartate Amino Transf (AST/SGOT) 19, Alanine Aminotransferase (ALT/SGPT) 13, Alkaline Phosphatase 84, Troponin I < 0.028, Total Protein 6.1, Albumin 3.6 11/07/19 05:43: Glucometer 155 11/07/19 10:59: Glucometer 309 11/07/19 13:19: Glucometer 318 11/07/19 16:12: Glucometer 303 11/07/19 21:23: Glucometer 227 11/08/19 05:58: Glucometer 156 11/08/19 10:56: Glucometer 313 11/08/19 16:02: Glucometer 229 11/08/19 21:14: Glucometer 217 11/09/19 05:22: Glucometer 158 11/09/19 10:45: Glucometer 323 11/09/19 15:43: Glucometer 216 11/09/19 20:50: Glucometer 243 11/10/19 05:45: Glucometer 157 11/10/19 10:50: Glucometer 288 11/10/19 15:46: Glucometer 288 11/10/19 20:35: Glucometer 137 11/11/19 05:42: Glucometer 216 11/11/19 06:14: White Blood Count 8.2, Red Blood Count 4.47, Hemoglobin 14.3, Hematocrit 43, Mean Corpuscular Volume 96, Mean Corpuscular Hemoglobin 32, Mean Corpuscular Hemoglobin Concent 33, Red Cell Distribution Width 14.1, Platelet Count 264, Mean Platelet Volume 11.5, Neutrophils (%) (Auto) 61, Lymphocytes (%) (Auto) 25, Monocytes (%) (Auto) 11, Eosinophils (%) (Auto) 2, Basophils (%) (Auto) 1, Neutrophils # (Auto) 5.0, Lymphocytes # (Auto) 2.0, Monocytes # (Auto) 0.9, Eosinophils # (Auto) 0.2, Basophils # (Auto) 0.1, Sodium Level 138, Potassium Level 4.5, Chloride Level 102, Carbon Dioxide Level 26, Anion Gap 10, Blood Urea Nitrogen 29, Creatinine 1.21, Estimat Glomerular Filtration Rate 57, BUN/Creatinine Ratio 24, Glucose Level 188, Calcium Level 9.1, Corrected Calcium 9.4, Total Bilirubin 0.5, Aspartate Amino Transf (AST/SGOT) 18, Alanine Aminotransferase (ALT/SGPT) 14, Alkaline Phosphatase 89, Total Protein 6.0, Albumin 3.6 11/11/19 10:45: Glucometer 221 11/11/19 15:50: Glucometer 223 11/11/19 20:06: Glucometer 270 11/12/19 05:45: Glucometer 161 11/12/19 11:15: Glucometer 347 11/12/19 16:42: Glucometer 237 11/12/19 21:34: Glucometer 118 11/13/19 06:41: Glucometer 182 11/13/19 11:33: Glucometer 312 11/13/19 16:55: Glucometer 131 11/13/19 20:16: Glucometer 259 11/14/19 05:29: Glucometer 154 11/14/19 10:52: Glucometer 286 11/14/19 16:44: Glucometer 201 11/14/19 20:40: Glucometer 229 11/15/19 06:13: Glucometer 146 11/15/19 06:15: White Blood Count 9.9, Red Blood Count 4.59, Hemoglobin 14.3, Hematocrit 43, Mean Corpuscular Volume 94, Mean Corpuscular Hemoglobin 31, Mean Corpuscular Hemoglobin Concent 33, Red Cell Distribution Width 13.9, Platelet Count 258, Mean Platelet Volume 12.1, Creatinine 1.22 11/15/19 10:50: Glucometer 281 11/15/19 16:43: Glucometer 238 11/15/19 20:49: Glucometer 124 11/16/19 04:49: Glucometer 154 11/16/19 11:20: Glucometer 222 11/16/19 16:29: Glucometer 236 11/16/19 20:42: Glucometer 142 11/17/19 05:48: Glucometer 148 11/17/19 11:03: Glucometer 300 11/17/19 16:51: Glucometer 305 11/17/19 20:28: Glucometer 255 11/18/19 06:51: White Blood Count 10.1, Red Blood Count 4.41, Hemoglobin 13.9, Hematocrit 42, Mean Corpuscular Volume 94, Mean Corpuscular Hemoglobin 32, Mean Corpuscular Hemoglobin Concent 33, Red Cell Distribution Width 13.4, Platelet Count 239, Mean Platelet Volume 12.2, Neutrophils (%) (Auto) 58, Lymphocytes (%) (Auto) 28, Monocytes (%) (Auto) 12, Eosinophils (%) (Auto) 2, Basophils (%) (Auto) 1, Neutrophils # (Auto) 5.9, Lymphocytes # (Auto) 2.8, Monocytes # (Auto) 1.2, Eosinophils # (Auto) 0.2, Basophils # (Auto) 0.1, Sodium Level 135, Potassium Level 4.6, Chloride Level 101, Carbon Dioxide Level 24, Anion Gap 10, Blood Urea Nitrogen 25, Creatinine 1.26, Estimat Glomerular Filtration Rate 55, BUN/Creatinine Ratio 20, Glucose Level 173, Calcium Level 9.1, Corrected Calcium 9.4, Total Bilirubin 0.4, Aspartate Amino Transf (AST/SGOT) 19, Alanine Aminotransferase (ALT/SGPT) 16, Alkaline Phosphatase 91, Total Protein 6.1, Albumin 3.6 11/18/19 07:37: Glucometer 212 11/18/19 11:18: Glucometer 239 11/18/19 16:36: Glucometer 185 11/18/19 20:41: Glucometer 251 11/19/19 05:53: Glucometer 164 11/19/19 10:57: Glucometer 280 11/19/19 16:55: Glucometer 193 11/19/19 20:45: Glucometer 328 11/20/19 05:27: Glucometer 130 11/20/19 11:03: Glucometer 254 11/20/19 15:39: Glucometer 230 11/20/19 20:04: Glucometer 173 11/21/19 06:26: Glucometer 189 11/21/19 11:02: Glucometer 198 11/21/19 16:28: Glucometer 270 11/21/19 21:03: Glucometer 151 11/22/19 05:40: Glucometer 144 11/22/19 11:00: Glucometer 287 11/22/19 17:01: Glucometer 151 11/22/19 20:52: Glucometer 205 11/23/19 05:06: Glucometer 134 11/23/19 10:57: Glucometer 223 11/23/19 16:26: Glucometer 372 11/23/19 20:16: Glucometer 211 11/24/19 05:32: Glucometer 177 11/24/19 11:09: Glucometer 171 11/24/19 16:03: Glucometer 273 11/24/19 20:06: Glucometer 169 11/25/19 06:26: Glucometer 166 11/25/19 11:02: Glucometer 386 11/25/19 16:02: Glucometer 204 11/25/19 20:09: Glucometer 179 11/26/19 05:57: Glucometer 159 11/26/19 10:53: Glucometer 304 11/26/19 15:48: Glucometer 217 11/26/19 20:01: Glucometer 169 11/27/19 05:26: Glucometer 165 Discharge Home Medications: Active Scripts Active Pantoprazole Sodium 40 Mg Tablet.dr 40 Mg PO DAILY Lisinopril 5 Mg Tablet 5 Mg PO DAILY Amiodarone HCl 200 Mg Tablet 200 Mg PO DAILY Eliquis (Apixaban) 5 Mg Tablet 5 Mg PO BID Reported Vitamin C (Ascorbic Acid) 100 Mg Tablet 100 Mg PO DAILY Flomax (Tamsulosin HCl) 0.4 Mg Cap 0.4 Mg PO DAILY LAST FILLED 05-27-2019 #90 Multivitamins (Multivitamin) 1 Each Tablet 1 Each PO DAILY Metformin HCl ER (Metformin HCl) 500 Mg Tab.er.24 1,000 Mg PO BID Melatonin 5 Mg Tablet 10 Mg PO HS PRN Lovastatin 20 Mg Tablet 20 Mg PO 1800 W/ MEALS Novolog (Insulin Aspart) 100 Unit/1 Ml Susp 12 Unit SQ WM MDD 60 UNITS 12 UNITS AT MEALS PLUS CORRECTION- MAX DAILY DOSE IS 60 UNTIS Chlorpheniramine Maleate 4 Mg Tablet 4 Mg PO TID PRN Aspirin EC (Aspirin) 81 Mg Tablet.dr 81 Mg PO HS Levemir (Insulin Determir) 1,000 Units/10 Ml Soln 15-20 Units SQ HS Instructions to patient/family Please see electronic discharge instructions given to patient. Diagnosis/Problems Diagnosis/Problems (1) CVA (cerebral vascular accident) (2) Flaccid hemiplegia affecting dominant side (3) Diabetes (4) Hypertension (5) Hyperlipemia (6) On continuous oral anticoagulation (7) Atrial fibrillation (8) History of penile implant (9) History of colon cancer (10) Former smoker (11) Renal insufficiency (12) Constipation Clinical Quality Measures DVT/VTE Risk/Contraindication: Risk Factor Score Per Nursin RFS Level Per Nursing on Admit: 4+=Very High SCOTT BARBOSA DO Nov 27, 2019 10:33
--- NOTE | 2019-11-27 10:53 | NUR ---
CM/SS DISCHARGE Patient discharged to home with spouse as planned. She has been present 2 days and nights for patient/caregiver training for this return to home. HHC: Finalized with [facility] as planned over the past week. DME: FWW was delivered Monday from [facility], adjusted by therapy team, used by patient for sessions. As detailed earlier, spouse had wheelchair on loan at home, inside ramp completed. New Rx: [facility] has filled scripts but had not yet sent out, they report this is a 7-10 day process unless physician notes this as Urgent or Needs Overnight Delivery. Discussed with RN/Yuridia at patient[place] [facility] in [place]. She will request the Rx be shipped TODAY overnight delivery. Confirmed patient has had all daily Rx this date prior to discharge. He previously received [facility] home script because it originated from [facility]. Full Roll Inspector reminded spouse of previous discussion to have 1-2 males at their home to assist getting patient from the car and inside. Patient and spouse appreciative of care here. All discharge activities completed. Worked in partnership with Unit RN for final communications. [facility] FX: [phone] PH: [phone] Addendum: 11/27/19 at 1107 by DUARTE MEYER Faxed clinical summary to [facility] and Dr. Beth Bryan, [facility].
--- NOTE | 2019-11-27 11:48 | Therapy Team Discharge Summary ---
Therapy Discharge Summary Discharge Recommendations Date of Discharge Nov 27, 2019 at 09:00 Occupational Therapy Pt admitted to ARU following acute hospitalization with right side deficits. On admission pt required SBA for eating, max assist for oral care and UE dressing and was total assist for LE dressing, and bathing. Skilled OT intervention focused on ADL training, transfers, strengthening, coordination, and safety. Pt progressed with therapy and by discharge is completing eating and oral care with modified independence, and dressing, toileting, and bathing with min assist. Pt met goals for eating and oral care, but did not meet other OT LTG. Pt discharged home with spouse. D/c ARU OT at this time. Decreased Activ Tolerance, Decreased Safety Aware, Decreased UE Strength, Impaired Coordination, Impaired Funct Balance, Impaired Self-Care Skills, Restricted Funct UE ROM PT Nursing Home Goals Nursing Home Goals PT Ic Design Engineer Goals Time Frame: Nov 28, 2019 Roll Left to Right (QC): 6 Sit to Lying (QC): 6 Lying-Sitting on Side/Bed(QC): 6 Sit to Stand (QC): 6 Chair/Yii-ft-Oumay Xfer(QC): 6 Car Transfer (QC): 5 Does the Patient Walk: No and Walking Goal IS indicated Walk 10 feet (QC): 6 Walk 10ft-Uneven Surface(QC): 5 Walk 50ft with 2 Turns (QC): 6 Walk 150 ft (QC): 6 Wheel 50 feet with 2 turns (QC: 6 1 Step (curb) (QC): 5 4 Steps (QC): 5 12 Steps (QC): 4 Picking up an Object (QC): 4 OT Nursing Home Goals Ic Design Engineer Goals Time Frame: Nov 29, 2019 Eating (QC): 6 (met) Oral Hygiene (QC): 6 (met) Shower/Bathe Self (QC): 4 (not met) Upper Body Dressing (QC): 5 (not met) Lower Body Dressing (QC): 5 (not met) On/Off Footwear (QC): 5 (not met) Toileting Hygiene (QC): 5 (not met) Toilet/Commode Transfer (QC): 6 Additional Goals: 1-Demonstrate ADL Tasks, 2-Verbalize Understanding, 3- ImproveStrength/Joey 1=Demonstrate adherence to instructed precautions during ADL tasks. 2=Patient will verbalize/demonstrate understanding of assistive devices/modifications for ADL. 3=Patient will improve strength/tolerance for activity to enable patient to perform ADL's. Speech Ic Design Engineer Goals Ic Design Engineer Goals Patient will improve cognitive communication necessary for safety and daily living tasks with minimal assist. Patient will maintain adequate nutrition/hydration via safe effective swallow function. JALIL MERCEDES OT Nov 27, 2019 11:48
--- NOTE | 2019-11-27 15:17 | Therapy Team Discharge Summary ---
Therapy Discharge Summary Discharge Recommendations Date of Discharge Nov 27, 2019 at 09:00 Occupational Therapy Decreased Activ Tolerance, Decreased Safety Aware, Decreased UE Strength, Impa ired Coordination, Impaired Funct Balance, Impaired Self-Care Skills, Restricted Funct UE ROM Speech-Language Pathology Patient was admitted to the ARU s/p CVA. Patient received skilled ST for cognitive and dysphagia with all goals met. Patient made good progress. Patient discharged to his home with his today. PT Senior Living Goals Senior Living Goals PT Senior Living Goals Time Frame: Nov 28, 2019 Roll Left to Right (QC): 6 Sit to Lying (QC): 6 Lying-Sitting on Side/Bed(QC): 6 Sit to Stand (QC): 6 Chair/[id number] Xfer(QC): 6 Car Transfer (QC): 5 Does the Patient Walk: No and Walking Goal IS indicated Walk 10 feet (QC): 6 Walk 10ft-Uneven Surface(QC): 5 Walk 50ft with 2 Turns (QC): 6 Walk 150 ft (QC): 6 Wheel 50 feet with 2 turns (QC: 6 1 Step (curb) (QC): 5 4 Steps (QC): 5 12 Steps (QC): 4 Picking up an Object (QC): 4 OT Pull Over Goals Pull Over Goals Time Frame: Nov 29, 2019 Eating (QC): 6 (met) Oral Hygiene (QC): 6 (met) Shower/Bathe Self (QC): 4 (not met) Upper Body Dressing (QC): 5 (not met) Lower Body Dressing (QC): 5 (not met) On/Off Footwear (QC): 5 (not met) Toileting Hygiene (QC): 5 (not met) Toilet/Commode Transfer (QC): 6 Additional Goals: 1-Demonstrate ADL Tasks, 2-Verbalize Understanding, 3- ImproveStrength/Joey 1=Demonstrate adherence to instructed precautions during ADL tasks. 2=Patient will verbalize/demonstrate understanding of assistive devices/m odifications for ADL. 3=Patient will improve strength/tolerance for activity to enable patient to perform ADL's. Speech Pull Over Goals Senior Living Goals Patient will improve cognitive communication necessary for safety and daily living tasks with minimal assist. Patient will maintain adequate nutrition/hydration via safe effective swallow function. RAY RODRÍGUEZ Nov 27, 2019 15:17
--- NOTE | 2019-11-28 17:03 | NUR ---
CM/SS DISCHARGE Followup Confirmed with patient and spouse he received his [facility] Rx today, so all new medications have been received as ordered.
== END 2019-11-27 09:00 | disposition home health service (06) | DRG 57 ==
PROVIDERS: ADMIT Internal Medicine; ATTEND Internal Medicine
DX: I69.351 Hemiplegia and hemiparesis following cerebral infarction affecting right dominant side (principal); I69.391 Dysphagia following cerebral infarction; R13.10 Dysphagia, unspecified; K22.2 Esophageal obstruction; E11.42 Type 2 diabetes mellitus with diabetic polyneuropathy; I48.0 Paroxysmal atrial fibrillation; E78.5 Hyperlipidemia, unspecified; I25.10 Atherosclerotic heart disease of native coronary artery without angina pectoris; I12.9 Hypertensive chronic kidney disease with stage 1 through stage 4 chronic kidney disease, or unspecified chronic kidney disease; N18.9 Chronic kidney disease, unspecified; K59.00 Constipation, unspecified; F22 Delusional disorders; N52.9 Male erectile dysfunction, unspecified; Z79.4 Long term (current) use of insulin; Z85.038 Personal history of other malignant neoplasm of large intestine; Z96.0 Presence of urogenital implants; Z95.1 Presence of aortocoronary bypass graft; Z95.5 Presence of coronary angioplasty implant and graft; Z79.01 Long term (current) use of anticoagulants
CPT/HCPCS: 36415; 74230; 80053; 82565; 82962; 84484; 85025; 85027; 93005